=== PATIENT | male | born 1945 | race Caucasian/White ===

== ENCOUNTER → 2016-08-11 | Outpatient (CLI) | payer BC ==
[2016-08-11 11:48] LABS: ALBUMIN 3.9 GM/DL (3.2-5.2); ALBUMIN/GLOBULIN RATIO 1.44 (1.00-1.93); ALKALINE PHOSPHATASE 55 U/L (45-117); ALT/SGPT 21 U/L (12-78); ANION GAP 6 MEQ/L (8-16); AST/SGOT 12 U/L (15-37); BILIRUBIN,TOTAL 0.4 MG/DL (0.2-1.0); BLOOD UREA NITROGEN 18 MG/DL (7-18); CALCIUM LEVEL 8.7 MG/DL (8.8-10.2); CARBON DIOXIDE LEVEL 30 MEQ/L (21-32); CHLORIDE LEVEL 107 MEQ/L (98-107); CHOLESTEROL LEVEL 182 MG/DL (<200); CREATININE FOR GFR 0.89 MG/DL (0.70-1.30); GLOMERULAR FILTRATION RATE > 60.0 (>42); GLUCOSE, FASTING 93 MG/DL (83-110); POTASSIUM SERUM 4.6 MEQ/L (3.5-5.1); SODIUM LEVEL 143 MEQ/L (136-145); TOTAL PROTEIN 6.6 GM/DL (6.4-8.2); TRIGLYCERIDES LEVEL 87 MG/DL (<150)
== END ==
LOC: M LRY 08:14
PROVIDERS: ATTEND Emergency Medicine
DX: I10 Essential (primary) hypertension (principal); N40.0 Benign prostatic hyperplasia without lower urinary tract symptoms
CPT/HCPCS: 36415; 80053; 80061; G0103

== ENCOUNTER → 2017-03-06 | Outpatient (CLI) | payer BC ==
[2017-03-06 12:13] LABS: ALBUMIN 3.7 GM/DL (3.2-5.2); ALBUMIN/GLOBULIN RATIO 1.42 (1.00-1.93); ALKALINE PHOSPHATASE 46 U/L (45-117); ALT/SGPT 30 U/L (12-78); ANION GAP 6 MEQ/L (8-16); AST/SGOT 20 U/L (15-37); BILIRUBIN,TOTAL 0.5 MG/DL (0.2-1.0); BLOOD UREA NITROGEN 20 MG/DL (7-18); CALCIUM LEVEL 7.8 MG/DL (8.8-10.2); CARBON DIOXIDE LEVEL 30 MEQ/L (21-32); CHLORIDE LEVEL 105 MEQ/L (98-107); CHOLESTEROL LEVEL 166 MG/DL (<200); CREATININE FOR GFR 0.79 MG/DL (0.70-1.30); GLOMERULAR FILTRATION RATE > 60.0 (>42); GLUCOSE, FASTING 86 MG/DL (83-110); POTASSIUM SERUM 4.5 MEQ/L (3.5-5.1); SODIUM LEVEL 141 MEQ/L (136-145); TOTAL PROTEIN 6.3 GM/DL (6.4-8.2); TRIGLYCERIDES LEVEL 73 MG/DL (<150)
== END ==
LOC: M LRY 07:53
PROVIDERS: ATTEND Emergency Medicine
DX: N40.0 Benign prostatic hyperplasia without lower urinary tract symptoms (principal); I10 Essential (primary) hypertension
CPT/HCPCS: 36415; 80053; 80061; G0103

== ENCOUNTER → 2017-09-29 | Outpatient (CLI) | payer BC ==
[2017-09-29 12:05] LABS: ALBUMIN 3.6 GM/DL (3.2-5.2); ALBUMIN/GLOBULIN RATIO 1.24 (1.00-1.93); ALKALINE PHOSPHATASE 51 U/L (45-117); ALT/SGPT 28 U/L (12-78); ANION GAP 3 MEQ/L (8-16); AST/SGOT 17 U/L (7-37); BILIRUBIN,TOTAL 0.5 MG/DL (0.2-1.0); BLOOD UREA NITROGEN 22 MG/DL (7-18); CALCIUM LEVEL 8.5 MG/DL (8.8-10.2); CARBON DIOXIDE LEVEL 31 MEQ/L (21-32); CHLORIDE LEVEL 110 MEQ/L (98-107); CHOLESTEROL LEVEL 204 MG/DL (<200); CHOLESTEROL RISK RATIO 3.578 (<5); CREATININE FOR GFR 0.93 MG/DL (0.70-1.30); GLOMERULAR FILTRATION RATE > 60.0 (>42); GLUCOSE, FASTING 97 MG/DL (70-100); HDL CHOLESTEROL 57 MG/DL (>40); NON-HDL-C 147 MG/DL; POTASSIUM SERUM 4.9 MEQ/L (3.5-5.1); PSA SCREENING 0.87 NG/ML (< 4.0); SODIUM LEVEL 144 MEQ/L (136-145); TOTAL PROTEIN 6.5 GM/DL (6.4-8.2); TRIGLYCERIDES LEVEL 60 MG/DL (<150)
== END ==
LOC: M LRY 08:04
DX: I10 Essential (primary) hypertension (principal); N40.0 Benign prostatic hyperplasia without lower urinary tract symptoms

== ENCOUNTER → 2018-03-13 | Outpatient (CLI) | payer BC ==
[2018-03-13 12:04] LABS: BLOOD UREA NITROGEN 25 MG/DL (7-18)
[2018-03-13 12:04] LABS: CREATININE FOR GFR 0.87 MG/DL (0.70-1.30); GLOMERULAR FILTRATION RATE > 60.0 (>42)
== END ==
LOC: M LRY 09:12
DX: M51.17 Intervertebral disc disorders with radiculopathy, lumbosacral region (principal); M51.37 Other intervertebral disc degeneration, lumbosacral region; M96.1 Postlaminectomy syndrome, not elsewhere classified; M47.817 Spondylosis without myelopathy or radiculopathy, lumbosacral region
CPT/HCPCS: 82565

== ENCOUNTER → 2018-06-07 | Outpatient (CLI) | payer BC ==
--- NOTE | 2018-06-07 13:16 | REP ---
Left foot series: Four views: History: Left foot pain. Findings: Four views of the left foot demonstrate mild osteoarthritic spurring at the first and second MTP joints. There are Achilles and plantar calcaneal spurs as well. There is a small spur at the distal fibular tip also noted. No erosive changes seen. No fracture is noted. Impression: First and second MTP joint osteoarthritic spurring. Heel spurs. No acute bony abnormality. Electronically Signed by Jose Kiran MD 06/07/2018 01:22 P
== END ==
LOC: M LRY 11:56
PROVIDERS: ATTEND Nurse Practitioner Family
DX: M77.32 Calcaneal spur, left foot (principal); M19.072 Primary osteoarthritis, left ankle and foot

== ENCOUNTER → 2018-09-10 | Outpatient (CLI) | payer BC, MEDICARE ==
[2018-09-10 07:23] LABS: BASO # 0.1 10^3/uL (0.0-0.2); BASO % 0.9 % (0.0-1.0); EOS # 0.5 10^3/uL (0.0-0.50); EOS % 8.7 % (0.0-3.0); HEMATOCRIT 45.4 % (42.0-52.0); HEMOGLOBIN 15.2 g/dl (13.5-17.5); LYMPH % 16.6 % (24.0-44.0); MEAN CORPUSCULAR HEMOGLOBIN 29.7 pg (27.0-33.0); MEAN CORPUSCULAR HGB CONC 33.5 g/dl (32.0-36.5); MEAN CORPUSCULAR VOLUME 88.7 fl (80.0-96.0); MONO # 0.8 10^3/uL (0.0-0.8); MONO % 13.9 % (0.0-5.0); NEUTROPHILS # 3.4 10^3/uL (1.8-7.7); NEUTROPHILS % 59.4 % (36.0-66.0); PLATELET COUNT, AUTOMATED 237 10^3/uL (150-450); RED BLOOD COUNT 5.12 10^6/uL (4.30-6.10); WHITE BLOOD COUNT 5.8 10^3/uL (4.0-10.0)
[2018-09-10 07:33] LABS: INR 1.02; PROTHROMBIN TIME 13.5 SECONDS (12.1-14.4)
[2018-09-10 07:34] LABS: PARTIAL THROMBOPLASTIN TIME 31.1 SECONDS (25.4-37.6)
[2018-09-10 07:49] LABS: ALBUMIN 3.7 GM/DL (3.2-5.2); ALT/SGPT 38 U/L (12-78); BILIRUBIN,TOTAL 0.5 MG/DL (0.2-1.0); BLOOD UREA NITROGEN 25 MG/DL (7-18); CALCIUM LEVEL 8.6 MG/DL (8.8-10.2); CARBON DIOXIDE LEVEL 30 MEQ/L (21-32); CHLORIDE LEVEL 108 MEQ/L (98-107); CREATININE FOR GFR 1.11 MG/DL (0.70-1.30); GLOMERULAR FILTRATION RATE > 60.0 (>42); GLUCOSE, FASTING 86 MG/DL (70-100); POTASSIUM SERUM 4.3 MEQ/L (3.5-5.1); SODIUM LEVEL 142 MEQ/L (136-145); TOTAL PROTEIN 6.3 GM/DL (6.4-8.2)
== END ==
LOC: M LAB 06:56
DX: Z01.812 Encounter for preprocedural laboratory examination (principal)

== ENCOUNTER → 2018-09-10 | Outpatient (CLI) | payer BC, MEDICARE ==
--- NOTE | 2018-09-10 10:06 | ECGEPIP ---
Stationary ECG Study [facility] Test Date: 2018-09-10 Pat Name: CHARLEEN MEZA Department: Room: - Gender: M Head Of Mathematics: [facility] : 1945 Requested By: Other CDS - complete info on Order Number: [id number] Reading MD: Anum Saldaña Measurements Intervals [place] Rate: 60 P: 22 ME: 209 QRS: 9 QRSD: 91 T: 8 QT: 382 QTc: 382 Interpretive Statements SINUS RHYTHM POSSIBLE ANTERIOR MYOCARDIAL INFARCTION, OF INDETERMINATE AGE no prior Left atrial enlargement BORDERLINE 1ST DEGREE BLOCK Electronically Signed On 09-10-2018 10:06:06 EDT by Anum Saldaña
--- NOTE | 2018-09-10 10:57 | REP ---
Chest two views HISTORY: Preop Comparison: 08/10/2016 There is elevation of the right hemidiaphragm. A calcified granuloma is present in the right lower lobe. Linear density is present in the left lower lobe consistent with scar. The heart is normal in size. The pulmonary vasculature is normal in appearance. The bony structure is intact. IMPRESSION: No acute disease. Electronically Signed by New Hunter MD 09/10/2018 10:48 A
== END ==
LOC: M RAD 09:13
DX: Z01.811 Encounter for preprocedural respiratory examination (principal); M54.89 Other dorsalgia

== ENCOUNTER → 2018-09-11 | Outpatient (REF) | payer BC ==
[2018-09-11 18:51] LABS: CHOLESTEROL RISK RATIO 5.305 (<5)
== END ==
LOC: M LABDRAW1 17:14
PROVIDERS: ATTEND Physician Assistant
DX: I10 Essential (primary) hypertension (principal)

== ENCOUNTER → 2018-10-23 | Outpatient (CLI) | payer BC ==
[2018-10-23 17:53] LABS: CALCIUM LEVEL 9.3 MG/DL (8.8-10.2); CREATININE FOR GFR 1.47 MG/DL (0.70-1.30); GLOMERULAR FILTRATION RATE 50.1 (>42); POTASSIUM SERUM 4.5 MEQ/L (3.5-5.1)
== END ==
LOC: M LRY 10:56
PROVIDERS: ATTEND Physician Assistant
DX: I10 Essential (primary) hypertension (principal)

== ENCOUNTER 2019-02-19 21:20 | Inpatient (IN) | payer MEDICARE, BC ==
[~2019-02-19] VITALS: Ht 180.3 cm; Wt 88.1 kg
[2019-02-19] MEDS ORDERED: NOREPINEPHRINE BITARTRATE 8 MG in D5W 492 ML IV SCH (21:45)
[2019-02-19 22:40] LABS: HEMATOCRIT 31.9 % (42.0-52.0); HEMOGLOBIN 10.3 g/dl (13.5-17.5); MEAN CORPUSCULAR HEMOGLOBIN 28.6 pg (27.0-33.0); MEAN CORPUSCULAR HGB CONC 32.3 g/dl (32.0-36.5); MEAN CORPUSCULAR VOLUME 88.6 fl (80.0-96.0); PLATELET COUNT, AUTOMATED 190 10^3/uL (150-450)
[2019-02-19 22:51] LABS: WHITE BLOOD COUNT 31.9 10^3/uL (4.0-10.0)
[2019-02-19 23:04] LABS: ALBUMIN 2.3 GM/DL (3.2-5.2); BILIRUBIN,DIRECT 0.2 MG/DL (0.0-0.2); BILIRUBIN,TOTAL 0.3 MG/DL (0.2-1.0); CALCIUM LEVEL 7.7 MG/DL (8.8-10.2); CREATININE FOR GFR 2.53 MG/DL (0.70-1.30); GLOMERULAR FILTRATION RATE 26.8 (>42); POTASSIUM SERUM 4.2 MEQ/L (3.5-5.1); TOTAL PROTEIN 5.1 GM/DL (6.4-8.2)
[2019-02-19] MEDS ORDERED: FLON1SPR (23:06)
[2019-02-19] MEDS ORDERED: DICL1GEL3 TOP (23:06)
[2019-02-19] MEDS ORDERED: AMLO10TA5 PO (23:06)
[2019-02-19] MEDS ORDERED: OMEP1CAP73 PO (23:06)
[2019-02-19] MEDS ORDERED: TYLE650T38 PO (23:06)
[2019-02-20] VITALS (75 sets, daily range): BP systolic 83–123; BP diastolic 51–76
[2019-02-20] MEDS: EPINEPHrine HCL INJ 1 MG in D5W 240 ML IV SCH ×2 (00:43→02:45)
[2019-02-20] MEDS ORDERED: NOREPINEPHRINE BITARTRATE 8 MG in D5W 500 ML IV SCH (00:43)
[2019-02-20] MEDS: NOREPINEPHRINE BITARTRATE 8 MG in D5W 492 ML IV SCH ×2 (00:43→14:22)
--- NOTE | 2019-02-20 00:52 | HPEPDOC ---
[facility] Medical History & Physical Date of Admission Feb 20, 2019 Date of Service: Feb 20, 2019 Primary Care Physician: A Other Provider Hannah PRICE Attending Physician: MAE LEYVA MD History and Physical TIME OF SERVICE: 12:55 AM CC Time 60 min CHIEF COMPLAINT: n/v/d HISTORY OF PRESENT ILLNESS: This is a 79-year-old male that was transferred from [facility] for a higher level of care. He went to the hospital yesterday at about noon with complaints of intermittent rigors, weakness, nausea, 6 episodes of non-bloody vomiting and diarrhea for the past few days. Associated symptoms include change in the smell of the urine and urinary frequency. He denied having abdominal pain, black emesis or CVA tenderness. A month ago. He was diagnosed with a kidney stone and had a ureteral stent placed. At [facility] his WBC count was 18.1, hemoglobin is 11.2, platelets are 229. Sodium was 136, potassium was 4.0, chloride was 99, bicarbonate was 25, BUN is 29, creatinine was 2.5, glucose was 162, Lactic acid was 2.6, and Lipase was 25. The UA showed 5+ ketones, routine 100, leukocyte esterase 520, blood 500, WBCs too numerous to count, and 2+ bacteria. CT of the abdomen showed left hydronephrosis with left hydroureter down to the bladder and left lateral wall thickening. A gallstone was also noted. He received 5 L of normal saline, Rocephin, Zofran, ranitidine, and was started Levophed which is currently running at 20. Currently, the patient's only complaints are of a headache, feeling thirsty, and back pain which she attributes to the hospital bed. REVIEW OF SYSTEMS: 12 point review of systems negative except as listed in HPI PAST MEDICAL/ SURGICAL HISTORY: GERD/Louie's Diverticulosis Nephrolithiasis Status post ureteral stent placement. Osteoarthritis. Obstructive sleep apnea line. Status post tonsillectomy SOCIAL HISTORY: Nonsmoker Alcohol use recreationally FAMILY HISTORY: Colon cancer Hypertension ALLERGIES: Please see below. HOME MEDICATIONS: Please see below. PHYSICAL EXAMINATION: VITAL SIGNS: Please see below. GENERAL APPEARANCE: Well-nourished, well-developed, not in apparent distress HEENT: Normocephalic, atraumatic, mucous members moist and pink CARDIOVASCULAR: Rate and rhythm, no murmurs, rubs or gallops, no lower extremity edema, extreme is warm and well-perfused LUNGS: Clear to auscultation bilaterally on room air ABDOMEN: Bowel sounds are hypoactive. Abdomen is soft and nontender on palpation MUSCULOSKELETAL: Range of motion is intact in all 4 extremities INTEGUMENT: Skin is slightly flushed and diaphoretic NEUROLOGICAL: Cranial nerves II-12 are grossly intact. Speech is not dysarthric PSYCHIATRIC: Alert and oriented to person, place and time, able to understand and follow commands LABORATORY DATA: See HPI and below. IMAGING: See HPI MICROBIOLOGY: Please see below. ASSESSMENT: Mr. Farrell is 73-year-old male with a past medical history of JARRET, Louie's, GERD, hypertension, and recent ureteral stent placement who is admitted for management of sepsis secondary to UTI and CHRISTELLE. PLAN: 1. Septic Shock secondary to UTI SIRS criteria include WBC 31 / RR 23 His MAP has ranged from 56-74, his 0.5 L of IV fluids while on Levophed Initial lactic acid was 2.6 and has decreased down to 1.6 Signs of end organ damage include acute elevation in creatinine Patient's blood pressure remains low despite fluid resuscitation. He is currently on Levophed -Qsofa Score = 2 = high risk Plan: admit to ICU / telemetry / Sepsis protocol / c/w ceftriaxone for UTI / c/w IVF /f/u blood cx, UA w Cx /continue Levophed, consult elastic tape inserter for placement of central line/ epinephrine PRN if Levophed is maxed out (left instructions for the nursing staff to call the M.D. on-call for orders for albumin and steroids if this medication is necessary) 2. UTI Plan: c/w ceftriaxone / f/u Ucx, blood Cx and BMP 3.CHRISTELLE Likely 2/2 prerenal azotemia due to dehydration from the infection vs AIN bc of elevated Cr UA w leukocytes with an infection Baseline, BUN 25, today it is 32 Baseline GFR greater than 60 today it is 26.8 Baseline creatinine 1.1 today it is 2.53 Plan: Is/Os, daily weights / f/u ulytes for FENa or FEUrea, renal US, IVF 4. JARRET. Plan: Follow up with elastic tape inserter for CPAP. 5. GERD/Louie's Plan: IV PPI 6. Headache Plan: Ofrimev FASTHUGS -NPO, Ofrimev, no sedation, DVT px w heparin, head of bed elevated, PPI, glycemic goal 140-180 Disposition pending clinical course Vital Signs Vital Signs Date Time Temp Pulse Resp B/P (MAP) Pulse Ox O2 Delivery O2 Flow Rate FiO2 02/20/19 00:45 57 95/51 (66) 92 02/19/19 23:47 17 02/19/19 23:00 Room Air 02/19/19 21:33 98.2 Laboratory Data Labs 24H Laboratory Tests 2 02/19/19 22:28: Nucleated Red Blood Cells % (auto) 0.0, Anion Gap 7L, Glomerular Filtration Rate 26.8L, Calcium Level 7.7L, Aspartate Amino Transf (AST/SGOT) 17, Alanine Aminotransferase (ALT/SGPT) 14, Alkaline Phosphatase 59, Total Bilirubin 0.3, Direct Bilirubin 0.2, Total Protein 5.1L, Albumin 2.3L, Albumin/Globulin Ratio 0.82L 02/19/19 22:29: Lactic Acid Level 1.6 CBC/BMP Laboratory Tests 02/19/19 22:28 Red Blood Count 3.60 L, Mean Corpuscular Volume 88.6, Mean Corpuscular Hemoglobin 28.6, Mean Corpuscular Hemoglobin Concent 32.3, Red Cell Distribution Width 13.1 Home Medications Scheduled Amlodipine Besylate (Amlodipine Besylate) 10 Mg Tablet, 10 MG PO DAILY Omeprazole (Omeprazole) 20 Mg Capsule.dr, 20 MG PO DAILY Scheduled PRN Acetaminophen (Tylenol 8 Hour) 650 Mg Tablet.er, 650 MG PO Q8H PRN for PAIN Diclofenac Sodium (Diclofenac Sodium) 1% 100GM Gel..gram., 1 DOSE TOP QID PRN for PAIN APPLIES TO BACK NEEDED Fluticasone Propionate (Flonase Allergy Relief) 9.9 Ml [place].susp, 2 SPRAYS NA DAILY PRN for NASAL CONGESTION Allergies Coded Allergies: ciprofloxacin (Verified Allergy, Intermediate, hives, flushing, 02/19/19) Penicillins (Verified Allergy, Mild, PRURITIS, 02/19/19) A-FIB/CHADSVASC A-FIB History Current/History of A-Fib/PAF?: No Current PO Anticoag Therapy: No MAE LEYVA MD Feb 20, 2019 00:52
[2019-02-20] MEDS: NS 1,000 ML IV SCH ×3 (01:01→10:38)
[2019-02-20] MEDS ORDERED: ACETAMINOPHEN *IV* 1,000 MG in IV 1 EA IV ONE (01:30)
[2019-02-20] MEDS: PANTOPRAZOLE 40MG INJ (PROTONIX) (C9113) IV SCH (01:45)
[2019-02-20] MEDS ORDERED: cefTRIAXone SOD 1 GM in D5W MINI-BAG PLUS 50 ML IV SCH (04:00)
[2019-02-20 04:03] LABS: ABG BASE EXCESS -4.6 (-2.0-2.0); ABG O2 SATURATION 96.1 % (95.0-99.0); ABG PARTIAL PRESSURE CO2 30.4 mmHg (35.0-45.0); ABG PARTIAL PRESSURE O2 79.3 mmHg (75.0-100.0); ABG STANDARD HCO3 20.6 MEQ/L (22.0-26.0); ABG TOTAL CO2 19.9 MEQ/L (23.0-31.0); ABG pH (ARTERIAL) 7.414 UNITS (7.350-7.450)
[2019-02-20] MEDS ORDERED: VANCOMYCIN HCL 1,000 MG, VIAL MATE ADAPTER 1 EACH in D5W 250 ML IV ONE (04:15)
[2019-02-20] MEDS: ACETAMINOPHEN TAB 650MG DOSE (2X325MG) PO PRN ×2 (04:28→14:22)
[2019-02-20 04:35] LABS: SODIUM,RANDOM URINE 14 MEQ/L; UREA NITROGEN RANDOM URINE 554 MG/DL
[2019-02-20] MEDS: HEPARIN SOD (PORCINE) 5000 UNITS/ML VIAL SC SCH ×3 (05:47→22:03)
[2019-02-20] MEDS: MEROPENEM INJ 1 GM in IV 1 EA IV SCH ×2 (05:48→17:23)
[2019-02-20 06:25] LABS: HEMATOCRIT 28.7 % (42.0-52.0); HEMOGLOBIN 9.3 g/dl (13.5-17.5); MEAN CORPUSCULAR HEMOGLOBIN 28.3 pg (27.0-33.0); MEAN CORPUSCULAR HGB CONC 32.4 g/dl (32.0-36.5); MEAN CORPUSCULAR VOLUME 87.2 fl (80.0-96.0); PLATELET COUNT, AUTOMATED 183 10^3/uL (150-450); RED BLOOD COUNT 3.29 10^6/uL (4.30-6.10)
[2019-02-20 06:28] LABS: WHITE BLOOD COUNT 31.7 10^3/uL (4.0-10.0)
[2019-02-20 06:40] LABS: ALBUMIN 2.2 GM/DL (3.2-5.2); BILIRUBIN,TOTAL 0.3 MG/DL (0.2-1.0); CALCIUM LEVEL 7.7 MG/DL (8.8-10.2); CREATININE FOR GFR 2.37 MG/DL (0.70-1.30); GLOMERULAR FILTRATION RATE 28.9 (>42); PHOSPHORUS LEVEL 2.5 MG/DL (2.5-4.9); POTASSIUM SERUM 4.1 MEQ/L (3.5-5.1); TOTAL PROTEIN 5.3 GM/DL (6.4-8.2)
[2019-02-20 06:59] LABS: LYMPHOCYTES 3 % (16-44); MONOCYTES 1 % (0-5); NEUTROPHILS 91 % (28-66)
[2019-02-20 07:00] LABS: PLATELET ESTIMATE NORMAL (NORMAL)
--- NOTE | 2019-02-20 07:10 | CR ---
DATE OF CONSULTATION: 02/20/2019 I was asked by Dr. Arnold to evaluate Mr. Farrell for hypotensive recommendations. HISTORY OF PRESENT ILLNESS: Mr. Farrell is a 73-year-old white male who presented to [facility] with a several-day history of intermittent rigors, weakness, nausea, emesis and diarrhea. He also noted a change in the odor of his urine as well as urinary frequency. He proceeded to the emergency department there where he was diagnosed with a urinary tract infection and given ceftriaxone. He was also found to be hypotensive. He received fluid resuscitation eventually he received approximately 5 liters and was also on 20 mcg of Levophed when he was transferred to [facility] for further management. When he arrived here, his MAPs were in the 70s and he was relatively rapidly able to be weaned to Levophed level of 10 mcg. His lactic acid in [place] was mildly elevated at 2.6, but was normal upon arrival here. He denies any dyspnea on exertion, shortness of breath or cough. No abdominal pain. No lower extremity edema. He did have a small blister on his right heel that occurred after walking in crocs without socks. He denies any significant past medical history short of hypertension and recent urologic difficulties. In regards to his urologic difficulties, he notes that 6 months ago he had a stone. That apparently was complicated by hydronephrosis which required stent placement. He had a stent placed suprapubically by suprapubic access about a month ago. The wound has been healing appropriately with no drainage. He also has had a laminectomy done within the last few months. His urologist is out of [place] and his laminectomy was done in [place]. PAST MEDICAL HISTORY: 1. Gastroesophageal reflux disease (GERD)/Louie's esophagitis. 2. Diverticulosis. 3. Nephrolithiasis. 4. Status post ureteral stent placement approximately a month ago. 5. Status post laminectomy in the past few months. 6. Obstructive sleep apnea, not currently wearing C-PAP because of frequent nocturia. 7. Status post tonsillectomy. 8. Hypertension. SOCIAL HISTORY: He has a very remote tobacco history. Social alcohol usage. His previous work history included working at [employer]. FAMILY HISTORY: Notable for colon cancer and hypertension. ALLERGIES: - CIPROFLOXACIN - PENICILLIN MEDICATIONS ON ADMISSION: - amlodipine 10 mg by mouth daily - omeprazole 20 mg by mouth daily - acetaminophen 650 mg by mouth every 8 hours as needed - diclofenac gel to his back four times a day as needed - fluticasone nasal spray 2 sprays daily as needed REVIEW OF SYSTEMS: Per history of present illness (HPI). Remainder of pertinent review of systems are negative except that he had previously had a headache and he has chronic back pain. He admits to being thirsty. PHYSICAL EXAMINATION: General: Mr. Farrell is lying in bed in no acute distress. He can complete full sentences. No cough throughout the evaluation. Vital Signs: Temperature 98.2 with a T-max of 99.2, pulse 60, blood pressure 102/61, MAP 77, respiratory rate teens, and SPO2 94-97% on room air. HEENT: Anicteric. Nares patent bilaterally. Nares clear, dry mucosa. Neck: Supple, without jugular venous distention (JVD), thyromegaly, or masses. Trachea is midline. Lymph: Without cervical or supraclavicular lymphadenopathy. Chest: Perhaps slight increased AP diameter. Lungs: Symmetric excursion, good air entry with absent breath sounds at the right base. No wheeze, rhonchi or crackle on tidal excursion. Normal I:E. No accessory muscle usage or retractions. Cardiovascular: Regular rate and rhythm, normal S1 and S2. No murmur, rub or gallop appreciated. Abdomen: Positive bowel sounds. Soft, nondistended, nontender. Well-healing suprapubic scar with a small catheter extruding from it. No organomegaly. No masses. Extremities: Warm and well perfused. Normal capillary refill. Palpable pedal pulses bilaterally. No cyanosis or clubbing. Skin: Small lesion on the anterior right ankle from where he had the crocs. LABORATORY DATA: CBC showed a hemoglobin of 10.3, hematocrit 31.9, platelet count 190,000, white blood cell count 31,900. Chemistry showed a sodium of 141, potassium 4.2, chloride 109, bicarbonate 25, anion gap 7, BUN 32, creatinine 2.53, glucose 119, lactic acid 1.6, calcium 7.7, total bilirubin 0.3, AST 17, ALT 14, alkaline phosphatase 59, total protein 5.1, albumin 2.3. I reviewed his chest x-ray after right IJ placement which showed an elevated right hemidiaphragm. Normal-appearing cardiac silhouette and pulmonary vascular shadows. Normal appearing mediastinal and hilar regions. No consolidated areas. At [facility], his WBC count was 18,100, creatinine 2.59, BUN 29, and his lactic acid was 2.6. Urinalysis (UA) showed 5+ ketones, protein 100, leukocyte esterase 520, blood 500, WBCs too numerous to count, and 2+ bacteria. I am not certain how the urine was obtained. Per report, the CT of the abdomen showed left hydronephrosis with left hydroureter down to the bladder and left lateral wall thickening. Gallstone was also noted. IMPRESSION: 1. Sepsis secondary to urinary tract infection (UTI). 2. Hypotension. While he is septic, he does not meet the criteria for septic shock. I suspect a significant portion of this is secondary to dehydration related to his emesis and diarrhea preceding this admission. He also has ketones in his urine which would be consistent with this process. 3. Left hydronephrosis and left ureteral stent. 4. Deep vein thrombosis (DVT) prophylaxis with subcutaneous heparin. 5. Stress ulcer prophylaxis as well as for his Louie's esophagitis, on proton pump inhibitor. 6. Nutrition. Currently nothing by mouth (n.p.o.). RECOMMENDATIONS: 1. Will monitor CVP. He still appears clinically hypovolemic. 2. Replace urinary catheter for critical care monitoring. 3. Would change antibiotic to meropenem and a single dose of vancomycin given his complicated UTI with sepsis pending culture results. 4.. Agree with Levophed as the agent at the present time. Hopefully, that will be able to be weaned as he is effectively fluid resuscitated and sepsis clears. CRITICAL CARE TIME: 40 minutes, not including procedure time. MTDD
--- NOTE | 2019-02-20 09:16 | REP ---
PORTABLE CHEST: AP portable view of the chest is performed and compared to a prior study of 09/10/2018. There is poor ventilation. There is mild elevation of the right hemidiaphragm. Calcified granuloma is seen in the right lung base. There is mild bibasilar fibroatelectatic change. Cardiac silhouette is magnified. There is a right central venous catheter with the tip in the right atrium. There is no pneumothorax. Electronically Signed by Jimbo Dumas MD 02/21/2019 08:04 A
--- NOTE | 2019-02-20 09:26 | RO ---
DATE OF PROCEDURE: 02/20/2019 PREOPERATIVE DIAGNOSIS: Hypotension and need for vasopressors and CVP monitoring. POSTOPERATIVE DIAGNOSIS: Hypotension and need for vasopressors and CVP monitoring. SURGEON: Dr. Asia Pedro. MACHINE OPERATOR TRANSPLANTER: None. ANESTHESIA: Lidocaine. DESCRIPTION OF PROCEDURE: Procedure explained and consent obtained. [place] procedure was done. The right internal jugular (IJ) region was prepped and draped in sterile fashion. 1% lidocaine was used for local anesthetic. The right IJ was located by ultrasound. It was penetrated twice and on the third penetration, the wire was able to be fed without difficulty. There was some difficulty getting the dilator through his skin / tissue. Traction was applied to the region and then the dilator was able to be utilized. The catheter was then inserted. All three lines reji and flushed easily. It was sutured in position and position was confirmed by chest x-ray with no pneumothorax. He tolerated the procedure well. ALCIDES
--- NOTE | 2019-02-20 09:28 | REP ---
Urinary tract sonogram: History: Acute kidney insufficiency. Comparison: Comparison CT study February 19, 2019 Findings: Scanning at the level of the urinary bladder shows no abnormality. There is a bladder catheter. No fluid is visible within the bladder lumen. Renal cortical echogenicity pattern is normal bilaterally and contours are smooth. There is moderate hydronephrosis affecting the left kidney. There is a small parenchymal calcification in the left kidney 1.3 cm in diameter upper pole corresponding to the CT. There is a 0.7 cm cyst in the lower pole left kidney and a 2.1 cm cyst in the right kidney. There is no evidence of hydronephrosis on the right. The right kidney measures 12.4 x 6.9 x 6.8 cm. Left renal dimensions are 12.4 x 6.4 x 6.4 cm. Impression: Moderate hydronephrosis left kidney. Bilateral renal cysts. 1.3 cm calcified area in the left kidney parenchyma. Otherwise negative urinary tract sonography. Electronically Signed by Jose Kiran MD 02/20/2019 09:20 A
--- NOTE | 2019-02-20 09:54 | REP ---
KUB: Portable exam single view. HISTORY: Suprapubic catheter in place. Evaluate position. FINDINGS: A suprapubic catheter is seen looped within the pelvis and the super pubic soft tissues just to the right of midline. The patient is status post laminectomy at L5 and L4. Bowel gas pattern is unremarkable. IMPRESSION: Suprapubic catheter noted in the central pelvis just to the right of midline. Electronically Signed by Jose Kiran MD 02/20/2019 10:55 A
[2019-02-20] MEDS ORDERED: LR 1,000 ML IV ONE (11:00)
--- NOTE | 2019-02-20 11:27 | CCN ---
DATE: 02/20/2019 Mr. Farrell remains critically ill with hypotension thought in part secondary to both dehydration as well as sepsis. He does not meet the criteria for septic shock. He has done well since I last saw him around 4 o'clock this morning. He denies any nausea or emesis. He has had no further diarrhea. No chest pain or pressure. No cough. He tells me today that preceding his acute symptoms he started feeling a burning sensation with urination and also noted that his urine was "grainy" in appearance and not clear. He was starting to get concerned. Additionally, he tells me that the portion of the stent that is external would slide out some and he was actually pushing it back in to his abdomen. No other concerns expressed. Vital Signs: Temperature 98.1, pulse 72, blood pressure 88/51 with a MAP of 64 on 5 mcg of Levophed, SPO2 96% on room air. Laboratory Data: Ins and outs from yesterday were 1990.4 in and 900 out making him positive 1090. Weight 85.9. Urine output is now clear. CBC from this morning shows a hemoglobin 9.3, hematocrit 28.7, platelet count 183,000, white blood cell count 31,700 with a differential of 91% neutrophils, 5% bands and 3% lymphocytes. Chemistry shows sodium 139, potassium 4.1, chloride 108, bicarbonate 24, anion gap 7, BUN 34, creatinine 2.4, glucose 128, calcium 7.7, phosphorus 2.5, total bilirubin 0.3, AST 14, ALT 15, alkaline phosphatase 62, LDH 147, CK 218, total protein 5.3, albumin 2.2. His urinalysis from here showed a pH of 5.0, specific gravity 1.012, 2+ blood, 3+ leukocyte esterase, 67 WBCs, 11 RBCs and 1+ bacteria. Urine creatinine 192, urine sodium 14, urine urea nitrogen 554. Abdominal x-ray done earlier today was read as showing suprapubic catheter noted in the central pelvis just to the right of the midline. IMPRESSION: 1. Sepsis secondary to urinary tract infection (UTI). Based on his history as well as a markedly elevated WBC, I suspect that the stent will need to be removed and is the nidus for his infection. 2. Hypotension. [place] both from sepsis, but also hypovolemia related to diarrhea and emesis. He had a normal lactic acid. 3. Left hydronephrosis with left ureteral stent. 4. Deep vein thrombosis (DVT) prophylaxis and stress ulcer prophylaxis in place. 5. Nutrition. On renal diet. RECOMMENDATIONS: 1. We checked a CVP and it was 4, so he needs more IV fluids rather than just increasing the Levophed. 2. Given his elevated chloride, will change his bolus to lactated Ringer's. When his current IV bag of normal saline is completed, we will change his maintenance fluid to lactated Ringer's. 3. Mr. Farrell has been seen by Dr. Weinstein and appreciate his input. 4. At the present time, will continue meropenem. He received one dose of vancomycin, but given his creatinine level that likely is sufficient for at least 24 hours. 5. Will track down culture results, both urine and blood from [facility]. 6. Urology has also been consulted regarding possible removal of stent. Additional critical care time 10 minutes, not including procedures. ALCIDES
--- NOTE | 2019-02-20 11:36 | IPNPDOC ---
Text Note Date of Service The patient was seen on 02/20/19. NOTE SUBJECTIVE: Patient admitted overnight as transfer from [facility] for [facility] care. He had been having fevers, chills and just not feeling right beginning 2 weeks after a left ureteral stent was placed for kidney stones. Around this time he also had his indwelling kelly catheter removed and just felt like he continued to get worse from that point on. OBJECTIVE: PHYSICAL EXAM: Vitals: (see below) General: No acute distress, laying comfortably in bed. HEENT: Normocephalic, atraumatic. EOMI. No scleral icterus. dry mucous membranes. No pharyngeal erythema or uvular deviation. Neck: No JVD, lymphadenopathy, or thyromegaly. Central line in place on the right side of the neck. Cardiac: RRR, Normal S1 and S2, No murmurs, gallops, rubs. Pulm: Clear to auscultation b/l. Symmetric thorax. No wheezing, crackles, rhonchi Abd: Bowel Sounds present. Abdomen is soft, tender to palpation in bilateral lower quadrants with transverse scar in lower abdomen and suprapubic catheter in place in RLQ. Wound is C/D/I. No guarding, rebound tenderness, or rigidity. Ext: No edema or cyanosis Neuro: No focal neuro deficits LABORATORY DATA, MICROBIOLOGY: Please see below. IMAGING STUDIES: 02/20/19 CXR: There is poor ventilation. There is mild elevation of the right hemidiaphragm. Calcified granuloma is seen in the right lung base. There is mild bibasilar fibroatelectatic change. Cardiac silhouette is magnified. There is a right central venous catheter with the tip in the right atrium. There is no pneumothorax. 02/20/19 Renal U/S Moderate hydronephrosis left kidney. Bilateral renal cysts. 1.3 cm calcified area in the left kidney parenchyma. Otherwise negative urinary tract sonography. 02/20/19 Abdominal KUB Suprapubic catheter noted in the central pelvis just to the right of midline. ASSESSMENT AND PLAN: #.Sepsis - possibly 2/2 Complicated UTI, possibly 2/2 intra-abdominal infection, (positive UA with WBC count of 31). -Patient currently on Meropenem (broad sepctrum / anaerobic coverage), s/p 1 dose of Vancomycin - pending urine culture results from [facility]. He continues to receive IV fluids and is still on levophed for hypotension unresponsive to fluids. -Nephrology consulted for assessment of his CHRISTELLE with reduced GFR. Dr. Weinstein is on board, recommendations appreciated -Urology is also consulted for assessment of the patient's suprapubic catheter to see if it is a possible nidus for his infection or if his new L-ureteral stent is serving as a source. Dr. Olmos to see the patient. Renal US showing moderate hydronephrosis of the left kidney. Bilateral renal cysts. - Perl Software Engineer on consult; appreciate their input #. CHRISTELLE -Will continue with IV fluids and antibiotics, nephrology to see patient, recommendations appreciated #.Louie's Esophagitis -Continue IV PPI DVT prophylaxis:heparin SQ VS,Fishbone, I+O VS, Fishbone, I+O Laboratory Tests 02/19/19 22:28 Red Blood Count 3.60 L, Mean Corpuscular Volume 88.6, Mean Corpuscular Hemoglobin 28.6, Mean Corpuscular Hemoglobin Concent 32.3, Red Cell Distribution Width 13.1 02/20/19 05:57 Red Blood Count 3.29 L, Mean Corpuscular Volume 87.2, Mean Corpuscular Hemoglobin 28.3, Mean Corpuscular Hemoglobin Concent 32.4, Red Cell Distribution Width 13.2, Neutrophils # (Auto) , Monocytes # (Auto) , Calcium Level 7.7 L, Phosphorus Level 2.5, Aspartate Amino Transf (AST/SGOT) 14, Alanine Aminotransferase (ALT/SGPT) 15, Lactate Dehydrogenase 147, Total Creatine Kinase 218, Alkaline Phosphatase 62, Total Bilirubin 0.3, Triglycerides Level 57, Cholesterol Level 72, Total Protein 5.3 L, Albumin 2.2 L Vital Signs Date Time Temp Pulse Resp B/P (MAP) Pulse Ox O2 Delivery O2 Flow Rate FiO2 02/20/19 08:40 67 92/58 (69) 95 02/20/19 08:01 98.0 20 Room Air I&O- Last 24 Hours up to 6 AM 02/20/19 06:00 Intake Total 1011 ml Output Total 300 ml Balance 711 ml GME ATTESTATION GME ATTESTATION My faculty preceptor for this patient encounter was physically present during the encounter and was fully available. All aspects of the patient interview, examination, medical decision making process, and medical care plan development were reviewed and approved by the faculty preceptor. The faculty preceptor is aware and concurs with the plan as stated in the body of this note and will attest to such by his/her cosignature. ATTENDING NOTE I, Lizzie Boston, have independently examined this patient and performed my own physical exam, as well as reviewed the documentation and edited where necessary. I have discussed in detail with the resident / student the findings and plan of treatment as documented by the resident / student and edited their note. I agree with their findings and treatment plan and have edited their documentation. I will continue to follow the patient during this hospital stay. ROSA CARPENTER DO Feb 20, 2019 11:36 LIZZIE BOSTON MD Feb 20, 2019 14:24
--- NOTE | 2019-02-20 16:48 | CR.PDOC ---
General Date of Consultation: Feb 20, 2019 Consultation REASON FOR CONSULTATION/CHIEF COMPLAINT: Urosepsis HISTORY OF PRESENT ILLNESS: 73-year-old male who was transferred to [facility] for sepsis. Patient reports he has a history of a left ureteral stone in August which was impacted and could not be stented. He underwent a left neph rostomy tube placement and then underwent lithotripsy. It is unclear whether patient underwent ESWL versus antegrade ureteroscopy with laser lithotripsy. Patient had persistent obstruction of his left ureter. He underwent a left ureteral reimplantation one month ago. A drain is present in the right lower quadrant which is capped. A CT scan from an outside hospital was available for review. The drain is coiled inside the bladder. There are no tubes in the left ureter. A calcification was present in the parenchyma of the left kidney. No stones are seen. Left hydronephrosis is present and this is likely chronic and secondary to reflux from his ureteral reimplantation and chronic obstruction. David mix currently has a Gonzalez catheter in place. He is currently hemodynamically stable. Patient states he was voiding prior to admission to the hospital. He states his urine was cloudy and dark. He denies a history of urinary tract infections. ALLERGIES: Please see below. HOME MEDICATIONS: Please see below. PAST MEDICAL HISTORY: 1. GERD. 2. Diverticulosis. 3. Nephrolithiasis PAST SURGICAL HISTORY: 1. Left ureteral reimplantation 2. Tonsillectomy REVIEW OF SYSTEMS: 10 point review of systems was reviewed and are noncontributory. PHYSICAL EXAMINATION: VITAL SIGNS: Please see below. GENERAL APPEARANCE: Awake and alert lying comfortably in a hospital bed. HEENT: Unremarkable. RESPIRATORY: No respiratory distress. CARDIOVASCULAR: No peripheral edema. ABDOMEN: Soft nontender nondistended. Well-healed Pfannenstiel incision. A drain is present in the right lower quadrant which is capped. EXTREMITIES: Full range of motion. NEUROLOGICAL: No focal deficits. The drain in the right lower quadrant was not sutured to the skin. This was removed at bedside without difficulty. LABORATORY DATA: Please see below. Urine and blood cultures are pending WBC 30K, creatinine 2.3. Baseline creatinine is unknown. ASSESSMENT/PLAN: 1. Urosepsis. Patient is status post ureteral reimplantation one month ago. I suspect the drain was a ureteral stent which migrated into the bladder. Since the tube was capped patient had chronic bacteriuria in a closed system which made him at risk for a UTI and urosepsis. Recommend continuation of antibiotics for 10-14 days. Maintain a Gonzalez catheter for at least 48 hours so that the suprapubic drain tract will close. Patient will follow-up with his urologist following discharge from [facility]. Vital Signs/I&O Vital Signs Date Time Temp Pulse Resp B/P (MAP) Pulse Ox O2 Delivery O2 Flow Rate FiO2 02/20/19 15:15 71 103/61 (75) 96 02/20/19 12:00 97.4 18 Room Air I&O- Last 24 Hours up to 6 AM 02/20/19 06:00 Intake Total 1011 ml Output Total 300 ml Balance 711 ml Laboratory Data Labs 24H Laboratory Tests 2 02/19/19 22:28: Nucleated Red Blood Cells % (auto) 0.0, Anion Gap 7L, Glomerular Filtration Rate 26.8L, Calcium Level 7.7L, Aspartate Amino Transf (AST/SGOT) 17, Alanine Aminotransferase (ALT/SGPT) 14, Alkaline Phosphatase 59, Total Bilirubin 0.3, Direct Bilirubin 0.2, Total Protein 5.1L, Albumin 2.3L, Albumin/Globulin Ratio 0.82L 02/19/19 22:29: Lactic Acid Level 1.6 02/20/19 03:46: Blood Gas Bicarbonate Standard 20.6L, Arterial Blood pH 7.414, Arterial Blood Partial Pressure CO2 30.4L, Arterial Blood Partial Pressure O2 79.3, Arterial Blood Total CO2 19.9L, Arterial Blood HCO3 19.0L, Arterial Blood Base Excess - 4.6L, Arterial Blood Oxygen Saturation 96.1 02/20/19 04:01: Urine Color YELLOW, Urine Appearance CLEAR, Urine pH 5.0, Urine Specific Flushing 1.012, Urine Protein NEGATIVE, Urine Glucose (UA) NEGATIVE, Urine Ketones NEGATIVE, Urine Blood 2+H, Urine Nitrite NEGATIVE, Urine Bilirubin NEGATIVE, Urine Urobilinogen 0.2, Urine Leukocyte Esterase 3+H, Urine WBC (Auto) 67H, Urine RBC (Auto) 11H, Urine Hyaline Casts (Auto) 0, Urine Bacteria (Auto) 1+H, Urine Squamous Epithelial Cells 0, Urine Mucus (Auto) SMALL, Urine Sperm (Auto) , Urine Random Creatinine 192.0, Urine Random Sodium 14, Urine Random Urea Nitrogen 554 9/11/19 05:57: White Blood Count 31.7*H, Red Blood Count 3.29L, Hemoglobin 9.3L, Hematocrit 28.7L, Mean Corpuscular Volume 87.2, Mean Corpuscular Hemoglobin 28.3, Mean Corpuscular Hemoglobin Concent 32.4, Red Cell Distribution Width 13.2, Platelet Count 183, Neutrophils # (Auto) , Monocytes # (Auto) , Nucleated Red Blood Cells % (auto) 0.0, Neutrophils 91H, Band Neutrophils 5, Lymphocytes (Manual) 3L, Monocytes (Manual) 1, Platelet Estimate NORMAL, Red Blood Cell Morphology NORMAL, Anion Gap 7L, Glomerular Filtration Rate 28.9L, Blood Urea Nitrogen 34H, Creatinine 2.37H, Sodium Level 139, Potassium Level 4.1, Chloride Level 108H, Carbon Dioxide Level 24, Calcium Level 7.7L, Phosphorus Level 2.5, Aspartate Amino Transf (AST/SGOT) 14, Alanine Aminotransferase (ALT/SGPT) 15, Lactate Dehydrogenase 147, Total Creatine Kinase 218, Alkaline Phosphatase 62, Total Bilirubin 0.3, Triglycerides Level 57, Cholesterol Level 72, Total Protein 5.3L, Albumin 2.2L, Albumin/Globulin Ratio 0.71L CBC/BMP Laboratory Tests 02/19/19 22:28 Red Blood Count 3.60 L, Mean Corpuscular Volume 88.6, Mean Corpuscular Hemoglobin 28.6, Mean Corpuscular Hemoglobin Concent 32.3, Red Cell Distribution Width 13.1 02/20/19 05:57 Red Blood Count 3.29 L, Mean Corpuscular Volume 87.2, Mean Corpuscular Hemoglobin 28.3, Mean Corpuscular Hemoglobin Concent 32.4, Red Cell Distribution Width 13.2, Neutrophils # (Auto) , Monocytes # (Auto) , Calcium Level 7.7 L, Phosphorus Level 2.5, Aspartate Amino Transf (AST/SGOT) 14, Alanine Aminotransf erase (ALT/SGPT) 15, Lactate Dehydrogenase 147, Total Creatine Kinase 218, Alkaline Phosphatase 62, Total Bilirubin 0.3, Triglycerides Level 57, Cholesterol Level 72, Total Protein 5.3 L, Albumin 2.2 L Microbiology Microbiology 02/20/19 Blood Culture, Received Pending 02/20/19 Blood Culture, Received Pending 02/20/19 Urine Culture, Received Pending Allergies Coded Allergies: ciprofloxacin (Verified Allergy, Intermediate, hives, flushing, 02/19/19) Penicillins (Verified Allergy, Mild, PRURITIS, 02/19/19) Home Medications Scheduled Amlodipine Besylate (Amlodipine Besylate) 10 Mg Tablet, 10 MG PO DAILY, (Reported) Omeprazole (Omeprazole) 20 Mg Capsule.dr, 20 MG PO DAILY, (Reported) Scheduled PRN Acetaminophen (Tylenol 8 Hour) 650 Mg Tablet.er, 650 MG PO Q8H PRN for PAIN, (Reported) Diclofenac Sodium (Diclofenac Sodium) 1% 100GM Gel..gram., 1 DOSE TOP QID PRN for PAIN, (Reported) APPLIES TO BACK NEEDED Fluticasone Propionate (Flonase Allergy Relief) 9.9 Ml [place].susp, 2 SPRAYS NA DAILY PRN for NASAL CONGESTION, (Reported) Man Olmos MD Feb 20, 2019 16:48
[2019-02-20] MEDS ORDERED: LR 1,000 ML IV SCH (20:15)
[2019-02-20] MEDS ORDERED: PANTOPRAZOLE 40MG INJ (PROTONIX) (C9113) IV ONE (22:00)
[2019-02-21] VITALS (10 sets, daily range): BP systolic 90–140; BP diastolic 55–76
[2019-02-21] MEDS: ACETAMINOPHEN TAB 650MG DOSE (2X325MG) PO PRN ×2 (01:36→16:30)
[2019-02-21] MEDS ORDERED: LR 1,000 ML IV SCH (02:55)
--- NOTE | 2019-02-21 04:37 | REPVR ---
EXAM: XR Chest, 1 View EXAM DATE/TIME: 02/21/19 (1:58am) CLINICAL HISTORY: 73 year old male with chest tightness TECHNIQUE: Imaging protocol: Portable CXR Views: 1 view COMPARISON: Portable CXR of 02/20/19 (3:23am) FINDINGS: Comparison is made with a portable CXR done the previous morning. Streaky changes at the left lung base (probable atelectasis). Probable crowding of vessels at the right lung base. The mid and upper lung zones are clear. A right-sided regular venous catheter is again seen, with its tip in the mid right atrium. No pneumothorax. Stable heart size. Elevation of the right hemidiaphragm (unchanged). IMPRESSION: Streaky atelectatic changes at the left lung base --- probable atelectasis. Cannot exclude a streaky LLL pneumonia. Follow-up is suggested, as symptoms warrant. No significant pleural effusions. See additional comments above. Electronically signed by: Jessica Pritchett On 02/21/2019 04:36:59 AM
[2019-02-21] MEDS: MEROPENEM INJ 1 GM in IV 1 EA IV SCH (05:28)
[2019-02-21] MEDS: HEPARIN SOD (PORCINE) 5000 UNITS/ML VIAL SC SCH ×3 (05:28→21:26)
[2019-02-21 06:08] LABS: BASO % 0.2 % (0.0-1.0); EOS # 0.2 10^3/uL (0.0-0.5); EOS % 1.3 % (0.0-3.0); HEMATOCRIT 30.1 % (42.0-52.0); HEMOGLOBIN 9.6 g/dl (13.5-17.5); LYMPH # 0.8 10^3/uL (1.5-5.0); MEAN CORPUSCULAR HEMOGLOBIN 28.6 pg (27.0-33.0); MEAN CORPUSCULAR HGB CONC 31.9 g/dl (32.0-36.5); MEAN CORPUSCULAR VOLUME 89.6 fl (80.0-96.0); MONO % 5.4 % (0.0-5.0); NEUTROPHILS # 16.7 10^3/uL (1.5-8.5); NEUTROPHILS % 87.4 % (36.0-66.0); PLATELET COUNT, AUTOMATED 164 10^3/uL (150-450); RED BLOOD COUNT 3.36 10^6/uL (4.30-6.10); WHITE BLOOD COUNT 19.1 10^3/uL (4.0-10.0)
[2019-02-21 06:31] LABS: ALBUMIN 2.1 GM/DL (3.2-5.2); BILIRUBIN,TOTAL 0.4 MG/DL (0.2-1.0); CALCIUM LEVEL 7.7 MG/DL (8.8-10.2); CREATININE FOR GFR 1.79 MG/DL (0.70-1.30); GLOMERULAR FILTRATION RATE 39.9 (>42); PHOSPHORUS LEVEL 2.5 MG/DL (2.5-4.9); POTASSIUM SERUM 3.9 MEQ/L (3.5-5.1); TOTAL PROTEIN 4.7 GM/DL (6.4-8.2)
[2019-02-21] MEDS: PANTOPRAZOLE 40MG INJ (PROTONIX) (C9113) IV SCH (08:02)
[2019-02-21 08:31] LABS: CORTISOL AM 22.4 UG/DL (4.3-22.4)
--- NOTE | 2019-02-21 08:54 | ECGEPIP ---
[facility] Test Date: 2019-02-21 Pat Name: CHARLEEN MEZA Department: Room: [place] [address] Gender: Male Cardiologist: CHRISTA : 1945 Requested By: ROSA CARPENTER Order Number: [id number] Reading MD: Андрей Acuña Measurements Intervals Slaughters Rate: 67 P: 12 SC: 178 QRS: -10 QRSD: 103 T: 6 QT: 407 QTc: 432 Interpretive Statements Normal sinus rhythm LA conduction disturbance? Leftward axis with slow precordial R-wave progression Nonspecific T-wave abnormalities change from 09/10/18 Clinical correlation advised Electronically Signed on 02-21-2019 8:54:22 EDT by Андрей Acuañ
--- NOTE | 2019-02-21 11:17 | IPNPDOC ---
Text Note Date of Service The patient was seen on 02/21/19. NOTE SUBJECTIVE: Patient had episode of chest pressure and feelings of dyspnea overnight, serial troponins ordered that have thus far been negative. EKG similarly negative. He presently feels breathless because of how long he has been in bed. He is otherwise doing well and denies and additional symptoms. OBJECTIVE: PHYSICAL EXAM: Vitals: (see below) General: No acute distress, laying comfortably in bed. HEENT: Normocephalic, atraumatic. EOMI. No scleral icterus. dry mucous membranes. No pharyngeal erythema or uvular deviation. Neck: No JVD, lymphadenopathy, or thyromegaly. Central line in place on the right side of the neck. Cardiac: RRR, Normal S1 and S2, No murmurs, gallops, rubs. Pulm: Clear to auscultation b/l. Symmetric thorax. No wheezing, crackles, rhonchi Abd: Bowel Sounds present. Abdomen is soft, tender to palpation in bilateral lower quadrants with transverse scar in lower abdomen Wound is C/D/I. No guarding, rebound tenderness, or rigidity. Ext: No edema or cyanosis Neuro: No focal neuro deficits LABORATORY DATA, MICROBIOLOGY: Please see below. IMAGING STUDIES: 02/20/19 CXR: There is poor ventilation. There is mild elevation of the right hemidiaphragm. Calcified granuloma is seen in the right lung base. There is mild bibasilar fibroatelectatic change. Cardiac silhouette is magnified. There is a right central venous catheter with the tip in the right atrium. There is no pneumothorax. 02/20/19 Renal U/S Moderate hydronephrosis left kidney. Bilateral renal cysts. 1.3 cm calcified area in the left kidney parenchyma. Otherwise negative urinary tract sonography. 02/20/19 Abdominal KUB Suprapubic catheter noted in the central pelvis just to the right of midline. ASSESSMENT AND PLAN: #.Sepsis 2/2 UTI -Urine culture growing staph aureus >100k cfu. Blood single blood culture from [facility] showed Enterobacter, urine culture showed Citrobacter. Starting patient on oral Bactrim twice daily as his CrCl is>30 and his CHRISTELLE seems to be resolving. -Patient received 2 L of lactated Ringer's yesterday for help with his elevated chloride. Creatinine and GFR are slowly recovering. Nephrology on board, recommendations are very much appreciated -Dr. Olmos with urology pulled the drain from his ureteral stent and is recommending Gonzalez catheter placement for now 24 more hours to allow the suprapubic tract to close and to follow up with the urologist who did the procedure once he is discharged. -Dr. Pedro is consulted for intensive care, patient is now off Levophed. Any further recommendations appreciated. Will leave central line in place for an additional 24 hours. #. CHRISTELLE -Continues to improve, recommendations per nephrology. #.Louie's Esophagitis -Continue IV PPI DVT prophylaxis:heparin SQ VS,Fishbone, I+O VS, Fishbone, I+O Laboratory Tests 02/21/19 05:30 Red Blood Count 3.36 L, Mean Corpuscular Volume 89.6, Mean Corpuscular Hemoglobin 28.6, Mean Corpuscular Hemoglobin Concent 31.9 L, Red Cell Distribution Width 13.3, Neutrophils (%) (Auto) 87.4 H, Lymphocytes (%) (Auto) 4.0 L, Monocytes (%) (Auto) 5.4 H, Eosinophils (%) (Auto) 1.3, Basophils (%) (Auto) 0.2, Neutrophils # (Auto) 16.7 H, Lymphocytes # (Auto) 0.8 L, Monocytes # (Auto) 1.0 H, Eosinophils # (Auto) 0.2, Basophils # (Auto) 0.0, Calcium Level 7.7 L, Phosphorus Level 2.5, Aspartate Amino Transf (AST/SGOT) 19, Alanine Aminotransferase (ALT/SGPT) 16, Lactate Dehydrogenase 134, Total Creatine Kinase 147, Alkaline Phosphatase 70, Total Bilirubin 0.4, Triglycerides Level 114, Cholesterol Level 91, Total Protein 4.7 L, Albumin 2.1 L Vital Signs Date Time Temp Pulse Resp B/P (MAP) Pulse Ox O2 Delivery O2 Flow Rate FiO2 02/21/19 08:04 98.6 65 16 134/73 (93) 96 Room Air 02/21/19 02:00 1.0 I&O- Last 24 Hours up to 6 AM 02/21/19 06:00 Intake Total 5995.3 ml Output Total 3675 ml Balance 2320.3 ml GME ATTESTATION GME ATTESTATION My faculty preceptor for this patient encounter was physically present during the encounter and was fully available. All aspects of the patient interview, examination, medical decision making process, and medical care plan development were reviewed and approved by the faculty preceptor. The faculty preceptor is aware and concurs with the plan as stated in the body of this note and will attest to such by his/her cosignature. ATTENDING NOTE I, Lizzie Boston, have independently examined this patient and performed my own physical exam, as well as reviewed the documentation and edited where necessary. I have discussed in detail with the resident / student the findings and plan of treatment as documented by the resident / student and edited their note. I agree with their findings and treatment plan and have edited their documentation. I will continue to follow the patient during this hospital stay. ROSA CARPENTER DO Feb 21, 2019 11:17 LIZZIE BOSTON MD Feb 21, 2019 16:00
--- NOTE | 2019-02-21 11:47 | CR ---
DATE OF CONSULTATION: 02/20/2019 REASON FOR CONSULTATION: Acute renal failure and septic shock with urosepsis. HISTORY OF PRESENT ILLNESS Mr. Farrell is a 79-year-old very pleasant gentleman who is transferred to [facility] intensive care unit from [facility]. The patient has known history of kidney stones for which he underwent a complicated lithotripsy procedure back in August. He had persistent ureteral obstruction, which was felt to be due to scar tissue and underwent a ureteral reimplantation about a month ago. He has what felt like a ureteral stent; however, it is coming out in his right lower abdomen. The patient presented to the emergency room at [facility] with fever and hypotension. His urine was cloudy and he was felt to have urosepsis. He developed acute renal failure and has been on Levophed. He is transferred to [facility] intensive care unit this morning. The patient has acute renal failure due to which nephrology consultation was requested and the patient is seen this morning. His white cell count is 31,000 and creatinine is about 2.5 today. PAST MEDICAL AND SURGICAL HISTORY Significant for: 1. History of gastroesophageal reflux disease with Louie's esophagus. 2. History of diverticulosis. 3. Nephrolithiasis. 4. History of ureteral reimplantation following a ureteral stent placement. 5. History of osteoarthritis. 6. History of obstructive sleep apnea. 7. Prior history of tonsillectomy. PERSONAL AND SOCIAL HISTORY: The patient denies any smoking or drug use. He uses alcohol only occasionally. He is and lives with his . FAMILY HISTORY: Significant for colon cancer and hypertension. There is no family history for end-stage renal disease. MEDICATIONS: His home medications included only: - omeprazole - amlodipine 10 mg daily - Tylenol - diclofenac sodium ALLERGIES: The patient has allergy to PENICILLIN and CIPROFLOXACIN. REVIEW OF SYSTEMS: Ears, nose and throat are unremarkable. He denies any headache at present. He did have fever and hypotension prior to coming to the emergency room. Cardiovascular system: Negative for dyspnea or chest pain. Respiratory system: Negative for cough or hemoptysis. Gastrointestinal system: Negative for vomiting, diarrhea or rectal bleeding. Genitourinary system: As per history of present illness. He currently has a Gonzalez catheter and reports cloudy urine. Musculoskeletal system: Significant for chronic degenerative arthritis. Denies any leg edema. Endocrine system: Negative for diabetes or thyroid problems. Hematological system: Negative for easy bruising or excessive bleeding. Psychosocial system: Negative for depression or anxiety. Skin is negative for rash or ulcers. PHYSICAL EXAMINATION: Middle-aged gentleman who looks healthy by appearance. He is not in any acute distress. Temperature is 98 degrees Fahrenheit, heart rate 70 per minute and respiratory rate 16 per minute. Blood pressure is 99/55 mmHg and oxygen saturation 96%. The patient has a right internal jugular vein central line in place. His head is atraumatic. Neck is supple and without jugular venous distention (JVD) or thyroid enlargement. Pupils are equal and reactive to light and sclera is anicteric. Heart sounds are regular and lungs clear to auscultation bilaterally. Abdomen is soft and nontender. There is a drain at the right lower abdomen just above his pubic area. There is no drainage or bleeding. Extremities have no cyanosis or clubbing. Skin has no rash or ulcers. Neurologically, he is awake, alert and oriented times three. LABORATORIES: His labs show WBC count 31.9, hemoglobin 10.3 and hematocrit 31.9. Platelets 190. Sodium 141, potassium 4.2, CO2 25, BUN 32 and creatinine 2.53. Last night his lactic acid level was 1.6. This morning BUN is 34 and creatinine 2.37. Total protein 5.3 and albumin 2.2. Sodium 139, potassium 4.1 and CO2 of 24. Blood gas showed a pH of 7.41, pO2 is 79.3 and bicarbonate 20.6. Urinalysis showed 3+ leukocyte esterase, 67 WBCs and 11 RBCs. PROBLEMS: 1. Acute renal failure superimposed on chronic kidney disease. The patient does have moderate hydronephrosis on his renal ultrasound, which was done at [facility] A CT scan from [facility] has also been reviewed. He does have hydronephrosis without any ureteral stone. His left ureteral stent has coiled into the bladder. There are no stones noted in either kidney. His left hydronephrosis is most likely chronic and related to ureteral scarring and implantation. At this point, he is being hydrated with IV fluid and good urine output is noticed. Kidney function has already started to improve. 2. Urosepsis. Most likely related to hydronephrosis and coiled stent in his bladder and foreign material. The patient is being treated with appropriate antibiotics pending urine cultures. Aggressive IV fluid hydration is recommended. He is still on low dose of Levophed, which could be weaned off once his blood pressure improves. 3. Recurrent kidney stones. The patient does not have sounds at present. He has had lithotripsy in the past. At this point, no other intervention is indicated as his drain from the right lower quadrant has already been removed by urology. 4. Anemia. This is probably partly chronic and partly related to acute renal failure and sepsis. He is also receiving aggressive IV fluid hydration causing hemodilution. This will need to be monitored. Thank you for involving me in the care of Mr. Farrell. I will follow him along with you.
[2019-02-21] MEDS: BACTRIM 160MG/800MG DS TAB PO SCH ×2 (13:02→21:25)
[2019-02-21] MEDS ORDERED: SODIUM CHLORIDE 0.9% INJ 10 ML SYR IV PRN (17:30)
--- NOTE | 2019-02-21 17:50 | IPN ---
DATE: 02/21/2019 Mr. Farrell is seen this morning on his bedside in intensive care unit. He is feeling much better today and has been off intravenous fluid and norepinephrine drip. He is tolerating oral intake very well. He has no more fever or chills. Yesterday drain from his bladder was removed by urology. His urine culture has grown Staphylococcus (staph) aureus while blood cultures drawn in [facility] are also reported positive. PHYSICAL EXAMINATION: Temperature 98.6 degrees Fahrenheit, heart rate 65 per minute and respiratory rate 16 per minute. Blood pressure 134/73 mmHg and oxygen saturation 96% on room air. His head is atraumatic. He still has central line in right internal jugular vein. Heart sounds regular and lungs clear to auscultation. Abdomen: Soft and nontender. Bowel sounds present. Extremities: Without any cyanosis or clubbing. Neurologically he is awake, alert and oriented times three. Today's labs show WBC count down to 19.1, hemoglobin 9.6 and hematocrit 30. Sodium is 146, potassium 3.9, CO2 of 25, BUN 27 and creatinine 1.79. PROBLEMS: 1. Acute renal failure superimposed on chronic kidney disease. The patient had urosepsis and also has moderate left-sided hydronephrosis. His kidney function is gradually improving. Hydronephrosis is felt to be chronic related to ureteral reimplantation and reflux. Urology does not feel that any other intervention is needed. Left ureteral stent which had coiled in his bladder was removed yesterday. 2. Hypotension. Blood pressure has improved, and he is off pressors and IV fluids. 3. Recurrent kidney stones. I have discussed with the patient about need for followup as an outpatient for further workup of his kidney stones. He will be given a followup appointment for about 4 weeks.
--- NOTE | 2019-02-21 18:30 | IPN ---
DATE: 02/21/2019 Mr. Farrell did very well overnight. He did transiently complain of some shortness of breath, perhaps chest tightness, last evening that has resolved. No significant cough. No shortness of breath at rest or with ambulation. No further chest pressure or pain. No paroxysmal nocturnal dyspnea (PND) or orthopnea. He is overall feeling better since his stent was removed. He has had no further rigors or chills. No emesis or diarrhea. He has been off Levophed since shortly after of 6 p.m. last evening. OBJECTIVE: PHYSICAL EXAMINATION: GENERAL: Mr. Farrell is sitting in a chair and also walking around the room in no acute distress. No cough at the evaluation. VITAL SIGNS: Temperature 98.6, pulse 65, respiratory rate 16, blood pressure 134/73 with a mean arterial pressure (MAP) of 93. SpO2 of 96% on room air. HEENT: Anicteric. Nares patent bilaterally. Oropharynx clear. Moist mucosa. NECK: Supple without thyromegaly or masses. Trachea is midline. Right internal jugular (IJ) site is clean. CHEST: Normal size. LUNGS: Symmetric excursion. Good air entry. Diminished breath sounds at the right base (has an elevated hemidiaphragm). No wheeze, rhonchi, or crackle. Normal inspiratory to expiratory (I-to-E). No accessory muscle usage or retractions. CARDIOVASCULAR: Regular rate and rhythm with a normal S1, S2. No murmur, rub, or gallop appreciated. ABDOMEN: Positive bowel sounds, soft, nondistended, minimal tenderness. No rebound or guarding. EXTREMITIES: Warm and well perfused without clubbing, cyanosis, or edema. Palpable pedal pulses. LABORATORY DATA: CBC shows a hemoglobin of 9.6, hematocrit 30.1, platelet count 164,000, white blood cell count 19,100 with a differential of 87% neutrophils, 4% lymphocytes, 5% monocytes. Eosinophilic percentage is 1.3. Chemistries shows a sodium 146, potassium 3.9, chloride 114, bicarbonate 25, anion gap 7, BUN 27, creatinine 1.8, glucose 75, calcium 7.7, phosphorus 2.5. Total bilirubin 0.4, AST 19, ALT 16, alkaline phosphatase 70. LDH 134, CK 147, troponin I of 0.04. Total protein 4.7, albumin 2.1. Serum morning cortisol level 22.4. Intake and output for yesterday showed 6281 in and 3175 out, making him positive 316. Thus far today 1070 in and 1150 out, making him negative 80. Our urine preliminary showed greater than 100,000 Staphylococcus aureus with sensitivities pending. A urine culture from [facility] showed greater than 100,000 Citrobacter freundii that had sensitivities to multiple agents with some intermediate and resistant, but he is sensitive to imipenem but also levofloxacin. A blood culture result from [facility] showed Enterobacter species. Sensitivities are pending. IMPRESSION: 1. Sepsis secondary urinary tract infection, resolving. At the present time, there are three organisms that have been found, two in his urine and one in the blood. 2. Hypotension, felt secondary to sepsis but also hypovolemia related to diarrhea and emesis., resolved. He has been off vasopressors for 18 hours. 3. Left hydronephrosis. 4. Deep vein thrombosis (DVT) and stress ulcer prophylaxis in place. 5. Nutrition. On renal diet. 6. Infectious disease (ID). Positive blood culture for Enterobacter at [facility]. Positive urine culture for Citrobacter freundii at [facility]. Positive urine culture for Staphylococcus aureus at [facility]. RECOMMENDATIONS: 1. Intravenous fluids are discontinued. 2. Agree with urology recommendation for antibiotic coverage for a total of 10-14 days. All sensitivities are not back. He is on meropenem, but he only had one dose of vancomycin, which given his creatinine likely covered for an extended period of time, which would need to be re-dosed if felt necessary. More than likely, his antibiotic coverage can be de-escalated. Recommend doing so when the final sensitivities are present from the two organisms that we do not know at this time. 3. I agree with transfer out of the intensive care unit. Thank you for this consultation. At this time, the intensive care service will sign off. Please re-contact the service or pulmonary service if there are further problems or questions. ALCIDES
[2019-02-21] MEDS: SODIUM CHLORIDE 0.9% INJ 10 ML SYR IV SCH (21:26)
[2019-02-22 04:00] VITALS: BP 131/77
[2019-02-22] MEDS: HEPARIN SOD (PORCINE) 5000 UNITS/ML VIAL SC SCH (05:36)
[2019-02-22] MEDS: SODIUM CHLORIDE 0.9% INJ 10 ML SYR IV SCH (05:36)
[2019-02-22 06:18] LABS: ALBUMIN 2.3 GM/DL (3.2-5.2); BILIRUBIN,TOTAL 0.2 MG/DL (0.2-1.0); CALCIUM LEVEL 8.4 MG/DL (8.8-10.2); CREATININE FOR GFR 1.62 MG/DL (0.70-1.30); GLOMERULAR FILTRATION RATE 44.8 (>42); PHOSPHORUS LEVEL 1.8 MG/DL (2.5-4.9); POTASSIUM SERUM 3.8 MEQ/L (3.5-5.1); TOTAL PROTEIN 5.7 GM/DL (6.4-8.2)
[2019-02-22 06:35] LABS: BASO % 0.2 % (0.0-1.0); EOS # 0.3 10^3/uL (0.0-0.5); EOS % 2.6 % (0.0-3.0); HEMATOCRIT 31.7 % (42.0-52.0); HEMOGLOBIN 10.2 g/dl (13.5-17.5); LYMPH # 0.6 10^3/uL (1.5-5.0); LYMPH % 5.9 % (24.0-44.0); MEAN CORPUSCULAR HEMOGLOBIN 28.5 pg (27.0-33.0); MEAN CORPUSCULAR HGB CONC 32.2 g/dl (32.0-36.5); MEAN CORPUSCULAR VOLUME 88.5 fl (80.0-96.0); MONO # 0.6 10^3/uL (0.0-0.8); MONO % 5.2 % (0.0-5.0); NEUTROPHILS # 9.3 10^3/uL (1.5-8.5); NEUTROPHILS % 85.3 % (36.0-66.0); PLATELET COUNT, AUTOMATED 188 10^3/uL (150-450); RED BLOOD COUNT 3.58 10^6/uL (4.30-6.10); WHITE BLOOD COUNT 10.9 10^3/uL (4.0-10.0)
--- NOTE | 2019-02-22 07:26 | IPNPDOC ---
Date Seen The patient was seen on 02/22/19. Progress Note SUBJECTIVE: Patient is awake and alert with no complaints OBJECTIVE PHYSICAL EXAMINATION: VITAL SIGNS: Please see below. Abdomen benign, drain site closed without drainage LABORATORY DATA, IMAGING STUDIES, MICROBIOLOGY: Please see below. Urine culture positive for staph aureus ASSESSMENT AND PLAN: Patient is status post urosepsis. Patient is urologically stable. Patient can undergo a voiding trial. Patient should follow-up with his urologist following discharge from the hospital VS, I&O, 24H, [place] Vital Signs/I&O Vital Signs Date Time Temp Pulse Resp B/P (MAP) Pulse Ox O2 Delivery O2 Flow Rate FiO2 02/22/19 04:00 98.2 64 20 131/77 (95) 94 Room Air 02/21/19 02:00 1.0 I&O- Last 24 Hours up to 6 AM 02/22/19 06:00 Intake Total 2045 ml Output Total 3325 ml Balance -1280 ml Laboratory Data 24H LABS Laboratory Tests 2 02/21/19 07:59: Troponin I 0.04 02/22/19 05:30: Immature Granulocyte % (Auto) 0.8, White Blood Count 10.9H, Red Blood Count 3.58L, Hemoglobin 10.2L, Hematocrit 31.7L, Mean Corpuscular Volume 88.5, Mean Corpuscular Hemoglobin 28.5, Mean Corpuscular Hemoglobin Concent 32.2, Red Cell Distribution Width 13.1, Platelet Count 188, Neutrophils (%) (Auto) 85.3H, Lymphocytes (%) (Auto) 5.9L, Monocytes (%) (Auto) 5.2H, Eosinophils (%) (Auto) 2.6, Basophils (%) (Auto) 0.2, Neutrophils # (Auto) 9.3H, Lymphocytes # (Auto) 0.6L, Monocytes # (Auto) 0.6, Eosinophils # (Auto) 0.3, Basophils # (Auto) 0.0, Nucleated Red Blood Cells % (auto) 0.0, Anion Gap 7L, Glomerular Filtration Rate 44.8, Blood Urea Nitrogen 20H, Creatinine 1.62H, Sodium Level 143, Potassium Level 3.8, Chloride Level 111H, Carbon Dioxide Level 25, Calcium Level 8.4L, Phosphorus Level 1.8#L, Aspartate Amino Transf (AST/SGOT) 28, Alanine Aminotransferase (ALT/SGPT) 26, Lactate Dehydrogenase 142, Total Creatine Kinase 174, Alkaline Phosphatase 92, Total Bilirubin 0.2, Triglycerides Level 142, Cholesterol Level 107, Total Protein 5.7#L, Albumin 2.3L, Albumin/Globulin Ratio 0.68L CBC/BMP Laboratory Tests 02/22/19 05:30 Red Blood Count 3.58 L, Mean Corpuscular Volume 88.5, Mean Corpuscular Hemoglobin 28.5, Mean Corpuscular Hemoglobin Concent 32.2, Red Cell Distribution Width 13.1, Neutrophils (%) (Auto) 85.3 H, Lymphocytes (%) (Auto) 5.9 L, Monocytes (%) (Auto) 5.2 H, Eosinophils (%) (Auto) 2.6, Basophils (%) (Auto) 0.2, Neutrophils # (Auto) 9.3 H, Lymphocytes # (Auto) 0.6 L, Monocytes # (Auto) 0.6, Eosinophils # (Auto) 0.3, Basophils # (Auto) 0.0, Calcium Level 8.4 L, Phosphorus Level 1.8 #L, Aspartate Amino Transf (AST/SGOT) 28, Alanine Aminotransferase (ALT/SGPT) 26, Lactate Dehydrogenase 142, Total Creatine Kinase 174, Alkaline Phosphatase 92, Total Bilirubin 0.2, Triglycerides Level 142, Cholesterol Level 107, Total Protein 5.7 #L, Albumin 2.3 L Microbiology Microbiology 02/20/19 Blood Culture - Preliminary, Resulted No Growth after 48 hours. All Specime... 02/20/19 Blood Culture - Preliminary, Resulted No Growth after 48 hours. All Specime... 02/20/19 Urine Culture - Preliminary, Resulted Staphylococcus Aureus Man Olmos MD Feb 22, 2019 07:26
[2019-02-22 07:40] VITALS: BP 153/79
[2019-02-22] MEDS ORDERED: SODIUM PHOSPHATE INJ 20 MMOL in D5W 250 ML IV ONE (09:00)
[2019-02-22] MEDS: BACTRIM 160MG/800MG DS TAB PO SCH (09:30)
[2019-02-22] MEDS: PANTOPRAZOLE 40MG INJ (PROTONIX) (C9113) IV SCH (09:30)
[2019-02-22] MEDS ORDERED: SULF1TAB93 PO (11:32)
--- NOTE | 2019-02-22 18:38 | DS.PDOC ---
Discharge Summary General Date of Admission Feb 19, 2019 at 23:37 Date of Discharge 02/22/19 Attending Physician: LIZZIE BOSTON MD Specialist/Consultants Involve: Man Olmos MD Discharge Summary PROCEDURES PERFORMED DURING STAY: [None]. ADMITTING/DISCHARGE DIAGNOSES: UTI/Urosepsis GERD/Louie's esophagus Diverticulosis Nephrolithiasis S/p ureteral stent placement Osteoarthritis JARRET COMPLICATIONS/CHIEF COMPLAINT: Urosepsis HISTORY OF PRESENT ILLNESS/HOSPITAL COURSE: 79 year old male transferred from [facility] for heightened care for urosepsis. The hospitalist service consulted intensive care for central line placement as the patient was not ma intaining an adequate blood pressure. Levophed was started and the patient was begun on broad spectrum antibiotics. Nephrology and urology service was similarly consulted as the patient had recently undergone a urologic procedure for ureteral stent placement with a suprapubic drain connected from the RLQ to the bladder. Urology felt this was the likely nidus for his infection so this drain was pulled and a kelly was put in to allow the bladder wall to heal appropriately. Nephrology was consulted for the renal failure and felt it was likely secondary to the hydronephrosis and infection. The patient was slowly weaned off the levophed as his infection began to resolve and by day 2 of his hospital stay he was made med/surg status and began oral antibiotics as we awaited sensitivities. On day 3 sensitivities came back, he had been cleared by PT so his kelly and central line were removed and he was subsequently discharged. DISCHARGE MEDICATIONS: Please see below. ALLERGIES: Please see below. Vitals: (see below) General: No acute distress, laying comfortably in bed. HEENT: Normocephalic, atraumatic. EOMI. No scleral icterus. Moist mucous membranes. No pharyngeal erythema or uvular deviation. Neck: No JVD, lymphadenopathy, or thyromegaly. Cardiac: RRR, Normal S1 and S2, No murmurs, gallops, rubs. Pulm: Clear to auscultation b/l. Symmetric thorax. No wheezing, crackles, rhonchi Abd: Bowel Sounds present. Abdomen is soft, non-tender, non-distended. No guarding, rebound tenderness, or rigidity.Transverse scar over lower abdomen from urologic procedure, C/D/I Ext: No edema or cyanosis Skin: No skin changes Neuro: No focal neuro deficits Psych: Appropriate affect LABORATORY DATA: Please see below. IMAGIN02/20/19 chest x-ray: There is poor ventilation. There is mild elevation of the right hemidiaphragm. Calcified granuloma is seen in the right lung base. There is mild bibasilar fibro-atelectatic change. Cardiac silhouette is magnified. There is a right central venous catheter with the tip in the right atrium. There is no pneumothorax. 02/20/19 renal ultrasound: Moderate hydronephrosis left kidney. Bilateral renal cysts. 1.3 cm calcified area in the left kidney parenchyma. Otherwise negative urinary tract sonography. 02/20/19 abdominal x-ray: Suprapubic catheter noted in the central pelvis just to the right of midline. 02/21/19 chest x-ray: Streaky atelectatic changes at the left lung base---probable atelectasis. Cannot exclude a streaky LLL pneumonia. Follow-up is suggested, as symptoms warrant. No significant pleural effusions. PROGNOSIS: good ACTIVITY: [As tolerated]. DIET: Renal diet DISCHARGE PLAN: discharge home DISCHARGE INSTRUCTIONS: 1. Please follow-up with PCP in the next 7-10 days 2. Please follow up with your urologist in the next 7-10 days 3. Please follow up with Dr. Weinstein in the next 4 weeks. 4. Please complete your course of antibiotics as prescribed. 5. Return to the ER if you experience any problems DISCHARGE CONDITION: [Stable]. TIME SPENT ON DISCHARGE: 32 minutes. Vital Signs/I&Os Vital Signs Date Time Temp Pulse Resp B/P (MAP) Pulse Ox O2 Delivery O2 Flow Rate FiO2 02/22/19 07:40 97.1 66 18 153/79 (103) 94 Room Air 02/21/19 02:00 1.0 I&O- Last 24 Hours up to 6 AM 02/22/19 06:00 Intake Total 2045 ml Output Total 3325 ml Balance -1280 ml Laboratory Data Labs 24H Laboratory Tests 2 02/22/19 05:30: Immature Granulocyte % (Auto) 0.8, White Blood Count 10.9H, Red Blood Count 3.58L, Hemoglobin 10.2L, Hematocrit 31.7L, Mean Corpuscular Volume 88.5, Mean C orpuscular Hemoglobin 28.5, Mean Corpuscular Hemoglobin Concent 32.2, Red Cell Distribution Width 13.1, Platelet Count 188, Neutrophils (%) (Auto) 85.3H, Lymphocytes (%) (Auto) 5.9L, Monocytes (%) (Auto) 5.2H, Eosinophils (%) (Auto) 2.6, Basophils (%) (Auto) 0.2, Neutrophils # (Auto) 9.3H, Lymphocytes # (Auto) 0.6L, Monocytes # (Auto) 0.6, Eosinophils # (Auto) 0.3, Basophils # (Auto) 0.0, Nucleated Red Blood Cells % (auto) 0.0, Anion Gap 7L, Glomerular Filtration Rate 44.8, Blood Urea Nitrogen 20H, Creatinine 1.62H, Sodium Level 143, Potassium Level 3.8, Chloride Level 111H, Carbon Dioxide Level 25, Calcium Level 8.4L, Phosphorus Level 1.8#L, Aspartate Amino Transf (AST/SGOT) 28, Alanine Ami notransferase (ALT/SGPT) 26, Lactate Dehydrogenase 142, Total Creatine Kinase 174, Alkaline Phosphatase 92, Total Bilirubin 0.2, Triglycerides Level 142, Cholesterol Level 107, Total Protein 5.7#L, Albumin 2.3L, Albumin/Globulin Ratio 0.68L CBC/BMP Laboratory Tests 02/22/19 05:30 Red Blood Count 3.58 L, Mean Corpuscular Volume 88.5, Mean Corpuscular Hemoglobin 28.5, Mean Corpuscular Hemoglobin Concent 32.2, Red Cell Distribution Width 13.1, Neutrophils (%) (Auto) 85.3 H, Lymphocytes (%) (Auto) 5.9 L, Monocytes (%) (Auto) 5.2 H, Eosinophils (%) (Auto) 2.6, Basophils (%) (Auto) 0.2, Neutrophils # (Auto) 9.3 H, Lymphocytes # (Auto) 0.6 L, Monocytes # (Auto) 0.6, Eosinophils # (Auto) 0.3, Basophils # (Auto) 0.0, Calcium Level 8.4 L, Phosphorus Level 1.8 #L, Aspartate Amino Transf (AST/SGOT) 28, Alanine Aminotransferase (ALT/SGPT) 26, Lactate Dehydrogenase 142, Total Creatine Kinase 174, Alkaline Phosphatase 92, Total Bilirubin 0.2, Triglycerides Level 142, Cholesterol Level 107, Total Protein 5.7 #L, Albumin 2.3 L Microbiology Microbiology 02/20/19 Blood Culture - Preliminary, Resulted No Growth after 48 hours. All Specime... 02/20/19 Blood Culture - Preliminary, Resulted No Growth after 48 hours. All Specime... 02/20/19 Urine Culture - Preliminary, Resulted Staphylococcus Aureus Discharge Medications Scheduled Amlodipine Besylate (Amlodipine Besylate) 10 Mg Tablet, 10 MG PO DAILY, (Reported) Omeprazole (Omeprazole) 20 Mg Capsule.dr, 20 MG PO DAILY, (Reported) Sulfamethoxazole/Trimethoprim (Sulfamethoxazole-Tmp Ds Tablet) 1 Each Tablet, 1 TAB PO Q12H Please take 1 tablet by mouth in the morning and 1 in the evening for the next 7 days. Scheduled PRN Acetaminophen (Tylenol 8 Hour) 650 Mg Tablet.er, 650 MG PO Q8H PRN for PAIN, (Reported) Diclofenac Sodium (Diclofenac Sodium) 1% 100GM Gel..gram., 1 DOSE TOP QID PRN for PAIN, (Reported) APPLIES TO BACK NEEDED Fluticasone Propionate (Flonase Allergy Relief) 9.9 Ml [place].susp, 2 SPRAYS NA DAILY PRN for NASAL CONGESTION, (Reported) Allergies Coded Allergies: ciprofloxacin (Verified Allergy, Intermediate, hives, flushing, 02/19/19) Penicillins (Verified Allergy, Mild, PRURITIS, 02/19/19) GME ATTESTATION GME ATTESTATION My faculty preceptor for this patient encounter was physically present during the encounter and was fully available. All aspects of the patient interview, examination, medical decision making process, and medical care plan development were reviewed and approved by the faculty preceptor. The faculty preceptor is aware and concurs with the plan as stated in the body of this note and will att est to such by his/her cosignature. ATTENDING NOTE I, Lizzie Boston, have independently examined this patient and performed my own physical exam, as well as reviewed the documentation and edited where necessary. I have discussed in detail with the resident / student the findings and plan of treatment as documented by the resident / student and edited their note. I agree with their findings and treatment plan and have edited their documentation. I will continue to follow the patient during this hospital stay. Time spent on discharge 34 minutes ROSA CARPENTER DO Feb 22, 2019 18:37 LIZZIE BOSTON MD Feb 23, 2019 14:41
== END 2019-02-22 14:00 | disposition home or self-care (01) | DRG 698 ==
LOC: M ED 21:20 → M ED INP 23:37 → M ICU 02-20 01:17 → M MS4PR 02-22 07:39
PROVIDERS: ADMIT Internal Medicine; ATTEND Internal Medicine
PROC: 02HV33Z Insertion of Infusion Device into Superior Vena Cava, Percutaneous Approach (ICD-10-PCS; principal; 2019-02-20)
DX: T83.593A Infection and inflammatory reaction due to other urinary stents, initial encounter (principal); A41.9 Sepsis, unspecified organism; N39.0 Urinary tract infection, site not specified; N17.9 Acute kidney failure, unspecified; N13.2 Hydronephrosis with renal and ureteral calculous obstruction; I95.9 Hypotension, unspecified; K57.30 Diverticulosis of large intestine without perforation or abscess without bleeding; M19.90 Unspecified osteoarthritis, unspecified site; G47.33 Obstructive sleep apnea (adult) (pediatric); K22.70 Barrett's esophagus without dysplasia; Z88.0 Allergy status to penicillin; Z88.8 Allergy status to other drugs, medicaments and biological substances; I12.9 Hypertensive chronic kidney disease with stage 1 through stage 4 chronic kidney disease, or unspecified chronic kidney disease; Z79.899 Other long term (current) drug therapy; B95.61 Methicillin susceptible Staphylococcus aureus infection as the cause of diseases classified elsewhere; D64.9 Anemia, unspecified; N18.9 Chronic kidney disease, unspecified; Y84.6 Urinary catheterization as the cause of abnormal reaction of the patient, or of later complication, without mention of misadventure at the time of the procedure

== ENCOUNTER → 2019-04-03 | Outpatient (CLI) | payer BC ==
[~2019-04-03] MED LIST: AMLO10TA5 PO; DICL1GEL3 TOP; FLON1SPR; OMEP20CA4 PO; SULF1TAB93 PO; TYLE650T38 PO
--- NOTE | 2019-04-03 15:53 | REP ---
NUCLEAR RENAL SCAN WITH FLOW AND FUNCTION: Following the intravenous administration of 8.8 mCi of technetium 99m MAG3 immediate flow images are obtained in the posterior projection showing poor perfusion of the left kidney with adequate perfusion of the right kidney. Delayed renal function images performed every minute for a period of 30 minutes in the posterior projection. There is minimal left renal activity. No cortical defect is seen in the right kidney. There is no evidence of urinary tract obstruction. Estimated split function is 10% on the left and 90% on the right. T-1/2 on the right is 13.3 minutes, which is slightly elevated. There is a relatively normal renal function curve of the right kidney. Renal function curve for the left kidney has a plateau appearance. There is moderate postvoid residual in the urinary bladder after voiding. IMPRESSION: Extremely compromised function left kidney with only mild cortical uptake, 10% split function. Right kidney demonstrates relatively normal function. Electronically Signed by Jimbo Dumas MD 04/05/2019 01:00 A
== END ==
LOC: M RAD 13:33
PROVIDERS: ATTEND Internal Medicine Nephrology
DX: N18.3 Chronic kidney disease, stage 3 (moderate) (principal)
CPT/HCPCS: 78707; A9562

== ENCOUNTER → 2019-05-29 | Outpatient (CLI) | payer BC ==
[~2019-05-29] MED LIST changes: +OMEP-172 PO; -OMEP20CA4 PO
--- NOTE | 2019-05-29 14:27 | REP ---
NUCLEAR RENAL SCINTIGRAPHY WITH DIFFERENTIAL FLOW AND FUNCTION ANALYSIS: HISTORY: Acute kidney failure. Unilateral small kidney. Comparison nuclear scan April 03, 2019 showed extremely compromised left kidney function. Comparison CT study February 19, 2019. TECHNIQUE: 8.6 mCi technetium 99m Mag 3 is injected and sequential posterior flow and excretory phase images are acquired. Renal cortical regions of interest are drawn and time activity curves are plotted for renal function analysis. FINDINGS: The posterior flow study shows almost no discernible function kidney and normal perfusion of the right. Excretory phase images demonstrate labeling of the intrarenal collecting system of the right kidney on the 4-minute image. No right renal mass is seen. Left kidney is not subjectively visible on excretory phase images. There is no evidence of obstructive uropathy on the right. The flow and excretory phase images are unchanged. Renal cortical differential counts are asymmetric and unchanged with 9.4% counts from the percent of counts attributed to the right kidney cortex. Ykaj-lq-bpik activity is somewhat delayed at 5 minutes on the right. Elzy-xc-ztqw max activity is mildly delayed on the right as well and 14.4 minutes. IMPRESSION: Essentially nonfunctioning left kidney unchanged from the previous study. Electronically Signed by Jose Kiran MD 05/29/2019 05:51 P
== END ==
LOC: M RAD 12:27
PROVIDERS: ATTEND Internal Medicine Nephrology
DX: N17.9 Acute kidney failure, unspecified (principal); N27.0 Small kidney, unilateral; N28.9 Disorder of kidney and ureter, unspecified
CPT/HCPCS: 78707; A9562

== ENCOUNTER → 2019-06-28 | Outpatient (REF) | payer BC ==
[~2019-06-28] MED LIST changes: -OMEP-172 PO; +OMEP1CAP73 PO
[2019-06-28 13:16] LABS: APPEARANCE, URINE CLEAR (CLEAR); BACTERIA, URINE AUTO NEGATIVE (NEGATIVE); BILIRUBIN, URINE AUTO NEGATIVE (NEGATIVE); BLOOD, URINE BLOOD NEGATIVE (NEGATIVE); COLOR, URINE YELLOW (YELLOW); GLUCOSE, URINE (UA) AUTO NEGATIVE (NEGATIVE); KETONE, URINE AUTO NEGATIVE (NEGATIVE); LEUKOCYTE ESTERASE, URINE AUTO NEGATIVE (NEGATIVE); MUCUS, URINE SMALL (NEGATIVE); NITRITE, URINE AUTO NEGATIVE (NEGATIVE); PROTEIN, URINE AUTO NEGATIVE (NEGATIVE); RBC, URINE AUTO 2 /HPF (0-3); SQUAMOUS EPITHELIAL CELL UR AU 0 /HPF (0-6); UROBILINOGEN, URINE AUTO 0.2 mg/dL (0.0-2.0); WBC, URINE AUTO 0 /HPF (0-3)
== END ==
LOC: M SMT 12:11
PROVIDERS: ATTEND Nurse Practitioner Women's Health
DX: N39.0 Urinary tract infection, site not specified (principal)

== ENCOUNTER → 2019-07-22 | Outpatient (CLI) | payer BC ==
--- NOTE | 2019-07-22 08:56 | REPPI ---
Clinical: preoperative assessment. Comparison: 02/21/2019. Technique: PA and lateral. Findings: The mediastinum and cardiac silhouette are normal. Stable calcified granuloma in the right lower lung zone along with stable chronic interstitial changes. A relatively new linear opacities at the left base suggest elements of atelectasis. No definite effusion. No pneumothorax. Impression: 1. Relatively new linear opacities at the left base suggest atelectasis. Electronically Signed by Jenaro Hook MD 07/22/2019 08:47 A
[2019-07-22 11:50] LABS: HEMATOCRIT 37.6 % (42.0-52.0); HEMOGLOBIN 11.5 g/dl (13.5-17.5); MEAN CORPUSCULAR HEMOGLOBIN 25.2 pg (27.0-33.0); MEAN CORPUSCULAR HGB CONC 30.6 g/dl (32.0-36.5); MEAN CORPUSCULAR VOLUME 82.5 fl (80.0-96.0); PLATELET COUNT, AUTOMATED 388 10^3/uL (150-450); RED BLOOD COUNT 4.56 10^6/uL (4.30-6.10); WHITE BLOOD COUNT 9.1 10^3/uL (4.0-10.0)
[2019-07-22 11:57] LABS: CALCIUM LEVEL 9.1 MG/DL (8.8-10.2); CREATININE FOR GFR 1.61 MG/DL (0.70-1.30); POTASSIUM SERUM 5.4 MEQ/L (3.5-5.1)
== END ==
LOC: M PLAIMG 08:20 → M PLALAB 08:20
PROVIDERS: ATTEND Urology
DX: N32.89 Other specified disorders of bladder (principal)

== ENCOUNTER 2019-08-02 08:25 | Day surgery (SDC) | payer BC ==
[~2019-08-02] VITALS: Ht 180.3 cm; Wt 78.8 kg
[~2019-08-02 08:25] MED LIST changes: +LR 1,000 ML IV ONE; +ceFAZolin SOD 2 GM in IV 1 EA IV ONE
[2019-08-02] MEDS ORDERED: fentaNYL 100 MCG/2 ML INJECTION (J3010) As Ordered ONE (09:48)
[2019-08-02] MEDS ORDERED: MIDAZOLAM INJ 2 MG/2 ML VIAL (J2250) As Ordered ONE (09:48)
[2019-08-02] MEDS ORDERED: propofoL 200 MG/20 ML VIAL As Ordered ONE ×3 (09:48→10:59)
[2019-08-02] MEDS ORDERED: LIDOCAINE 2% INJ 100 MG/5 ML SDV (FOR ANES.) As Ordered ONE ×2 (09:48→10:36)
[2019-08-02] MEDS ORDERED: CONRAY-60 60% 50ML VIAL (Q9961) As Ordered ONE (10:05)
[2019-08-02] MEDS ORDERED: LIDOCAINE 2% 5ML JELLY UROJET As Ordered ONE (10:07)
[2019-08-02 12:45] VITALS: BP 128/76
--- NOTE | 2019-08-05 11:25 | RO ---
DATE OF PROCEDURE: 08/02/2019 PREPROCEDURE DIAGNOSIS: Left ureteral obstruction. POSTPROCEDURE DIAGNOSIS: Left ureteral obstruction. PROCEDURE: Cystoscopy. SURGEON: Dr. Wenceslao Dietrich KITCHEN SUPERVISOR: None. ANESTHESIA: MAC. OPERATIVE INDICATIONS: This is a 74-year-old male with a history of left ureteral stricture which was managed by a left ureteral implantation by another physician approximately one year ago. Subsequent imaging shows left hydronephrosis and also what appears to be poor function to the left kidney. Decision was made to bring him to the operating room with a plan to try to place a left ureteral stent and then repeat renal imaging to see if the function of the kidney improves. He was brought to the operating room today for this procedure. DESCRIPTION OF PROCEDURE: The patient was brought to the operating room and MAC anesthesia was administered. Prophylactic antibiotics were infused. He was placed in dorsal lithotomy position and prepped and draped in the usual sterile fashion. A rigid cystoscope was inserted into the urethral meatus and advanced into the bladder. The bladder was then thoroughly examined for at least 30 minutes with the attempt to find the ureteral orifice for the reimplanted left ureter. It could not be idenified. No urine appeared to be effluxing from any part of the left side of the bladder. The right ureteral orifice was easily identified and effluxed clear urine. Given the left ureteral orifice could not be identified, we could not place a stent. The bladder was then emptied of all fluids. This marked the conclusion of the procedure. The patient was taken out of the dorsal lithotomy position, awakened from anesthesia and transported to the recovery room in stable condition. Estimated blood loss: 5 mL. Complications: None. Specimen: None. Plan: Will arrange to have this patient set up for a left percutaneous nephrostomy tube placement. Once we have that in and have the kidney drained, we will repeat a renal scan to see if there is any improved function of that kidney. If there is, then we will try to salvage the kidney. If there is no improved function, then we will take the nephrostomy tube out.
== END 2019-08-02 12:50 | disposition home or self-care (01) ==
LOC: M SDC 08:25
PROVIDERS: ATTEND Urology
DX: N13.5 Crossing vessel and stricture of ureter without hydronephrosis (principal); N17.9 Acute kidney failure, unspecified; K22.70 Barrett's esophagus without dysplasia; F41.9 Anxiety disorder, unspecified; F32.9 Major depressive disorder, single episode, unspecified; M54.30 Sciatica, unspecified side; G47.30 Sleep apnea, unspecified; Z87.440 Personal history of urinary (tract) infections; Z87.891 Personal history of nicotine dependence; Z88.1 Allergy status to other antibiotic agents; Z80.0 Family history of malignant neoplasm of digestive organs; Z88.8 Allergy status to other drugs, medicaments and biological substances; Z91.048 Other nonmedicinal substance allergy status; Z79.899 Other long term (current) drug therapy
CPT/HCPCS: 52000; 74420; C1769; J0690; J2250; J3010; Q9961

== ENCOUNTER → 2019-08-08 | Outpatient (CLI) | payer BC ==
[~2019-08-08] VITALS: Ht 177.8 cm; Wt 75.0 kg
[~2019-08-08] MED LIST changes: +ACETAMINOPHEN 500 MG TAB PO PRN; +GENTAMICIN 100 MG in IV 1 EA IV ONE; +ISOVUE-300 61% 50ML VIAL (Q9967) As Ordered ONE; +LIDOCAINE 1% MDV 20ML VIAL As Ordered ONE; -LR 1,000 ML IV ONE; +MIDAZOLAM INJ 2 MG/2 ML VIAL (J2250) As Ordered ONE; +NS 1,000 ML IV SCH; +PERCOCET 5MG/325MG TAB As Ordered ONE; +PERCOCET 5MG/325MG TAB PO PRN; -ceFAZolin SOD 2 GM in IV 1 EA IV ONE; +diphenhydrAMINE INJ 50MG/ML VIAL (J1200) As Ordered ONE; +fentaNYL 100 MCG/2 ML INJECTION (J3010) As Ordered ONE
--- NOTE | 2019-08-08 07:54 | IRHP ---
[facility] IR Pre-Procedure H & P General Date of Service: Aug 08, 2019 Procedure: Same Day Surgery Interval History and Physical I have seen the patient and reviewed last H & P performed within 30 days. There is no significant interval change. History of Present Illness Chief Complaint The patient is a 74-year-old male admitted with a reason for visit of Left Ureteral Obstruction. PRE-PROCEDURE DIAGNOSIS: left ureteral obstruction HEART: normal rate LUNGS: normal breathing at rest. ASA Classification ASA Classification: II-Mild systemic disease Mallampati Score: II NPO: Yes Problems with prior sedation: No Obstructive Sleep Apnea: Yes Plan moderate sedation Allergies Coded Allergies: TAPE (Verified Allergy, Intermediate, blisters, 07/29/19) ciprofloxacin (Verified Allergy, Intermediate, hives, flushing, 02/19/19) Penicillins (Verified Allergy, Mild, PRURITIS, 02/19/19) Home Medications Scheduled Omeprazole (Omeprazole), 40 MG PO DAILY, (Reported) Scheduled PRN Acetaminophen (Tylenol 8 Hour), 650 MG PO Q8H PRN for PAIN, (Reported) Diclofenac Sodium (Diclofenac Sodium), 1 DOSE TOP QID PRN for PAIN, (Reported) Fluticasone Propionate (Flonase Allergy Relief), 2 SPRAYS NA DAILY PRN for NASAL CONGESTION, (Reported) VS, I&O, 24H, Fishbone Vital Signs/I&O Vital Signs Date Time Temp Pulse Resp B/P (MAP) Pulse Ox O2 Delivery O2 Flow Rate FiO2 08/08/19 06:49 98.6 79 18 94 Room Air STEFAN SURESH MD Aug 08, 2019 07:54
[2019-08-08 10:50] VITALS: BP 141/86
--- NOTE | 2019-08-08 15:46 | REP ---
IR Percutaneous nephrostomy catheter placement using fluoroscopy and ultrasound guidance. IR nephrostogram and ureterogram. IR moderate sedation. Ultrasound of the left kidney. Clinical information: Prior history of renal stones and stone treatment. Chronic stricture with intermittent hydronephrosis. Physician: Dr Cullen. Procedure: The patient was advised of the benefits, risks and alternatives of the procedure and informed consent was obtained. The time-out was performed with verification of the patient's name, MRN, site of procedure and type of procedure to be performed. The patient was positioned in the prone position on the angiographic table. The site was prepped and draped in the usual sterile fashion. Moderate sedation was performed by the physician including the presence of an independent trained observer who assisted in monitoring the patient's level of consciousness and physiologic status. Following the administration of fentanyl and Versed , the physician spent 60 minutes of face to face time with the patient. A copper plate lithographer radiograph reveals no gross abnormality. The anticipated puncture site on the flank was anesthetized with lidocaine. Using ultrasound guidance, the renal pelvis was accessed with a 21 gauge Chiba needle. A nephrostogram and ureterogram was performed demonstrating hydronephrosis and hydroureter in the proximal to thirds of the ureter. A large filling defect or extrinsic compression on the mid ureter. Complete ureteral occlusion distally. A second 21 gauge Chiba was used under fluoroscopy guidance to access the lower pole [place]. An 018 wire was then advanced into the collecting system. The needle was then exchanged for a non vascular introducer set. A Glidewire and glide catheter then advanced into the ureter. The catheter in conjunction with a Glidewire was used to try to recanalized the distal ureteral occlusion. The wire was removed and a micro wire and micro catheter were inserted through the diagnostic catheter and used under fluoroscopy guidance to try to recanalize the distal ureteral occlusion. This was unsuccessful. Needle, Micro catheter, diagnostic catheter, wire and sheath were removed. A 10-[place] nephrostomy catheter was then advanced over the wire under fluoroscopy guidance, into the renal collecting system. The pigtail was formed and locked in position. A final nephrostogram ureterogram was performed confirming position of the pigtail in the renal pelvis and moderate hydronephrosis. The ureter is not patent to the bladder . The catheter was sutured in position with 2-0 Prolene and a sterile dressing was applied. The catheter was placed gravity drainage. The patient tolerated the procedure well and was returned to the PRU in stable condition. EBL: < 5 ml. Complications: None. Conclusion: 1. Nephrostogram and ureterogram demonstrate hydronephrosis and hydroureter in the proximal two thirds of the ureter. A large filling defect or extrinsic compression on the mid ureter. Complete distal ureteral occlusion. I reviewed the CT abdomen pelvis from May 2019. There is a ureterocele or mass adjacent to the ureter vesicular junction. There is also adenopathy or mass resulting in extrinsic compression on the mid ureter. 2. Successful left-sided nephrostomy catheter placement. Patient to follow up in IR in 4 weeks for attempt at internalization. Continue follow up with urology. Thank you for this referral. Cc Dr. Wenceslao Dietrich Electronically Signed by Dunia Cullen MD 08/08/2019 03:44 P
== END ==
LOC: M IRPRO 06:33
PROVIDERS: ATTEND Urology
DX: N13.0 Hydronephrosis with ureteropelvic junction obstruction (principal); N13.4 Hydroureter; N28.89 Other specified disorders of kidney and ureter; Z79.899 Other long term (current) drug therapy; Z87.442 Personal history of urinary calculi; Z88.0 Allergy status to penicillin; Z88.1 Allergy status to other antibiotic agents; Z91.048 Other nonmedicinal substance allergy status
CPT/HCPCS: 50432; 99152; 99153; C1729; C1769; C1887; C1894; J1200; J3010; Q9967

== ENCOUNTER → 2019-08-21 | Outpatient (REF) | payer BC ==
[~2019-08-21] MED LIST changes: -ACETAMINOPHEN 500 MG TAB PO PRN; -GENTAMICIN 100 MG in IV 1 EA IV ONE; -ISOVUE-300 61% 50ML VIAL (Q9967) As Ordered ONE; -LIDOCAINE 1% MDV 20ML VIAL As Ordered ONE; -MIDAZOLAM INJ 2 MG/2 ML VIAL (J2250) As Ordered ONE; -NS 1,000 ML IV SCH; -PERCOCET 5MG/325MG TAB As Ordered ONE; -PERCOCET 5MG/325MG TAB PO PRN; -diphenhydrAMINE INJ 50MG/ML VIAL (J1200) As Ordered ONE; -fentaNYL 100 MCG/2 ML INJECTION (J3010) As Ordered ONE
[2019-08-21 11:57] LABS: CREATININE FOR GFR 1.28 MG/DL (0.70-1.30); GLOMERULAR FILTRATION RATE 58.6 (>42); INR 1.17; POTASSIUM SERUM 4.7 MEQ/L (3.5-5.1); PROTHROMBIN TIME 14.6 SECONDS (11.8-14.0)
[2019-08-21 11:58] LABS: PARTIAL THROMBOPLASTIN TIME 36.8 SECONDS (25.0-38.4)
[2019-08-21 12:06] LABS: HEMATOCRIT 35.2 % (42.0-52.0); HEMOGLOBIN 10.7 g/dl (13.5-17.5); MEAN CORPUSCULAR HEMOGLOBIN 25.5 pg (27.0-33.0); MEAN CORPUSCULAR HGB CONC 30.4 g/dl (32.0-36.5); MEAN CORPUSCULAR VOLUME 83.8 fl (80.0-96.0); PLATELET COUNT, AUTOMATED 393 10^3/uL (150-450)
== END ==
LOC: M LABSMT 08:09
PROVIDERS: ATTEND Urology
DX: R59.0 Localized enlarged lymph nodes (principal)

== ENCOUNTER → 2019-08-22 | Outpatient (CLI) | payer BC ==
[~2019-08-22] MED LIST changes: +ISOVUE-370 76% 100ML VIAL (Q9967) As Ordered ONE; +LIDOCAINE 1% MDV 20ML VIAL As Ordered ONE; +SODIUM BICARBONATE 8.4% INJ 50MEQ 50 ML VIAL As Ordered ONE; +ZOLO25TA PO
--- NOTE | 2019-08-22 11:01 | REP ---
CT abdomen and pelvis with IV and without oral contrast: History: Retroperitoneal lymphadenopathy and obstructive uropathy on the left. Followup CT study prior to anticipated retroperitoneal lymph node biopsy. Comparison study June 07, 2019. CT contrast dose: 100 mL of intravenous Isovue [address] findings: Digital preliminary experience specialist radiograph demonstrates laterally dislodged percutaneous nephrostomy catheter on the left. Bowel gas pattern is normal. Lung base images demonstrate a granulomatous calcification in the right lower lobe and discoid atelectasis in the left lower lobe along the left hemidiaphragm. No pleural effusion or noncalcified lung nodule. There is a 2.4 cm cyst in the right lobe of the liver which is unchanged. There are two calcified gallstones in the dependent portion of the gallbladder near its neck. There is a tiny 6 mm cyst in the left lobe of the liver. No focal liver mass lesion is appreciated. The spleen is unremarkable. No adrenal lesion is seen. No abnormality is noted in the pancreas. There is moderate hydronephrosis of the left kidney. The left kidney shows minimal atrophy. The pigtail loop of the nephrostomy catheter is seen in the subcutaneous fat of the posterolateral flank. It has withdrawn from the kidney parenchyma completely. There is hydroureter on the left. There appears to be some hyperdense material in the distal ureter which could be an enhancing mass or thrombus. No hydronephrosis on the right. There is bulky retroperitoneal lymphadenopathy in the periaortic region. There is adenopathy along the external and internal iliac arteries on the left. The adenopathy appears slightly more prominent than on the June 07, 2019 study. No extra pelvic adenopathy is appreciated. There is asymmetric thickening of the urinary bladder wall along its left lateral margin similar to the prior study. No abdominal wall defect is seen. No bony destructive lesion is seen. Impression: 1. Fairly bulky and slightly progressive periaortic lymphadenopathy in the retroperitoneum. Anticipated CT-guided needle biopsy will proceed. 2. Previously placed left percutaneous nephrostomy catheter has spontaneously withdrawn to the subcutaneous space and is dislodged. This will be removed. Dr. Cullen is aware and is making arrangements to replace it. 3. Eccentric thickening of the urinary bladder wall. Iliac lymphadenopathy and possible intraluminal enhancing material in the dilated distal ureter on the left. Question urothelial malignancy with metastatic adenopathy. 4. Cholelithiasis. Electronically Signed by Jose Kiran MD 08/22/2019 12:39 P
[2019-08-22 13:15] VITALS: BP 156/82
--- NOTE | 2019-08-22 13:43 | REP ---
CT-guided periaortic lymph node biopsy The procedure is performed by MATHEW Stevens, under the direct supervision of Dr. Kiran. The risks and benefits of the procedure were explained to the patient and informed consent was obtained both orally and written. Directly prior to the start of the procedure, a formal timeout was done in the exam room. The periaortic lymph node was localized using CT guidance. Skin was prepped and draped in the usual sterile fashion. 4 ml of buffered lidocaine was used as a local anesthetic. Using CT guidance a 19/20 gauge coaxial needle biopsy system was inserted and advanced to that enlarged lymph node . 8 core biopsy samples were obtained and sent to the lab. CT images obtained directly after the biopsy show no evidence of an active bleed or hematoma. After the appropriate amount of monitored convalescence the patient was discharged from the department. Reviewed by MATHEW Mendoza 08/22/2019 12:52 P Electronically Signed by Jose Kiran MD 08/22/2019 01:34 P
== END ==
LOC: M RAD 09:19 → M IRPRO 09:19
PROVIDERS: ATTEND Urology
DX: R59.0 Localized enlarged lymph nodes (principal)
CPT/HCPCS: 38505; 74177; 77012; 88305; Q9967

== ENCOUNTER → 2019-08-28 | Outpatient (CLI) | payer BC ==
[~2019-08-28] MED LIST changes: +ISOVUE-300 61% 50ML VIAL (Q9967) As Ordered ONE; -ISOVUE-370 76% 100ML VIAL (Q9967) As Ordered ONE; +MIDAZOLAM INJ 2 MG/2 ML VIAL (J2250) As Ordered ONE; -SODIUM BICARBONATE 8.4% INJ 50MEQ 50 ML VIAL As Ordered ONE; +cefTRIAXone SOD 1 GM VIAL (J0696) As Ordered ONE; +diphenhydrAMINE INJ 50MG/ML VIAL (J1200) As Ordered ONE; +fentaNYL 100 MCG/2 ML INJECTION (J3010) As Ordered ONE
[2019-08-28 14:00] VITALS: BP 146/82
--- NOTE | 2019-08-28 18:11 | IRHP ---
[facility] IR Pre-Procedure H & P General Date of Service: Aug 28, 2019 Procedure: Same Day Surgery Interval History and Physical I have seen the patient and reviewed last H & P performed within 30 days. There is no significant interval change. History of Present Illness Chief Complaint The patient is a 74-year-old male admitted with a reason for visit of Hydronephrosis, Catheter Came Out. PRE-PROCEDURE DIAGNOSIS: ureteral obstruction. hydronephrosis HEART: normal rate. LUNGS: normal breathing at rest. ASA Classification ASA Classification: II-Mild systemic disease Mallampati Score: II NPO: Yes Problems with prior sedation: No Obstructive Sleep Apnea: No Plan moderate sedation Allergies Coded Allergies: TAPE (Verified Allergy, Intermediate, blisters, 07/29/19) ciprofloxacin (Verified Allergy, Intermediate, hives, flushing, 02/19/19) Penicillins (Verified Allergy, Mild, PRURITIS, 02/19/19) Home Medications Scheduled Omeprazole (Omeprazole), 40 MG PO DAILY, (Reported) Scheduled PRN Acetaminophen (Tylenol 8 Hour), 650 MG PO Q8H PRN for PAIN, (Reported) Diclofenac Sodium (Diclofenac Sodium), 1 DOSE TOP QID PRN for PAIN, (Reported) Fluticasone Propionate (Flonase Allergy Relief), 2 SPRAYS NA DAILY PRN for NASAL CONGESTION, (Reported) VS, I&O, 24H, Fishbone Vital Signs/I&O Vital Signs Date Time Temp Pulse Resp B/P (MAP) Pulse Ox O2 Delivery O2 Flow Rate FiO2 08/28/19 14:00 74 16 97 Room Air 08/28/19 11:55 2 08/28/19 08:48 97.1 STEFAN SURESH MD Aug 28, 2019 18:11
--- NOTE | 2019-08-28 18:12 | POST-OPPD ---
Postoperative Procedure Note Date Of Procedure: Aug 28, 2019 Time Of Procedure: 18:11 PREOPERATIVE DIAGNOSIS: left hydronephrosis POSTOPERATIVE DIAGNOSIS: same FINDINGS: same PROCEDURE: left nephrostomy SURGEON: danyell ANESTHESIA: mod sed ESTIMATED BLOOD LOSS: < 5 ml COMPLICATIONS: none POSTOPERATIVE CONDITION: stable STEFAN SURESH MD Aug 28, 2019 18:12
--- NOTE | 2019-08-29 10:48 | REP ---
IR Percutaneous nephrostomy catheter placement using fluoroscopy and ultrasound guidance. IR nephrostogram and ureterogram. IR moderate sedation. Ultrasound of the left kidney. Clinical information: Left-sided hydronephrosis. Ureteral obstruction. Physician: Dr Cullen. Procedure: The patient was advised of the benefits, risks and alternatives of the procedure and informed consent was obtained. The time-out was performed with verification of the patient's name, MRN, site of procedure and type of procedure to be performed. The patient was positioned in the prone position on the angiographic table. The site was prepped and draped in the usual sterile fashion. Moderate sedation was performed by the physician including the presence of an independent trained observer who assisted in monitoring the patient's level of consciousness and physiologic status. Following the administration of fentanyl and Versed, the physician spent 45 minutes of face to face time with the patient. The anticipated puncture site on the flank was anesthetized with lidocaine. Using ultrasound guidance, the renal collecting system was accessed with a 21 gauge Chiba needle. A nephrostogram and ureterogram was performed demonstrating hydronephrosis, hydroureter and distal ureteral obstruction. The 21 gauge Chiba needle was retracted under fluoroscopy guidance and used to access the lower pole [place]yx. An 018 wire was then advanced into the collecting system. The needle was then exchanged for a non vascular introducer set. An Amplatz wire was then advanced into the ureter. A 10-[place] nephrostomy catheter was then advanced into the renal collecting system. The pigtail was formed and locked in position. A final nephrostogram ureterogram was performed confirming position of the pigtail in the renal pelvis and hydronephrosis. The ureter is obstructed mid ureter with proximal hydroureter and distal ureteral obstruction. The catheter was sutured in position with 2-0 Prolene and a sterile dressing was applied. The catheter was placed gravity drainage. The patient tolerated the procedure well and was returned to the PRU in stable condition. EBL: < 5 ml. Complications: None. Conclusion: 1. Nephrostogram and ureterogram demonstrate hydronephrosis and hydroureter with mid ureteral obstruction. 2. Successful left-sided nephrostomy catheter placement. Patient to follow up in IR in 8 to 12 weeks for routine catheter exchange. Thank you for this referral. Electronically Signed by Dunia Cullen MD 08/29/2019 10:46 A
== END ==
LOC: M IRPRO 08:19
PROVIDERS: ATTEND Radiology Diagnostic Radiology
DX: N13.0 Hydronephrosis with ureteropelvic junction obstruction (principal)

== ENCOUNTER → 2019-09-02 | Outpatient (CLI) | payer BC ==
[~2019-09-02] MED LIST changes: -ISOVUE-300 61% 50ML VIAL (Q9967) As Ordered ONE; -MIDAZOLAM INJ 2 MG/2 ML VIAL (J2250) As Ordered ONE; -cefTRIAXone SOD 1 GM VIAL (J0696) As Ordered ONE; -diphenhydrAMINE INJ 50MG/ML VIAL (J1200) As Ordered ONE; -fentaNYL 100 MCG/2 ML INJECTION (J3010) As Ordered ONE
[2019-09-02 10:14] VITALS: BP 151/84
--- NOTE | 2019-09-02 16:50 | REP ---
CT-GUIDED LEFT PERIAORTIC LYMPH NODE BIOPSY The procedure was performed under the direct supervision of Dr. Dumas. The patient has a history of bulky retroperitoneal lymphadenopathy in the periaortic region seen on a previous CT scan dated 08/22/2019. This was biopsied on 08/22/2019. The patient is referred for rebiopsy. The risks and benefits of the procedure were explained to the patient and informed consent was obtained. The left periaortic lymph node was localized using CT guidance. The skin was prepped and draped in a sterile fashion. 1% lidocaine was used as a local anesthetic. Using CT guidance a 19/20 gauge coaxial needle biopsy system was inserted and advanced into the lymph node. Nine core biopsy samples were obtained and sent to lab. The patient tolerated the procedure well and there were no immediate complications. After the appropriate amount of monitored convalescence the patient was discharged from the department. Electronically Signed by MATHEW Mckeon 09/02/2019 04:30 P Electronically Signed by Jimbo Dumas MD 09/02/2019 04:42 P
== END ==
LOC: M IRPRO 08:01
PROVIDERS: ATTEND Urology
DX: C77.2 Secondary and unspecified malignant neoplasm of intra-abdominal lymph nodes (principal)

== ENCOUNTER → 2019-09-05 | Outpatient (CLI) | payer BC ==
[~2019-09-05] MED LIST changes: -LIDOCAINE 1% MDV 20ML VIAL As Ordered ONE
--- NOTE | 2019-09-05 11:23 | REP ---
REASON FOR EXAM: History of renal failure. Latest prior for comparison is 05/29/2019, which showed a nonfunctioning left kidney felt to be unchanged from older exams. After the intravenous administration of 8.8 millicuries of technetium 99m MAG3, a renal flow and scan study was obtained. The flow portion of the examination shows prompt visualization of the right kidney. The left kidney is not visualized. Dynamic renal scan shows good washout characteristics of the right kidney but with some delayed excretion of the radiotracer. The postvoid scintiscan shows improved excretion of the radiotracer from the collecting system compared to the pre-void scintiscan. Analysis of the functional curve shows the gtdd-bp-gtcx activity right kidney 2 minutes with the t-1/2 valve being just under 13 minutes. This is within the normal range. Left kidney ejfb-og-ulcv activity and t-1/2 valve are essentially background activity. The splint function and differential shows nearly all counts coming from the right kidney with only slightly higher than background counts coming from the left kidney. The count density data reflects the same abnormality. IMPRESSION: Nonfunctioning left kidney as described above, essentially unchanged. Electronically Signed by Daryl Alberts DO 09/05/2019 02:41 P
== END ==
LOC: M RAD 09:07
PROVIDERS: ATTEND Urology
DX: N19 Unspecified kidney failure (principal)
CPT/HCPCS: 78707; A9562

== ENCOUNTER → 2019-09-20 | Outpatient (CLI) | payer BC ==
[~2019-09-20] MED LIST changes: +MAGN100T PO; +TAMS1CAP17 PO
[2019-09-20 17:44] LABS: BASO % 0.5 % (0.0-1.0); EOS # 0.3 10^3/uL (0.0-0.5); EOS % 3.5 % (0.0-3.0); HEMATOCRIT 36.4 % (42.0-52.0); HEMOGLOBIN 10.7 g/dl (13.5-17.5); LYMPH # 0.6 10^3/uL (1.5-5.0); LYMPH % 7.7 % (24.0-44.0); MEAN CORPUSCULAR HEMOGLOBIN 24.6 pg (27.0-33.0); MEAN CORPUSCULAR HGB CONC 29.4 g/dl (32.0-36.5); MEAN CORPUSCULAR VOLUME 83.7 fl (80.0-96.0); MONO # 0.9 10^3/uL (0.0-0.8); MONO % 11.3 % (0.0-5.0); NEUTROPHILS # 6.1 10^3/uL (1.5-8.5); NEUTROPHILS % 76.6 % (36.0-66.0); PLATELET COUNT, AUTOMATED 388 10^3/uL (150-450); RED BLOOD COUNT 4.35 10^6/uL (4.30-6.10)
[2019-09-20 18:03] LABS: ALBUMIN 3.2 GM/DL (3.2-5.2); ALT/SGPT 22 U/L (12-78); BILIRUBIN,TOTAL 0.2 MG/DL (0.2-1.0); BLOOD UREA NITROGEN 28 MG/DL (7-18); CALCIUM LEVEL 8.8 MG/DL (8.8-10.2); CARBON DIOXIDE LEVEL 32 MEQ/L (21-32); CHLORIDE LEVEL 107 MEQ/L (98-107); CREATININE FOR GFR 1.24 MG/DL (0.70-1.30); FREE T4 1.17 NG/DL (0.76-1.46); GLOMERULAR FILTRATION RATE > 60.0 (>42); GLUCOSE, FASTING 91 MG/DL (70-100); POTASSIUM SERUM 4.8 MEQ/L (3.5-5.1); SODIUM LEVEL 142 MEQ/L (136-145); TOTAL PROTEIN 6.8 GM/DL (6.4-8.2)
== END ==
LOC: M PLALAB 14:57
PROVIDERS: ATTEND Family Medicine
DX: C68.0 Malignant neoplasm of urethra (principal); C77.8 Secondary and unspecified malignant neoplasm of lymph nodes of multiple regions

== ENCOUNTER → 2019-09-20 | Outpatient (CLI) | payer BC ==
[2019-09-20 17:58] LABS: ALBUMIN 3.3 GM/DL (3.2-5.2); BILIRUBIN,TOTAL 0.3 MG/DL (0.2-1.0); CALCIUM LEVEL 8.9 MG/DL (8.8-10.2); CREATININE FOR GFR 1.27 MG/DL (0.70-1.30); GLOMERULAR FILTRATION RATE 59.2 (>42); POTASSIUM SERUM 4.9 MEQ/L (3.5-5.1); TOTAL PROTEIN 6.8 GM/DL (6.4-8.2)
[2019-09-20 18:07] LABS: INR 1.12; PROTHROMBIN TIME 14.1 SECONDS (11.8-14.0)
[2019-09-20 18:08] LABS: PARTIAL THROMBOPLASTIN TIME 37.7 SECONDS (25.0-38.4)
== END ==
LOC: M PLALAB 15:00
PROVIDERS: ATTEND Internal Medicine Hematology & Oncology
DX: C68.0 Malignant neoplasm of urethra (principal)

== ENCOUNTER → 2019-09-24 | Outpatient (CLI) | payer BC ==
[~2019-09-24] MED LIST changes: +PROHANCE 279.3MG/ML 15ML VIAL (A9576) As Ordered ONE
--- NOTE | 2019-09-25 09:46 | REP ---
MRI PELVIS WITH AND WITHOUT CONTRAST: TECHNIQUE: Multiple sequences in the axial, coronal and sagittal planes prior to and following the intravenous administration of 14 mL ProHance. Correlation made with prior CT 08/22/2019. There is a large irregular enhancing mass involving the left bladder wall and distal left ureter. There is extension to the left pelvic sidewall musculature. There appears to be invasion of the lateral aspect of the left seminal vesicle. There is extension anteriorly up to the posterior margin of the pubic symphysis. There is an ill-defined tumor infiltration and confluent adenopathy extending contiguously superiorly in the region of the proximal left internal and external iliac vessels and left common iliac vessels. There is invasion of the anterior medial left psoas muscle. There is a small amount of free fluid noted in the inferior pelvis. No bone lesion is seen. Prostate is mildly enlarged and heterogeneous. IMPRESSION: Large irregular enhancing mass with ill-defined margins involving the left bladder wall and distal left ureter. There is invasion of the adjacent left pelvic soft tissues and extension to the left pelvic sidewall. There is mild invasion of the lateral left seminal vesicle. There is contiguous extension and tumor infiltration with confluent adenopathy extending along the proximal left external and internal iliac vessels and left common iliac vessels, superiorly to the distal abdominal aorta. There is also invasion of the anteromedial left psoas muscle. Electronically Signed by Jimbo Dumas MD 09/25/2019 12:03 P
--- NOTE | 2019-09-25 17:22 | REP ---
Clinical: History of uroepithelial cancer. Technique: Axial noncontrast images from the thoracic inlet to the upper abdomen with coronal and sagittal re-formations. Comparison: 01/27/2003. Findings: Lung adhikari demonstrate chronic scarring in the right middle lobe along with chronic calcified granuloma in the right lower lobe and multiple calcified lymph nodes. Minimal linear atelectasis at the lingula along with mild left basilar atelectasis is appreciated. No significant nodule or mass lesion identified. No effusion. No pneumothorax. Mediastinum demonstrates atherosclerotic changes to the thoracic aorta and coronary arteries without aortic aneurysm or cardiomegaly. No pericardial effusion. Limited upper abdomen demonstrates significant primarily left para-aortic retroperitoneal adenopathy. Impression: 1. Lung adhikari demonstrate lingular and left lower lobe atelectasis. 2. No effusion, significant nodule or mass lesion. No mediastinal/hilar adenopathy. 3. Limited upper abdomen demonstrates marked left para-aortic retroperitoneal adenopathy. Electronically Signed by Jenaro Hook MD 09/25/2019 05:14 P
== END ==
LOC: M RAD 15:19
PROVIDERS: ATTEND Internal Medicine Hematology & Oncology
DX: C68.0 Malignant neoplasm of urethra (principal)
CPT/HCPCS: 71250; 72197; A9576

== ENCOUNTER → 2019-09-26 | Outpatient (CLI) | payer BC ==
[~2019-09-26] MED LIST changes: +LIDOCAINE 1% MDV 20ML VIAL As Ordered ONE; +MIDAZOLAM INJ 2 MG/2 ML VIAL (J2250) As Ordered ONE; -PROHANCE 279.3MG/ML 15ML VIAL (A9576) As Ordered ONE; +VANCOMYCIN HCL 500 MG/10 ML VIAL (J3370) As Ordered ONE; +[UNRECOGNIZED DRUG - OTHER]; +diphenhydrAMINE 50MG/ML VIAL (J1200) As Ordered ONE; +fentaNYL 100 MCG/2 ML INJECTION (J3010) As Ordered ONE
--- NOTE | 2019-09-26 08:54 | IRHP ---
[facility] IR Pre-Procedure H & P General Date of Service: Sep 26, 2019 Procedure: Same Day Surgery Interval History and Physical I have seen the patient and reviewed last H & P performed within 30 days. There is no significant interval change. History of Present Illness Chief Complaint The patient is a 74-year-old male admitted with a reason for visit of Urothelial Ca. PRE-PROCEDURE DIAGNOSIS: urothelial cancer HEART: normal rate. LUNGS: normal breathing at rest. ASA Classification ASA Classification: III-Severe systemic dis. Mallampati Score: II NPO: Yes Problems with prior sedation: No Obstructive Sleep Apnea: No Plan moderate sedation Allergies Coded Allergies: TAPE (Verified Allergy, Intermediate, blisters, 07/29/19) ciprofloxacin (Verified Allergy, Intermediate, hives, flushing, 02/19/19) Penicillins (Verified Allergy, Mild, PRURITIS, 02/19/19) Home Medications Scheduled Omeprazole (Omeprazole), 40 MG PO DAILY, (Reported) Sertraline Hcl (Zoloft), 25 MG PO QPM, (Reported) Tamsulosin Hcl (Tamsulosin HCl), 0.4 MG PO QPM, (Reported) [[place] Citrite], 1,620 MG ONCE A DAY, (Reported) Scheduled PRN Acetaminophen (Tylenol 8 Hour), 650 MG PO Q8H PRN for PAIN, (Reported) Fluticasone Propionate (Flonase Allergy Relief), 2 SPRAYS NA DAILY PRN for NASAL CONGESTION, (Reported) Discontinued Medications Diclofenac Sodium (Diclofenac Sodium), 1 DOSE TOP QID PRN for PAIN, (Reported) Discontinued Reason: Pt states not taking Magnesium Citrate (Magnesium Citrate), 600 MG PO DAILY, (Reported) Discontinued Reason: Pt states not taking VS, I&O, 24H, Fishbone Vital Signs/I&O Vital Signs Date Time Temp Pulse Resp B/P (MAP) Pulse Ox O2 Delivery O2 Flow Rate FiO2 09/26/19 08:07 97.6 62 16 98 Room Air STEFAN SURESH MD Sep 26, 2019 08:54
--- NOTE | 2019-09-26 09:40 | REP ---
IR Ultrasound and fluoroscopy-guided port placement. IR Ultrasound of the neck. IR Moderate sedation. Clinical information: Urothelial cancer. Physician: Dr. Cullen. Procedure: The patient was advised of the benefits, risks, and alternatives of the procedure and informed consent was obtained. A time-out was performed with verification of the patient's name, MRN, site of procedure and type of procedure to be performed. The patient was positioned in the supine position on the angiographic table. The site was prepped and draped in the usual sterile fashion. Moderate sedation was performed by the physician including the presence of an independent trained observer who assisted and monitored the patient's level of consciousness and physiologic status. Following the administration of Fentanyl and versed, the physician spent 45 minutes of continuous face to face time with the patient. Ultrasound of the neck reveals a patent and compressible right internal jugular vein. A tool trouble shooter radiograph reveals no gross abnormality. The neck and anterior chest wall were anesthetized with lidocaine. The right internal jugular vein was accessed using a microintroducer needle under ultrasound guidance, via a lateral approach. An 018 wire was advanced into the superior vena cava, the needle was removed and a microsheath was placed. An Amplatz wire was then passed into the inferior vena cava. An incision at the internal jugular vein access site and anterior chest wall were made using a scalpel. An incision was made at the anterior chest wall. A small pocket was created using a combination of blunt and sharp dissection. A tunneling device was then used to pass the catheter from the pocket to the neck puncture site. An 8-[place] smart power port was then positioned in the pocket. The catheter was then measured and cut. The introducer sheath was exchanged for a peel-away sheath. The catheter was passed through the peel-away sheath into the internal jugular vein and the peel-away sheath was removed. The port tip was positioned at the cavoatrial junction. The port was then accessed with a Jacome needle. The port flushes and aspirates well. The puncture site in the neck was closed. The chest wall incision was then closed with 2-0 Vicryl and 4-0 Monocryl. Glue and Steri-Strips were applied. A sterile dressing was then applied. The patient tolerated the procedure well and was returned to the PRU in stable condition. Estimated blood loss: <5 ml. Complications: None. Conclusion: 1. Successful placement of an 8-[place] [employer] smart power port via the right internal jugular vein. The port is ready for immediate use. 2. Patient to follow up in IR clinic in 2 weeks. Thank you for this referral. Electronically Signed by Dunia Cullen MD 09/26/2019 09:39 A
--- NOTE | 2019-09-26 10:22 | MEDONCTEEN ---
Date/Time of Encounter Date of Encounter: Sep 26, 2019 Time of Encounter: 10:20 Telephone Encounter Case discussed with Dr. Dietrich, Urology He reviewed recent CT and MRI results Given rapid progression of disease which was more than expected, and tumor encasement of renal artery and vein, it is not safe to proceed with nephrectomy at this time Proceed with port placement and initiation of systemic treatment Nephrectomy upon improvement in disease burden Restaging scans as standard practice SANDI TIJERINA MD Sep 26, 2019 10:22
[2019-09-26 11:15] VITALS: BP 144/80
== END ==
LOC: M IRPRO 07:55
PROVIDERS: ATTEND Radiology Diagnostic Radiology
DX: C68.0 Malignant neoplasm of urethra (principal)

== ENCOUNTER → 2019-10-01 | Outpatient (CLI) | payer BC ==
[~2019-10-01] MED LIST changes: -LIDOCAINE 1% MDV 20ML VIAL As Ordered ONE; -MIDAZOLAM INJ 2 MG/2 ML VIAL (J2250) As Ordered ONE; -VANCOMYCIN HCL 500 MG/10 ML VIAL (J3370) As Ordered ONE; -diphenhydrAMINE 50MG/ML VIAL (J1200) As Ordered ONE; -fentaNYL 100 MCG/2 ML INJECTION (J3010) As Ordered ONE
--- NOTE | 2019-10-02 15:51 | REP ---
REASON FOR EXAM: Bladder carcinoma. There are no prior PET/CT's for comparison. Previous CT examination of the chest 09/24/2019 reviewed. Previous pelvic MRI of 09/24/2019 also reviewed. After the intravenous administration of 8.10 millicuries of FDG18, triplane whole body PET/CT was performed from the skull base to the mid thigh. There is extensive left para-aortic adenopathy which is hypermetabolic having maximal SUV values of 5.75. This measures approximately 8 x 6 x 15 cm. There is rather extensive left hemipelvic sidewall hypermetabolic activity consistent with adenopathy. The maximal SUV values are 5.1. No other areas of abnormal hypermetabolic activity are seen in the neck, chest, abdomen, or pelvis. Standard CT imaging shows bilateral maxillary sinus disease and possibly with air fluid levels. This needs to be correlated clinically. Maxillary sinusitis/mucosal thickening. There is cholelithiasis. There is left renal stent. There are some lung changes better imaged by the previous chest CT 09/24/2019. IMPRESSION: 1. There is hypermetabolic activity seen in the retroperitoneum and in the left hemipelvis consistent with adenopathy. 2. Standard CT imaging shows cholelithiasis and a left renal stent. 3. There are chronic changes seen in the lung adhikari better imaged by prior standard CT of the chest which was performed 09/24/2019. Today's standard CT imaging shows no significant change from that exam. Electronically Signed by Daryl Alberts DO 10/02/2019 03:54 P
== END ==
LOC: M PLARAD 14:19
PROVIDERS: ATTEND Internal Medicine Hematology & Oncology
DX: C67.8 Malignant neoplasm of overlapping sites of bladder (principal); K80.20 Calculus of gallbladder without cholecystitis without obstruction; Z96.0 Presence of urogenital implants
CPT/HCPCS: 78815; A9552

== ENCOUNTER → 2019-10-08 | Outpatient (POV) | payer BC ==
[~2019-10-08] MED LIST changes: +PROC10TA4 PO
--- NOTE | 2019-10-09 15:01 | IRPN ---
[facility] IR Progress Note IR Progress Note DATE: Oct 08, 2019 Teleconsult FOLLOW-UP: status post port placement. Patient states port is doing well. Not used yet. No pain, fevers, chills or discharge at site. ON EXAMINATION: Video conference not available in patient side. IMPRESSION: Doing well status post port placement. Patient has appointment with oncology this Monday. No further follow up scheduled unless initiated by patient and/or referring provider. Thank you for this referral Allergies Coded Allergies: TAPE (Verified Allergy, Intermediate, blisters, 07/29/19) ciprofloxacin (Verified Allergy, Intermediate, hives, flushing, 02/19/19) Penicillins (Verified Allergy, Mild, PRURITIS, 02/19/19) STEFAN SURESH MD Oct 09, 2019 15:01
== END ==
LOC: M TMIRPOV 14:32
PROVIDERS: ATTEND Radiology Diagnostic Radiology
DX: Z45.2 Encounter for adjustment and management of vascular access device (principal)

== ENCOUNTER → 2019-11-20 | Outpatient (CLI) | payer BC ==
[~2019-11-20] MED LIST changes: +GENTAMICIN 80 MG in IV 1 EA IV ONE; +HYDR-3713 PO; +ISOVUE-300 61% 50ML VIAL As Ordered ONE; +LIDOCAINE 1% MDV 20ML VIAL As Ordered ONE; +LORA1TAB4 PO; +MIDAZOLAM INJ 2MG/2ML VIAL (J2250 PER 1MG) As Ordered ONE; +diphenhydrAMINE 50MG/ML VIAL (J1200) As Ordered ONE; +fentaNYL 100 MCG/2 ML INJECTION (J3010) As Ordered ONE
[2019-11-20 13:21] VITALS: BP 178/100
--- NOTE | 2019-11-27 12:48 | REP ---
IR Nephrostomy catheter exchange. IR Nephrostogram and ureterogram. Clinical information: Ureteral obstruction. Physician: Dr. Cullen. Procedure: The patient was advised of the benefits, risks and alternatives of the procedure and informed consent was obtained. The time-out was performed with verification of the patient's name, MRN, site of procedure and type of procedure to be performed. The patient was positioned in the prone position on the angiographic table. The site was prepped and draped in the usual sterile fashion. Moderate sedation was not performed. The physician spent 30 minutes of continuous face to face time with the patient. A supervisor print line radiograph reveals a left-sided nephrostomy catheter in expected location. An initial nephrostogram and ureterogram was performed through the preexisting catheter confirming pigtail positioned in the renal collecting system. Lidocaine was injected around the catheter exit site. The catheter and sutures were cut, an Amplatz wire was passed into the renal collecting system. The preexisting nephrostomy catheter was removed over the wire. A new 10 -Upper Sorbian nephrostomy catheter was advanced in the renal collecting system. A final nephrostogram and ureterogram was performed confirming position of the pigtail in the renal pelvis with moderate hydronephrosis. Ureterogram demonstrates proximal two third hydroureter with obstruction and a filling defect in the mid ureter . The ureter is not patent to the bladder. The catheter was secured in position with 2-0 Prolene and a sterile dressing was applied. The catheter was placed gravity drainage. The patient tolerated the procedure well and was returned to the [facility] in stable condition. EBL: Less than 5 ml. Complications: None. Conclusion: 1. Nephrostogram and ureterogram demonstrate mid ureteral obstruction with filling defect. 2. Successful left nephrostomy catheter exchange. Patient to return in 12 weeks for routine catheter exchange. Thank you this referral. Electronically Signed by Dunia Cullen MD 11/27/2019 12:47 P
== END ==
LOC: M IRPRO 11:29
PROVIDERS: ATTEND Radiology Diagnostic Radiology
DX: N13.2 Hydronephrosis with renal and ureteral calculous obstruction (principal)
CPT/HCPCS: 50435; C1729; C1769; J1642; Q9967

== ENCOUNTER → 2020-02-12 | Outpatient (CLI) | payer BC ==
[~2020-02-12] MED LIST changes: -AMLO10TA5 PO; +AMLO1TAB25 PO; +AMLO25TA PO; +CEPHALEXIN 500 MG CAP PO ONE; +CIPROFLOXACIN/D5W 400 MG/200 ML BAG (J0744) As Ordered ONE; -GENTAMICIN 80 MG in IV 1 EA IV ONE; -MIDAZOLAM INJ 2MG/2ML VIAL (J2250 PER 1MG) As Ordered ONE; +SERT50TA29 PO; -diphenhydrAMINE 50MG/ML VIAL (J1200) As Ordered ONE; -fentaNYL 100 MCG/2 ML INJECTION (J3010) As Ordered ONE
[2020-02-12 12:45] VITALS: BP 170/93
--- NOTE | 2020-03-05 11:14 | POST-OPPD ---
Postoperative Procedure Note Date Of Procedure: Feb 12, 2020 Time Of Procedure: 13:47 IR Nephrostomy catheter replacement. IR Nephrostogram and ureterogram. Clinical information: Hydronephrosis. Physician: Dr. Cullen. Procedure: The patient was advised of the benefits, risks and alternatives of the procedure and informed consent was obtained. The time-out was performed with verification of the patient's name, MRN, site of procedure and type of procedure to be performed. The patient was positioned in the prone position on the angiographic table. The site was prepped and draped in the usual sterile fashion. Moderate sedation was not required. The physician spent 30 minutes of continuous face to face time with the patient. A spine specialist radiograph reveals the left nephrostomy catheter is no longer in location. The Glidewire was used to probe the left nephrostomy track under fluoroscopy guidance. A 5 [place]alian glidecath was advanced over the wire. The wire was removed. Injection of contrast confirms catheterization of the left renal collecting system with hydronephrosis and proximal hydroureter. An amplatz wire was advanced through the catheter into the left renal collecting system under fluoroscopy guidance. The catheter was removed over the wire. A new 10 [place] nephrostomy catheter was advanced over the wire under fluoroscopy guidance and positioned in the renal pelvis. The wire was removed. The pigtail was formed. Final nephrostogram and ureterogram demonstrates moderate to severe hydronephrosis and hydroureter. The ureter is not patent to the bladder. The catheter was secured in position with 2-0 Prolene and a sterile dressing was applied to the site. The catheter was placed gravity drainage. The patient tolerated the procedure well and was returned to the [facility] in stable condition. EBL: Less than 5 ml. Complications: None. Conclusion: 1. Nephrostogram and ureterogram demonstrate hydronephrosis and proximal two thirds hydroureter. The ureter is not patent to the bladder. 2. Successful left nephrostomy catheter exchange. Patient to return in 12 weeks for routine catheter exchange. Patient to flush catheter daily with 10 mL sterile saline. Thank you this referral. STEFAN CULLEN MD Mar 05, 2020 11:13
== END ==
LOC: M IRPRO 11:27
PROVIDERS: ATTEND Radiology Diagnostic Radiology
DX: N13.30 Unspecified hydronephrosis (principal); C17.9 Malignant neoplasm of small intestine, unspecified; C77.5 Secondary and unspecified malignant neoplasm of intrapelvic lymph nodes; D70.9 Neutropenia, unspecified; Z88.0 Allergy status to penicillin; Z79.899 Other long term (current) drug therapy; Z91.048 Other nonmedicinal substance allergy status; Z92.21 Personal history of antineoplastic chemotherapy
CPT/HCPCS: 50435; C1729; C1769; C1887; Q9967

== ENCOUNTER → 2020-03-12 | Outpatient (CLI) | payer BC ==
[~2020-03-12] MED LIST changes: -CEPHALEXIN 500 MG CAP PO ONE; -CIPROFLOXACIN/D5W 400 MG/200 ML BAG (J0744) As Ordered ONE; -ISOVUE-300 61% 50ML VIAL As Ordered ONE; -LIDOCAINE 1% MDV 20ML VIAL As Ordered ONE; +PROHANCE 279.3MG/ML 15ML VIAL As Ordered ONE
--- NOTE | 2020-03-12 22:16 | REPVR ---
PROCEDURE INFORMATION: Exam: MR Head Without and With Contrast Exam date and time: 03/12/2020 5:40 PM Age: 74 years old Clinical indication: Dizziness TECHNIQUE: Imaging protocol: MR of the head without and with intravenous contrast. Contrast material: PROHANCE; Contrast volume: 8 ml; Contrast route: INTRAVENOUS (IV); COMPARISON: No relevant prior studies available. FINDINGS: Brain: Multiple foci of T2 lengthening are demonstrated in the subcortical, periventricular and centrum semiovale white matter consistent with age-related small vessel gliosis. Mild parenchymal volume loss. Cerebral ventricles: Normal. No ventriculomegaly. Bones/joints: Unremarkable. Paranasal sinuses: Inflammatory changes in the ethmoid sinuses. Mastoid air cells: Normal as visualized. No mastoid effusion. Orbits: Unremarkable. Soft tissues: Unremarkable. Other findings: Visualized 7th and 8th nerves appear unremarkable. IMPRESSION: 1. Multiple foci of T2 lengthening are demonstrated in the subcortical, periventricular and centrum semiovale white matter consistent with age-related small vessel gliosis. 2. Mild parenchymal volume loss. 3. No acute findings. Electronically signed by: Shawn Patel On 03/12/2020 22:15:56 PM
== END ==
LOC: M RAD 16:06
PROVIDERS: ATTEND Internal Medicine Medical Oncology
DX: R42 Dizziness and giddiness (principal)

== ENCOUNTER → 2020-03-23 | Outpatient (CLI) | payer BC ==
[~2020-03-23] MED LIST changes: +GASTROGRAFIN SOLUTION 30ML (Q9963) As Ordered ONE; -PROHANCE 279.3MG/ML 15ML VIAL As Ordered ONE
--- NOTE | 2020-03-26 13:32 | REP ---
NONCONTRAST CT OF THE CHEST CLINICAL: History of bladder/urethral cancer for followup. COMPARISON: 09/24/2019. FINDINGS: A stable calcified granuloma at the right lung base along with bibasilar fibroatelectatic changes (left greater than right) are noted. Previously identified left lower lobe and lingular atelectasis has essentially resolved. No acute consolidation, significant nodule, or mass lesion is appreciated. The tracheobronchial tree is patent. No obvious axillary, hilar, or mediastinal adenopathy noted. Atherosclerotic changes to the thoracic aorta and coronary arteries are identified without aortic aneurysm or pericardial effusion. Infusaport noted with tip in the superior vena cava (SVC). Partially calcified right hilar lymph nodes are again noted. Surrounding musculoskeletal structures demonstrate degenerative changes without acute process. IMPRESSION: * Previously noted left basilar atelectasis resolved and mild chronic fibroatelectatic changes are now identified primarily involving the left base and to a lesser extent the lingula and right base. * Evidence for prior granulomatous disease. * No acute mediastinal or pleural parenchymal process appreciated. No evidence for metastatic disease. MTDD
--- NOTE | 2020-03-26 13:33 | REP ---
NONCONTRAST CT OF THE ABDOMEN AND PELVIS CLINICAL: History of bladder/urethral cancer for follow up. TECHNIQUE: Axial noncontrast images from the lung bases to the pubic symphysis with coronal and sagittal reformations. COMPARISON: 08/22/2019. FINDINGS: The previously noted bulky retroperitoneal adenopathy extending from the level of the left kidney along the paraaortic retroperitoneum and the left hemipelvis is evident, but significantly improved from prior examination. The left kidney appears atrophic, and a percutaneous urostomy via the left flank is identified with the pigtail ending in the left renal pelvis. The previously noted hydroureteronephrosis has resolved. Irregular wall thickening along the left side of the bladder to the bladder base and inseparable from the prostate gland is again noted and essentially unchanged. There is no ascites or obvious new mass lesion. The right kidney/ureter appear relatively normal/stable. Liver demonstrates stable 2.3 cm cyst in the right lobe. Splenic calcifications consistent with prior granulomatous disease again noted. The pancreas and bilateral adrenal glands appear normal. Cholelithiasis again noted without evidence for acute cholecystitis. The enteric system is without obstruction or acute inflammatory process. Scattered colonic and sigmoid diverticula noted without acute diverticulitis. Normal terminal ileum and appendix identified in the right lower quadrant. Pelvis demonstrates bladder and prostate changes as described above. No pelvic fluid. Skeletal structures demonstrate degenerative changes without obvious acute osseous metastatic lesion. IMPRESSION: * Previously noted bulky retroperitoneal adenopathy extending from the level of the left kidney into the left hemipelvis has considerably improved from prior examination. * Percutaneous nephrostomy noted in the left kidney and previously noted left- sided hydroureteronephrosis has resolved. * No obvious new malignant mass lesion or new adenopathy appreciated. No ascites. * Chronic stable changes including cholelithiasis, hepatic cyst, and colonic diverticulosis. MTDD
== END ==
LOC: M RAD 12:03
PROVIDERS: ATTEND Internal Medicine Medical Oncology
DX: K80.20 Calculus of gallbladder without cholecystitis without obstruction (principal); K76.89 Other specified diseases of liver; Z93.6 Other artificial openings of urinary tract status; Z85.51 Personal history of malignant neoplasm of bladder
CPT/HCPCS: 71250; 74176; Q9963

== ENCOUNTER → 2020-04-13 | Outpatient (CLI) | payer BC ==
[~2020-04-13] MED LIST changes: -GASTROGRAFIN SOLUTION 30ML (Q9963) As Ordered ONE; +ISOVUE-370 76% 100ML VIAL As Ordered ONE
--- NOTE | 2020-04-13 15:06 | REP ---
INDICATION: LYPHO ADRENALPATHY ADENO PYLNEPHRITISIS STONE URET FILE ROOM. COMPARISON: CT abdomen pelvis 03/23/2020, 08/22/2019 TECHNIQUE: Bolus of 100 mL Isovue 370 scanning through the abdomen that he "liver inphase and with delayed imaging through the abdomen as well coronal and sagittal reconstructions performed. Only abdominal imaging requested. FINDINGS: CT abdomen: Slate Splitting Supervisor image shows a left nephrostomy tube. Axial images show minor dependent atelectatic and fibrotic changes in the lower lung zones which are without acute finding infiltrate or effusion. Heart size unchanged. No pericardial thickening or effusion and no hiatal hernia there is no hepatosplenomegaly evident. A lobulated/multiloculated cyst in the right hepatic lobe is unchanged measuring 2.3 x 2.1 cm. No biliary dilatation or solid hepatic mass nor adjacent ascites the gallbladder shows some calcified dependent stones but no intrahepatic biliary dilatation common duct dilatation or stone. Pancreas is without mass, stone or ductal dilatation no adjacent inflammatory change. In the left periaortic region appearance is similar to 03/23/2020 and much improved compared to 08/22/2019 were bulky periaortic retroperitoneal adenopathy was noted. Still some nodes and inflammatory changes in the adjacent fat. Six stands from the level of the left adrenal gland inferiorly to the level of the lower pole left kidney and has patchy ill-defined inflammatory appearance in some areas and small nodules compared to the large bulky nodes in August no real change the last 3 weeks. Of the right kidney shows no hydronephrosis or mass. Left kidney shows a nephrostomy tube 0 without hydronephrosis evident. Tube is coiled in the renal pelvis and extends into the lower pole of the kidney inferiorly toward the left flank. Some minor perinephric infiltration of fat is noted, similar to last month the aorta has atherosclerotic calcification without aneurysm. Small bowel loops are fluid filled but not abnormally dilated visualized colon shows stool and gas and a few scattered diverticula but appears unchanged. Bone windows demonstrate marginal osteophytes throughout the lower thoracic and mid to upper lumbar region few Schmorl's node and no acute compression deformities are seen facet arthropathy evident. Lower ribs visualized were unremarkable a calcified granuloma in the right lower lobe is unchanged. There calcifications in the spleen consistent with old granulomatous disease as before the spleen is not enlarged, IMPRESSION: 1. Stable appearance of the left retroperitoneal adenopathy extending from the level of the left adrenal gland to lower pole of the kidney similar to the study last month with slight improvement in infiltration of fat in this region but markedly improved from that large bulky adenopathy seen in this region in the August study 2. Left nephrostomy tube present with the resolution of hydronephrosis some atrophy of the left kidney cortex noted. 3. Cholelithiasis without biliary dilatation. 4. 2.3 cm lobulated right hepatic cyst unchanged. No other significant or acute finding. <Electronically signed by Andrzej Cantu > 04/13/20 [id number]
== END ==
LOC: M RAD 13:33
PROVIDERS: ATTEND Urology
DX: N13.6 Pyonephrosis (principal); N13.5 Crossing vessel and stricture of ureter without hydronephrosis

== ENCOUNTER → 2020-05-04 | Outpatient (CLI) | payer BC ==
[~2020-05-04] MED LIST changes: -ISOVUE-370 76% 100ML VIAL As Ordered ONE
[2020-05-04 10:00] LABS: INR 1.02; PARTIAL THROMBOPLASTIN TIME 29.2 SECONDS (24.2-38.5); PROTHROMBIN TIME 13.6 SECONDS (12.5-14.3)
--- NOTE | 2020-05-04 19:39 | ECGEPIP ---
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
== END ==
LOC: M LAB 09:12
PROVIDERS: ATTEND Urology
DX: Z01.818 Encounter for other preprocedural examination (principal); N26.1 Atrophy of kidney (terminal); N13.5 Crossing vessel and stricture of ureter without hydronephrosis; R94.31 Abnormal electrocardiogram [ECG] [EKG]

== ENCOUNTER → 2020-05-21 | Outpatient (CLI) | payer BC ==
[~2020-05-21] MED LIST changes: +AMLO1TAB24 PO
== END ==
LOC: M LABSMTC 11:17
PROVIDERS: ATTEND Anesthesiology
DX: Z01.812 Encounter for preprocedural laboratory examination (principal); Z20.828 Contact with and (suspected) exposure to other viral communicable diseases

== ENCOUNTER 2020-05-26 06:09 | Inpatient (IN) | payer MEDICARE, BC ==
[~2020-05-26] VITALS: Ht 180.3 cm; Wt 81.6 kg
[2020-05-26] MEDS: HEPARIN SOD (PORCINE) 5000UNITS/ML 1ML VIAL/SYRINGE SC SCH ×2 (06:00→13:41)
[~2020-05-26 06:09] MED LIST changes: +LIDOCAINE 1% MDV 20ML VIAL SQ PRN
[2020-05-26] MEDS ORDERED: ceFAZolin SOD 2 GM in IV 1 EA IV ONE (06:45)
[2020-05-26] MEDS ORDERED: BUPIVACAINE HCL 0.25% 30ML VIAL As Ordered ONE (06:58)
[2020-05-26] MEDS ORDERED: LIDOCAINE 1% SDV 30ML VIAL As Ordered ONE (06:58)
[2020-05-26] MEDS ORDERED: LR 1,000 ML IV ONE (07:00)
[2020-05-26] MEDS ORDERED: propofoL 200 MG/20 ML VIAL As Ordered ONE (07:17)
[2020-05-26] MEDS ORDERED: LIDOCAINE 2% 100MG/5ML SDV (FOR ANES.) As Ordered ONE ×2 (07:17→07:18)
[2020-05-26] MEDS ORDERED: dexameTHASONE 4 MG/ML 1ML VIAL (J1100 PER 1MG) As Ordered ONE (07:17)
[2020-05-26] MEDS ORDERED: MIDAZOLAM INJ 2MG/2ML VIAL (J2250 PER 1MG) As Ordered ONE ×2 (07:17→12:32)
[2020-05-26] MEDS ORDERED: ROCURONIUM BROMIDE 50 MG/5 ML VIAL As Ordered ONE ×4 (07:17→13:03)
[2020-05-26] MEDS ORDERED: ONDANSETRON 4MG/2ML VIAL As Ordered ONE (07:17)
[2020-05-26] MEDS ORDERED: fentaNYL 100 MCG/2 ML INJECTION (J3010) As Ordered ONE ×2 (07:17→12:11)
[2020-05-26] MEDS ORDERED: ONDANSETRON 4MG/2ML VIAL IV PRN ×2 (07:45→11:45)
[2020-05-26] MEDS ORDERED: ACETAMINOPHEN TAB 650MG DOSE (2X325MG) PO PRN (07:45)
[2020-05-26] MEDS ORDERED: PERCOCET 5MG/325MG TAB PO PRN (07:45)
[2020-05-26] MEDS ORDERED: HYDROmorphone HCL 2 MG/ML 1ML VIAL (J1170) As Ordered ONE (08:18)
[2020-05-26] MEDS ORDERED: ePHEDrine SULFATE 25 MG/5 ML(5MG/ML) SYRINGE As Ordered ONE ×3 (08:47→10:35)
[2020-05-26] MEDS ORDERED: SUGAMMADEX SODIUM 500 MG/5 ML VIAL (BRIDION) As Ordered ONE (10:33)
[2020-05-26] MEDS ORDERED: ACETAMINOPHEN 1000MG 100ML IV BTL (OFIRMEV) (J0131 PER 10MG) As Ordered ONE (10:53)
[2020-05-26] MEDS ORDERED: HYDROMORPHONE HCL 0.5 MG/ 0.5 ML SYRINGE (J1170 PER 1) IV PRN (11:45)
[2020-05-26] MEDS ORDERED: LR 1,000 ML IV SCH (11:45)
[2020-05-26] MEDS ORDERED: oxyCODONE 5MG TAB PO PRN (11:45)
[2020-05-26] MEDS: fentaNYL 100 MCG/2 ML INJECTION (J3010) IV PRN ×2 (12:13→12:23)
--- NOTE | 2020-05-26 12:42 | ROOPDOC ---
[facility] Report Of Operation Report of Operation DATE OF PROCEDURE: 05/26/20 PREPROCEDURE DIAGNOSES: Atrophic Left Kidney, Left Ureteral Stricture. POSTPROCEDURE DIAGNOSES: Atrophic Left Kidney, Left Ureteral Stricture. PROCEDURE: Left robotic-assisted laparoscopic renal exploration. SURGEON: Chance Calvo MD MICROBIOLOGY ANALYST: Jennifer Calderon ANESTHESIA: General OPERATIVE INDICATIONS: This is a 75 year old male metastatic urothelial carcinoma (to retroperitoneal lymph nodes) and an atrophic left kidney secondary to a ureteral stricture, brought to the operating room today for a simple left nephrectomy. DESCRIPTION OF PROCEDURE: The patient was brought to the operating room where general anesthesia was induced. Prophylactic antibiotics were infused. A Gonzalez catheter was inserted into the bladder under sterile conditions and the balloon was filled with sterile water. He was then placed in the right lateral decubitus position. All pressure points were appropriately padded and an axillary roll was placed. We then secured the patient to the table with tape. His abdomen was then prepped and draped in the usual sterile fashion. Next, an 8mm incision was made in line with the 11th rib along the lateral border of the rectus. Pneumoperitoneum was achieved with a Veress needle. Next, an 8mm port was placed for the camera. At this point, the left robotic port was placed off the costal margin. Two right hand robotic ports were then placed with one between the anterior superior iliac spine and the hip and the other one just caudal to the camera port. Last the 15 mm residential living assistant port was placed inferior and medial to the camera port. The robot was then docked. The spleen was then dissected off of Gerota's fascia. Next the left colon was dissected off of Gerota's fascia. At this point the left gonadal vein was identified. Of note, there was significant tissue edema around the gonadal vein. It was traced cephalad to its insertion into the left renal vein. There was also significant tissue edema around the left renal vein. This made dissection of tissue planes very difficult. I spent at least an hour trying to safely dissect the left renal vein, but could not find a safe plane on the sides, or behind it. Given concern that continued dissection around the left renal hilum with poor tissue planes would likely lead to a significant amount of bleeding without control of the renal artery, I ultimately decided it was safest to abort the procedure. At this point I checked for hemostasis and it appeared good throughout the operative field. The robot was undocked. A Juan Pablo-Agnes fascial closure device was then used to place #0-vicryl free ties through the fascia of the 12mm and 15mm port sites. These ties were then tied down. The abdomen was observed again and there was no bleeding. We then removed all the ports under direct vision and there was no bleeding from any of the port sites. At this point, all the incisions were thoroughly irrigated. We then closed the skin of each site using a running #4-0 subcuticular Monocryl stitch. Local anesthetic was then applied to each incision and Dermabond was then applied and this marked the conclusion of the procedure. The patient was then taken out of the left lateral decubitus position, awakened from anesthesia and transported to the recovery room in stable condition. ESTIMATED BLOOD LOSS: 25 mL INTRAOPERATIVE COMPLICATIONS: None SPECIMENS: None PLAN: The patient will be admitted to the hospital postoperatively. Since the patient accidentally dislodged his nephrostomy tube 2 days ago, it will need to be replaced in interventional radiology. I will try to arrange to have this done on this hospitalization and he will then continue with chronic nephrostomy tube drainage of his left kidney as performing a simple nephrectomy on him can not be safely done. CHANCE CALVO MD May 26, 2020 12:42
[2020-05-26 12:55] VITALS: BP 131/77
[2020-05-26 13:08] LABS: HEMATOCRIT 37.5 % (42.0-52.0); HEMOGLOBIN 11.7 g/dl (13.5-17.5); MEAN CORPUSCULAR HEMOGLOBIN 28.7 pg (27.0-33.0); MEAN CORPUSCULAR HGB CONC 31.2 g/dl (32.0-36.5); MEAN CORPUSCULAR VOLUME 92.1 fl (80.0-96.0); PLATELET COUNT, AUTOMATED 140 10^3/uL (150-450); RED BLOOD COUNT 4.07 10^6/uL (4.30-6.10)
[2020-05-26 13:25] VITALS: BP 129/76
[2020-05-26 13:26] LABS: CALCIUM LEVEL 8.5 MG/DL (8.8-10.2); CREATININE FOR GFR 1.54 MG/DL (0.70-1.30); GLOMERULAR FILTRATION RATE 47.2 (>42); POTASSIUM SERUM 4.4 MEQ/L (3.5-5.1)
[2020-05-26] MEDS: NS 1,000 ML IV SCH (13:40)
[2020-05-26] MEDS: DOCUSATE SODIUM 100MG CAPSULE PO SCH ×2 (13:40→20:13)
[2020-05-26] MEDS: PERCOCET 5MG/325MG TAB PO PRN ×2 (13:58→18:25)
[2020-05-26 14:25] VITALS: BP 128/77
[2020-05-26] MEDS: ceFAZolin SOD 1 GM in D5W MINI-BAG PLUS 50 ML IV SCH (16:11)
[2020-05-26 16:25] VITALS: BP 152/86
[2020-05-26] MEDS ORDERED: MORPHINE 2 MG/ML 1ML VIAL (J2270) IV PRN (18:15)
[2020-05-26] MEDS ORDERED: SERTRALINE HCL 50 MG TAB PO SCH (21:00)
[2020-05-26] MEDS ORDERED: TAMSULOSIN 0.4 MG CAP PO SCH (21:00)
[2020-05-26 22:00] VITALS: BP 130/78
[2020-05-27] MEDS: ceFAZolin SOD 1 GM in D5W MINI-BAG PLUS 50 ML IV SCH (00:09)
[2020-05-27 02:00] VITALS: BP 150/86
[2020-05-27] MEDS: NS 1,000 ML IV SCH (03:39)
[2020-05-27 06:00] VITALS: BP 114/61
[2020-05-27 06:20] LABS: HEMATOCRIT 37.4 % (42.0-52.0); MEAN CORPUSCULAR HEMOGLOBIN 29.9 pg (27.0-33.0); MEAN CORPUSCULAR HGB CONC 32.1 g/dl (32.0-36.5); MEAN CORPUSCULAR VOLUME 93.3 fl (80.0-96.0); PLATELET COUNT, AUTOMATED 144 10^3/uL (150-450); RED BLOOD COUNT 4.01 10^6/uL (4.30-6.10)
[2020-05-27] MEDS: PERCOCET 5MG/325MG TAB PO PRN ×2 (06:42→15:38)
[2020-05-27 06:47] LABS: CALCIUM LEVEL 8.5 MG/DL (8.8-10.2); CREATININE FOR GFR 1.51 MG/DL (0.70-1.30); GLOMERULAR FILTRATION RATE 48.3 (>42); POTASSIUM SERUM 4.1 MEQ/L (3.5-5.1)
[2020-05-27 08:20] VITALS: BP 124/62
[2020-05-27] MEDS: DOCUSATE SODIUM 100MG CAPSULE PO SCH (08:20)
[2020-05-27] MEDS ORDERED: amLODIPine 5 MG TAB PO SCH (09:00)
[2020-05-27] MEDS ORDERED: OMEPRAZOLE 20 MG CAP PO SCH (09:00)
[2020-05-27] MEDS ORDERED: FLUBLOK(EGG FREE)(QUAD)INFLUENZA VACC 0.5ML SYRINGE 18YRS & OLDER IM ONE (09:00)
[2020-05-27 10:00] VITALS: BP 130/71
--- NOTE | 2020-05-27 11:00 | IPNPDOC ---
Subjective Review oF Systems Chief Complaint The patient is a 75-year-old male admitted with a reason for visit of Atrophic Kidney. Events since Last Encounter No acute events o/n. Good pain control. Ambulated a little yesterday. No n/v. No f/c/ns. Objective Physical Examination General Exam: Alert, Cooperative, No Acute Distress ABDOMEN EXAM: Soft, Tenderness (minimal), Other (incisions clean/dry/intact) Skin Exam: Nl turgor and temperature Neuro Exam: Normal Speech Psych Exam: Mental status NL, Mood NL Other physical findings catheter in place draining clear yellow urine Vital Signs/I&O Vital Signs Date Time Temp Pulse Resp B/P (MAP) Pulse Ox O2 Delivery O2 Flow Rate FiO2 05/27/20 06:42 78 18 98 Room Air 05/27/20 06:00 97.8 114/61 (78) 05/26/20 14:25 2.0 I&O- Last 24 Hours up to 6 AM 05/27/20 06:00 Intake Total 4785 ml Output Total 1525 ml Balance 3260 ml Laboratory Data Labs 24H Laboratory Tests 2 05/26/20 12:20: Nucleated Red Blood Cells % (auto) 0.0, Anion Gap 4L, Glomerular Filtration Rate 47.2, Calcium Level 8.5L 05/27/20 05:22: Nucleated Red Blood Cells % (auto) 0.0, Anion Gap 3L, Glomerular Filtration Rate 48.3, Calcium Level 8.5L CBC/BMP Laboratory Tests 05/26/20 12:20 05/27/20 05:22 Assessment/Plan Date Seen The patient was seen on 05/27/20. Patient Summary This is a 75 y/o M POD1 s/p L robotic renal exploration and attempted simple nephrectomy. Nephrectomy could not be performed due to significant tissue edema and postchemo reaction making dissection of the renal hilum very difficult. Patient will therefore need replacement of his L pec neph tube. He is scheduled for this today. Plan/VTE VTE Prophylaxis Ordered?: Yes VTE Exclusion Mechanical Proph: N/A:VTE Prophy Ordered Plan - d/c Gonzalez - percocet prn pain - to IR for L perc neph placement today - ambulate - SCDs when in bed - NPO until IR - may resume regular diet after neph tube placement - likely discharge home later today CHANCE CALVO MD May 27, 2020 07:52
[2020-05-27 12:00] VITALS: BP 188/98
[2020-05-27] MEDS ORDERED: VANCOMYCIN 500MG/10ML VIAL As Ordered ONE (13:28)
[2020-05-27] MEDS ORDERED: LIDOCAINE 1% MDV 20ML VIAL As Ordered ONE (13:28)
[2020-05-27] MEDS: HEPARIN SOD (PORCINE) 5000UNITS/ML 1ML VIAL/SYRINGE SC SCH (14:00)
[2020-05-27] MEDS ORDERED: GENTAMICIN 400 MG in D5W 100 ML IV ONE (14:00)
--- NOTE | 2020-05-27 14:28 | IRMSE ---
[facility] IR Moderate Sedation Eval. Date and Time Date: May 27, 2020 Time: 14:28 ASA Classification ASA Classification: III-Severe systemic dis. Mallampati Score: II NPO: Yes Obstructive Sleep Apnea: No Interval Plan: moderate sedation STEFAN SURESH MD May 27, 2020 14:28
[2020-05-27] MEDS ORDERED: ISOVUE-300 61% 50ML VIAL As Ordered ONE (14:38)
[2020-05-27] MEDS ORDERED: fentaNYL 100 MCG/2 ML INJECTION (J3010) As Ordered ONE (14:48)
[2020-05-27] MEDS ORDERED: diphenhydrAMINE 50MG/ML VIAL (J1200) As Ordered ONE (14:48)
[2020-05-27] MEDS ORDERED: MIDAZOLAM INJ 2MG/2ML VIAL (J2250 PER 1MG) As Ordered ONE (14:49)
[2020-05-27 15:00] VITALS: BP 160/87
[2020-05-27] MEDS ORDERED: PERCOCET PO (17:00)
--- NOTE | 2020-05-28 12:54 | DSES ---
DISCHARGE SUMMARY DATE OF ADMISSION: 05/26/2020 DATE OF DISCHARGE: 05/27/2020 ADMISSION DIAGNOSES: Atrophic left kidney, left ureteral stricture, metastatic urothelial carcinoma. DISCHARGE DIAGNOSES: Atrophic left kidney, left ureteral stricture, metastatic urothelial carcinoma. ADMITTING PHYSICIAN: Wenceslao Dietrich M.D. DISCHARGING PHYSICIAN: Wenceslao Dietrich M.D. PROCEDURES PERFORMED: Left robotic-assisted laparoscopic renal exploration on May 26, 2020, left percutaneous nephrostomy tube placement on May 27, 2020. HISTORY OF PRESENT ILLNESS: This is a 75-year-old male with metastatic urothelial carcinoma as well as a left ureteral stricture and an atrophic left kidney. His left ureteral stricture has been managed with chronic left percutaneous nephrostomy tube drainage as his kidney still produces moderate amounts of urine. As his kidney does not function well, the patient desired to have the left kidney removed so that he does not have to have a chronic nephrostomy on that side. Due to recent reduction in the amount of left perihilar lymphadenopathy from chemotherapy, the decision was made to give it a shot to try to remove the patient's kidney. Unfortunately, at the time of surgery due to significant tissue edema as well as reaction to the chemotherapy, it was not possible to safely remove his left kidney. He was admitted postoperatively after the robotic surgery. HOSPITALIZATION COURSE: The patient was admitted to the hospital after undergoing the left robotic renal exploration. Since we were unable to safely remove his left kidney, he was arranged to go back to interventional radiology to have his left percutaneous nephrostomy tube replaced. That nephrostomy tube had inadvertently been pulled out by the patient approximately two days prior. After his nephrostomy tube was placed on the afternoon of postoperative day one, he noted very good pain control. The patient was ambulating well. All of his lab work was within normal limits. Specifically, his hemoglobin level was stable at 12 and his serum creatinine was 1.5. Once the nephrostomy tube was placed, he had good urine output from the nephrostomy tube. His diet was advanced and he was tolerated a regular diet. His catheter was removed and he voided without difficulty. He was deemed ready for discharge home on postoperative day one. He will follow up in urology clinic in a few weeks for a postoperative visit. At that time, we will discuss future management of his atrophic left kidney. ALCIDES
--- NOTE | 2020-05-29 09:16 | POST-OPPD ---
Postoperative Procedure Note Date Of Procedure: May 27, 2020 Time Of Procedure: 16:00 IR Nephrostomy catheter replacement. IR Nephrostogram and ureterogram. Clinical information: Bladder cancer. Ureteral obstruction. Left nephrostomy was removed for planned left nephrectomy. Left nephrectomy could not be performed. Physician: Dr. Cullen. Procedure: The patient was advised of the benefits, risks and alternatives of the procedure and informed consent was obtained. The time-out was performed with verification of the patient's name, MRN, site of procedure and type of procedure to be performed. The patient was positioned in the prone position on the angiographic table. The site was prepped and draped in the usual sterile fashion. Moderate sedation was not required. The physician spent 30 minutes of continuous face to face time with the patient. A Glidewire was advanced through the existing nephrostomy tract under fluoroscopic guidance, into the left ureter. A new 10-Austrian nephrostomy catheter was advanced into the renal collecting system. A nephrostogram and ureterogram was performed confirming position of the pigtail in the renal pelvis with moderate hydronephrosis and hydroureter. Ureterogram demonstrate distal ureteral obstruction, the ureter is not patent to the bladder. The catheter was secured in position with 2-0 Prolene and a sterile dressing was applied to the site. The catheter was placed gravity drainage. The patient tolerated the procedure well and was returned to the PRU in stable condition. EBL: Less than 5 ml. Complications: None. Conclusion: 1. Nephrostogram and ureterogram demonstrate distal ureteral obstruction. 2. Successful left nephrostomy replacement for drainage to a bag. Patient to return in 12 weeks for routine catheter exchange. Thank you this referral. STEFAN CULLEN MD May 29, 2020 09:16
== END 2020-05-27 17:41 | disposition home or self-care (01) | DRG 690 ==
LOC: M OR 06:09 → M MS5PR 12:53
PROVIDERS: ADMIT Urology; ATTEND Urology
PROC: 0TJ94ZZ Inspection of Ureter, Percutaneous Endoscopic Approach (ICD-10-PCS; 2020-05-26)
PROC: 8E0W4CZ Robotic Assisted Procedure of Trunk Region, Percutaneous Endoscopic Approach (ICD-10-PCS; 2020-05-26)
PROC: 0TJ54ZZ Inspection of Kidney, Percutaneous Endoscopic Approach (ICD-10-PCS; principal; 2020-05-26 07:30)
DX: N13.5 Crossing vessel and stricture of ureter without hydronephrosis (principal); C68.0 Malignant neoplasm of urethra; C78.6 Secondary malignant neoplasm of retroperitoneum and peritoneum

== ENCOUNTER 2020-06-06 08:06 | Emergency (ER) | payer MEDICARE, BC ==
[~2020-06-06] VITALS: Ht 180.3 cm; Wt 86.7 kg
[~2020-06-06 08:06] MED LIST changes: -LIDOCAINE 1% MDV 20ML VIAL SQ PRN; +PERCOCET PO
[2020-06-06 09:26] LABS: BASO % 0.7 % (0.0-1.0); EOS # 0.2 10^3/uL (0.0-0.5); EOS % 4.1 % (0.0-3.0); HEMATOCRIT 39.1 % (42.0-52.0); HEMOGLOBIN 12.2 g/dl (13.5-17.5); LYMPH # 0.7 10^3/uL (1.5-5.0); LYMPH % 15.9 % (24.0-44.0); MEAN CORPUSCULAR HEMOGLOBIN 28.5 pg (27.0-33.0); MEAN CORPUSCULAR HGB CONC 31.2 g/dl (32.0-36.5); MEAN CORPUSCULAR VOLUME 91.4 fl (80.0-96.0); MONO # 0.5 10^3/uL (0.0-0.8); MONO % 10.7 % (0.0-5.0); NEUTROPHILS % 68.1 % (36.0-66.0); PLATELET COUNT, AUTOMATED 201 10^3/uL (150-450); RED BLOOD COUNT 4.28 10^6/uL (4.30-6.10); WHITE BLOOD COUNT 4.4 10^3/uL (4.0-10.0)
--- NOTE | 2020-06-06 09:35 | REP ---
INDICATION: abd pain COMPARISON: None. TECHNIQUE: Supine view of the abdomen and pelvis. FINDINGS: Bowel gas pattern is nonspecific and without obstruction or perforation although mild fecal stasis cannot be excluded. Calcifications in the right upper quadrant suggest cholelithiasis. Left nephrostomy tube identified. Skeletal structures demonstrate age-related degenerative changes. IMPRESSION: Nonspecific bowel gas pattern with findings to suggest mild fecal stasis. Cholelithiasis. <Electronically signed by Jenaro Hook > 06/06/20 0925
[2020-06-06 09:36] LABS: PARTIAL THROMBOPLASTIN TIME 30.2 SECONDS (24.2-38.5)
[2020-06-06 09:40] LABS: INR 1.04; PROTHROMBIN TIME 13.8 SECONDS (12.5-14.3)
--- NOTE | 2020-06-06 09:55 | REP ---
INDICATION: L sided abd surrounding lap inscision sites from 05/26 COMPARISON: None. TECHNIQUE: Real time simon scale ultrasound examination using linear high-frequency transducer FINDINGS: Directed ultrasound examination at the surgical site demonstrates 1.9 x 2.6 x 1.3 cm subcutaneous fluid collection which may reflect small seroma versus abscess.. IMPRESSION: Small fluid collection at the surgical site suggests seroma and less likely abscess. <Electronically signed by Jenaro Hook > 06/06/20 0923
[2020-06-06 09:57] LABS: ALBUMIN 3.6 GM/DL (3.2-5.2); ALT/SGPT 32 U/L (12-78); BILIRUBIN,DIRECT < 0.1 MG/DL (0.0-0.2); BILIRUBIN,TOTAL 0.2 MG/DL (0.2-1.0); BLOOD UREA NITROGEN 36 MG/DL (7-18); CALCIUM LEVEL 8.6 MG/DL (8.8-10.2); CARBON DIOXIDE LEVEL 30 MEQ/L (21-32); CHLORIDE LEVEL 108 MEQ/L (98-107); CREATININE FOR GFR 1.55 MG/DL (0.70-1.30); GLOMERULAR FILTRATION RATE 46.9 (>42); GLUCOSE, FASTING 90 MG/DL (70-100); LIPASE 170 U/L (73-393); POTASSIUM SERUM 4.8 MEQ/L (3.5-5.1); SODIUM LEVEL 142 MEQ/L (136-145); TOTAL PROTEIN 6.7 GM/DL (6.4-8.2)
[2020-06-06] MEDS ORDERED: LIDOCAINE 2% MDV 20ML VIAL INFIL ONE (11:30)
[2020-06-06] MEDS ORDERED: KEFL500C17 PO (11:44)
--- NOTE | 2020-06-06 12:01 | SMCUROLCON ---
Urology Consultation General Date of Consultation 06/06/20 Reason For Consultation This patient is seen for Surgery Site Issue. History of Present Illness The patient is a 75-year-old male with a past medical history for atrophic left kidney with recent surgery for attempted nephrectomy. The patient had laparoscopic nephrectomy which was unsuccessful because of edema and difficulty identifying tissue planes. He had a nephrostomy tube reinserted and sent home. He presented to the emergency room today for complaint of left lower quadrant discomfort and feeling of a mass. A ultrasound of the left lower quadrant showed a fluid collection probably seroma but could not rule out abscess. Urology consult was therefore called for evaluation. 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 Metastatic urothelial carcinoma Surgical Hstory Tonsillectomy Plastic repair of palate Plastic surgery of pharynx Robotic-assisted attempted nephrectomy Allergies Allergies: Coded Allergies: TAPE (Verified Allergy, Intermediate, blisters, 07/29/19) ciprofloxacin (Verified Allergy, Intermediate, hives, flushing, 02/19/19) Penicillins (Verified Allergy, Mild, PRURITIS, 02/19/19) Review of Systems General: Reports: Normal Appetite; Denies: Fatigue, Malaise Constitutional: Denies: Fever, Chills, Sweats, Weakness, Malaise Eyes: Denies: Pain, Vision change ENT: Denies: Head Aches, Sore Throat, Epistaxis Skin: Denies: Rash, Lesions, Breakdown, Nail Changes Pulmonary: Denies: Dyspnea, Cough Cardiovascular: Denies Chest Pain, Denies Palpitations Gastrointestinal: Denies: Nausea, Vomiting, Abdominal Pain Genitourinary: Denies: Dysuria, Frequency, Incontinence, Hematuria Hematologic: Denies: Bruising, Bleeding Excessively Endocrine: Denies: Polydipsia, Polyphagia, Polyuria Musculoskeletal: Denies: Neck Pain, Back Pain Neurological: Denies: Weakness, Numbness, Incoordination, Change in Speech Psych: Reports: Mood Normal; Denies: Anxiety, Depression Physical Examination General Exam: Alert, No Acute Distress EYE EXAM: PERRLA, Conjunctiva & lids normal, EOMI; No: Sclera icteric ENT EXAM: Atraumatic, Mucous membr. moist/pink, Pharynx Normal Neck Exam: Supple; No: JVD, thyromegaly Chest Exam: Clear to auscultation, Normal air movement Heart Exam: Rate Normal, Regular Rhythm, Normal S1, Normal S2; No: Murmurs, Rubs Abdomen Exam: Other (the abdomen was flat and soft with 4 incisions from robotic assisted surgery. The left lower incision is erythematous consistent with hematoma. A mass could be felt below the incision which corresponds to the finding on ultrasound.The area was cleansed, anesthetized with percent lidocaine without epinephrine and a 22-gauge needle was inserted into the mass. Aspiration showed bloody fluid with no evidence of abscess. Sample was sent for aerobic and anaerobic cultures as well as Gram stain.) Vital Signs/I&O Vital Signs Date Time Temp Pulse Resp B/P (MAP) Pulse Ox O2 Delivery O2 Flow Rate FiO2 06/06/20 11:12 170/86 (114) 06/06/20 10:47 68 18 100 Room Air 06/06/20 08:07 97.9 Laboratory Data 24H Labs Laboratory Tests 2 06/06/20 09:00: Immature Granulocyte % (Auto) 0.5, Neutrophils (%) (Auto) 68.1H, Lymphocytes (%) (Auto) 15.9L, Monocytes (%) (Auto) 10.7H, Eosinophils (%) (Auto) 4.1H, Basophils (%) (Auto) 0.7, Neutrophils # (Auto) 3.0, Lymphocytes # (Auto) 0.7L, Monocytes # (Auto) 0.5, Eosinophils # (Auto) 0.2, Basophils # (Auto) 0.0, Nucleated Red Blood Cells % (auto) 0.0, Prothrombin Time 13.8, Prothromb Time International Ratio 1.04, Activated Partial Thromboplast Time 30.2, Anion Gap 4L, Glomerular Filtration Rate 46.9, Lactic Acid Level 0.5, Calcium Level 8.6L, Total Bilirubin 0.2, Direct Bilirubin < 0.1, Aspartate Amino Transf (AST/SGOT) 21, Alanine Aminotransferase (ALT/SGPT) 32, Alkaline Phosphatase 76, Total Protein 6.7, Albumin 3.6, Albumin/Globulin Ratio 1.2, Lipase 170 CBC/BMP Laboratory Tests 06/06/20 09:00 Microbiology Microbiology 06/06/20 Anaerobic Culture, Received Pending 06/06/20 Gram Stain, Received Pending 06/06/20 Wound Culture, Received Pending Assessment Seroma of left lower quadrant incision Plan Patient will be placed on antibiotics and wait for the hematoma to resolve. He is to follow-up in the clinic next week as per his already scheduled appointment. Time Spent on Consult: Time Spent / Consult (Minutes): 75 JUAN MIGUEL NOVAK MD Jun 06, 2020 11:54
[2020-06-06 12:42] VITALS: BP 170/96
== END 2020-06-06 13:22 | disposition home or self-care (01) ==
LOC: M ED 08:06
DX: L76.34 Postprocedural seroma of skin and subcutaneous tissue following other procedure (principal); K80.20 Calculus of gallbladder without cholecystitis without obstruction; N18.9 Chronic kidney disease, unspecified; I10 Essential (primary) hypertension; K21.9 Gastro-esophageal reflux disease without esophagitis; F41.9 Anxiety disorder, unspecified; F32.9 Major depressive disorder, single episode, unspecified; G47.33 Obstructive sleep apnea (adult) (pediatric); Z87.448 Personal history of other diseases of urinary system; Z85.51 Personal history of malignant neoplasm of bladder; Z85.528 Personal history of other malignant neoplasm of kidney; Z85.59 Personal history of malignant neoplasm of other urinary tract organ; Z79.899 Other long term (current) drug therapy; Z88.0 Allergy status to penicillin; Z88.1 Allergy status to other antibiotic agents; Z91.89 Other specified personal risk factors, not elsewhere classified

== ENCOUNTER → 2020-07-30 | Outpatient (CLI) | payer BC ==
[~2020-07-30] MED LIST changes: +GASTROGRAFIN SOLUTION 30ML (Q9963) As Ordered ONE; +KEFL500C17 PO; +LEVO500T3 PO; +ORAL0.1P MT; +VALA1TAB5 PO
--- NOTE | 2020-07-30 10:31 | REP ---
INDICATION: FAMILY H/O BREAST CA HIGH RISK SCREENING COMPARISON: 03/23/2020 TECHNIQUE: Axial noncontrast images from the thoracic inlet to the upper abdomen with coronal and sagittal reformations. This CT examination was performed using the following dose reduction techniques: Automated exposure control, adjustment of mA and/or kv according to the patient's size, and use of iterative reconstruction technique. FINDINGS: Chronic age-related changes and calcified granulomata are appreciated with mild/moderate superimposed basilar atelectasis (left greater than right). No effusion. No pneumothorax. Tracheobronchial tree is patent. No obvious suspicious nodule or mass lesion. Mediastinal lymph nodes are relatively normal. Stable atherosclerotic changes to the thoracic aorta and coronary arteries noted without aortic aneurysm. Mild stable cardiomegaly. No pericardial effusion. Skeletal structures demonstrate degenerative changes without focal osseous abnormality. [id number] identified with tip in the SVC. Limited upper abdomen demonstrates cholelithiasis. IMPRESSION: 1. [id number] basilar atelectasis (left greater than right). Correlation with physical examination and follow-up to resolution may be warranted. 2. Stable chronic changes. <Electronically signed by Jenaro Hook > 07/30/20 1023
--- NOTE | 2020-07-30 10:52 | REP ---
INDICATION: FAMILY H/O BREAST CA HIGH RISK SCREENING (Previous examination stated urethral carcinoma.) COMPARISON: 03/23/2020 TECHNIQUE: Axial noncontrast images from the lung bases to the pubic symphysis with coronal and sagittal reformations. This CT examination was performed using the following dose reduction techniques: Automated exposure control, adjustment of mA and/or kv according to the patient's size, and use of iterative reconstruction technique. FINDINGS: The left kidney again appears atrophic with mild hydroureter, mild to moderate diffuse perinephric and periureteral stranding along with retroperitoneal/para-aortic adenopathy similar to prior examination. There is suspicious increased soft tissue along the left lateral aspect of the bladder wall centered at the ureterovesical junction which appears more prominent than prior examination and concerning for active neoplastic growth. A percutaneous left nephrostomy tube again noted. Lymph nodes in the left inguinal canal/groin are identified and appears slightly more prominent than prior examination. Liver including hypodensity in the right lobe remains essentially unchanged. Spleen, pancreas, bilateral adrenal glands and right kidney are relatively normal/stable. Cholelithiasis noted without acute cholecystitis. The enteric system is without obstruction or acute inflammatory process. Few scattered sigmoid diverticula noted without acute diverticulitis. Pelvis demonstrates irregular left bladder wall thickening as described above along with mildly prominent prostate gland and small fat containing inguinal hernia. No ascites. No free air. Abdominal aorta without aneurysm. Musculoskeletal structures demonstrate degenerative changes without focal osseous abnormality. IMPRESSION: 1. Left renal/ureteral and bladder findings as described above including mildly increased soft tissue at the left side of the bladder/UVJ concerning for active neoplasm as well as left groin nodes which appear slightly more prominent than prior examination. Appearance of the left kidney and retroperitoneal adenopathy again noted and essentially unchanged. 2. Further nonacute findings as described above including hepatic hypodensity, cholelithiasis, and scattered sigmoid diverticula. <Electronically signed by Jenaro Hook > 07/30/20 [id number]
== END ==
LOC: M RAD 08:33
PROVIDERS: ATTEND Internal Medicine Medical Oncology
DX: J98.11 Atelectasis (principal); K80.20 Calculus of gallbladder without cholecystitis without obstruction; C68.0 Malignant neoplasm of urethra; N26.1 Atrophy of kidney (terminal)
CPT/HCPCS: 71250; 74176; Q9963

== ENCOUNTER → 2020-08-27 | Outpatient (CLI) | payer BC ==
[~2020-08-27] MED LIST changes: -GASTROGRAFIN SOLUTION 30ML (Q9963) As Ordered ONE; +GENTAMICIN 400 MG in D5W 100 ML IV ONE; +GENTAMICIN IV STA; +ISOVUE-300 61% 50ML VIAL As Ordered ONE; +LIDOCAINE 1% MDV 20ML VIAL As Ordered ONE
[2020-08-27 13:00] VITALS: BP 156/88
--- NOTE | 2020-08-27 17:06 | IRPON ---
IR Postoperative Note Date Of Procedure: Aug 27, 2020 Time Of Procedure: 17:04 IR Postoperative Note IR Left Nephrostomy catheter exchange. IR Left Nephrostogram and ureterogram. Clinical information: Bladder cancer. Left ureteral obstruction. Physician: Dr. Cullen. Procedure: The patient was advised of the benefits, risks and alternatives of the procedure and informed consent was obtained. The time-out was performed with verification of the patient's name, MRN, site of procedure and type of procedure to be performed. The patient was positioned in the prone position on the angiographic table. The site was prepped and draped in the usual sterile fashion. Moderate sedation was not required. The physician spent 30 minutes of continuous face to face time with the patient. A Glidewire was advanced through the existing nephrostomy catheter under fluoroscopic guidance, into the left ureter. Old catheter was removed over the wire. A new 10-Hungarian nephrostomy catheter was advanced into the renal collecting system. A nephrostogram and ureterogram was performed confirming position of the pigtail in the renal pelvis with moderate hydronephrosis and hydroureter. Ureterogram demonstrate distal ureteral obstruction, the ureter is not patent to the bladder. The catheter was secured in position with 2-0 Prolene and a sterile dressing was applied to the site. The catheter was placed gravity drainage. The patient tolerated the procedure well and was returned to the PRU in stable condition. EBL: Less than 5 ml. Complications: None. Conclusion: 1. Nephrostogram and ureterogram demonstrate distal ureteral obstruction. 2. Successful left nephrostomy catheter exchange for drainage to a bag. Patient to return in 12 weeks for routine catheter exchange. Thank you this referral. STEFAN CULLEN MD Aug 27, 2020 17:06
--- NOTE | 2020-08-27 17:08 | IRPON ---
IR Postoperative Note Date Of Procedure: Aug 27, 2020 Time Of Procedure: 17:07 IR Postoperative Note IR Ultrasound and fluoroscopy guided port placement. IR Ultrasound of the neck. IR Moderate sedation. Clinical indication: Head and neck cancer. Physician: Dr. Cullen. Procedure: The patient was advised of the benefits, risks, and alternatives of the procedure and informed consent was obtained. A time-out was performed with verification of the patient's name, MRN, site of procedure and type of procedure to be performed. The patient was positioned in the supine position on the angiographic table. The site was prepped and draped in the usual sterile fashion. Moderate sedation was performed by the physician including the presence of an independent trained RN who assisted and monitored the patient's level of consciousness and physiologic status. Following the administration of fentanyl and Versed , the physician spent 45 minutes of continuous face to face time with the patient. Ultrasound of the neck reveals a patent and compressible right internal jugular vein. A machine woodworking sander radiograph reveals tracheostomy. The neck and anterior chest wall were anesthetized with lidocaine. The right internal jugular vein was accessed using a microintroducer needle under ultrasound guidance, via a lateral approach. An 018 wire was advanced into the superior vena cava, the needle was removed and a microsheath was placed. An Amplatz wire was then passed into the inferior vena cava. An incision at the internal jugular vein access site and anterior chest wall were made using a scalpel. An incision was made at the anterior chest wall. A small pocket was created using a combination of blunt and sharp dissection. A tunneling device was then used to pass the catheter from the pocket to the neck puncture site. An 8- Yoruba Angio BoxFox Smart power port was then positioned in the pocket. The catheter was then measured and cut. The introducer sheath was exchanged for a peel-away sheath. The catheter was passed through the peel-away sheath into the internal jugular vein and the peel-away sheath was removed. The port tip was positioned at the cavoatrial junction. The port was then accessed with a Jacome needle. The port flushes and aspirates well. The puncture site in the neck was closed. The chest wall incision was then closed with 2-0 Vicryl and 4-0 Monocryl. Glue and Steri- Strips were applied. A sterile dressing was then applied. The patient tolerated the procedure well and was returned to the PRU in stable condition. Estimated blood loss: <5 ml. Complications: None. Conclusion: 1. Successful placement of an 8-Yoruba Angio dynamics Smart power port via the right internal jugular vein. The port is ready for immediate use. 2. Patient to follow up in IR clinic in 2 weeks. Thank you for this referral. STEFAN CULLEN MD Aug 27, 2020 17:08
== END ==
LOC: M IRPRO 09:32
PROVIDERS: ATTEND Radiology Diagnostic Radiology
DX: C67.9 Malignant neoplasm of bladder, unspecified (principal); C65.2 Malignant neoplasm of left renal pelvis; D63.1 Anemia in chronic kidney disease; I15.0 Renovascular hypertension; N13.0 Hydronephrosis with ureteropelvic junction obstruction; N18.32 Chronic kidney disease, stage 3b; N25.81 Secondary hyperparathyroidism of renal origin
CPT/HCPCS: 50435; C1729; C1769; J1580; J1642; Q9967

== ENCOUNTER → 2020-08-31 08:00 | Outpatient (RCR) | payer BC, MEDICARE ==
[2019-09-20 13:13] VITALS: BP 172/98
--- NOTE | 2019-09-20 13:22 | MEDONCPDOC ---
Medical Oncology Office Note Date of Service: Sep 20, 2019 Diagnosis/Treatment History Oncology problem list 1. Metastatic, (suspected high-grade) urothelial carcinoma with lymph node metastasis biopsy-proven periaortic area 2. Nonfunctioning left kidney with referred pain HISTORY OF PRESENT ILLNESS Is my pleasure to meet Mr. Sanchez, he knew the purpose of today's visit. This 74-year-old was found to have primary metastatic urothelial cancer with biopsy- proven metastasis to the left periaortic lymph node with significant lymph node disease noted on CT scan. There is a consideration for removing his left nonfunctioning kidney symptoms with pain. Patient's previous smoker heavy smoker quit 10 years Biopsy of left. Periaortic lymph node reveals GATA3 Positive Cells Consistent with Metastatic Urothelial Carcinoma. PDL 1 immunostain shows 0% staining. Origin suspected to be left distal ureter/left kidney Imaging Chest x-ray 07/22/2019 showed new linear opacities in the left base consistent with atelectasis CT abdomen and pelvis performed 08/22/2019 Large dislodged percutaneous nephrostomy catheter on left side noted 2.4 cm cyst in the right lower liver unchanged No focal liver mass seen Moderate hydronephrosis of left kidney noted with pigtail nephrostomy catheter seen in the subcutaneous fat Bulky retroperitoneal lymphadenopathy in the periaortic region noted is adenopathy along the external and internal iliac arteries as well. The abdomen is adenopathy appears slightly more prominent than on May 2019 study There was asymmetric thickening of the urinary bladder wall the left lateral margin similar to prior study Cholelithiasis noted Nuclear medicine kidney scan 09/05/2019 Prompt visualization of the right kidney noted left kidney was not visualized with normal function seen on the right kidney Essentially left kidney nonfunctional MEDICATIONS Reviewed and reconciled in the EMR Omeprazole Zoloft Flomax Magnesium citrate Flonase ALLERGIES Penicillin Cipro Adhesive tape Interval History Prolonged discussion with the patient today Patient understands he has stage IV cancer He understands his condition is noncurable but it is controllable Patient understands we have incomplete staging at this time There is no current evidence of vital organ involvement which will help with prognosis Patient has significant pain left flank area due to the nonfunctional left kidney Patient agreeable to have nephrectomy prior to initiation on palliative systemic chemotherapy NCCN guidelines reviewed with patient in detail Appropriate pages printed and given to patient Patient is cisplatin eligible The plan will be for cisplatin and gemcitabine pending completion of staging Allergies Coded Allergies: TAPE (Verified Allergy, Intermediate, blisters, 07/29/19) ciprofloxacin (Verified Allergy, Intermediate, hives, flushing, 02/19/19) Penicillins (Verified Allergy, Mild, PRURITIS, 02/19/19) Home Medications Reported Medications Magnesium Citrate (Magnesium Citrate) 100 Mg Tablet, 600 MG PO DAILY, TAB 09/20/19 Tamsulosin Hcl (Tamsulosin HCl) 0.4 Mg Capsule, 0.4 MG PO QPM 09/20/19 Sertraline Hcl (Zoloft) 25 Mg Tablet, 25 MG PO QPM for 30 Days, #30 TAB 08/30/19 Acetaminophen (Tylenol 8 Hour) 650 Mg Tablet.er, 650 MG PO Q8H PRN for PAIN 02/19/19 Fluticasone Propionate (Flonase Allergy Relief) 9.9 Ml [place].susp, 2 SPRAYS NA DAILY PRN for NASAL CONGESTION 02/19/19 Omeprazole (Omeprazole) 20 Mg Capsule.dr, 40 MG PO DAILY, CAP 02/19/19 Discontinued Reported Medications Diclofenac Sodium (Diclofenac Sodium) 1% 100GM Gel..gram., 1 DOSE TOP QID PRN for PAIN APPLIES TO BACK NEEDED 02/19/19 Past Medical History Past Medical History: THORACIC AND LUMBOSACRAL NEURITIS GERD OBSTRUCTIVE SLEEP APNEAmoderate Not using CPAP ALLERGIC RHINITIS HTN HX KIDNEY STONES NON-FUNCTIONAL LEFT KIDNEY Nocturia Q1 hour Past Surgical History: COLONOSCOPY 06/28/2018 ENDOSCOPY 07/04/2018 NEPHROSTOMY TUBE PLACEMENT 2019 URETER REPAIR 2018 BACK SURGERY 08/2018 TONSILS REMOVED VASECTOMY Lacrimal gland non-malignant left side Family History: Mother of heart failure age 91 Father of heart failure at age 26 Brother age 70 and good health Sister age 74 in good health Social History: Nonsmoker-previous smoker, quit 1979 nondrinker-previousy moderate to heavy drinker Has 2 son and 2 daughters [employer], 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\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 Review of Systems General: Reports: Normal Appetite; Denies: Chills, Fatigue, Malaise Constitutional: Reports: Fatigue Eyes: Denies: Vision change HEENT: Denies: Head Aches, Dysphagia, Sore Throat, Epistaxis Skin: Denies: Rash, Lesions, Jaundice, Bruising Pulmonary: Denies: Dyspnea, Cough Cardiovascular: Denies: Chest Pain, Palpitations, Orthopnea, Edema Gastrointestinal: Reports: Other Symptoms (significant left flank and at times left groin/scrotal pain) Genitourinary: Denies: Dysuria, Frequency, Incontinence Hematologic: Denies: Bruising, Petecchia Musculoskeletal: Reports: Muscle pain Neurological: Reports: Weakness, Numbness; Denies: Change in Speech Psych: Reports: Anxiety, Depression Physical Examination General Exam: Positive: Cooperative, Mild Distress Eye Exam: Positive: PERRLA, Conjunctiva & lids normal; Negative: Sclera icteric ENT EXAM: Positive: Atraumatic, Mucous membr. moist/pink Neck Exam: Reports: Supple; Denies: JVD, Thyromegaly, Lymphadenopathy Chest Exam: Positive: Clear to auscultation, Normal air movement Heart Exam: Positive: Rate Normal Abdomen Exam: Positive: Other (left nephrostomy tube noted) Extremity Exam: Positive: Other (pain on palpation left suprapubic area some nondescript swelling noted left groin area) Skin Exam: Positive: Nl turgor and temperature; Negative: Rash, Breakdown, Lesion Neuro Exam: Positive: Normal Speech, Normal Tone Psych Exam: Positive: Mental status NL Ht / Wt Ht / Wt Height: Feet Inches Weight: Kg Assessment/Plan ASSESSMENT Metastatic, biopsy-proven urothelial cancer with significant para-aortic, inguinal adenopathy. Exact origin of malignancy has not been determined. Nonfunctional left kidney with significant pain Presence of left nephrostomy tube PLAN Recommend simple left nephrectomy with any additional surgery as per Dr. Dietrich to help with significant pain PET/CT scan MRI of pelvis CT chest Port placement Pathology to comment on grade of urothelial cancer and add Ki-67 percent if needed Plan systemic treatment up front pending completion staging with palliative cisplatin and gemcitabine once healed from surgery and port in place Chemotherapy teaching Patient was given consent to proceed with above plan FOLLOWUP: All of the above was relayed to the patient who was given an opportunity to ask questions that were answered to satisfaction. The patient voiced an understanding and agreed to proceed. I spent 75 minutes during this visit seeing the patient [id number] and reviewing records. More than 50 % of the time was spent in direct [id number] discussion and counseling of the patient. CC TO: Primary Care Provider: Hui Scruggs DO Referring Provider: Wenceslao Dietrich M.D and Danielito Portillo MD. Problems: (1) Metastatic urothelial carcinoma (2) Urothelial carcinoma of left distal ureter (3) Nonfunctioning kidney (4) Referred pain SANDI TIJERINA MD Sep 20, 2019 13:09
--- NOTE | 2019-09-20 16:50 | MEDONCTEEN ---
Date/Time of Encounter Date of Encounter: Sep 20, 2019 Time of Encounter: 16:00 Telephone Encounter Oncology Brief telephone conversation with Dr. Dietrich today Case reviewed in detail and given significant pain due to his chronic left kidney issues, the benefit of upfront simple nephrectomy outweighs the risk. This also help moving forward and helped event significant infection as we can have the nephrostomy tube removed as that is a nidus of infection especially once chemotherapy begins SANDI TIJERINA MD Sep 20, 2019 16:50
--- NOTE | 2019-09-25 13:05 | MEDONCTEEN ---
Date/Time of Encounter Date of Encounter: Sep 25, 2019 Time of Encounter: 13:00 Telephone Encounter This is a telephonic visit which was performed without the use of video techn ology. The patient was informed of the risks including security breach, technological failure, inability to perform a physical exam which could delay or prevent an accurate diagnosis, and potential complications from treatment decisions rendered over a telephonic platform. The patient understands and consented to the use of a telephonic visit/telephone call. Report on MRI of the pelvis discussed with patient today Patient is having some cancer related pain ICD10 G89.3 Simple nephrectomy help limit the chance of infection from nephrostomy tube Chemotherapy orders placed today for insurance approval Chemotherapy teaching within be scheduled Port placement scheduled for tomorrow NAME: CHARLEEN MEZA DATE OF : 1945 AGE: 74 SEX: M REPORT #: [id number] [facility] DOCTOR: SANDI TIJERINA MD Ordered for Date&Time: 09/24/19 1523 cc: Service Date&Time: 09/24/19 1720 EXAMINATION REQUESTED: MRI PELVIS W/O FOLL WITH CON REASON FOR PATIENT VISIT: UROTHELIAL CA REASON FOR EXAM/COMMENT: UROTHELIAL CA MRI PELVIS WITH AND WITHOUT CONTRAST: TECHNIQUE: Multiple sequences in the axial, coronal and sagittal planes prior to and following the intravenous administration of 14 mL ProHance. Correlation made with prior CT 08/22/2019. There is a large irregular enhancing mass involving the left bladder wall and distal left ureter. There is extension to the left pelvic sidewall musculature. There appears to be invasion of the lateral aspect of the left seminal vesicle. There is extension anteriorly up to the posterior margin of the pubic symphysis. There is an ill-defined tumor infiltration and confluent adenopathy extending contiguously superiorly in the region of the proximal left internal and external iliac vessels and left common iliac vessels. There is invasion of the anterior medial left psoas muscle. There is a small amount of free fluid noted in the inferior pelvis. No bone lesion is seen. Prostate is mildly enlarged and heterogeneous. IMPRESSION: Large irregular enhancing mass with ill-defined margins involving the left bladder wall and distal left ureter. There is invasion of the adjacent left pelvic soft tissues and extension to the left pelvic sidewall. There is mild invasion of the lateral left seminal vesicle. There is contiguous extension and tumor infiltration with confluent adenopathy extending along the proximal left external and internal iliac vessels and left common iliac vessels, superiorly to the distal abdominal aorta. There is also invasion of the anteromedial left psoas muscle. Electronically Signed by Jimbo Dumas MD 09/25/2019 12:03 P DD: Jimbo Dumas MD, MD 09/25/19 0906 DT: CALEB 09/25/19 0946 DS: EDWIN 09/25/19 1203 09/25/19 1203 SANDI TIJERINA MD Sep 25, 2019 13:05
--- NOTE | 2019-10-10 09:25 | MEDONCPDOC ---
Medical Oncology Office Note Date of Service: Oct 10, 2019 Diagnosis/Treatment History Oncology problem list 1. Metastatic, clinical high-grade urothelial carcinoma with lymph node metastasis retroperitoneum and left pelvic sidewall N2 disease, biopsy-proven periaortic area. Pathologist unable to give grade 2. Nonfunctioning left kidney HISTORY OF PRESENT ILLNESS Is my pleasure to see Mr. Sanchez, he knew the purpose of today's visit. This 74-year-old was found to have primary metastatic urothelial cancer with biopsy- proven metastasis to the left periaortic lymph node with significant lymph node disease noted on CT scan. Reviewed PET/CT scan and MRI of the pelvis with patient today. Patient is having rapid progression of disease and tumor burden. Patient had a second opinion at [facility] via telemedicine yesterday. I do not have the report yet, patient and tell me that he concur with diagnosis and stage and initiation of palliative chemotherapy with cisplatin and gemcitabine. Reviewed chemotherapy choices Reviewed NCCN guidelines Patient is eligible for cis-quinault Plan on split cisplatin dose to start with a 35 minutes meter squared day 1 and day 8 Gemcitabine 1000 mg/m day 1 and 8 and 15 Following published regime Natalya Sousa, et. al In vivo 33: 167-172 (2019) 28 day cycle Pending kinetics of blood counts may switch to 21 day cycle with gemcitabine on day 1 and day 8 as reported by Jay Dacosta et. al 2017. BIOPSY OF LEFT. PERIAORTIC LYMPH NODE GATA3 Positive Cells Consistent with Metastatic Urothelial Carcinoma. PDL 1 immunostain shows 0% staining. Origin suspected to be left ureter proximal with extension to left side of bladder IMAGING CHEST X-RAY 07/22/2019 showed new linear opacities in the left base consistent with atelectasis CT ABDOMEN AND PELVIS PERFORMED 08/22/2019 Large dislodged percutaneous nephrostomy catheter on left side noted 2.4 cm cyst in the right lower liver unchanged No focal liver mass seen Moderate hydronephrosis of left kidney noted with pigtail nephrostomy catheter seen in the subcutaneous fat Bulky retroperitoneal lymphadenopathy in the periaortic region noted is adenopathy along the external and internal iliac arteries as well. The abdomen is adenopathy appears slightly more prominent than on May 2019 study There was asymmetric thickening of the urinary bladder wall the left lateral margin similar to prior study Cholelithiasis noted NUCLEAR MEDICINE KIDNEY SCAN 09/05/2019 Prompt visualization of the right kidney noted left kidney was not visualized with normal function seen on the right kidney Essentially left kidney nonfunctional MRI PELVIS WITH AND WITHOUT CONTRAST 09/24/19: There is a large irregular enhancing mass involving the left bladder wall and distal left ureter. There is extension to the left pelvic sidewall musculature. There appears to be invasion of the lateral aspect of the left seminal vesicle. There is extension anteriorly up to the posterior margin of the pubic symphysis. There is an ill-defined tumor infiltration and confluent adenopathy extending contiguously superiorly in the region of the proximal left internal and external iliac vessels and left common iliac vessels. There is invasion of the anterior medial left psoas muscle. There is a small amount of free fluid noted in the inferior pelvis. No bone lesion is seen. Prostate is mildly enlarged and heterogeneous. IMPRESSION: Large irregular enhancing mass with ill-defined margins involving the left bladder wall and distal left ureter. There is invasion of the adjacent left pelvic soft tissues and extension to the left pelvic sidewall. There is mild invasion of the lateral left seminal vesicle. There is contiguous extension and tumor infiltration with confluent adenopathy extending along the proximal left external and internal iliac vessels and left common iliac vessels, superiorly to the distal abdominal aorta. There is also invasion of the anteromedial left psoas muscle. PET/CT 10/01/2019 There is extensive left para-aortic adenopathy which is hypermetabolic having maximal SUV values of 5.75. This measures approximately 8 x 6 x 15 cm. There is rather extensive left hemipelvic sidewall hypermetabolic activity consistent with adenopathy. The maximal SUV values are 5.1. No other areas of abnormal hypermetabolic activity are seen in the neck, chest, abdomen, or pelvis. Standard CT imaging shows bilateral maxillary sinus disease and possibly with air fluid levels. This needs to be correlated clinically. Maxillary si nusitis/mucosal thickening. There is cholelithiasis. There is left renal stent. There are some lung changes better imaged by the previous chest CT 09/24/2019. IMPRESSION: 1. There is hypermetabolic activity seen in the retroperitoneum and in the left hemipelvis consistent with adenopathy. 2. Standard CT imaging shows cholelithiasis and a left renal stent. 3. There are chronic changes seen in the lung adhikari better imaged by prior standard CT of the chest which was performed 09/24/2019. Today's standard CT imaging shows no significant change from that exam. Interval History Prolonged discussion with the patient today I reviewed PET/CT scan and MRI of the pelvis with patient today. Showed images of tests with patient and Patient understands he has stage IV cancer. He understands his condition is noncurable but it is potentially controllable There is no current evidence of vital organ involvement which will help with prognosis Patient has significant pain left flank area due to cancer pain Due to tumor burden we are unable to perform nephrectomy prior to initiation on palliative systemic chemotherapy Nephrostomy tube remains in place NCCN guidelines reviewed with patient in detail. Appropriate pages printed and given to patient again today Patient is cisplatin eligible. Because a nonfunctioning kidney in baseline creatinine 1.24, and nephrostomy tube in place we've elected to proceed with split dosing cisplatin 35 mg meter squared day 1 and day 8 With weekly gemcitabine 1000 mg/m day 1,8 and 15 with changes pending kinetics of blood counts. Patient will get weekly hydration as well with each treatment normal saline 1 L with 2 g magnesium Chemotherapy teaching performed today Prescription for Compazine 10 mg 3 times a day as needed for breakthrough nausea given Patient has given full informed consent to proceed with therapy Potential expected side effects reviewed in detail by me and nurse was present for the visit. Allergies Coded Allergies: TAPE (Verified Allergy, Intermediate, blisters, 07/29/19) ciprofloxacin (Verified Allergy, Intermediate, hives, flushing, 02/19/19) Penicillins (Verified Allergy, Mild, PRURITIS, 02/19/19) Home Medications Active Scripts Prochlorperazine Maleate (Prochlorperazine Maleate) 10 Mg Tablet, 10 MG PO Q6H PRN for NAUSEA OR VOMITING, #30 TAB 3 Refills Prov:SANDI TIJERINA MD 10/10/19 Reported Medications [Potasisum Citrite] No Conflict Check, 1620 MG ONCE A DAY for LOW POTASSIUM for 30 Days, #1 % 09/26/19 Tamsulosin Hcl (Tamsulosin HCl) 0.4 Mg Capsule, 0.4 MG PO QPM 09/20/19 Sertraline Hcl (Zoloft) 25 Mg Tablet, 25 MG PO QPM for 30 Days, #30 TAB 08/30/19 Acetaminophen (Tylenol 8 Hour) 650 Mg Tablet.er, 650 MG PO Q8H PRN for PAIN 02/19/19 Fluticasone Propionate (Flonase Allergy Relief) 9.9 Ml [place].susp, 2 SPRAYS NA DAILY PRN for NASAL CONGESTION 02/19/19 Omeprazole (Omeprazole) 20 Mg Capsule.dr, 40 MG PO DAILY, CAP 02/19/19 Past Medical History Past Medical History: THORACIC AND LUMBOSACRAL NEURITIS GERD OBSTRUCTIVE SLEEP APNEAmoderate Not using CPAP ALLERGIC RHINITIS HTN HX KIDNEY STONES NON-FUNCTIONAL LEFT KIDNEY Nocturia Q1 hour Past Surgical History: COLONOSCOPY 06/28/2018 ENDOSCOPY 07/04/2018 NEPHROSTOMY TUBE PLACEMENT 2018 URETER REPAIR 2018 BACK SURGERY 08/2018 TONSILS REMOVED VASECTOMY Lacrimal gland non-malignant left side Family History: Mother of heart failure age 91 Father of heart failure at age 26 Brother age 70 and good health Sister age 74 in good health Social History: Nonsmoker-previous smoker, quit 1979 nondrinker-previousy moderate to heavy drinker Has 2 son and 2 daughters 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, 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 Review of Systems General: Reports: Normal Appetite; Denies: Chills, Fatigue, Malaise Constitutional: Reports: Fatigue Eyes: Denies: Vision change HEENT: Denies: Head Aches, Dysphagia, Sore Throat, Epistaxis Skin: Denies: Rash, Lesions, Jaundice, Bruising Pulmonary: Denies: Dyspnea, Cough Cardiovascular: Denies: Chest Pain, Palpitations, Orthopnea, Edema Gastrointestinal: Denies: Nausea, Vomiting, Diarrhea Genitourinary: Denies: Dysuria, Frequency, Incontinence Hematologic: Denies: Bruising, Petecchia Musculoskeletal: Reports: Leg pain, Muscle pain (left groin), Spasms (left lower quadrant and groin) Neurological: Reports: Weakness, Numbness; Denies: Change in Speech Psych: Reports: Mood Normal Physical Examination General Exam: Positive: Alert, No Acute Distress Eye Exam: Positive: PERRLA, Conjunctiva & lids normal; Negative: Sclera icteric ENT EXAM: Positive: Atraumatic, Mucous membr. moist/pink Neck Exam: Reports: Supple; Denies: JVD, Thyromegaly, Lymphadenopathy Chest Exam: Positive: Other (left nephrostomy tube in place without overlying cellulitis) Heart Exam: Positive: Rate Normal Abdomen Exam: Positive: Normal bowel sounds; Negative: Tenderness, Hepatospenomegaly, Mass Extremity Exam: Positive: Other (fullness left inguinal area noted without firm lymphadenopathy) Skin Exam: Positive: Nl turgor and temperature; Negative: Rash, Breakdown, Lesion Neuro Exam: Positive: Normal Speech, Normal Tone Psych Exam: Positive: Anxiety Ht / Wt Ht / Wt Height:5 Feet 11 Inches Weight: 80.300 Kg Laboratory Data Laboratory Tests 10/10/19 09:51 Vital Signs Date Time Temp Pulse Resp B/P (MAP) Pulse Ox O2 Delivery O2 Flow Rate FiO2 10/10/19 11:00 Room Air 10/10/19 10:08 97.6 67 18 143/91 (108) 97 Room Air Laboratory Tests 10/10/19 09:51: White Blood Count 7.7, Red Blood Count 4.51, Hemoglobin 11.4L, Hematocrit 37.0L, Mean Corpuscular Volume 82.0, Mean Corpuscular Hemoglobin 25.3L, Mean Corpuscular Hemoglobin Concent 30.8L, Red Cell Distribution Width 16.0H, Platelet Count 358, Immature Granulocyte % (Auto) 0.4, Neutrophils (%) (Auto) 74.1H, Lymphocytes (%) (Auto) 9.6L, Monocytes (%) (Auto) 12.1H, Eosinophils (%) (Auto) 3.4H, Basophils (%) (Auto) 0.4, Neutrophils # (Auto) 5.7, Lymphocytes # (Auto) 0.7L, Monocytes # (Auto) 0.9H, Eosinophils # (Auto) 0.3, Basophils # (Auto) 0.0, Nucleated Red Blood Cells % (auto) 0.0, Sodium Level 138, Potassium Level 4.4, Chloride Level 105, Carbon Dioxide Level 30, Anion Gap 3L, Blood Urea Nitrogen 27H, Creatinine 1.26, Glomerular Filtration Rate 59.7, Fasting Glucose 72, Calcium Level 9.1, Total Bilirubin 0.2, Aspartate Amino Transf (AST/SGOT) 11, Alanine Aminotransferase (ALT/SGPT) 21, Alkaline Phosphatase 79, Total Protein 7.1, Albumin 3.0L, Albumin/Globulin Ratio 0.73L Assessment/Plan ASSESSMENT Metastatic, biopsy-proven urothelial cancer with significant para-aortic, inguinal adenopathy as well as left pelvic wall involvement. Exact origin of malignancy has not been determined suspect near bladder. Nonfunctional left kidney Presence of left nephrostomy tube Port is been successfully placed Patient has ready initiation of palliative chemotherapy with cis-quinault and g emcitabine and has given full informed consent to proceed PLAN Proceed with cycle 1, day 1 with palliative split dose cisplatin and gemcitabine All of the above was relayed to the patient who was given an opportunity to ask questions that were answered to satisfaction. The patient voiced an unde rstanding and agreed to proceed. I spent 35 minutes during this visit seeing the patient [id number] and reviewing records. More than 50 % of the time was spent in direct [id number] discussion and counseling of the patient. Patient instructed on bowel regime Patient should call us if he has any additional problems or questions Patient understands we have 24-hour day, 7-days per week coverage CC TO: Primary Care Provider: Hiu Scruggs DO Referring Provider: Wenceslao Dietrich M.D and Danielito Portillo MD. Problems: (1) Metastatic urothelial carcinoma (2) Urothelial carcinoma of left distal ureter SANDI TIJERINA MD Oct 10, 2019 09:25
[2019-10-10 10:08] VITALS: BP 143/91
[2019-10-10 10:18] LABS: BASO % 0.4 % (0.0-1.0); EOS # 0.3 10^3/uL (0.0-0.5); EOS % 3.4 % (0.0-3.0); HEMOGLOBIN 11.4 g/dl (13.5-17.5); LYMPH # 0.7 10^3/uL (1.5-5.0); LYMPH % 9.6 % (24.0-44.0); MEAN CORPUSCULAR HEMOGLOBIN 25.3 pg (27.0-33.0); MEAN CORPUSCULAR HGB CONC 30.8 g/dl (32.0-36.5); MONO # 0.9 10^3/uL (0.0-0.8); MONO % 12.1 % (0.0-5.0); NEUTROPHILS # 5.7 10^3/uL (1.5-8.5); NEUTROPHILS % 74.1 % (36.0-66.0); PLATELET COUNT, AUTOMATED 358 10^3/uL (150-450); RED BLOOD COUNT 4.51 10^6/uL (4.30-6.10); WHITE BLOOD COUNT 7.7 10^3/uL (4.0-10.0)
[2019-10-10 10:47] LABS: BILIRUBIN,TOTAL 0.2 MG/DL (0.2-1.0); CALCIUM LEVEL 9.1 MG/DL (8.8-10.2); CREATININE FOR GFR 1.26 MG/DL (0.70-1.30); GLOMERULAR FILTRATION RATE 59.7 (>42); POTASSIUM SERUM 4.4 MEQ/L (3.5-5.1); TOTAL PROTEIN 7.1 GM/DL (6.4-8.2)
--- NOTE | 2019-10-10 11:12 | ONC.PHACK ---
CHEMO ADMIN CHECKLIST Order Contains Pt ID: Name, Order on Chemo Order Form?: Yes Order Form Includes ALL: Correct Tx Day, Correct Date, Correct Cycle Number Pt ID on Order form Matches: Pt ID on PHA Label Med on Chemo OrderForm Matches: PHA Label, Med Used for Preparation [facility] Oct 10, 2019 11:12
--- NOTE | 2019-10-17 09:38 | MEDONCPDOC ---
Medical Oncology Office Note Date of Service: October 17, 2019 Diagnosis/Treatment History Oncology problem list 1. Metastatic, clinical high-grade urothelial carcinoma with lymph node metastasis retroperitoneum and left pelvic sidewall N2 disease, biopsy-proven periaortic area. Pathologist unable to give grade 2. Nonfunctioning left kidney HISTORY OF PRESENT ILLNESS Is my pleasure to see Mr. Sanchez, he knew the purpose of today's visit. This 74-year-old was found to have primary metastatic urothelial cancer with biopsy- proven metastasis to the left periaortic lymph node with significant lymph node disease noted on CT scan. Patient is having rapid progression of disease and tumor burden. Patient had a second opinion at [facility] via telemedicine They concur with diagnosis and stage and initiation of palliative chemotherapy with cisplatin and gemcitabine. Reviewed chemotherapy choices Reviewed NCCN guidelines. Patient cisplatin eligible Initiated split cisplatin dose to start with a 35 minutes meter squared day 1 and day 8 Gemcitabine 1000 mg/m day 1 and 8 and potentially today 15 Following published regime Natalya Sousa, et. al In vivo 33: 167-172 (2019) 28 day cycle. Rationale for this is to give patient additional time for symptom resolution from cisplatin. Other protocols use gemcitabine day 1 and day 8 which we may end up doing Pending kinetics of blood counts may switch to 21 day cycle with gemcitabine on day 1 and day 8 as reported by Jay Dacosta, et. al 2017. BIOPSY OF LEFT. PERIAORTIC LYMPH NODE GATA3 Positive Cells Consistent with Metastatic Urothelial Carcinoma. PDL 1 immunostain shows 0% staining. Origin suspected to be left ureter proximal with extension to left side of bladder IMAGING CHEST X-RAY 07/22/2019 showed new linear opacities in the left base consistent with atelectasis CT ABDOMEN AND PELVIS PERFORMED 08/22/2019 Large dislodged percutaneous nephrostomy catheter on left side noted 2.4 cm cyst in the right lower liver unchanged No focal liver mass seen Moderate hydronephrosis of left kidney noted with pigtail nephrostomy catheter seen in the subcutaneous fat Bulky retroperitoneal lymphadenopathy in the periaortic region noted is adenopathy along the external and internal iliac arteries as well. The abdomen is adenopathy appears slightly more prominent than on May 2019 study There was asymmetric thickening of the urinary bladder wall the left lateral margin similar to prior study Cholelithiasis noted NUCLEAR MEDICINE KIDNEY SCAN 09/05/2019 Prompt visualization of the right kidney noted left kidney was not visualized with normal function seen on the right kidney Essentially left kidney nonfunctional MRI PELVIS WITH AND WITHOUT CONTRAST 09/24/19: There is a large irregular enhancing mass involving the left bladder wall and distal left ureter. There is extension to the left pelvic sidewall musculature. There appears to be invasion of the lateral aspect of the left seminal vesicle. There is extension anteriorly up to the posterior margin of the pubic symphysis. There is an ill-defined tumor infiltration and confluent adenopathy extending contiguously superiorly in the region of the proximal left internal and external iliac vessels and left common iliac vessels. There is invasion of the anterior medial left psoas muscle. There is a small amount of free fluid noted in the inferior pelvis. No bone lesion is seen. Prostate is mildly enlarged and heterogeneous. IMPRESSION: Large irregular enhancing mass with ill-defined margins involving the left bladder wall and distal left ureter. There is invasion of the adjacent left pelvic soft tissues and extension to the left pelvic sidewall. There is mild invasion of the lateral left seminal vesicle. There is contiguous extension and tumor infiltration with confluent adenopathy extending along the proximal left external and internal iliac vessels and left common iliac vessels, superiorly to the distal abdominal aorta. There is also invasion of the anteromedial left psoas muscle. PET/CT 10/01/2019 There is extensive left para-aortic adenopathy which is hypermetabolic having maximal SUV values of 5.75. This measures approximately 8 x 6 x 15 cm. There is rather extensive left hemipelvic sidewall hypermetabolic activity consistent with adenopathy. The maximal SUV values are 5.1. No other areas of abnormal hypermetabolic activity are seen in the neck, chest, abdomen, or pelvis. Sta ndard CT imaging shows bilateral maxillary sinus disease and possibly with air fluid levels. This needs to be correlated clinically. Maxillary sinusitis/mucosal thickening. There is cholelithiasis. There is left renal stent. There are some lung changes better imaged by the previous chest CT . IMPRESSION: 1. There is hypermetabolic activity seen in the retroperitoneum and in the left hemipelvis consistent with adenopathy. 2. Standard CT imaging shows cholelithiasis and a left renal stent. 3. There are chronic changes seen in the lung adhikari better imaged by prior standard CT of the chest which was performed 09/24/2019. Today's standard CT imaging shows no significant change from that exam. Interval History Patient tolerated chemotherapy well without nausea. Patient has increased fatigue as his main side effect Denies any nausea or emesis Some headaches noted Patient reported rare orthostatic hypotension from sitting to standing 2 episodes since last week Patient told to increase his oral hydration Allergies Coded Allergies: TAPE (Verified Allergy, Intermediate, blisters, 07/29/19) ciprofloxacin (Verified Allergy, Intermediate, hives, flushing, 02/19/19) Penicillins (Verified Allergy, Mild, PRURITIS, 02/19/19) Home Medications Active Scripts Lorazepam (Lorazepam) 1 Mg Tablet, 1 TAB PO TID for nausea, anxiety or insomnia MDD 3 Tablet(s) for 30 Days, #90 TAB 0 Refills Prov:SANDI TIJERINA MD 10/17/19 Prochlorperazine Maleate (Prochlorperazine Maleate) 10 Mg Tablet, 10 MG PO Q6H PRN for NAUSEA OR VOMITING, #30 TAB 3 Refills Prov:SANDI TIJERINA MD 10/10/19 Reported Medications [Potasisum Citrite] No Conflict Check, 1620 MG ONCE A DAY for LOW POTASSIUM for 30 Days, #1 % 09/26/19 Tamsulosin Hcl (Tamsulosin HCl) 0.4 Mg Capsule, 0.4 MG PO QPM 09/20/19 Sertraline Hcl (Zoloft) 25 Mg Tablet, 12.5 MG PO QPM for 30 Days, #30 TAB 08/30/19 Acetaminophen (Tylenol 8 Hour) 650 Mg Tablet.er, 650 MG PO Q8H PRN for PAIN 02/19/19 Fluticasone Propionate (Flonase Allergy Relief) 9.9 Ml [place].susp, 2 SPRAYS NA DAILY PRN for NASAL CONGESTION 02/19/19 Omeprazole (Omeprazole) 20 Mg Capsule.dr, 40 MG PO DAILY, CAP 02/19/19 Past Medical History Past Medical History: THORACIC AND LUMBOSACRAL NEURITIS GERD OBSTRUCTIVE SLEEP APNEAmoderate Not using CPAP ALLERGIC RHINITIS HTN HX KIDNEY STONES NON-FUNCTIONAL LEFT KIDNEY Nocturia Q1 hour Past Surgical History: COLONOSCOPY 06/28/2018 ENDOSCOPY 07/04/2018 NEPHROSTOMY TUBE PLACEMENT 2018 URETER REPAIR 2018 BACK SURGERY 08/2018 TONSILS REMOVED VASECTOMY Lacrimal gland non-malignant left side Family History: Mother of heart failure age 91 Father of heart failure at age 26 Brother age 70 and good health Sister age 74 in good health Social History: Nonsmoker-previous smoker, quit 1979 nondrinker-previousy moderate to heavy drinker Has 2 son and 2 daughters 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, 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 General: Reports: Normal Appetite; Denies: Chills, Fatigue, Malaise Constitutional: Reports: Fatigue Eyes: Denies: Vision change HEENT: Denies: Head Aches, Dysphagia, Sore Throat, Epistaxis Skin: Denies: Rash, Lesions, Jaundice, Bruising Pulmonary: Denies: Dyspnea, Cough Cardiovascular: Denies: Chest Pain, Palpitations, Orthopnea, Edema Gastrointestinal: Denies: Nausea, Vomiting, Diarrhea Genitourinary: Denies: Dysuria, Frequency, Incontinence Hematologic: Denies: Bruising, Petecchia Neurological: Reports: Weakness, Numbness; Denies: Change in Speech Psych: Reports: Mood Normal Physical Examination General Exam: Positive: Alert, No Acute Distress Eye Exam: Positive: PERRLA, Conjunctiva & lids normal; Negative: Sclera icteric ENT EXAM: Positive: Atraumatic, Mucous membr. moist/pink Neck Exam: Reports: Supple; Denies: JVD, Thyromegaly, Lymphadenopathy Chest Exam: Positive: Other (nephrostomy tube in place left flank) Heart Exam: Positive: Rate Normal Abdomen Exam: Positive: Normal bowel sounds; Negative: Tenderness, Hepatospenomegaly, Mass Extremity Exam: Negative: Clubbing, Cyanosis, Edema Skin Exam: Positive: Nl turgor and temperature; Negative: Rash, Breakdown, Lesion Neuro Exam: Positive: Normal Speech, Normal Tone Psych Exam: Positive: Mental status NL Ht / Wt Ht / Wt Height:5 Feet 11 Inches Weight: 80.300 Kg Laboratory Data Laboratory Tests 10/17/19 09:35 Vital Signs Date Time Temp Pulse Resp B/P (MAP) Pulse Ox O2 Delivery O2 Flow Rate FiO2 10/17/19 10:15 Room Air 10/17/19 09:45 97.7 55 18 166/88 (114) 97 Room Air Laboratory Tests 10/17/19 09:35: White Blood Count 5.8, Red Blood Count 3.97L, Hemoglobin 10.2L, Hematocrit 32.1L, Mean Corpuscular Volume 80.9, Mean Corpuscular Hemoglobin 25.7L, Mean Co rpuscular Hemoglobin Concent 31.8L, Red Cell Distribution Width 15.7H, Platelet Count 200, Immature Granulocyte % (Auto) 0.3, Neutrophils (%) (Auto) 73.8H, Lymphocytes (%) (Auto) 11.1L, Monocytes (%) (Auto) 13.6H, Eosinophils (%) (Auto) 1.0, Basophils (%) (Auto) 0.2, Neutrophils # (Auto) 4.2, Lymphocytes # (Auto) 0.6L, Monocytes # (Auto) 0.8, Eosinophils # (Auto) 0.1, Basophils # (Auto) 0.0, Nucleated Red Blood Cells % (auto) 0.0, Sodium Level 138, Potassium Level 4.5, Chloride Level 104, Carbon Dioxide Level 32, Anion Gap 2L, Blood Urea Nitrogen 28H, Creatinine 1.29, Glomerular Filtration Rate 58.1, Fasting Glucose 93, Calcium Level 8.7L, Magnesium Level 2.1, Total Bilirubin 0.3, Aspartate Amino Transf (AST/SGOT) 17, Alanine Aminotransferase (ALT/SGPT) 45, Alkaline Phosphatase 152H, Total Protein 6.7, Albumin 2.5L, Albumin/Globulin Ratio 0.60L Assessment/Plan ASSESSMENT Metastatic, biopsy-proven urothelial cancer with significant para-aortic, inguinal adenopathy as well as left pelvic wall involvement. Exact origin of malignancy has not been determined suspect near bladder. Nonfunctional left kidney Presence of left nephrostomy tube Port is been successfully placed Patient has ready initiation of palliative chemotherapy with cis-diomede and gemcitabine and has given full informed consent to proceed PLAN Proceed with cycle 1, day 8 with palliative split dose cisplatin and gemcitabine As the patient back in 1 week's time All of the above was relayed to the patient who was given an opportunity to ask questions that were answered to satisfaction. The patient voiced an understanding and agreed to proceed. I spent 25 minutes during this visit seeing the patient [id number] and reviewing records. More than 50 % of the time was spent in direct [id number] discussion and counseling of the patient. CC TO: Primary Care Provider: Hui Scruggs DO Referring Provider: Wenceslao Dietrich M.D and Danielito Portillo MD. Problems: (1) Urothelial carcinoma of left distal ureter (2) Metastatic urothelial carcinoma (3) Referred pain (4) Nonfunctioning kidney SANDI TIJERINA MD October 17, 2019 09:38
[2019-10-17 09:45] VITALS: BP 166/88
[2019-10-17 09:46] LABS: BASO % 0.2 % (0.0-1.0); EOS # 0.1 10^3/uL (0.0-0.5); HEMATOCRIT 32.1 % (42.0-52.0); HEMOGLOBIN 10.2 g/dl (13.5-17.5); LYMPH # 0.6 10^3/uL (1.5-5.0); LYMPH % 11.1 % (24.0-44.0); MEAN CORPUSCULAR HEMOGLOBIN 25.7 pg (27.0-33.0); MEAN CORPUSCULAR HGB CONC 31.8 g/dl (32.0-36.5); MEAN CORPUSCULAR VOLUME 80.9 fl (80.0-96.0); MONO # 0.8 10^3/uL (0.0-0.8); MONO % 13.6 % (0.0-5.0); NEUTROPHILS # 4.2 10^3/uL (1.5-8.5); NEUTROPHILS % 73.8 % (36.0-66.0); PLATELET COUNT, AUTOMATED 200 10^3/uL (150-450); RED BLOOD COUNT 3.97 10^6/uL (4.30-6.10); WHITE BLOOD COUNT 5.8 10^3/uL (4.0-10.0)
[2019-10-17 10:09] LABS: ALBUMIN 2.5 GM/DL (3.2-5.2); BILIRUBIN,TOTAL 0.3 MG/DL (0.2-1.0); CALCIUM LEVEL 8.7 MG/DL (8.8-10.2); CREATININE FOR GFR 1.29 MG/DL (0.70-1.30); GLOMERULAR FILTRATION RATE 58.1 (>42); POTASSIUM SERUM 4.5 MEQ/L (3.5-5.1); TOTAL PROTEIN 6.7 GM/DL (6.4-8.2)
--- NOTE | 2019-10-17 10:48 | ONC.PHACK ---
CHEMO ADMIN CHECKLIST Order Contains Pt ID: Name, Order on Chemo Order Form?: Yes Order Form Includes ALL: Correct Tx Day, Correct Date, Correct Cycle Number Pt ID on Order form Matches: Pt ID on PHA Label Med on Chemo OrderForm Matches: PHA Label, Med Used for Preparation [facility] October 17, 2019 10:48
--- NOTE | 2019-10-24 08:41 | MEDONCPDOC ---
Medical Oncology Office Note Date of Service: October 24, 2019 Diagnosis/Treatment History Oncology problem list 1. Metastatic, clinical high-grade urothelial carcinoma with lymph node metastasis retroperitoneum and left pelvic sidewall N2 disease, biopsy-proven periaortic area. Pathologist unable to give grade 2. Nonfunctioning left kidney 3. Significant Cancer related pain and low back and nephrostomy tube area HISTORY OF PRESENT ILLNESS Is my pleasure to see Mr. Sanchez, he knew the purpose of today's visit. This 74-year-old was found to have primary metastatic urothelial cancer with biopsy- proven metastasis to the left periaortic lymph node with significant lymph node disease noted on CT scan. Patient had rapid progression of disease and tumor burden. Is presently on systemic treatment Patient had a second opinion at [facility] via telemedicine They concur with diagnosis and stage and initiation of palliative chemotherapy with cisplatin and gemcitabine. Reviewed chemotherapy choices Reviewed NCCN guidelines. Patient cisplatin eligible Initiated split cisplatin dose to start with a 35 minutes meter squared day 1 and day 8 Gemcitabine 1000 mg/m day 1 and 8 and potentially today 15 Following published regime Natalya Sousa, et. al In vivo 33: 167-172 (2019) 28 day cycle. Rationale for this is to give patient additional time for symptom resolution from cisplatin. Other protocols use gemcitabine day 1 and day 8 which we may end up doing Pending kinetics of blood counts may switch to 21 day cycle with gemcitabine on day 1 and day 8 as reported by Jay Dacosta et. al 2017. BIOPSY OF LEFT. PERIAORTIC LYMPH NODE GATA3 Positive Cells Consistent with Metastatic Urothelial Carcinoma. PDL 1 immunostain shows 0% staining. Origin suspected to be left ureter proximal with extension to left side of bladder IMAGING CHEST X-RAY 07/22/2019 showed new linear opacities in the left base consistent with atelectasis CT ABDOMEN AND PELVIS PERFORMED 08/22/2019 Large dislodged percutaneous nephrostomy catheter on left side noted 2.4 cm cyst in the right lower liver unchanged No focal liver mass seen Moderate hydronephrosis of left kidney noted with pigtail nephrostomy catheter seen in the subcutaneous fat Bulky retroperitoneal lymphadenopathy in the periaortic region noted is adenopathy along the external and internal iliac arteries as well. The abdomen is adenopathy appears slightly more prominent than on May 2019 study There was asymmetric thickening of the urinary bladder wall the left lateral margin similar to prior study Cholelithiasis noted NUCLEAR MEDICINE KIDNEY SCAN 09/05/2019 Prompt visualization of the right kidney noted left kidney was not visualized with normal function seen on the right kidney Essentially left kidney nonfunctional MRI PELVIS WITH AND WITHOUT CONTRAST 09/24/19: There is a large irregular enhancing mass involving the left bladder wall and distal left ureter. There is extension to the left pelvic sidewall musculature. There appears to be invasion of the lateral aspect of the left seminal vesicle. There is extension anteriorly up to the posterior margin of the pubic symphysis. There is an ill-defined tumor infiltration and confluent adenopathy extending contiguously superiorly in the region of the proximal left internal and external iliac vessels and left common iliac vessels. There is invasion of the anterior medial left psoas muscle. There is a small amount of free fluid noted in the inferior pelvis. No bone lesion is seen. Prostate is mildly enlarged and heterogeneous. IMPRESSION: Large irregular enhancing mass with ill-defined margins involving the left bladd er wall and distal left ureter. There is invasion of the adjacent left pelvic soft tissues and extension to the left pelvic sidewall. There is mild invasion of the lateral left seminal vesicle. There is contiguous extension and tumor infiltration with confluent adenopathy extending along the proximal left external and internal iliac vessels and left common iliac vessels, superiorly to the distal abdominal aorta. There is also invasion of the anteromedial left psoas muscle. PET/CT 10/01/2019 There is extensive left para-aortic adenopathy which is hypermetabolic having maximal SUV values of 5.75. This measures approximately 8 x 6 x 15 cm. There is rather extensive left hemipelvic sidewall hypermetabolic activity consistent with adenopathy. The maximal SUV values are 5.1. No other areas of abnormal hypermetabolic activity are seen in the neck, chest, abdomen, or pelvis. Standa rd CT imaging shows bilateral maxillary sinus disease and possibly with air fluid levels. This needs to be correlated clinically. Maxillary sinusitis/mucosal thickening. There is cholelithiasis. There is left renal stent. There are some lung changes better imaged by the previous chest CT 09/24/2019. IMPRESSION: 1. There is hypermetabolic activity seen in the retroperitoneum and in the left hemipelvis consistent with adenopathy. 2. Standard CT imaging shows cholelithiasis and a left renal stent. 3. There are chronic changes seen in the lung adhikari better imaged by prior standard CT of the chest which was performed 09/24/2019. Today's standard CT imaging shows no significant change from that exam. Interval History Reports that he is doing poorly Trouble sleeping due to ongoing pain by nephrostomy tube and lower back Pain constant, worse when lays down Pain not relieved with Tylenol Pain 6/10 currently, goes to 8/10 at night Patient tolerating chemotherapy reasonably well without nausea. Patient has increased fatigue as his main side effect Patient suffering with significant cancer related pain Risk and benefits of additional pain medication discussed with patient Use of narcotic medication indicated given severe cancer pain refractory to acetaminophen Risk of medication discussed Patient aware this medication can cause addiction Patient will take steps to prevent narcotic-induced constipation The purpose of the treatment is to improve the patient's ability to function. Patient has been told: Not to use lorazepam anymore in conjunction with this medication Patient has been told not to use medication with alcohol Patient knows to keep medication safe and locked away from other family members Patient stops medications suddenly there could be withdrawal symptoms Patient aware cancer centers has a physician fat purification worker 24 hours a 7 days a week and to call the Center if his any problems or issues I-stop accessed Prescription for hydrocodone/acetaminophen 5/325 given one by mouth every 6 hours as needed #100 no refills Allergies Coded Allergies: TAPE (Verified Allergy, Intermediate, blisters, 07/29/19) ciprofloxacin (Verified Allergy, Intermediate, hives, flushing, 02/19/19) Penicillins (Verified Allergy, Mild, PRURITIS, 02/19/19) Home Medications Active Scripts Hydrocodone/Acetaminophen (Hydrocodone-Acetamin 5-325 mg) 1 Each Tablet, 1 TAB PO Q6H PRN for PAIN MDD 4 for 30 Days, #100 TAB 0 Refills MDD 4 Prov:SANDI TIJERINA MD 10/24/19 Lorazepam (Lorazepam) 1 Mg Tablet, 1 TAB PO TID for nausea, anxiety or insomnia MDD 3 Tablet(s) for 30 Days, #90 TAB 0 Refills Prov:SANDI TIJERINA MD 10/17/19 Prochlorperazine Maleate (Prochlorperazine Maleate) 10 Mg Tablet, 10 MG PO Q6H PRN for NAUSEA OR VOMITING, #30 TAB 3 Refills Prov:SANDI TIJERINA MD 10/10/19 Reported Medications [Potasisum Citrite] No Conflict Check, 1620 MG ONCE A DAY for LOW POTASSIUM for 30 Days, #1 % 09/26/19 Tamsulosin Hcl (Tamsulosin HCl) 0.4 Mg Capsule, 0.4 MG PO QPM 09/20/19 Sertraline Hcl (Zoloft) 25 Mg Tablet, 12.5 MG PO QPM for 30 Days, #30 TAB 08/30/19 Acetaminophen (Tylenol 8 Hour) 650 Mg Tablet.er, 650 MG PO Q8H PRN for PAIN 02/19/19 Fluticasone Propionate (Flonase Allergy Relief) 9.9 Ml Serena.susp, 2 SPRAYS NA DAILY PRN for NASAL CONGESTION 02/19/19 Omeprazole (Omeprazole) 20 Mg Capsule.dr, 40 MG PO DAILY, CAP 02/19/19 Past Medical History Past Medical History: THORACIC AND LUMBOSACRAL NEURITIS GERD OBSTRUCTIVE SLEEP APNEAmoderate Not using CPAP ALLERGIC RHINITIS HTN HX KIDNEY STONES NON-FUNCTIONAL LEFT KIDNEY Nocturia Q1 hour Past Surgical History: COLONOSCOPY 06/28/2018 ENDOSCOPY 07/04/2018 NEPHROSTOMY TUBE PLACEMENT 2018 URETER REPAIR 2018 BACK SURGERY 08/2018 TONSILS REMOVED VASECTOMY Lacrimal gland non-malignant left side Family History: Mother of heart failure age 91 Father of heart failure at age 26 Brother age 70 and good health Sister age 74 in good health Social History: Nonsmoker-previous smoker, quit 1979 nondrinker-previousy moderate to heavy drinker Has 2 son and 2 daughters 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, 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\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 Review of Systems General: Reports: Normal Appetite; Denies: Chills, Fatigue, Malaise Constitutional: Reports: Fatigue Eyes: Denies: Vision change HEENT: Denies: Head Aches, Dysphagia, Sore Throat, Epistaxis Skin: Denies: Rash, Lesions, Jaundice, Bruising Pulmonary: Denies: Dyspnea, Cough Cardiovascular: Denies: Chest Pain, Palpitations, Orthopnea, Edema Gastrointestinal: Denies: Nausea, Vomiting, Diarrhea Genitourinary: Denies: Dysuria, Frequency, Incontinence Hematologic: Denies: Bruising, Petecchia Musculoskeletal: Reports: Back pain (and left nephostomy tube area), Muscle stiffness Neurological: Reports: Weakness, Numbness; Denies: Change in Speech Psych: Reports: Anxiety Physical Examination General Exam: Positive: Mild Distress Eye Exam: Positive: PERRLA, Conjunctiva & lids normal; Negative: Sclera icteric ENT EXAM: Positive: Atraumatic, Mucous membr. moist/pink Neck Exam: Reports: Supple; Denies: JVD, Thyromegaly, Lymphadenopathy Chest Exam: Positive: Clear to auscultation, Normal air movement Heart Exam: Positive: Rate Normal Abdomen Exam: Positive: Other (left nephostomy tube present without overlying cellulitis) Extremity Exam: Negative: Clubbing, Cyanosis, Edema Skin Exam: Positive: Nl turgor and temperature; Negative: Rash, Breakdown, Lesion Neuro Exam: Positive: Normal Speech, Normal Tone Psych Exam: Positive: Mental status NL Ht / Wt Ht / Wt Height:5 Feet 11 Inches Weight: 80.000 Kg Laboratory Data Laboratory Tests Test 10/17/19 09:35 Blood Urea Nitrogen 28 MG/DL (7-18) H Creatinine 1.29 MG/DL (0.70-1.30) Glomerular Filtration Rate 58.1 (>42) Fasting Glucose 93 MG/DL (70-100) Calcium Level 8.7 MG/DL (8.8-10.2) L Total Bilirubin 0.3 MG/DL (0.2-1.0) Aspartate Amino Transf (AST/SGOT) 17 U/L (7-37) Alanine Aminotransferase (ALT/SGPT) 45 U/L (12-78) Total Protein 6.7 GM/DL (6.4-8.2) Sodium Level 138 MEQ/L (136-145) Albumin 2.5 GM/DL (3.2-5.2) L Alkaline Phosphatase 152 U/L (45-117) H Potassium Level 4.5 MEQ/L (3.5-5.1) Chloride Level 104 MEQ/L (98-107) Carbon Dioxide Level 32 MEQ/L (21-32) Anion Gap 2 MEQ/L (8-16) L Magnesium Level 2.1 MG/DL (1.8-2.4) Assessment/Plan ASSESSMENT Metastatic, biopsy-proven urothelial cancer with significant para-aortic, inguinal adenopathy as well as left pelvic wall involvement. Exact origin of malignancy has not been determined suspect near bladder. Nonfunctional left kidney Presence of left nephrostomy tube.Has ongoing cancer related pain nonresponsive to analgesic therapy ICD 10 G89.3 PLAN Proceed with cycle 1, day 15 with palliative split dose cisplatin and gemcitabine Hydrocodone/acetaminophen 5/325 given today in the cancer center due to pain then increased to 8 out of 10 Prescription for hydrocodone/acetaminophen 5/325 given one by mouth every 6 hours as needed #100 no refills. I-stop accessed and verified. Patient contract and consent to begin this palliative pain therapy given. Hopefully, once we improve large tumor burden, pain will improve and we can eliminate medication We will see the patient back in 2 week's time All of the above was relayed to the patient who was given an opportunity to ask questions that were answered to satisfaction. The patient voiced an understanding and agreed to proceed. I spent 30 minutes during this visit seeing the patient [id number] and reviewing records. More than 50 % of the time was spent in direct [id number] discussion and counseling of the patient. CC TO: Primary Care Provider: Hui Scruggs DO Referring Provider: Wenceslao Dietrich M.D and Danielito Portillo MD. Problems: (1) Metastatic urothelial carcinoma (2) Urothelial carcinoma of left distal ureter (3) Nonfunctioning kidney (4) Referred pain (5) Cancer-related pain SANDI TIJERINA MD October 24, 2019 08:41
--- NOTE | 2019-10-24 08:48 | ONC.PHACK ---
CHEMO ADMIN CHECKLIST Order Contains Pt ID: Name, Order on Chemo Order Form?: Yes Order Form Includes ALL: Correct Tx Day, Correct Date, Correct Cycle Number Pt ID on Order form Matches: Pt ID on PHA Label Med on Chemo OrderForm Matches: PHA Label, Med Used for Preparation [facility] October 24, 2019 08:48
[2019-10-24 08:59] LABS: BASO % 0.3 % (0.0-1.0); EOS % 0.8 % (0.0-3.0); HEMATOCRIT 33.4 % (42.0-52.0); HEMOGLOBIN 10.2 g/dl (13.5-17.5); LYMPH # 0.5 10^3/uL (1.5-5.0); LYMPH % 13.6 % (24.0-44.0); MEAN CORPUSCULAR HEMOGLOBIN 25.1 pg (27.0-33.0); MEAN CORPUSCULAR HGB CONC 30.5 g/dl (32.0-36.5); MEAN CORPUSCULAR VOLUME 82.3 fl (80.0-96.0); MONO # 0.5 10^3/uL (0.0-0.8); MONO % 12.6 % (0.0-5.0); NEUTROPHILS # 2.9 10^3/uL (1.5-8.5); NEUTROPHILS % 72.2 % (36.0-66.0); PLATELET COUNT, AUTOMATED 146 10^3/uL (150-450); RED BLOOD COUNT 4.06 10^6/uL (4.30-6.10)
[2019-10-24 09:02] VITALS: BP 164/97
[2019-10-24 09:21] LABS: CALCIUM LEVEL 8.5 MG/DL (8.8-10.2); CREATININE FOR GFR 1.29 MG/DL (0.70-1.30); GLOMERULAR FILTRATION RATE 58.1 (>42); POTASSIUM SERUM 4.4 MEQ/L (3.5-5.1)
[2019-11-07 08:01] VITALS: BP 162/89
[2019-11-07 08:11] LABS: BASO % 0.6 % (0.0-1.0); EOS # 0.1 10^3/uL (0.0-0.5); EOS % 3.5 % (0.0-3.0); HEMATOCRIT 32.6 % (42.0-52.0); HEMOGLOBIN 10.2 g/dl (13.5-17.5); LYMPH # 0.6 10^3/uL (1.5-5.0); LYMPH % 16.2 % (24.0-44.0); MEAN CORPUSCULAR HEMOGLOBIN 26.1 pg (27.0-33.0); MEAN CORPUSCULAR HGB CONC 31.3 g/dl (32.0-36.5); MEAN CORPUSCULAR VOLUME 83.4 fl (80.0-96.0); MONO # 0.6 10^3/uL (0.0-0.8); MONO % 16.2 % (0.0-5.0); NEUTROPHILS # 2.1 10^3/uL (1.5-8.5); NEUTROPHILS % 62.6 % (36.0-66.0); PLATELET COUNT, AUTOMATED 463 10^3/uL (150-450); RED BLOOD COUNT 3.91 10^6/uL (4.30-6.10); WHITE BLOOD COUNT 3.4 10^3/uL (4.0-10.0)
--- NOTE | 2019-11-07 08:11 | MEDONCPDOC ---
Medical Oncology Office Note Date of Service: November 07, 2019 Diagnosis/Treatment History Oncology problem list 1. Metastatic, clinical high-grade urothelial carcinoma with lymph node metastasis retroperitoneum and left pelvic sidewall N2 disease, biopsy-proven periaortic area. Pathologist unable to give grade 2. Nonfunctioning left kidney 3. Significant Cancer related pain and low back and nephrostomy tube area HISTORY OF PRESENT ILLNESS Is my pleasure to see Mr. Sanchez. This 74-year-old was found to have primary metastatic urothelial cancer with biopsy-proven metastasis to the left periaortic lymph node with significant lymph node disease noted on CT scan. Patient had rapid progression of disease and tumor burden. Is presently on systemic treatment Patient had a second opinion at [facility] via telemedicine They concur with diagnosis and stage and initiation of palliative chemotherapy with cisplatin and gemcitabine. Reviewed chemotherapy choices Reviewed NCCN guidelines. Patient cisplatin eligible Initiated split cisplatin dose to start with a 35 minutes meter squared day 1 and day 8 Gemcitabine 1000 mg/m day 1 and 8 and potentially today 15 Following published regime Natalya K, et. al In vivo 33: 167-172 (2019) 28 day cycle. Rationale for this is to give patient additional time for symptom resolution from cisplatin. Other protocols use gemcitabine day 1 and day 8 which we may end up doing Pending kinetics of blood counts may switch to 21 day cycle with gemcitabine on day 1 and day 8 as reported by Jay Dacosta et. al 2017. BIOPSY OF LEFT. PERIAORTIC LYMPH NODE GATA3 Positive Cells Consistent with Metastatic Urothelial Carcinoma. PDL 1 immunostain shows 0% staining. Origin suspected to be left ureter proximal with extension to left side of bladder IMAGING CHEST X-RAY 07/22/2019 showed new linear opacities in the left base consistent with atelectasis CT ABDOMEN AND PELVIS PERFORMED 08/22/2019 Large dislodged percutaneous nephrostomy catheter on left side noted 2.4 cm cyst in the right lower liver unchanged No focal liver mass seen Moderate hydronephrosis of left kidney noted with pigtail nephrostomy catheter seen in the subcutaneous fat Bulky retroperitoneal lymphadenopathy in the periaortic region noted is adenopathy along the external and internal iliac arteries as well. The abdomen is adenopathy appears slightly more prominent than on May 2019 study There was asymmetric thickening of the urinary bladder wall the left lateral margin similar to prior study Cholelithiasis noted NUCLEAR MEDICINE KIDNEY SCAN 09/05/2019 Prompt visualization of the right kidney noted left kidney was not visualized with normal function seen on the right kidney Essentially left kidney nonfunctional MRI PELVIS WITH AND WITHOUT CONTRAST 09/24/19: There is a large irregular enhancing mass involving the left bladder wall and distal left ureter. There is extension to the left pelvic sidewall musculature. There appears to be invasion of the lateral aspect of the left seminal vesicle. There is extension anteriorly up to the posterior margin of the pubic symphysis. There is an ill-defined tumor infiltration and confluent adenopathy extending contiguously superiorly in the region of the proximal left internal and external iliac vessels and left common iliac vessels. There is invasion of the anterior medial left psoas muscle. There is a small amount of free fluid noted in the inferior pelvis. No bone lesion is seen. Prostate is mildly enlarged and heterogeneous. IMPRESSION: Large irregular enhancing mass with ill-defined margins involving the left bladder wall and distal left ureter. There is invasion of the adjacent left pelvic soft tissues and extension to the left pelvic sidewall. There is mild invasion of the lateral left seminal vesicle. There is contiguous extension and tumor infiltration with confluent adenopathy extending along the proximal left external and internal iliac vessels and left common iliac vessels, superiorly to the distal abdominal aorta. There is also invasion of the anteromedial left psoas muscle. PET/CT 10/01/2019 There is extensive left para-aortic adenopathy which is hypermetabolic having maximal SUV values of 5.75. This measures approximately 8 x 6 x 15 cm. There is rather extensive left hemipelvic sidewall hypermetabolic activity consistent with adenopathy. The maximal SUV values are 5.1. No other areas of abnormal hypermetabolic activity are seen in the neck, chest, abdomen, or pelvis. Standard CT imaging shows bilateral maxillary sinus disease and possibly with air fluid levels. This needs to be correlated clinically. Maxillary sinusitis/mucosal thickening. There is cholelithiasis. There is left renal stent. There are some lung changes better imaged by the previous chest CT 09/24/2019. IMPRESSION: 1. There is hypermetabolic activity seen in the retroperitoneum and in the left hemipelvis consistent with adenopathy. 2. Standard CT imaging shows cholelithiasis and a left renal stent. 3. There are chronic changes seen in the lung adhikari better imaged by prior standard CT of the chest which was performed 09/24/2019. Today's standard CT imaging shows no significant change from that exam. Interval History Patient markedly improved. Had a good week Pain markedly improved Only using hydrocodone/acetaminophen as needed Having increased anxiety May be because he's watching the news Still having insomnia Patient reports anxiety begins about 4:00 Patient here to initiate cycle #2 of palliative chemotherapy Patient tolerating chemotherapy reasonably well without nausea. Patient has increased fatigue as his main side effect Physical exam shows nice response with markedly decreased left palpable inguinal adenopathy Allergies Coded Allergies: TAPE (Verified Allergy, Intermediate, blisters, 07/29/19) ciprofloxacin (Verified Allergy, Intermediate, hives, flushing, 02/19/19) Penicillins (Verified Allergy, Mild, PRURITIS, 02/19/19) Home Medications Active Scripts Hydrocodone/Acetaminophen (Hydrocodone-Acetamin 5-325 mg) 1 Each Tablet, 1 TAB PO Q6H PRN for PAIN MDD 4 for 30 Days, #100 TAB 0 Refills MDD 4 Prov:SANDI TIJERINA MD 10/24/19 Lorazepam (Lorazepam) 1 Mg Tablet, 1 TAB PO TID for nausea, anxiety or insomnia MDD 3 Tablet(s) for 30 Days, #90 TAB 0 Refills Prov:SANDI TIJERINA MD 10/17/19 Prochlorperazine Maleate (Prochlorperazine Maleate) 10 Mg Tablet, 10 MG PO Q6H PRN for NAUSEA OR VOMITING, #30 TAB 3 Refills Prov:SANDI TIJERINA MD 10/10/19 Reported Medications [Potasisum Citrite] No Conflict Check, 1620 MG ONCE A DAY for LOW POTASSIUM for 30 Days, #1 % 09/26/19 Tamsulosin Hcl (Tamsulosin HCl) 0.4 Mg Capsule, 0.4 MG PO QPM 09/20/19 Sertraline Hcl (Zoloft) 25 Mg Tablet, 12.5 MG PO QPM for 30 Days, #30 TAB 08/30/19 Acetaminophen (Tylenol 8 Hour) 650 Mg Tablet.er, 650 MG PO Q8H PRN for PAIN 02/19/19 Fluticasone Propionate (Flonase Allergy Relief) 9.9 Ml [place].susp, 2 SPRAYS NA DAILY PRN for NASAL CONGESTION 02/19/19 Omeprazole (Omeprazole) 20 Mg Capsule.dr, 40 MG PO DAILY, CAP 02/19/19 Past Medical History Past Medical History: THORACIC AND LUMBOSACRAL NEURITIS GERD OBSTRUCTIVE SLEEP APNEAmoderate Not using CPAP ALLERGIC RHINITIS HTN HX KIDNEY STONES NON-FUNCTIONAL LEFT KIDNEY Nocturia Q1 hour Past Surgical History: COLONOSCOPY 06/28/2018 ENDOSCOPY 07/04/2018 NEPHROSTOMY TUBE PLACEMENT 2018 URETER REPAIR 2018 BACK SURGERY 08/2018 TONSILS REMOVED VASECTOMY Lacrimal gland non-malignant left side Family History: Mother of heart failure age 91 Father of heart failure at age 26 Brother age 70 and good health Sister age 74 in good health Social History: Nonsmoker-previous smoker, quit 1979 nondrinker-previousy moderate to heavy drinker Has 2 son and 2 daughters 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[employer], 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 Review of Systems General: Reports: Normal Appetite; Denies: Chills, Fatigue, Malaise Constitutional: Reports: Fatigue Eyes: Denies: Vision change HEENT: Denies: Head Aches, Dysphagia, Sore Throat, Epistaxis Skin: Denies: Rash, Lesions, Jaundice, Bruising Pulmonary: Denies: Dyspnea, Cough Cardiovascular: Denies: Chest Pain, Palpitations, Orthopnea, Edema Gastrointestinal: Denies: Nausea, Vomiting, Diarrhea Genitourinary: Denies: Dysuria, Frequency, Incontinence Hematologic: Denies: Bruising, Petecchia Musculoskeletal: Reports: Back pain, Leg pain Neurological: Reports: Weakness, Numbness; Denies: Change in Speech Psych: Reports: Mood Normal Physical Examination General Exam: Positive: Alert, No Acute Distress Eye Exam: Positive: PERRLA, Conjunctiva & lids normal; Negative: Sclera icteric ENT EXAM: Positive: Atraumatic, Mucous membr. moist/pink Neck Exam: Reports: Supple; Denies: JVD, Thyromegaly, Lymphadenopathy Chest Exam: Positive: Other (left nephrostomy tube in place without overlying cellulitis) Heart Exam: Positive: Rate Normal Abdomen Exam: Positive: Normal bowel sounds; Negative: Tenderness, Hepatospenomegaly, Mass Extremity Exam: Positive: Other (markedly decreased palpable lymphadenopathy in the left groin. Still some firmness noted in the left lower quadrant but improved) Skin Exam: Positive: Nl turgor and temperature; Negative: Rash, Breakdown, Lesion Neuro Exam: Positive: Normal Speech, Normal Tone Psych Exam: Positive: Mental status NL Ht / Wt Ht / Wt Height:5 Feet 11 Inches Weight: 79.000 Kg Vital Signs Vital Signs Date Time Temp Pulse Resp B/P (MAP) Pulse Ox O2 Delivery O2 Flow Rate FiO2 11/07/19 08:01 97.5 67 16 162/89 (113) 97 Room Air Laboratory Data Laboratory Tests Test 11/07/19 07:45 Blood Urea Nitrogen 28 MG/DL (7-18) H Creatinine 1.45 MG/DL (0.70-1.30) H Glomerular Filtration Rate 50.8 (>42) Fasting Glucose 111 MG/DL (70-100) H Calcium Level 8.7 MG/DL (8.8-10.2) L Total Bilirubin 0.1 MG/DL (0.2-1.0) L Aspartate Amino Transf (AST/SGOT) 16 U/L (7-37) Alanine Aminotransferase (ALT/SGPT) 27 U/L (12-78) Total Protein 6.4 GM/DL (6.4-8.2) Sodium Level 144 MEQ/L (136-145) Albumin 2.9 GM/DL (3.2-5.2) L Alkaline Phosphatase 99 U/L (45-117) Potassium Level 4.4 MEQ/L (3.5-5.1) Chloride Level 108 MEQ/L (98-107) H Carbon Dioxide Level 30 MEQ/L (21-32) Anion Gap 6 MEQ/L (8-16) L Laboratory Tests 11/07/19 07:45 Laboratory Tests Test 11/07/19 07:45 Assessment/Plan ASSESSMENT Metastatic, biopsy-proven urothelial cancer with significant para-aortic, inguinal adenopathy as well as left pelvic wall involvement. Exact origin of malignancy has not been determined suspect near bladder. Nonfunctional left kidney Presence of left nephrostomy tube. Improved but ongoing cancer related pain nonresponsive to analgesic therapy ICD 10 G89.3 Intermittent dizziness consistent with inner ear issue PLAN Proceed with cycle 2, day 1 with palliative split dose cisplatin and gemcitabine Hydrocodone/acetaminophen 5/325 when necessary cancer pain. Pain is remarkably improved and does not need medicine consistently Fluid intake encouraged. Mild dehydration of this morning We will see the patient back in 1 week's time All of the above was relayed to the patient who was given an opportunity to ask questions that were answered to satisfaction. The patient voiced an understanding and agreed to proceed. I spent 28 minutes during this visit seeing the patient [id number] and reviewing records. More than 50 % of the time was spent in direct [id number] discussion and counseling of the patient. CC TO: Primary Care Provider: Hui Scruggs DO Referring Provider: Wenceslao Dietrich M.D and Danielito Portillo MD. Problems: (1) Metastatic urothelial carcinoma (2) Referred pain (3) Urothelial carcinoma of left distal ureter (4) Nonfunctioning kidney (5) Cancer-related pain SANDI TIJERINA MD November 07, 2019 08:10
[2019-11-07 08:42] LABS: ALBUMIN 2.9 GM/DL (3.2-5.2); BILIRUBIN,TOTAL 0.1 MG/DL (0.2-1.0); CALCIUM LEVEL 8.7 MG/DL (8.8-10.2); CREATININE FOR GFR 1.45 MG/DL (0.70-1.30); GLOMERULAR FILTRATION RATE 50.8 (>42); POTASSIUM SERUM 4.4 MEQ/L (3.5-5.1); TOTAL PROTEIN 6.4 GM/DL (6.4-8.2)
--- NOTE | 2019-11-07 09:02 | ONC.PHACK ---
CHEMO ADMIN CHECKLIST Order Contains Pt ID: Name, Order on Chemo Order Form?: Yes Order Form Includes ALL: Correct Tx Day, Correct Date, Correct Cycle Number Pt ID on Order form Matches: Pt ID on PHA Label Med on Chemo OrderForm Matches: PHA Label, Med Used for Preparation [facility] November 07, 2019 09:02
[2019-11-14 09:27] VITALS: BP 180/90
[2019-11-14 09:35] LABS: BASO # 0.1 10^3/uL (0.0-0.2); BASO % 1.7 % (0.0-1.0); EOS # 0.1 10^3/uL (0.0-0.5); EOS % 1.7 % (0.0-3.0); HEMOGLOBIN 10.3 g/dl (13.5-17.5); LYMPH # 0.8 10^3/uL (1.5-5.0); LYMPH % 26.3 % (24.0-44.0); MEAN CORPUSCULAR HGB CONC 31.2 g/dl (32.0-36.5); MEAN CORPUSCULAR VOLUME 83.3 fl (80.0-96.0); MONO # 0.5 10^3/uL (0.0-0.8); MONO % 16.2 % (0.0-5.0); NEUTROPHILS # 1.5 10^3/uL (1.5-8.5); NEUTROPHILS % 50.7 % (36.0-66.0); PLATELET COUNT, AUTOMATED 333 10^3/uL (150-450); RED BLOOD COUNT 3.96 10^6/uL (4.30-6.10)
--- NOTE | 2019-11-14 09:41 | MEDONCPDOC ---
Medical Oncology Office Note Date of Service: Nov 14, 2019 Diagnosis/Treatment History Oncology problem list 1. Metastatic, clinical high-grade urothelial carcinoma with lymph node metastasis retroperitoneum and left pelvic sidewall N2 disease, biopsy-proven periaortic area. Pathologist unable to give grade 2. Nonfunctioning left kidney 3. Significant Cancer related pain and low back and nephrostomy tube area HISTORY OF PRESENT ILLNESS Is my pleasure to see Mr. Sanchez. This 74-year-old was found to have primary metastatic urothelial cancer with biopsy-proven metastasis to the left periaortic lymph node with significant lymph node disease noted on CT scan. Patient had rapid progression of disease and tumor burden. Is presently on systemic treatment Patient had a second opinion at [facility] via telemedicine They concur with diagnosis and stage and initiation of palliative chemotherapy with cisplatin and gemcitabine. Reviewed chemotherapy choices Reviewed NCCN guidelines. Patient cisplatin eligible Initiated split cisplatin dose to start with a 35 minutes meter squared day 1 and day 8 Gemcitabine 1000 mg/m day 1 and 8 and potentially today 15 Following published regime Natalya K, et. al In vivo 33: 167-172 (2019) 28 day cycle. Rationale for this is to give patient additional time for symptom resolution from cisplatin. Other protocols use gemcitabine day 1 and day 8 which we may end up doing Pending kinetics of blood counts may switch to 21 day cycle with gemcitabine on day 1 and day 8 as reported by Jay Dacosta et. al 2017. BIOPSY OF LEFT. PERIAORTIC LYMPH NODE GATA3 Positive Cells Consistent with Metastatic Urothelial Carcinoma. PDL 1 immunostain shows 0% staining. Origin suspected to be left ureter proximal with extension to left side of bladder IMAGING CHEST X-RAY 07/22/2019 showed new linear opacities in the left base consistent with atelectasis CT ABDOMEN AND PELVIS PERFORMED 08/22/2019 Large dislodged percutaneous nephrostomy catheter on left side noted 2.4 cm cyst in the right lower liver unchanged No focal liver mass seen Moderate hydronephrosis of left kidney noted with pigtail nephrostomy catheter seen in the subcutaneous fat Bulky retroperitoneal lymphadenopathy in the periaortic region noted is adenopathy along the external and internal iliac arteries as well. The abdomen is adenopathy appears slightly more prominent than on May 2019 study There was asymmetric thickening of the urinary bladder wall the left lateral margin similar to prior study Cholelithiasis noted NUCLEAR MEDICINE KIDNEY SCAN 09/05/2019 Prompt visualization of the right kidney noted left kidney was not visualized with normal function seen on the right kidney Essentially left kidney nonfunctional MRI PELVIS WITH AND WITHOUT CONTRAST 09/24/19: There is a large irregular enhancing mass involving the left bladder wall and distal left ureter. There is extension to the left pelvic sidewall musculature. There appears to be invasion of the lateral aspect of the left seminal vesicle. There is extension anteriorly up to the posterior margin of the pubic symphysis. There is an ill-defined tumor infiltration and confluent adenopathy extending contiguously superiorly in the region of the proximal left internal and external iliac vessels and left common iliac vessels. There is invasion of the anterior medial left psoas muscle. There is a small amount of free fluid noted in the inferior pelvis. No bone lesion is seen. Prostate is mildly enlarged and heterogeneous. IMPRESSION: Large irregular enhancing mass with ill-defined margins involving the left bladder wall and distal left ureter. There is invasion of the adjacent left pelvic soft tissues and extension to the left pelvic sidewall. There is mild invasion of the lateral left seminal vesicle. There is contiguous extension and tumor infiltration with confluent adenopathy extending along the proximal left external and internal iliac vessels and left common iliac vessels, superiorly to the distal abdominal aorta. There is also invasion of the anteromedial left psoas muscle. PET/CT 10/01/2019 There is extensive left para-aortic adenopathy which is hypermetabolic having maximal SUV values of 5.75. This measures approximately 8 x 6 x 15 cm. There is rather extensive left hemipelvic sidewall hypermetabolic activity consistent with adenopathy. The maximal SUV values are 5.1. No other areas of abnormal hypermetabolic activity are seen in the neck, chest, abdomen, or pelvis. Standard CT imaging shows bilateral maxillary sinus disease and possibly with air fluid levels. This needs to be correlated clinically. Maxillary sinusitis/mucosal thickening. There is cholelithiasis. There is left renal stent. There are some lung changes better imaged by the previous chest CT 09/24/2019. IMPRESSION: 1. There is hypermetabolic activity seen in the retroperitoneum and in the left hemipelvis consistent with adenopathy. 2. Standard CT imaging shows cholelithiasis and a left renal stent. 3. There are chronic changes seen in the lung adhikari better imaged by prior standard CT of the chest which was performed 09/24/2019. Today's standard CT imaging shows no significant change from that exam. Interval History Patient continues with his clinical improvement Pain also improving Anxiety remains an issue Insomnia remains in remission Patient here day 8 cycle #2 of palliative chemotherapy Patient tolerating chemotherapy reasonably well without nausea. Patient has increased fatigue as his main side effect Physical exam shows nice response with markedly decreased left palpable i nguinal adenopathy Allergies Coded Allergies: TAPE (Verified Allergy, Intermediate, blisters, 07/29/19) ciprofloxacin (Verified Allergy, Intermediate, hives, flushing, 02/19/19) Penicillins (Verified Allergy, Mild, PRURITIS, 02/19/19) Home Medications Active Scripts Hydrocodone/Acetaminophen (Hydrocodone-Acetamin 5-325 mg) 1 Each Tablet, 1 TAB PO Q6H PRN for PAIN MDD 4 for 30 Days, #100 TAB 0 Refills MDD 4 Prov:SANDI TIJERINA MD 10/24/19 Lorazepam (Lorazepam) 1 Mg Tablet, 1 TAB PO TID for nausea, anxiety or insomnia MDD 3 Tablet(s) for 30 Days, #90 TAB 0 Refills Prov:SANDI TIJERINA MD 10/17/19 Prochlorperazine Maleate (Prochlorperazine Maleate) 10 Mg Tablet, 10 MG PO Q6H PRN for NAUSEA OR VOMITING, #30 TAB 3 Refills Prov:SANDI TIJERINA MD 10/10/19 Reported Medications [Potasisum Citrite] No Conflict Check, 1620 MG ONCE A DAY for LOW POTASSIUM for 30 Days, #1 % 09/26/19 Tamsulosin Hcl (Tamsulosin HCl) 0.4 Mg Capsule, 0.4 MG PO QPM 09/20/19 Sertraline Hcl (Zoloft) 25 Mg Tablet, 12.5 MG PO QPM for 30 Days, #30 TAB 08/30/19 Acetaminophen (Tylenol 8 Hour) 650 Mg Tablet.er, 650 MG PO Q8H PRN for PAIN 02/19/19 Fluticasone Propionate (Flonase Allergy Relief) 9.9 Ml [place].susp, 2 SPRAYS NA DAILY PRN for NASAL CONGESTION 02/19/19 Omeprazole (Omeprazole) 20 Mg Capsule.dr, 40 MG PO DAILY, CAP 02/19/19 Past Medical History Past Medical History: THORACIC AND LUMBOSACRAL NEURITIS GERD OBSTRUCTIVE SLEEP APNEAmoderate Not using CPAP ALLERGIC RHINITIS HTN HX KIDNEY STONES NON-FUNCTIONAL LEFT KIDNEY Nocturia Q1 hour Past Surgical History: COLONOSCOPY 06/28/2018 ENDOSCOPY 07/04/2018 NEPHROSTOMY TUBE PLACEMENT 2018 URETER REPAIR 2018 BACK SURGERY 08/2018 TONSILS REMOVED VASECTOMY Lacrimal gland non-malignant left side Family History: Mother of heart failure age 91 Father of heart failure at age 26 Brother age 70 and good health Sister age 74 in good health Social History: Nonsmoker-previous smoker, quit 1979 nondrinker-previousy moderate to heavy drinker Has 2 son and 2 daughters [employer] 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[employer], 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 Systems General: Reports: Normal Appetite; Denies: Chills, Fatigue, Malaise Constitutional: Reports: Fatigue Eyes: Denies: Vision change HEENT: Denies: Head Aches, Dysphagia, Sore Throat, Epistaxis Skin: Denies: Rash, Lesions, Jaundice, Bruising Pulmonary: Denies: Dyspnea, Cough Cardiovascular: Denies: Chest Pain, Palpitations, Orthopnea, Edema Gastrointestinal: Denies: Nausea, Vomiting, Diarrhea Genitourinary: Denies: Dysuria, Frequency, Incontinence Hematologic: Denies: Bruising, Petecchia Neurological: Reports: Weakness, Numbness; Denies: Change in Speech Psych: Reports: Anxiety, Depression, Other Psych (insomnia) Physical Examination General Exam: Positive: Alert, No Acute Distress Eye Exam: Positive: PERRLA, Conjunctiva & lids normal; Negative: Sclera icteric ENT EXAM: Positive: Atraumatic, Mucous membr. moist/pink Neck Exam: Reports: Supple; Denies: JVD, Thyromegaly, Lymphadenopathy Chest Exam: Positive: Other (left nephrostomy tube intact without overlying cellulitis or issues) Heart Exam: Positive: Rate Normal Abdomen Exam: Positive: Normal bowel sounds; Negative: Tenderness, Hepatospenomegaly, Mass Extremity Exam: Positive: Other (marked decreased groin adenopathy) Skin Exam: Positive: Nl turgor and temperature; Negative: Rash, Breakdown, Lesion Neuro Exam: Positive: Normal Speech, Normal Tone Psych Exam: Positive: Mental status NL Ht / Wt Ht / Wt Height:5 Feet 11 Inches Weight: 80.000 Kg Vital Signs Vital Signs Date Time Temp Pulse Resp B/P (MAP) Pulse Ox O2 Delivery O2 Flow Rate FiO2 6/4/20 09:27 96.7 72 16 180/90 (120) 96 Room Air Laboratory Data Laboratory Tests Test 11/07/19 07:45 11/14/19 09:16 Blood Urea Nitrogen 28 MG/DL (7-18) H Creatinine 1.45 MG/DL (0.70-1.30) H Glomerular Filtration Rate 50.8 (>42) Fasting Glucose 111 MG/DL (70-100) H Calcium Level 8.7 MG/DL (8.8-10.2) L Total Bilirubin 0.1 MG/DL (0.2-1.0) L Aspartate Amino Transf (AST/SGOT) 16 U/L (7-37) Alanine Aminotransferase (ALT/SGPT) 27 U/L (12-78) Total Protein 6.4 GM/DL (6.4-8.2) Sodium Level 144 MEQ/L (136-145) Albumin 2.9 GM/DL (3.2-5.2) L Alkaline Phosphatase 99 U/L (45-117) Potassium Level 4.4 MEQ/L (3.5-5.1) Chloride Level 108 MEQ/L (98-107) H Carbon Dioxide Level 30 MEQ/L (21-32) Anion Gap 6 MEQ/L (8-16) L Laboratory Tests 11/14/19 09:16 Assessment/Plan ASSESSMENT Metastatic, biopsy-proven urothelial cancer with significant para-aortic, inguinal adenopathy as well as left pelvic wall involvement. Exact origin of malignancy has not been determined suspect near bladder. Nonfunctional left kidney Presence of left nephrostomy tube. Improved but ongoing cancer related pain nonresponsive to analgesic therapy ICD 10 G89.3 Intermittent dizziness consistent with inner ear issue PLAN Proceed with cycle 2, day 8 with palliative split dose cisplatin and gemcitabine Hydrocodone/acetaminophen 5/325 when necessary cancer pain. Pain is remarkably improved and does not need medicine consistently We will see the patient back in 1 week's time All of the above was relayed to the patient who was given an opportunity to ask questions that were answered to satisfaction. The patient voiced an understanding and agreed to proceed. I spent 18 minutes during this visit seeing the patient [id number] and reviewing records. More than 50 % of the time was spent in direct [id number] discussion and counseling of the patient. CC TO: Primary Care Provider: Hui Scruggs DO Referring Provider: Wenceslao Dietrich M.D and Danielito Portillo MD. Problems: (1) Cancer-related pain (2) Metastatic urothelial carcinoma (3) Referred pain (4) Urothelial carcinoma of left distal ureter (5) Nonfunctioning kidney SANDI TIJERINA MD Nov 14, 2019 09:41
[2019-11-14 10:05] LABS: BLOOD UREA NITROGEN 25 MG/DL (7-18); CALCIUM LEVEL 8.4 MG/DL (8.8-10.2); CARBON DIOXIDE LEVEL 30 MEQ/L (21-32); CHLORIDE LEVEL 107 MEQ/L (98-107); GLOMERULAR FILTRATION RATE > 60.0 (>42); GLUCOSE, FASTING 90 MG/DL (70-100); MAGNESIUM LEVEL 1.9 MG/DL (1.8-2.4); POTASSIUM SERUM 4.3 MEQ/L (3.5-5.1); SODIUM LEVEL 143 MEQ/L (136-145)
--- NOTE | 2019-11-14 10:38 | ONC.PHACK ---
CHEMO ADMIN CHECKLIST Order Contains Pt ID: Name, Order on Chemo Order Form?: Yes Order Form Includes ALL: Correct Tx Day, Correct Date, Correct Cycle Number Pt ID on Order form Matches: Pt ID on PHA Label Med on Chemo OrderForm Matches: PHA Label, Med Used for Preparation [facility] Nov 14, 2019 10:38
[2019-11-21 09:15] VITALS: BP 141/73
[2019-11-21 09:30] LABS: BASO % 1.1 % (0.0-1.0); EOS % 0.7 % (0.0-3.0); HEMATOCRIT 31.7 % (42.0-52.0); HEMOGLOBIN 9.8 g/dl (13.5-17.5); LYMPH # 0.6 10^3/uL (1.5-5.0); MEAN CORPUSCULAR HEMOGLOBIN 25.6 pg (27.0-33.0); MEAN CORPUSCULAR HGB CONC 30.9 g/dl (32.0-36.5); MEAN CORPUSCULAR VOLUME 82.8 fl (80.0-96.0); MONO # 0.3 10^3/uL (0.0-0.8); MONO % 12.1 % (0.0-5.0); NEUTROPHILS # 1.8 10^3/uL (1.5-8.5); NEUTROPHILS % 64.4 % (36.0-66.0); PLATELET COUNT, AUTOMATED 120 10^3/uL (150-450); RED BLOOD COUNT 3.83 10^6/uL (4.30-6.10); WHITE BLOOD COUNT 2.8 10^3/uL (4.0-10.0)
[2019-11-21 09:53] LABS: ALBUMIN 3.1 GM/DL (3.2-5.2); BILIRUBIN,TOTAL 0.2 MG/DL (0.2-1.0); CALCIUM LEVEL 8.8 MG/DL (8.8-10.2); CREATININE FOR GFR 1.32 MG/DL (0.70-1.30); GLOMERULAR FILTRATION RATE 56.6 (>42); POTASSIUM SERUM 4.2 MEQ/L (3.5-5.1); TOTAL PROTEIN 6.7 GM/DL (6.4-8.2)
--- NOTE | 2019-11-21 10:20 | ONC.PHACK ---
CHEMO ADMIN CHECKLIST Order Contains Pt ID: Name, Order on Chemo Order Form?: Yes Order Form Includes ALL: Correct Tx Day, Correct Date, Correct Cycle Number Pt ID on Order form Matches: Pt ID on PHA Label Med on Chemo OrderForm Matches: PHA Label, Med Used for Preparation [facility] Nov 21, 2019 10:20
--- NOTE | 2019-12-05 08:09 | MEDONCPDOC ---
Medical Oncology Office Note Date of Service: Dec 05, 2019 Diagnosis/Treatment History Oncology problem list 1. Metastatic, clinical high-grade urothelial carcinoma with lymph node metastasis retroperitoneum and left pelvic sidewall N2 disease, biopsy-proven periaortic area. Pathologist unable to give grade 2. Nonfunctioning left kidney 3. Markedly improved cancer related pain and low back and nephrostomy tube area 4. Intermittent Nighttime and morning lightheadedness/dizziness, suspect induced by tamsulosin TREATMENT HISTORY 1. Palliative cisplatin and gemcitabine cycle 1 day 1 10/10/2019 HISTORY OF PRESENT ILLNESS Is my pleasure to see Mr. Sanchez. This 74-year-old was found to have primary metastatic urothelial cancer with biopsy-proven metastasis to the left periaortic lymph node with significant lymph node disease noted on CT scan. Patient had rapid progression of disease and tumor burden. Is presently on systemic treatment Patient had a second opinion at [facility] via telemedicine They concur with diagnosis and stage and initiation of palliative chemotherapy with cisplatin and gemcitabine. Reviewed chemotherapy choices Reviewed NCCN guidelines. Patient cisplatin eligible Initiated split cisplatin dose to start with a 35 minutes meter squared day 1 and day 8 Gemcitabine 1000 mg/m day 1 and 8 and potentially today 15 Following published regime Natalya Sousa, et. al In vivo 33: 167-172 (2019) 28 day cycle. Rationale for this is to give patient additional time for symptom resolution from cisplatin. Other protocols use gemcitabine day 1 and day 8 which we may end up doing Pending kinetics of blood counts may switch to 21 day cycle with gemcitabine on day 1 and day 8 as reported by Jya Dacosta et. al 2017. BIOPSY OF LEFT. PERIAORTIC LYMPH NODE GATA3 Positive Cells Consistent with Metastatic Urothelial Carcinoma. PDL 1 immunostain shows 0% staining. Origin suspected to be left ureter proximal with extension to left side of bladder IMAGING CHEST X-RAY 07/22/2019 showed new linear opacities in the left base consistent with atelectasis CT ABDOMEN AND PELVIS PERFORMED 08/22/2019 Large dislodged percutaneous nephrostomy catheter on left side noted 2.4 cm cyst in the right lower liver unchanged No focal liver mass seen Moderate hydronephrosis of left kidney noted with pigtail nephrostomy catheter seen in the subcutaneous fat Bulky retroperitoneal lymphadenopathy in the periaortic region noted is adenopathy along the external and internal iliac arteries as well. The abdomen is adenopathy appears slightly more prominent than on May 2019 study There was asymmetric thickening of the urinary bladder wall the left lateral margin similar to prior study Cholelithiasis noted NUCLEAR MEDICINE KIDNEY SCAN 09/05/2019 Prompt visualization of the right kidney noted left kidney was not visualized with normal function seen on the right kidney Essentially left kidney nonfunctional MRI PELVIS WITH AND WITHOUT CONTRAST 09/24/19: There is a large irregular enhancing mass involving the left bladder wall and distal left ureter. There is extension to the left pelvic sidewall musculature. There appears to be invasion of the lateral aspect of the left seminal vesicle. There is extension anteriorly up to the posterior margin of the pubic symphysis. There is an ill-defined tumor infiltration and confluent adenopathy extending contiguously superiorly in the region of the proximal left internal and external iliac vessels and left common iliac vessels. There is invasion of the anterior medial left psoas muscle. There is a small amount of free fluid noted in the inferior pelvis. No bone lesion is seen. Prostate is mildly enlarged and heterogeneous. IMPRESSION: Large irregular enhancing mass with ill-defined margins involving the left bladder wall and distal left ureter. There is invasion of the adjacent left pelvic soft tissues and extension to the left pelvic sidewall. There is mild invasion of the lateral left seminal vesicle. There is contiguous extension and tumor infiltration with confluent adenopathy extending along the proximal left external and internal iliac vessels and left common iliac vessels, superiorly to the distal abdominal aorta. There is also invasion of the anteromedial left psoas muscle. PET/CT 10/01/2019 There is extensive left para-aortic adenopathy which is hypermetabolic having maximal SUV values of 5.75. This measures approximately 8 x 6 x 15 cm. There is rather extensive left hemipelvic sidewall hypermetabolic activity consistent with adenopathy. The maximal SUV values are 5.1. No other areas of abnormal hypermetabolic activity are seen in the neck, chest, abdomen, or pelvis. Standard CT imaging shows bilateral maxillary sinus disease and possibly with air fluid levels. This needs to be correlated clinically. Maxillary si nusitis/mucosal thickening. There is cholelithiasis. There is left renal stent. There are some lung changes better imaged by the previous chest CT 09/24/2019. IMPRESSION: 1. There is hypermetabolic activity seen in the retroperitoneum and in the left hemipelvis consistent with adenopathy. 2. Standard CT imaging shows cholelithiasis and a left renal stent. 3. There are chronic changes seen in the lung adhikari better imaged by prior standard CT of the chest which was performed 09/24/2019. Today's standard CT imaging shows no significant change from that exam. Interval History There is marked clinical improvement noted Pain is much improved Patient bailed hay yesterday Able to operate machinery Rare use of narcotics Patient here day 1 cycle #3 of palliative chemotherapy Patient tolerating chemotherapy reasonably well without nausea. Patient has increased fatigue as his main side effect Physical exam shows nice response with markedly decreased left palpable inguinal adenopathy which now is no longer palpable Restaging MRI of the abdomen and pelvis ordered for December 10 Allergies Coded Allergies: TAPE (Verified Allergy, Intermediate, blisters, 07/29/19) ciprofloxacin (Verified Allergy, Intermediate, hives, flushing, 02/19/19) Penicillins (Verified Allergy, Mild, PRURITIS, 02/19/19) Home Medications Active Scripts Hydrocodone/Acetaminophen (Hydrocodone-Acetamin 5-325 mg) 1 Each Tablet, 1 TAB PO Q6H PRN for PAIN MDD 4 for 30 Days, #100 TAB 0 Refills MDD 4 Prov:SANDI TIJERINA MD 10/24/19 Lorazepam (Lorazepam) 1 Mg Tablet, 1 TAB PO TID for nausea, anxiety or insomnia MDD 3 Tablet(s) for 30 Days, #90 TAB 0 Refills Prov:SANDI TIJERINA MD 10/17/19 Prochlorperazine Maleate (Prochlorperazine Maleate) 10 Mg Tablet, 10 MG PO Q6H PRN for NAUSEA OR VOMITING, #30 TAB 3 Refills Prov:SANDI TIJERINA MD 10/10/19 Reported Medications Sertraline HCl (Sertraline HCl) 50 Mg Tablet, 50 MG PO DAILY 12/05/19 [Potasisum Citrite] No Conflict Check, 1620 MG ONCE A DAY for LOW POTASSIUM for 30 Days, #1 % 09/26/19 Tamsulosin Hcl (Tamsulosin HCl) 0.4 Mg Capsule, 0.4 MG PO QPM 09/20/19 Acetaminophen (Tylenol 8 Hour) 650 Mg Tablet.er, 650 MG PO Q8H PRN for PAIN 02/19/19 Fluticasone Propionate (Flonase Allergy Relief) 9.9 Ml [place].susp, 2 SPRAYS NA DAILY PRN for NASAL CONGESTION 02/19/19 Omeprazole (Omeprazole) 20 Mg Capsule.dr, 40 MG PO DAILY, CAP 02/19/19 Discontinued Reported Medications Sertraline Hcl (Zoloft) 25 Mg Tablet, 12.5 MG PO QPM for 30 Days, #30 TAB 08/30/19 Past Medical History Past Medical History: THORACIC AND LUMBOSACRAL NEURITIS GERD OBSTRUCTIVE SLEEP APNEAmoderate Not using CPAP ALLERGIC RHINITIS HTN HX KIDNEY STONES NON-FUNCTIONAL LEFT KIDNEY Nocturia Q1 hour Past Surgical History: COLONOSCOPY 06/28/2018 ENDOSCOPY 07/04/2018 NEPHROSTOMY TUBE PLACEMENT 2018 URETER REPAIR 2018 BACK SURGERY 08/2018 TONSILS REMOVED VASECTOMY Lacrimal gland non-malignant left side Family History: Mother of heart failure age 91 Father of heart failure at age 26 Brother age 70 and good health Sister age 74 in good health Social History: Nonsmoker-previous smoker, quit 1979 nondrinker-previousy moderate to heavy drinker Has 2 son and 2 daughters 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, 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 Review of Systems General: Reports: Fatigue Constitutional: Denies: Chills, Fatigue, Weight Loss Eyes: Denies: Vision change HEENT: Denies: Head Aches, Dysphagia, Sore Throat, Epistaxis Skin: Denies: Rash, Lesions, Jaundice, Bruising Pulmonary: Denies: Dyspnea, Cough Cardiovascular: Denies: Chest Pain, Palpitations, Orthopnea, Edema Breast: Denies: New Breast Lumps / Masses, Breast Skin Changes, Breast Pain or Tenderness Gastrointestinal: Denies: Nausea, Vomiting, Diarrhea Genitourinary: Denies: Dysuria, Frequency, Incontinence Hematologic: Denies: Bruising, Petecchia Neurological: Reports: Weakness, Numbness; Denies: Change in Speech Psych: Reports: Mood Normal Physical Examination General Exam: Positive: Alert, No Acute Distress Eye Exam: Positive: PERRLA, Conjunctiva & lids normal; Negative: Sclera icteric ENT EXAM: Positive: Atraumatic, Mucous membr. moist/pink Neck Exam: Reports: Supple; Denies: JVD, Thyromegaly, Lymphadenopathy Chest Exam: Positive: Other (left nephrostomy tube present) Heart Exam: Positive: Rate Normal Breast Exam: Positive: Symmetric Bilaterally; Negative: Lumps or Masses, Skin Changes Abdomen Exam: Positive: Normal bowel sounds; Negative: Tenderness, Hepatospenomegaly, Mass Extremity Exam: Positive: Other (resolution left groin palpable adenopathy) Skin Exam: Positive: Nl turgor and temperature; Negative: Rash, Breakdown, Lesion Neuro Exam: Positive: Normal Speech, Normal Tone Psych Exam: Positive: Mental status NL Ht / Wt Ht / Wt Height:5 Feet 11 Inches Weight: 80.600 Kg Vital Signs Vital Sign - Last 24 Hours 12/05/19 12/05/19 08:17 09:00 Temp 97.6 Pulse 57 Resp 16 B/P (MAP) 186/86 (119) Pulse Ox 98 O2 Delivery Room Air Room Air Laboratory Data Laboratory Tests Test 12/05/19 08:09 Blood Urea Nitrogen 24 MG/DL (7-18) H Creatinine 1.40 MG/DL (0.70-1.30) H Glomerular Filtration Rate 52.9 (>42) Fasting Glucose 82 MG/DL (70-100) Calcium Level 8.8 MG/DL (8.8-10.2) Total Bilirubin 0.3 MG/DL (0.2-1.0) Aspartate Amino Transf (AST/SGOT) 20 U/L (7-37) Alanine Aminotransferase (ALT/SGPT) 20 U/L (12-78) Total Protein 6.1 GM/DL (6.4-8.2) L Sodium Level 144 MEQ/L (136-145) Albumin 3.2 GM/DL (3.2-5.2) Alkaline Phosphatase 75 U/L (45-117) Potassium Level 4.2 MEQ/L (3.5-5.1) Chloride Level 109 MEQ/L (98-107) H Carbon Dioxide Level 30 MEQ/L (21-32) Anion Gap 5 MEQ/L (8-16) L Laboratory Tests 12/05/19 08:09 Assessment/Plan ASSESSMENT Metastatic, biopsy-proven urothelial cancer with significant para-aortic, inguinal adenopathy as well as left pelvic wall involvement. Exact origin of malignancy has not been determined suspect near bladder. Nonfunctional left kidney Presence of left nephrostomy tube. Wendie improved cancer related pain nonresponsive to analgesic therapy ICD 10 G89.3 Intermittent dizziness at night and morning consistent with tamsulosin effect PLAN Proceed with cycle 3, day 1 with palliative split dose cisplatin and gemcitabine Hydrocodone/acetaminophen 5/325 when necessary cancer pain. Pain is remarkably improved and does not need medicine consistently. No refill needed today MRI of the abdomen and pelvis restaging December 10. We will see the patient back in 1 week's time Planned for completion of cycle 3. If we see marked improvement which I think we will, we consider nephrectomy of the nonfunctioning kidney at that time. Debulking surgery will not help the patient. I spent 20 minutes during this visit seeing the patient [id number] and [facility] records. More than 50 % of the time was spent in direct [id number] discussion and counseling of the patient. CC TO: Primary Care Provider: Hui Scruggs DO Referring Provider: Wenceslao Dietrich M.D and Danielito Portillo MD. Medical Oncologist Dr. Akash Holguin [facility] [phone] Problems: (1) Metastatic urothelial carcinoma (2) Referred pain (3) Urothelial carcinoma of left distal ureter (4) Nonfunctioning kidney SANDI TIJERINA MD Dec 05, 2019 08:09
[2019-12-05 08:17] VITALS: BP 186/86
[2019-12-05 08:24] LABS: BASO % 0.9 % (0.0-1.0); EOS # 0.2 10^3/uL (0.0-0.5); EOS % 6.6 % (0.0-3.0); HEMATOCRIT 32.8 % (42.0-52.0); HEMOGLOBIN 10.4 g/dl (13.5-17.5); LYMPH # 0.6 10^3/uL (1.5-5.0); LYMPH % 16.7 % (24.0-44.0); MEAN CORPUSCULAR HEMOGLOBIN 26.9 pg (27.0-33.0); MEAN CORPUSCULAR HGB CONC 31.7 g/dl (32.0-36.5); MEAN CORPUSCULAR VOLUME 84.8 fl (80.0-96.0); MONO # 0.6 10^3/uL (0.0-0.8); MONO % 17.3 % (0.0-5.0); NEUTROPHILS # 1.9 10^3/uL (1.5-8.5); NEUTROPHILS % 57.9 % (36.0-66.0); PLATELET COUNT, AUTOMATED 239 10^3/uL (150-450); RED BLOOD COUNT 3.87 10^6/uL (4.30-6.10); WHITE BLOOD COUNT 3.4 10^3/uL (4.0-10.0)
[2019-12-05 08:56] LABS: ALBUMIN 3.2 GM/DL (3.2-5.2); BILIRUBIN,TOTAL 0.3 MG/DL (0.2-1.0); CALCIUM LEVEL 8.8 MG/DL (8.8-10.2); CREATININE FOR GFR 1.4 MG/DL (0.70-1.30); GLOMERULAR FILTRATION RATE 52.9 (>42); POTASSIUM SERUM 4.2 MEQ/L (3.5-5.1); TOTAL PROTEIN 6.1 GM/DL (6.4-8.2)
--- NOTE | 2019-12-05 09:21 | ONC.PHACK ---
CHEMO ADMIN CHECKLIST Order Contains Pt ID: Name, Order on Chemo Order Form?: Yes Order Form Includes ALL: Correct Tx Day, Correct Date, Correct Cycle Number Pt ID on Order form Matches: Pt ID on PHA Label Med on Chemo OrderForm Matches: PHA Label, Med Used for Preparation [facility] Dec 05, 2019 09:21
--- NOTE | 2019-12-12 08:09 | MEDONCPDOC ---
Medical Oncology Office Note Date of Service: Dec 12, 2019 Diagnosis/Treatment History Oncology problem list 1. Metastatic, clinical high-grade urothelial carcinoma with lymph node metastasis retroperitoneum and left pelvic sidewall N2 disease, biopsy-proven periaortic area. Pathologist unable to give grade 2. Nonfunctioning left kidney 3. Markedly improved cancer related pain and low back and nephrostomy tube area 4. Intermittent Nighttime and morning lightheadedness/dizziness, suspect induced by tamsulosin TREATMENT HISTORY 1. Palliative cisplatin and gemcitabine cycle 1 day 1 10/10/2019 HISTORY OF PRESENT ILLNESS Is my pleasure to see Mr. Sanchez. This 74-year-old was found to have primary metastatic urothelial cancer with biopsy-proven metastasis to the left periaortic lymph node with significant lymph node disease noted on CT scan. Patient had rapid progression of disease and tumor burden. Is presently on systemic treatment Patient had a second opinion at [facility] via telemedicine They concur with diagnosis and stage and initiation of palliative chemotherapy with cisplatin and gemcitabine. Reviewed chemotherapy choices Reviewed NCCN guidelines. Patient cisplatin eligible Initiated split cisplatin dose to start with a 35 minutes meter squared day 1 and day 8 Gemcitabine 1000 mg/m day 1 and 8 and potentially today 15 Following published regime Natalya Sousa, et. al In vivo 33: 167-172 (2019) 28 day cycle. Rationale for this is to give patient additional time for symptom resolution from cisplatin. Other protocols use gemcitabine day 1 and day 8 which we may end up doing Pending kinetics of blood counts may switch to 21 day cycle with gemcitabine on day 1 and day 8 as reported by Jay Dacosta et. al 2017. BIOPSY OF LEFT. PERIAORTIC LYMPH NODE GATA3 Positive Cells Consistent with Metastatic Urothelial Carcinoma. PDL 1 immunostain shows 0% staining. Origin suspected to be left ureter proximal with extension to left side of bladder IMAGING CHEST X-RAY 07/22/2019 showed new linear opacities in the left base consistent with atelectasis CT ABDOMEN AND PELVIS PERFORMED 08/22/2019 Large dislodged percutaneous nephrostomy catheter on left side noted 2.4 cm cyst in the right lower liver unchanged No focal liver mass seen Moderate hydronephrosis of left kidney noted with pigtail nephrostomy catheter seen in the subcutaneous fat Bulky retroperitoneal lymphadenopathy in the periaortic region noted is adenopathy along the external and internal iliac arteries as well. The abdomen is adenopathy appears slightly more prominent than on May 2019 study There was asymmetric thickening of the urinary bladder wall the left lateral margin similar to prior study Cholelithiasis noted NUCLEAR MEDICINE KIDNEY SCAN 09/05/2019 Prompt visualization of the right kidney noted left kidney was not visualized with normal function seen on the right kidney Essentially left kidney nonfunctional MRI PELVIS WITH AND WITHOUT CONTRAST 09/24/19: There is a large irregular enhancing mass involving the left bladder wall and distal left ureter. There is extension to the left pelvic sidewall musculature. There appears to be invasion of the lateral aspect of the left seminal vesicle. There is extension anteriorly up to the posterior margin of the pubic symphysis. There is an ill-defined tumor infiltration and confluent adenopathy extending contiguously superiorly in the region of the proximal left internal and external iliac vessels and left common iliac vessels. There is invasion of the anterior medial left psoas muscle. There is a small amount of free fluid noted in the inferior pelvis. No bone lesion is seen. Prostate is mildly enlarged and heterogeneous. IMPRESSION: Large irregular enhancing mass with ill-defined margins involving the left bladder wall and distal left ureter. There is invasion of the adjacent left pelvic soft tissues and extension to the left pelvic sidewall. There is mild invasion of the lateral left seminal vesicle. There is contiguous extension and tumor infiltration with confluent adenopathy extending along the proximal left external and internal iliac vessels and left common iliac vessels, superiorly to the distal abdominal aorta. There is also invasion of the anteromedial left psoas muscle. PET/CT 10/01/2019 There is extensive left para-aortic adenopathy which is hypermetabolic having maximal SUV values of 5.75. This measures approximately 8 x 6 x 15 cm. There is rather extensive left hemipelvic sidewall hypermetabolic activity consistent with adenopathy. The maximal SUV values are 5.1. No other areas of abnormal hypermetabolic activity are seen in the neck, chest, abdomen, or pelvis. Standard CT imaging shows bilateral maxillary sinus disease and possibly with air fluid levels. This needs to be correlated clinically. Maxillary sin usitis/mucosal thickening. There is cholelithiasis. There is left renal stent. There are some lung changes better imaged by the previous chest CT 09/24/2019. IMPRESSION: 1. There is hypermetabolic activity seen in the retroperitoneum and in the left hemipelvis consistent with adenopathy. 2. Standard CT imaging shows cholelithiasis and a left renal stent. 3. There are chronic changes seen in the lung adhikari better imaged by prior standard CT of the chest which was performed 09/24/2019. Today's standard CT imaging shows no significant change from that exam. Interval History MRI of the abdomen and pelvis was performed I looked at the films but we don't have the official report Marked improvement noted Patient's pain specifically cancer pain is resolved We discussed at this juncture to proceed with consideration for simple nephrectomy. Would recommend we continue cisplatin and gemcitabine pending official MRI results and evaluation by Dr. Dietrich. Within proceed with simple nephrectomy and follow this by single agent gemcitabine assuming ongoing control. Immunotherapy upon progression Patient in agreement with plan Refill on lorazepam today to help with anxiety and insomnia as well as intermittent nausea Allergies Coded Allergies: TAPE (Verified Allergy, Intermediate, blisters, 07/29/19) ciprofloxacin (Verified Allergy, Intermediate, hives, flushing, 02/19/19) Penicillins (Verified Allergy, Mild, PRURITIS, 02/19/19) Home Medications Active Scripts Lorazepam (Lorazepam) 1 Mg Tablet, 1 TAB PO TID for nausea, anxiety or insomnia MDD 3 Tablet(s) for 30 Days, #90 TAB 0 Refills Prov:SANDI TIJERINA MD 12/12/19 Hydrocodone/Acetaminophen (Hydrocodone-Acetamin 5-325 mg) 1 Each Tablet, 1 TAB PO Q6H PRN for PAIN MDD 4 for 30 Days, #100 TAB 0 Refills MDD 4 Prov:SANID TIJERINA MD 10/24/19 Prochlorperazine Maleate (Prochlorperazine Maleate) 10 Mg Tablet, 10 MG PO Q6H PRN for NAUSEA OR VOMITING, #30 TAB 3 Refills Prov:SANDI TIJERINA MD 10/10/19 Reported Medications Sertraline HCl (Sertraline HCl) 50 Mg Tablet, 50 MG PO DAILY 12/05/19 [Potasisum Citrite] No Conflict Check, 1620 MG ONCE A DAY for LOW POTASSIUM for 30 Days, #1 % 09/26/19 Tamsulosin Hcl (Tamsulosin HCl) 0.4 Mg Capsule, 0.4 MG PO QPM 09/20/19 Acetaminophen (Tylenol 8 Hour) 650 Mg Tablet.er, 650 MG PO Q8H PRN for PAIN 02/19/19 Fluticasone Propionate (Flonase Allergy Relief) 9.9 Ml [place].susp, 2 SPRAYS NA DAILY PRN for NASAL CONGESTION 02/19/19 Omeprazole (Omeprazole) 20 Mg Capsule.dr, 40 MG PO DAILY, CAP 02/19/19 Discontinued Reported Medications Sertraline Hcl (Zoloft) 25 Mg Tablet, 12.5 MG PO QPM for 30 Days, #30 TAB 08/30/19 Past Medical History Past Medical History: THORACIC AND LUMBOSACRAL NEURITIS GERD OBSTRUCTIVE SLEEP APNEAmoderate Not using CPAP ALLERGIC RHINITIS HTN HX KIDNEY STONES NON-FUNCTIONAL LEFT KIDNEY Nocturia Q1 hour Past Surgical History: COLONOSCOPY 06/28/2018 ENDOSCOPY 07/04/2018 NEPHROSTOMY TUBE PLACEMENT 2018 URETER REPAIR 2018 BACK SURGERY 08/2018 TONSILS REMOVED VASECTOMY Lacrimal gland non-malignant left side Family History: Mother of heart failure age 91 Father of heart failure at age 26 Brother age 70 and good health Sister age 74 in good health Social History: Nonsmoker-previous smoker, quit 1979 nondrinker-previousy moderate to heavy drinker Has 2 son and 2 daughters 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, 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 of Systems General: Reports: Fatigue Constitutional: Denies: Chills, Fatigue, Weight Loss Eyes: Denies: Vision change HEENT: Denies: Head Aches, Dysphagia, Sore Throat, Epistaxis Skin: Denies: Rash, Lesions, Jaundice, Bruising Pulmonary: Denies: Dyspnea, Cough Cardiovascular: Denies: Chest Pain, Palpitations, Orthopnea, Edema Breast: Denies: New Breast Lumps / Masses, Breast Skin Changes, Breast Pain or Tenderness Gastrointestinal: Denies: Nausea, Vomiting, Diarrhea Genitourinary: Denies: Dysuria, Frequency, Incontinence Hematologic: Denies: Bruising, Petecchia Neurological: Reports: Weakness, Numbness; Denies: Change in Speech Psych: Reports: Mood Normal Physical Examination General Exam: Positive: Alert, No Acute Distress Eye Exam: Positive: PERRLA, Conjunctiva & lids normal; Negative: Sclera icteric ENT EXAM: Positive: Atraumatic, Mucous membr. moist/pink Neck Exam: Positive: Supple; Negative: JVD, Thyromegaly, Lymphadenopathy Chest Exam: Positive: Other (left nephrostomy tube intact without overlying cellulitis) Heart Exam: Positive: Rate Normal Breast Exam: Positive: Symmetric Bilaterally; Negative: Lumps or Masses, Skin Changes Abdomen Exam: Positive: Normal bowel sounds; Negative: Tenderness, Hepatospenomegaly, Mass Extremity Exam: Positive: Other (resolution of palpable left inguinal adenopathy) Skin Exam: Positive: Nl turgor and temperature; Negative: Rash, Breakdown, Lesion Neuro Exam: Positive: Normal Speech, Normal Tone Psych Exam: Positive: Mental status NL Ht / Wt Ht / Wt Height:5 Feet 11 Inches Weight: 81.500 Kg Vital Signs Vital Sign - Last 24 Hours 12/12/19 08:21 Temp 97.7 Pulse 56 Resp 16 B/P (MAP) 177/97 (123) Pulse Ox 97 O2 Delivery Room Air Laboratory Data Laboratory Tests Test 12/05/19 08:09 12/12/19 08:08 Blood Urea Nitrogen 24 MG/DL (7-18) H 27 MG/DL (7-18) H Creatinine 1.40 MG/DL (0.70-1.30) H 1.18 MG/DL (0.70-1.30) Glomerular Filtration Rate 52.9 (>42) > 60.0 (>42) Fasting Glucose 82 MG/DL (70-100) 90 MG/DL (70-100) Calcium Level 8.8 MG/DL (8.8-10.2) 8.9 MG/DL (8.8-10.2) Total Bilirubin 0.3 MG/DL (0.2-1.0) 0.3 MG/DL (0.2-1.0) Aspartate Amino Transf (AST/SGOT) 20 U/L (7-37) 16 U/L (7-37) Alanine Aminotransferase (ALT/SGPT) 20 U/L (12-78) 24 U/L (12-78) Total Protein 6.1 GM/DL (6.4-8.2) L 6.7 GM/DL (6.4-8.2) Sodium Level 144 MEQ/L (136-145) 142 MEQ/L (136-145) Albumin 3.2 GM/DL (3.2-5.2) 3.4 GM/DL (3.2-5.2) Alkaline Phosphatase 75 U/L (45-117) 77 U/L (45-117) Potassium Level 4.2 MEQ/L (3.5-5.1) 4.4 MEQ/L (3.5-5.1) Chloride Level 109 MEQ/L (98-107) H 108 MEQ/L (98-107) H Carbon Dioxide Level 30 MEQ/L (21-32) 29 MEQ/L (21-32) Anion Gap 5 MEQ/L (8-16) L 5 MEQ/L (8-16) L Magnesium Level 1.8 MG/DL (1.8-2.4) Laboratory Tests 12/12/19 08:08 Laboratory Assessment/Plan ASSESSMENT Metastatic, biopsy-proven urothelial cancer with significant para-aortic, inguinal adenopathy as well as left pelvic wall involvement. Exact origin of malignancy has not been determined suspect near bladder. Nonfunctional left kidney Presence of left nephrostomy tube. Wendie improved cancer related pain nonresponsive to analgesic therapy ICD 10 G89.3 Intermittent dizziness at night and morning consistent with tamsulosin effect PLAN Given borderline cytopenias. Hold cycle 3 day 8 palliative split dose cisp latin and gemcitabine 1 week Hydrocodone/acetaminophen 5/325 when necessary cancer pain. Pain is remarkably improved and does not need medicine consistently. No refill needed today MRI of the abdomen and pelvis restaging December 10 pulmonary results reviewed. Prescription for lorazepam refill Refer back to Dr. Dietrich for simple nephrectomy of nonfunctioning left kidney to improve quality life We will see the patient back in 1 week's time Patient will be transitioned to Dr. Kirby who will take excellent care of this patient I spent 20 minutes during this visit seeing the patient [id number] and reviewing records. More than 50 % of the time was spent in direct [id number] discussion and counseling of the patient. CC TO: CC TO: Primary Care Provider: Hui Scruggs DO Referring Provider: Wenceslao Dietrich M.D and Danielito Portillo MD. Medical Oncologist Dr. Akash Holguin [facility] [phone] Problems: (1) Metastatic urothelial carcinoma (2) Cancer-related pain (3) Referred pain (4) Urothelial carcinoma of left distal ureter SANDI TIJERINA MD Dec 12, 2019 08:09
[2019-12-12 08:21] VITALS: BP 177/97
[2019-12-12 08:27] LABS: BASO # 0.1 10^3/uL (0.0-0.2); BASO % 2.6 % (0.0-1.0); EOS # 0.1 10^3/uL (0.0-0.5); EOS % 3.3 % (0.0-3.0); HEMATOCRIT 33.9 % (42.0-52.0); HEMOGLOBIN 10.5 g/dl (13.5-17.5); LYMPH # 0.7 10^3/uL (1.5-5.0); LYMPH % 24.5 % (24.0-44.0); MEAN CORPUSCULAR HEMOGLOBIN 26.6 pg (27.0-33.0); MONO # 0.4 10^3/uL (0.0-0.8); MONO % 14.7 % (0.0-5.0); NEUTROPHILS # 1.5 10^3/uL (1.5-8.5); NEUTROPHILS % 54.2 % (36.0-66.0); PLATELET COUNT, AUTOMATED 231 10^3/uL (150-450); RED BLOOD COUNT 3.94 10^6/uL (4.30-6.10); WHITE BLOOD COUNT 2.7 10^3/uL (4.0-10.0)
[2019-12-12 08:49] LABS: ALBUMIN 3.4 GM/DL (3.2-5.2); ALT/SGPT 24 U/L (12-78); BILIRUBIN,TOTAL 0.3 MG/DL (0.2-1.0); BLOOD UREA NITROGEN 27 MG/DL (7-18); CALCIUM LEVEL 8.9 MG/DL (8.8-10.2); CARBON DIOXIDE LEVEL 29 MEQ/L (21-32); CHLORIDE LEVEL 108 MEQ/L (98-107); CREATININE FOR GFR 1.18 MG/DL (0.70-1.30); GLOMERULAR FILTRATION RATE > 60.0 (>42); GLUCOSE, FASTING 90 MG/DL (70-100); MAGNESIUM LEVEL 1.8 MG/DL (1.8-2.4); POTASSIUM SERUM 4.4 MEQ/L (3.5-5.1); SODIUM LEVEL 142 MEQ/L (136-145); TOTAL PROTEIN 6.7 GM/DL (6.4-8.2)
--- NOTE | 2019-12-12 10:10 | MEDONCENPD ---
Date/Time of Encounter Date of Encounter: Dec 12, 2019 Time of Encounter: 09:[address] Dietrich, Kindly refer Mr. Farrell back for consideration for simple left nephrectomy Patient has had a wonderful response to palliative chemotherapy clinically MRI of the abdomen and pelvis has been performed I have looked at the films but we do not have the official report. It looks as if we had a remarkable response pending official review. Patient will receive 2 more weekly doses of chemotherapy and then palliative nephrectomy can be performed approximately [address] Devorah Kirby will take over care of this patient affected next week Thank you kindly for allowing me to take care of your patient SANDI TIJERINA MD Dec 12, 2019 10:10
[2019-12-19 08:30] VITALS: BP 182/102
[2019-12-19 08:45] LABS: BASO % 0.7 % (0.0-1.0); EOS # 0.2 10^3/uL (0.0-0.5); EOS % 4.2 % (0.0-3.0); HEMATOCRIT 35.2 % (42.0-52.0); LYMPH # 0.6 10^3/uL (1.5-5.0); LYMPH % 14.4 % (24.0-44.0); MEAN CORPUSCULAR HEMOGLOBIN 26.9 pg (27.0-33.0); MEAN CORPUSCULAR HGB CONC 31.3 g/dl (32.0-36.5); MEAN CORPUSCULAR VOLUME 86.1 fl (80.0-96.0); MONO # 0.6 10^3/uL (0.0-0.8); MONO % 13.7 % (0.0-5.0); NEUTROPHILS # 2.7 10^3/uL (1.5-8.5); NEUTROPHILS % 66.3 % (36.0-66.0); PLATELET COUNT, AUTOMATED 154 10^3/uL (150-450); RED BLOOD COUNT 4.09 10^6/uL (4.30-6.10)
[2019-12-19 09:17] LABS: ALBUMIN 3.4 GM/DL (3.2-5.2); BILIRUBIN,TOTAL 0.3 MG/DL (0.2-1.0); CALCIUM LEVEL 8.9 MG/DL (8.8-10.2); CREATININE FOR GFR 1.3 MG/DL (0.70-1.30); GLOMERULAR FILTRATION RATE 57.6 (>42); POTASSIUM SERUM 4.1 MEQ/L (3.5-5.1); TOTAL PROTEIN 6.5 GM/DL (6.4-8.2)
--- NOTE | 2019-12-19 09:51 | ONC.PHACK ---
CHEMO ADMIN CHECKLIST Order Contains Pt ID: Name, Order on Chemo Order Form?: Yes Order Form Includes ALL: Correct Tx Day, Correct Date, Correct Cycle Number Pt ID on Order form Matches: Pt ID on PHA Label Med on Chemo OrderForm Matches: PHA Label, Med Used for Preparation [facility] Dec 19, 2019 09:51
--- NOTE | 2019-12-19 09:53 | MEDONCPDOC ---
Medical Oncology Office Note Date of Service: Dec 19, 2019 Diagnosis/Treatment History Oncology problem list 1. Metastatic, clinical high-grade urothelial carcinoma with lymph node metastasis retroperitoneum and left pelvic sidewall N2 disease, biopsy-proven periaortic area. Pathologist unable to give grade 2. Nonfunctioning left kidney 3. Markedly improved cancer related pain and low back and nephrostomy tube area 4. Intermittent Nighttime and morning lightheadedness/dizziness, suspect induced by tamsulosin TREATMENT HISTORY 1. Palliative cisplatin and gemcitabine started 10/10/2019 Interval History Mr. Farrell is here for cycle 3, day [address] Patel had held his treatment last week for cytopenias. He reports feeling reasonably well in general. He has had a slight head ache. This week past week and has been taking Tylenol once a day for this. He also has a dizziness when turning abruptly but otherwise no balance issues. No changes in eyesight. No peripheral neuropathy symptoms. No bowel problems. He reports urinary frequency at night, but this is normal for him. No back pains or bone pains. No fever. No chills. Has been quite active biking long distances. Allergies Coded Allergies: TAPE (Verified Allergy, Intermediate, blisters, 07/29/19) ciprofloxacin (Verified Allergy, Intermediate, hives, flushing, 02/19/19) Penicillins (Verified Allergy, Mild, PRURITIS, 02/19/19) Home Medications Active Scripts Lorazepam (Lorazepam) 1 Mg Tablet, 1 TAB PO TID for nausea, anxiety or insomnia MDD 3 Tablet(s) for 30 Days, #90 TAB 0 Refills Prov:SANDI PATEL MD 12/12/19 Hydrocodone/Acetaminophen (Hydrocodone-Acetamin 5-325 mg) 1 Each Tablet, 1 TAB PO Q6H PRN for PAIN MDD 4 for 30 Days, #100 TAB 0 Refills MDD 4 Prov:SANDI PATEL MD 10/24/19 Prochlorperazine Maleate (Prochlorperazine Maleate) 10 Mg Tablet, 10 MG PO Q6H PRN for NAUSEA OR VOMITING, #30 TAB 3 Refills Prov:SANDI PATEL MD 10/10/19 Reported Medications Sertraline HCl (Sertraline HCl) 50 Mg Tablet, 50 MG PO DAILY 12/05/19 [Potasisum Citrite] No Conflict Check, 1620 MG ONCE A DAY for LOW POTASSIUM for 30 Days, #1 % 09/26/19 Tamsulosin Hcl (Tamsulosin HCl) 0.4 Mg Capsule, 0.4 MG PO QPM 09/20/19 Acetaminophen (Tylenol 8 Hour) 650 Mg Tablet.er, 650 MG PO Q8H PRN for PAIN 02/19/19 Fluticasone Propionate (Flonase Allergy Relief) 9.9 Ml [place].susp, 2 SPRAYS NA DAILY PRN for NASAL CONGESTION 02/19/19 Omeprazole (Omeprazole) 20 Mg Capsule.dr, 40 MG PO DAILY, CAP 02/19/19 Past Medical History Past Medical History: THORACIC AND LUMBOSACRAL NEURITIS GERD OBSTRUCTIVE SLEEP APNEAmoderate Not using CPAP ALLERGIC RHINITIS HTN HX KIDNEY STONES NON-FUNCTIONAL LEFT KIDNEY Nocturia Q1 hour Past Surgical History: COLONOSCOPY 06/28/2018 ENDOSCOPY 07/04/2018 NEPHROSTOMY TUBE PLACEMENT 2018 URETER REPAIR 2018 BACK SURGERY 08/2018 TONSILS REMOVED VASECTOMY Lacrimal gland non-malignant left side Family History: Mother of heart failure age 91 Father of heart failure at age 26 Brother age 70 and good health Sister age 74 in good health Social History: Nonsmoker-previous smoker, quit 1979 nondrinker-previousy moderate to heavy drinker Has 2 son and 2 daughters 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, 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 Systems General: Reports: Normal Appetite; Denies: Chills, Night Sweats, Fatigue, Malaise Constitutional: Reports: Normal appetite; Denies: ROS Unabtainable, Chills, Fever, Malaise, Night Sweats, Weakness, Fatigue, Weight Loss, Lethargy, Other symptoms Eyes: Denies: Pain, Vision change, Conjunctivae inflammation, Eyelid inflammation, Redness, Other HEENT: Reports: Head Aches (as noted in interval history); Denies: Ear Pain, Dysphagia, Sinus Congestion, Post Nasal Drip, Sore Throat, Epistaxis, Other Symptoms Skin: Denies: Rash, Lesions, Jaundice, Bruising Pulmonary: Denies: Dyspnea, Cough, Pleuritic Chest Pain, Other Symptoms Cardiovascular: Denies: Chest Pain, Palpitations, Orthopnea, Edema Gastrointestinal: Denies: Nausea, Vomiting, Abdominal Pain, Diarrhea, Constipation, Melena, Hematochezia, Other Symptoms Genitourinary: Reports: Frequency (at night, which has had for a while now.); Denies: Dysuria, Incontinence, Hematuria, Retention, Other Symptoms Hematologic: Denies: Bruising, Bleeding Excessively, Petecchia, Purpura, Enlarged Lymph Nodes, Other Hematologic Endocrine: Denies: Polydipsia, Polyphagia, Polyuria, Heat Intolerance, Cold Intolerance, Other Endocrine Sx Musculoskeletal: Denies: Neck pain, Shoulder pain, Arm pain, Back pain, Hand pain, Leg pain, Foot pain, Joint pain, Muscle pain, Spasms, Gout, Joint sweling, Muscle stiffness, Midthoracic pain, Other Neurological: Denies: Weakness, Numbness, Incoordination, Change in Speech, Confusion, Seizures, Other Symptoms Psych: Reports: Mood Normal; Denies: Anxiety, Depression Physical Examination General Exam: Positive: Alert, Cooperative, No Acute Distress, Oriented Times Three; Negative: Mild Distress, Moderate Distress, Severe Distress, Other Eye Exam: Positive: PERRLA, Conjunctiva & lids normal, EOMI; Negative: Sclera icteric, Ptosis ENT EXAM: Positive: Atraumatic, Mucous membr. moist/pink, Pharynx Normal, Tongue Midline, Nares Patent; Negative: Pharyngeal Edema Neck Exam: Positive: Supple; Negative: JVD, Thyromegaly, Lymphadenopathy Chest Exam: Positive: Clear to auscultation, Normal air movement; Negative: Rales, Rhonchi, Wheezing, Diminished, Other Heart Exam: Positive: Rate Normal, Regular Rhythm, Normal S1, Normal S2; Negative: Tachycardic, Bradycardic, Irregular Rhythm, Gallops, Murmurs, Rubs, Other Abdomen Exam: Positive: Normal bowel sounds, Soft; Negative: BS Hyperactive, BS Hypoactive, Tenderness, Hepatospenomegaly, Mass, Hernia, Other Extremity Exam: Positive: Normal pulses; Negative: Clubbing, Cyanosis, Edema, Tenderness, Swelling, Other Skin Exam: Positive: Nl turgor and temperature; Negative: Rash, Breakdown, Lesion, Pruritus Neuro Exam: Positive: Normal Gait, Normal Speech, Normal Tone Psych Exam: Positive: Mental status NL, Mood NL, Oriented x 3; Negative: Anxiety Ht / Wt Ht / Wt Height:5 Feet 11 Inches Weight: 81.600 Kg Vital Signs Vital Signs Date Time Temp Pulse Resp B/P (MAP) Pulse Ox O2 Delivery O2 Flow Rate FiO2 12/19/19 08:30 97.5 64 16 182/102 (128) 97 Room Air Laboratory Data Laboratory Tests Test 12/12/19 08:08 12/19/19 08:13 Blood Urea Nitrogen 27 MG/DL (7-18) H 29 MG/DL (7-18) H Creatinine 1.18 MG/DL (0.70-1.30) 1.30 MG/DL (0.70-1.30) Glomerular Filtration Rate > 60.0 (>42) 57.6 (>42) Fasting Glucose 90 MG/DL (70-100) 88 MG/DL (70-100) Calcium Level 8.9 MG/DL (8.8-10.2) 8.9 MG/DL (8.8-10.2) Total Bilirubin 0.3 MG/DL (0.2-1.0) 0.3 MG/DL (0.2-1.0) Aspartate Amino Transf (AST/SGOT) 16 U/L (7-37) 16 U/L (7-37) Alanine Aminotransferase (ALT/SGPT) 24 U/L (12-78) 21 U/L (12-78) Total Protein 6.7 GM/DL (6.4-8.2) 6.5 GM/DL (6.4-8.2) Sodium Level 142 MEQ/L (136-145) 143 MEQ/L (136-145) Albumin 3.4 GM/DL (3.2-5.2) 3.4 GM/DL (3.2-5.2) Alkaline Phosphatase 77 U/L (45-117) 73 U/L (45-117) Potassium Level 4.4 MEQ/L (3.5-5.1) 4.1 MEQ/L (3.5-5.1) Chloride Level 108 MEQ/L (98-107) H 109 MEQ/L (98-107) H Carbon Dioxide Level 29 MEQ/L (21-32) 30 MEQ/L (21-32) Anion Gap 5 MEQ/L (8-16) L 4 MEQ/L (8-16) L Magnesium Level 1.8 MG/DL (1.8-2.4) 2.1 MG/DL (1.8-2.4) Laboratory Tests 7/9/20 08:13 Assessment/Plan ASSESSMENT Metastatic, biopsy-proven urothelial cancer with significant para-aortic, inguinal adenopathy as well as left pelvic wall involvement. Exact origin of malignancy has not been determined suspect near bladder. Nonfunctional left kidney Presence of left nephrostomy tube. Wendie improved cancer related pain nonresponsive to analgesic therapy ICD 10 G89.3 Intermittent dizziness at night and morning consistent with tamsulosin effect PLAN Blood counts adequate. Creatinine stable. For cycle 3, day 8 cisplatin/gemcitabine chemotherapy today. Mr. Farrell is scheduled to see Dr. Dietrich on January 01 for a discussion on surgery. Await Dr. Dietrich's opinion. We will schedule next cycle of chemotherapy after that visit, but schedule may change depending on decision on surgery. CC TO: CC TO: Primary Care Provider: Hui Scruggs DO Referring Provider: Wenceslao Dietrich M.D and Danielito Portillo MD. Medical Oncologist Dr. Akash Holguin [facility] [phone] NANABEL BAXTER MD Dec 19, 2019 09:53
--- NOTE | 2019-12-19 10:07 | ONC.PHACK ---
CHEMO ADMIN CHECKLIST Order Contains Pt ID: Name, Order on Chemo Order Form?: Yes Order Form Includes ALL: Correct Tx Day, Correct Date, Correct Cycle Number Pt ID on Order form Matches: Pt ID on PHA Label Med on Chemo OrderForm Matches: PHA Label, Med Used for Preparation [facility] Dec 19, 2019 10:06
[2020-02-03 09:00] VITALS: BP 194/99
[2020-02-03 09:17] LABS: BASO % 0.8 % (0.0-1.0); EOS # 0.1 10^3/uL (0.0-0.5); EOS % 2.9 % (0.0-3.0); HEMOGLOBIN 10.7 g/dl (13.5-17.5); LYMPH # 0.6 10^3/uL (1.5-5.0); LYMPH % 23.8 % (24.0-44.0); MEAN CORPUSCULAR HGB CONC 32.4 g/dl (32.0-36.5); MEAN CORPUSCULAR VOLUME 92.4 fl (80.0-96.0); MONO # 0.6 10^3/uL (0.0-0.8); MONO % 25.8 % (0.0-5.0); NEUTROPHILS # 1.1 10^3/uL (1.5-8.5); NEUTROPHILS % 45.9 % (36.0-66.0); PLATELET COUNT, AUTOMATED 416 10^3/uL (150-450); RED BLOOD COUNT 3.57 10^6/uL (4.30-6.10); WHITE BLOOD COUNT 2.4 10^3/uL (4.0-10.0)
--- NOTE | 2020-02-03 09:27 | MEDONCPDOC ---
Medical Oncology Office Note Date of Service: Feb 03, 2020 Diagnosis/Treatment History DIAGNOSIS AND TREATMENTS SUMMARY 1. Metastatic, clinical high-grade urothelial carcinoma with lymph node metastasis retroperitoneum and left pelvic sidewall disease. -Left periaortic lymph node biopsy 09/02/2019 showing metastatic urothelial carcinoma. PDL-1 0%. -MRI pelvis 09/30/2019 showing large irregular enhancing mass involving left bladder wall and distal left ureter with invasion of adjacent left pelvic soft tissues and extension to left pelvic sidewall. -PET CT scan showing hypermetabolic activity in the retroperitoneum and left hemipelvis consistent with adenopathy 2. Palliative cisplatin and gemcitabine started 10/10/2019 with follow-up imaging MRI pelvis 12/2019 showing a positive response. Interval History Mr. Farrell is a 74-year-old man with metastatic urothelial carcinoma on cisplatin/gemcitabine chemotherapy. He reports no hearing loss. He has had tinnitus even prior to starting chemotherapy, not worse with chemotherapy. He reports no peripheral neuropathy symptoms at present. Currently has left neph rostomy bag with clear urine according to him. No hematuria, either in nephrostomy bag or through regular urine. He reports that he developed right shoulder and right anterior chest wall area pain a couple of days ago and left shoulder and left arm pain this morning. These resolve spontaneously with no treatment. He also reports left groin/left lower quadrant abdominal discomfort for which he occasionally takes Tylenol. Allergies Coded Allergies: TAPE (Verified Allergy, Intermediate, blisters, 07/29/19) ciprofloxacin (Verified Allergy, Intermediate, hives, flushing, 02/19/19) Penicillins (Verified Allergy, Mild, PRURITIS, 02/19/19) Home Medications Active Scripts Lorazepam (Lorazepam) 1 Mg Tablet, 1 TAB PO TID for nausea, anxiety or insomnia MDD 3 Tablet(s) for 30 Days, #90 TAB 0 Refills Prov:SANDI TIJERINA MD 12/12/19 Hydrocodone/Acetaminophen (Hydrocodone-Acetamin 5-325 mg) 1 Each Tablet, 1 TAB PO Q6H PRN for PAIN MDD 4 for 30 Days, #100 TAB 0 Refills MDD 4 Prov:SANDI TIJERINA MD 10/24/19 Prochlorperazine Maleate (Prochlorperazine Maleate) 10 Mg Tablet, 10 MG PO Q6H PRN for NAUSEA OR VOMITING, #30 TAB 3 Refills Prov:SANDI TIJERINA MD 10/10/19 Reported Medications Sertraline HCl (Sertraline HCl) 50 Mg Tablet, 50 MG PO DAILY 12/05/19 [Potasisum Citrite] No Conflict Check, 1620 MG ONCE A DAY for LOW POTASSIUM for 30 Days, #1 % 09/26/19 Tamsulosin Hcl (Tamsulosin HCl) 0.4 Mg Capsule, 0.4 MG PO QPM 09/20/19 Acetaminophen (Tylenol 8 Hour) 650 Mg Tablet.er, 650 MG PO Q8H PRN for PAIN 02/19/19 Fluticasone Propionate (Flonase Allergy Relief) 9.9 Ml [place].susp, 2 SPRAYS NA DAILY PRN for NASAL CONGESTION 02/19/19 Omeprazole (Omeprazole) 20 Mg Capsule.dr, 40 MG PO DAILY, CAP 02/19/19 Past Medical History Past Medical History: THORACIC AND LUMBOSACRAL NEURITIS GERD OBSTRUCTIVE SLEEP APNEAmoderate Not using CPAP ALLERGIC RHINITIS HTN HX KIDNEY STONES NON-FUNCTIONAL LEFT KIDNEY Nocturia Q1 hour Past Surgical History: COLONOSCOPY 06/28/2018 ENDOSCOPY 07/04/2018 NEPHROSTOMY TUBE PLACEMENT 2018 URETER REPAIR 2018 BACK SURGERY 08/2018 TONSILS REMOVED VASECTOMY Lacrimal gland non-malignant left side Family History: Mother of heart failure age 91 Father of heart failure at age 26 Brother age 70 and good health Sister age 74 in good health Social History: Nonsmoker-previous smoker, quit 1979 nondrinker-previousy moderate to heavy drinker Has 2 son and 2 daughters 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, 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\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 Review of Systems General: Reports: Normal Appetite; Denies: Chills, Night Sweats, Fatigue, Malaise Constitutional: Reports: Normal appetite; Denies: ROS Unabtainable, Chills, Fever, Malaise, Night Sweats, Weakness, Fatigue, Weight Loss, Lethargy, Other symptoms Eyes: Denies: Pain, Vision change, Conjunctivae inflammation, Eyelid inflammation, Redness, Other HEENT: Reports: Other Symptoms (tinnitus, stable from previous.); Denies: Head Aches (as noted in interval history), Ear Pain, Dysphagia, Sinus Congestion, Post Nasal Drip, Sore Throat, Epistaxis Skin: Denies: Rash, Lesions, Jaundice, Bruising Pulmonary: Denies: Dyspnea, Cough, Pleuritic Chest Pain, Other Symptoms Cardiovascular: Denies: Chest Pain, Palpitations, Orthopnea, Edema Breast: Denies: New Breast Lumps / Masses, Breast Skin Changes, Breast Pain or Tenderness Gastrointestinal: Reports: Abdominal Pain (. Left lower quadrant discomfort at times for which he occasionally takes Tylenol); Denies: Nausea, Vomiting, Diarrhea, Constipation, Melena, Hematochezia, Other Symptoms Genitourinary: Reports: Frequency (at night, which has had for a while now.); Denies: Dysuria, Incontinence, Hematuria, Retention, Other Symptoms Hematologic: Denies: Bruising, Bleeding Excessively, Petecchia, Purpura, Enlarged Lymph Nodes, Other Hematologic Endocrine: Denies: Polydipsia, Polyphagia, Polyuria, Heat Intolerance, Cold Intolerance, Other Endocrine Sx Musculoskeletal: Reports: Shoulder pain (on right and on left, occasionally); Denies: Neck pain, Arm pain, Back pain, Hand pain, Leg pain, Foot pain, Joint pain, Muscle pain, Spasms, Gout, Joint sweling, Muscle stiffness, Midthoracic pain, Other Neurological: Denies: Weakness, Numbness, Incoordination, Change in Speech, Confusion, Seizures, Other Symptoms Psych: Reports: Mood Normal; Denies: Anxiety, Depression Physical Examination General Exam: Positive: Alert, Cooperative, No Acute Distress, Oriented Times Three; Negative: Other Eye Exam: Positive: PERRLA, Conjunctiva & lids normal, EOMI; Negative: Sclera icteric, Ptosis ENT EXAM: Positive: Atraumatic, Mucous membr. moist/pink, Pharynx Normal, Tongue Midline, Nares Patent; Negative: Pharyngeal Edema Neck Exam: Positive: Supple; Negative: JVD, Thyromegaly, Lymphadenopathy Chest Exam: Positive: Clear to auscultation, Normal air movement; Negative: Rales, Rhonchi, Wheezing, Diminished, Other Heart Exam: Positive: Rate Normal, Regular Rhythm, Normal S1, Normal S2; Negative: Irregular Rhythm, Gallops, Murmurs, Rubs, Other Abdomen Exam: Positive: Normal bowel sounds, Soft; Negative: BS Hyperactive, BS Hypoactive, Tenderness, Hepatospenomegaly, Mass, Hernia, Other Extremity Exam: Positive: Normal pulses; Negative: Clubbing, Cyanosis, Edema, Tenderness, Swelling, Other Skin Exam: Positive: Nl turgor and temperature; Negative: Rash, Breakdown, Lesion, Pruritus Neuro Exam: Positive: Normal Gait, Normal Speech, Normal Tone Psych Exam: Positive: Mental status NL, Mood NL, Oriented x 3; Negative: Anxiety Ht / Wt Ht / Wt Height:5 Feet 11 Inches Weight: 81.100 Kg Vital Signs Vital Signs Date Time Temp Pulse Resp B/P (MAP) Pulse Ox O2 Delivery O2 Flow Rate FiO2 02/03/20 09:00 97.5 55 16 194/99 (130) 97 Room Air Laboratory Data Laboratory Tests Test 02/03/20 08:45 Laboratory Tests 02/03/20 08:45 Assessment/Plan ASSESSMENT Metastatic, biopsy-proven urothelial cancer with significant para-aortic, inguinal adenopathy as well as left pelvic wall involvement. Exact origin of malignancy has not been determined suspect near bladder. Nonfunctional left kidney Presence of left nephrostomy tube. Wendie improved cancer related pain nonresponsive to analgesic therapy Follow-up imaging study MRI pelvis 12/30/2019 showed a positive response. PLAN Mr. Farrell has had delays in chemotherapy secondary to cytopenia, specifically neutropenia. We'll start him on filgrastim and pegfilgrastim injections. ANC today 1.1. We'll defer cycle 5, day 1 chemotherapy for next week. To start filgrastim injections this week if approved by insurance. Also discussed that we would aim to obtain another imaging study after 6 cycles of chemotherapy. CC TO: CC TO: Primary Care Provider: Hui Scruggs DO Referring Provider: Wenceslao Dietrich M.D and Danielito Portillo MD. Medical Oncologist Dr. Akash Holguin [facility] [phone] ANNABEL BAXTER MD Feb 03, 2020 09:27
[2020-02-03 09:42] LABS: ALBUMIN 3.6 GM/DL (3.2-5.2); BILIRUBIN,TOTAL 0.2 MG/DL (0.2-1.0); CALCIUM LEVEL 9.1 MG/DL (8.8-10.2); CREATININE FOR GFR 1.4 MG/DL (0.70-1.30); GLOMERULAR FILTRATION RATE 52.9 (>42); POTASSIUM SERUM 4.2 MEQ/L (3.5-5.1); TOTAL PROTEIN 6.7 GM/DL (6.4-8.2)
[2020-02-03 09:45] VITALS: BP 193/93
[2020-02-05] MEDS: FILGRASTIM 480 MCG/0.8 ML SYRINGE (J1442) SC SCH (15:23)
[2020-02-06] MEDS: FILGRASTIM 480 MCG/0.8 ML SYRINGE (J1442) SC SCH (15:30)
[2020-02-10 08:10] VITALS: BP 191/94
[2020-02-10 08:11] LABS: BASO # 0.1 10^3/uL (0.0-0.2); BASO % 1.2 % (0.0-1.0); EOS # 0.1 10^3/uL (0.0-0.5); EOS % 1.4 % (0.0-3.0); HEMATOCRIT 36.7 % (42.0-52.0); HEMOGLOBIN 11.5 g/dl (13.5-17.5); LYMPH # 0.8 10^3/uL (1.5-5.0); LYMPH % 14.8 % (24.0-44.0); MEAN CORPUSCULAR HEMOGLOBIN 29.1 pg (27.0-33.0); MEAN CORPUSCULAR HGB CONC 31.3 g/dl (32.0-36.5); MEAN CORPUSCULAR VOLUME 92.9 fl (80.0-96.0); MONO % 18.3 % (0.0-5.0); NEUTROPHILS # 2.8 10^3/uL (1.5-8.5); NEUTROPHILS % 49.4 % (36.0-66.0); PLATELET COUNT, AUTOMATED 183 10^3/uL (150-450); RED BLOOD COUNT 3.95 10^6/uL (4.30-6.10); WHITE BLOOD COUNT 5.7 10^3/uL (4.0-10.0)
[2020-02-10 08:32] LABS: ALBUMIN 3.4 GM/DL (3.2-5.2); BILIRUBIN,TOTAL 0.3 MG/DL (0.2-1.0); CALCIUM LEVEL 8.9 MG/DL (8.8-10.2); CREATININE FOR GFR 1.47 MG/DL (0.70-1.30); POTASSIUM SERUM 4.1 MEQ/L (3.5-5.1); TOTAL PROTEIN 6.7 GM/DL (6.4-8.2)
--- NOTE | 2020-02-10 09:56 | ONC.PHACK ---
CHEMO ADMIN CHECKLIST Order Contains Pt ID: Name, Order on Chemo Order Form?: Yes Order Form Includes ALL: Correct Tx Day, Correct Date, Correct Cycle Number Pt ID on Order form Matches: Pt ID on PHA Label Med on Chemo OrderForm Matches: PHA Label, Med Used for Preparation [facility] Feb 10, 2020 09:56
[2020-02-18 07:53] VITALS: BP 162/94
[2020-02-18 08:05] LABS: BASO % 1.3 % (0.0-1.0); EOS # 0.1 10^3/uL (0.0-0.5); EOS % 2.7 % (0.0-3.0); HEMATOCRIT 33.5 % (42.0-52.0); HEMOGLOBIN 10.8 g/dl (13.5-17.5); LYMPH # 0.6 10^3/uL (1.5-5.0); LYMPH % 19.2 % (24.0-44.0); MEAN CORPUSCULAR HEMOGLOBIN 30.2 pg (27.0-33.0); MEAN CORPUSCULAR HGB CONC 32.2 g/dl (32.0-36.5); MEAN CORPUSCULAR VOLUME 93.6 fl (80.0-96.0); MONO # 0.4 10^3/uL (0.0-0.8); MONO % 13.1 % (0.0-5.0); NEUTROPHILS # 1.9 10^3/uL (1.5-8.5); NEUTROPHILS % 63.4 % (36.0-66.0); RED BLOOD COUNT 3.58 10^6/uL (4.30-6.10)
[2020-02-18 08:27] LABS: ALBUMIN 3.3 GM/DL (3.2-5.2); BILIRUBIN,TOTAL 0.2 MG/DL (0.2-1.0); CALCIUM LEVEL 8.7 MG/DL (8.8-10.2); CREATININE FOR GFR 1.43 MG/DL (0.70-1.30); GLOMERULAR FILTRATION RATE 51.6 (>42); POTASSIUM SERUM 4.6 MEQ/L (3.5-5.1); TOTAL PROTEIN 6.5 GM/DL (6.4-8.2)
[2020-02-18 08:40] LABS: PLATELET COUNT, AUTOMATED 89 10^3/uL (150-450)
--- NOTE | 2020-02-18 11:10 | ONC.PHACK ---
CHEMO ADMIN CHECKLIST Order Contains Pt ID: Name, Order on Chemo Order Form?: Yes Order Form Includes ALL: Correct Tx Day, Correct Date, Correct Cycle Number Pt ID on Order form Matches: Pt ID on PHA Label Med on Chemo OrderForm Matches: PHA Label, Med Used for Preparation [facility] Feb 18, 2020 11:10
[2020-02-18 11:56] LABS: BASO % 0.4 % (0.0-1.0); EOS # 0.1 10^3/uL (0.0-0.5); HEMATOCRIT 43.3 % (42.0-52.0); HEMOGLOBIN 13.6 g/dl (13.5-17.5); LYMPH # 0.4 10^3/uL (1.5-5.0); LYMPH % 15.5 % (24.0-44.0); MEAN CORPUSCULAR HEMOGLOBIN 27.8 pg (27.0-33.0); MEAN CORPUSCULAR HGB CONC 31.4 g/dl (32.0-36.5); MEAN CORPUSCULAR VOLUME 88.4 fl (80.0-96.0); MONO # 0.3 10^3/uL (0.0-0.8); MONO % 10.8 % (0.0-5.0); NEUTROPHILS # 1.7 10^3/uL (1.5-8.5); NEUTROPHILS % 69.3 % (36.0-66.0); PLATELET COUNT, AUTOMATED 190 10^3/uL (150-450); WHITE BLOOD COUNT 2.5 10^3/uL (4.0-10.0)
[2020-02-21 15:07] LABS: BASO % 0.6 % (0.0-1.0); EOS % 1.3 % (0.0-3.0); HEMATOCRIT 29.8 % (42.0-52.0); HEMOGLOBIN 9.6 g/dl (13.5-17.5); LYMPH # 0.6 10^3/uL (1.5-5.0); LYMPH % 35.6 % (24.0-44.0); MEAN CORPUSCULAR HEMOGLOBIN 28.7 pg (27.0-33.0); MEAN CORPUSCULAR HGB CONC 32.2 g/dl (32.0-36.5); MONO # 0.1 10^3/uL (0.0-0.8); MONO % 8.1 % (0.0-5.0); NEUTROPHILS % 54.4 % (36.0-66.0); RED BLOOD COUNT 3.35 10^6/uL (4.30-6.10); WHITE BLOOD COUNT 1.6 10^3/uL (4.0-10.0)
[2020-02-21 15:09] LABS: NEUTROPHILS # 0.9 10^3/uL (1.5-8.5); PLATELET COUNT, AUTOMATED 43 10^3/uL (150-450)
[2020-03-05 13:15] LABS: ALBUMIN 3.3 GM/DL (3.2-5.2); BILIRUBIN,TOTAL 0.2 MG/DL (0.2-1.0); CALCIUM LEVEL 8.5 MG/DL (8.8-10.2); CREATININE FOR GFR 1.46 MG/DL (0.70-1.30); GLOMERULAR FILTRATION RATE 50.4 (>42); POTASSIUM SERUM 4.2 MEQ/L (3.5-5.1); TOTAL PROTEIN 6.5 GM/DL (6.4-8.2)
[2020-03-09 08:18] VITALS: BP 165/88
[2020-03-09 08:24] LABS: BASO % 1.2 % (0.0-1.0); EOS # 0.1 10^3/uL (0.0-0.5); EOS % 4.7 % (0.0-3.0); HEMATOCRIT 34.5 % (42.0-52.0); LYMPH # 0.5 10^3/uL (1.5-5.0); LYMPH % 19.5 % (24.0-44.0); MEAN CORPUSCULAR HEMOGLOBIN 29.8 pg (27.0-33.0); MEAN CORPUSCULAR HGB CONC 31.9 g/dl (32.0-36.5); MEAN CORPUSCULAR VOLUME 93.5 fl (80.0-96.0); MONO # 0.4 10^3/uL (0.0-0.8); MONO % 16.7 % (0.0-5.0); NEUTROPHILS # 1.5 10^3/uL (1.5-8.5); NEUTROPHILS % 57.5 % (36.0-66.0); PLATELET COUNT, AUTOMATED 315 10^3/uL (150-450); RED BLOOD COUNT 3.69 10^6/uL (4.30-6.10); WHITE BLOOD COUNT 2.6 10^3/uL (4.0-10.0)
[2020-03-09 08:55] LABS: ALBUMIN 3.4 GM/DL (3.2-5.2); BILIRUBIN,TOTAL 0.3 MG/DL (0.2-1.0); CALCIUM LEVEL 8.9 MG/DL (8.8-10.2); CREATININE FOR GFR 1.57 MG/DL (0.70-1.30); GLOMERULAR FILTRATION RATE 46.3 (>42); POTASSIUM SERUM 4.1 MEQ/L (3.5-5.1); TOTAL PROTEIN 6.3 GM/DL (6.4-8.2)
--- NOTE | 2020-03-09 09:21 | MEDONCPDOC ---
Medical Oncology Office Note Date of Service: Mar 09, 2020 Diagnosis/Treatment History DIAGNOSIS AND TREATMENTS SUMMARY 1. Metastatic, clinical high-grade urothelial carcinoma with lymph node metastasis retroperitoneum and left pelvic sidewall disease. -Left periaortic lymph node biopsy 09/02/2019 showing metastatic urothelial carcinoma. PDL-1 0%. -MRI pelvis 09/30/2019 showing large irregular enhancing mass involving left bladder wall and distal left ureter with invasion of adjacent left pelvic soft tissues and extension to left pelvic sidewall. -PET CT scan showing hypermetabolic activity in the retroperitoneum and left hemipelvis consistent with adenopathy 2. Palliative cisplatin and gemcitabine started 10/10/2019 with follow-up imaging MRI pelvis 12/2019 showing a positive response. Interval History Mr. Farrell is a 74-year-old man with metastatic urothelial carcinoma on cisplatin/gemcitabine chemotherapy and has completed 5 cycles of chemotherapy so far. Interval imaging study has shown a positive response. Here today for cycle 6 chemotherapy. Reports no increased hearing loss. Still has tinnitus not worse since starting chemotherapy. He reports dizziness a few episodes a week, even when he is stationary. Also reports being cross cross eyed when dizzy. Also reports right flank pain for which he takes Tylenol once a day. Allergies Coded Allergies: TAPE (Verified Allergy, Intermediate, blisters, 07/29/19) ciprofloxacin (Verified Allergy, Intermediate, hives, flushing, 02/19/19) Penicillins (Verified Allergy, Mild, PRURITIS, 02/19/19) Home Medications Active Scripts Hydrocodone/Acetaminophen (Hydrocodone-Acetamin 5-325 mg) 1 Each Tablet, 1 TAB PO Q6H PRN for PAIN MDD 4 for 30 Days, #100 TAB 0 Refills MDD 4 Prov:SANDI TIJERINA MD 10/24/19 Reported Medications Amlodipine Besylate (Amlodipine Besylate) 2.5 Mg Tablet, 5 MG PO DAILY, TAB 02/18/20 Sertraline HCl (Sertraline HCl) 50 Mg Tablet, 50 MG PO DAILY 12/05/19 [Potasisum Citrite] No Conflict Check, 1620 MG ONCE A DAY for LOW POTASSIUM for 30 Days, #1 % 09/26/19 Tamsulosin Hcl (Tamsulosin HCl) 0.4 Mg Capsule, 0.4 MG PO QPM 09/20/19 Acetaminophen (Tylenol 8 Hour) 650 Mg Tablet.er, 650 MG PO Q8H PRN for PAIN 02/19/19 Fluticasone Propionate (Flonase Allergy Relief) 9.9 Ml [place].susp, 2 SPRAYS NA DAILY PRN for NASAL CONGESTION 02/19/19 Omeprazole (Omeprazole) 20 Mg Capsule.dr, 40 MG PO DAILY, CAP 02/19/19 Past Medical History Past Medical History: THORACIC AND LUMBOSACRAL NEURITIS GERD OBSTRUCTIVE SLEEP APNEAmoderate Not using CPAP ALLERGIC RHINITIS HTN HX KIDNEY STONES NON-FUNCTIONAL LEFT KIDNEY Nocturia Q1 hour Past Surgical History: COLONOSCOPY 06/28/2018 ENDOSCOPY 07/04/2018 NEPHROSTOMY TUBE PLACEMENT 2018 URETER REPAIR 2018 BACK SURGERY 08/2018 TONSILS REMOVED VASECTOMY Lacrimal gland non-malignant left side Family History: Mother of heart failure age 91 Father of heart failure at age 26 Brother age 70 and good health Sister age 74 in good health Social History: Nonsmoker-previous smoker, quit 1979 nondrinker-previousy moderate to heavy drinker Has 2 son and 2 daughters 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, 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 General: Reports: Normal Appetite; Denies: Chills, Night Sweats, Fatigue, Malaise Constitutional: Reports: Normal appetite; Denies: Chills, Fever, Malaise, Night Sweats, Weakness, Fatigue, Weight Loss, Lethargy, Other symptoms Eyes: Denies: Pain, Vision change, Conjunctivae inflammation, Eyelid inflammation, Redness, Other HEENT: Reports: Other Symptoms (tinnitus, stable from previous.); Denies: Head Aches (as noted in interval history), Ear Pain, Dysphagia, Sinus Congestion, Post Nasal Drip, Sore Throat, Epistaxis Skin: Denies: Rash, Lesions, Jaundice, Bruising Pulmonary: Denies: Dyspnea, Cough, Pleuritic Chest Pain, Other Symptoms Cardiovascular: Reports: Lt Headedness; Denies: Chest Pain, Palpitations, Orthopnea, Edema Breast: Denies: New Breast Lumps / Masses, Breast Skin Changes, Breast Pain or Tenderness Gastrointestinal: Reports: Abdominal Pain (. Left lower quadrant discomfort at times for which he occasionally takes Tylenol); Denies: Nausea, Vomiting, Diarrhea, Constipation, Melena, Hematochezia, Other Symptoms Genitourinary: Reports: Frequency (at night, which has had for a while now.); Denies: Dysuria, Incontinence, Hematuria, Retention, Other Symptoms Hematologic: Denies: Bruising, Bleeding Excessively, Petecchia, Purpura, Enla rged Lymph Nodes, Other Hematologic Endocrine: Denies: Polydipsia, Polyphagia, Polyuria, Heat Intolerance, Cold Intolerance, Other Endocrine Sx Musculoskeletal: Reports: Shoulder pain (on right and on left, occasionally); Denies: Neck pain, Arm pain, Back pain, Hand pain, Leg pain, Foot pain, Joint pain, Muscle pain, Spasms, Gout, Joint sweling, Muscle stiffness, Midthoracic pain, Other Neurological: Denies: Weakness, Numbness, Incoordination, Change in Speech, Confusion, Seizures, Other Symptoms Psych: Reports: Mood Normal; Denies: Anxiety, Depression Physical Examination General Exam: Positive: Alert, Cooperative, No Acute Distress, Oriented Times Three; Negative: Mild Distress, Moderate Distress, Severe Distress, Other Eye Exam: Positive: PERRLA, Conjunctiva & lids normal, EOMI; Negative: Sclera icteric, Ptosis ENT EXAM: Positive: Atraumatic, Nares Patent Neck Exam: Positive: Supple; Negative: JVD, Thyromegaly, Lymphadenopathy Chest Exam: Positive: Clear to auscultation, Normal air movement; Negative: Rales, Rhonchi, Wheezing, Diminished, Other Heart Exam: Positive: Rate Normal, Regular Rhythm, Normal S1, Normal S2; Negative: Irregular Rhythm, Gallops, Murmurs, Rubs, Other Abdomen Exam: Positive: Normal bowel sounds, Soft; Negative: BS Hyperactive, BS Hypoactive, Tenderness, Hepatospenomegaly, Mass, Hernia, Other Extremity Exam: Positive: Normal pulses; Negative: Clubbing, Cyanosis, Edema, Tenderness, Swelling, Other Skin Exam: Positive: Nl turgor and temperature; Negative: Rash, Breakdown, Lesion, Pruritus Neuro Exam: Positive: Normal Gait, Normal Speech Psych Exam: Positive: Mental status NL, Mood NL, Oriented x 3; Negative: Anxiety Ht / Wt Ht / Wt Height:5 Feet 11 Inches Weight: 82.700 Kg Vital Signs Vital Signs Date Time Temp Pulse Resp B/P (MAP) Pulse Ox O2 Delivery O2 Flow Rate FiO2 03/09/20 08:18 97.6 80 16 165/88 (113) 98 Room Air Laboratory Data Laboratory Tests Test 03/09/20 08:13 Laboratory Tests 9/28/20 08:13 Assessment/Plan ASSESSMENT Metastatic, biopsy-proven urothelial cancer with significant para-aortic, inguinal adenopathy as well as left pelvic wall involvement. Exact origin of malignancy has not been determined suspect near bladder. Nonfunctional left kidney Presence of left nephrostomy tube. Wendie improved cancer related pain nonresponsive to analgesic therapy Follow-up imaging study MRI pelvis 12/30/2019 showed a positive response. PLAN Mr. Farrell is for cycle 6 chemotherapy today. Kidney function is slightly lower than previous. We'll decrease cisplatin dose accordingly. For lightheadedness, we'll send for MRI brain. The patient is also due for other set of imaging studies to reassess disease extent. Discussed the role of immunotherapy as maintenance treatment or as second line treatment for metastatic bladder cancer. Will discuss this further after CT scans. CC TO: CC TO: Primary Care Provider: Hui Scruggs DO Referring Provider: Wenceslao Dietrich M.D and Danielito Portillo MD. Medical Oncologist Dr. Akash Holguin [facility] [phone] ANNABEL BAXTER MD Mar 09, 2020 08:49
--- NOTE | 2020-03-09 09:47 | ONC.PHACK ---
CHEMO ADMIN CHECKLIST Order Contains Pt ID: Name, Order on Chemo Order Form?: Yes Order Form Includes ALL: Correct Tx Day, Correct Date, Correct Cycle Number Pt ID on Order form Matches: Pt ID on PHA Label Med on Chemo OrderForm Matches: PHA Label, Med Used for Preparation [facility] Mar 09, 2020 09:47
[2020-03-16 08:00] VITALS: BP 167/93
[2020-03-16 08:20] LABS: EOS # 0.1 10^3/uL (0.0-0.5); EOS % 2.4 % (0.0-3.0); HEMATOCRIT 33.3 % (42.0-52.0); HEMOGLOBIN 10.4 g/dl (13.5-17.5); LYMPH # 0.6 10^3/uL (1.5-5.0); LYMPH % 26.8 % (24.0-44.0); MEAN CORPUSCULAR HEMOGLOBIN 29.3 pg (27.0-33.0); MEAN CORPUSCULAR HGB CONC 31.2 g/dl (32.0-36.5); MEAN CORPUSCULAR VOLUME 93.8 fl (80.0-96.0); MONO # 0.2 10^3/uL (0.0-0.8); NEUTROPHILS # 1.2 10^3/uL (1.5-8.5); NEUTROPHILS % 59.3 % (36.0-66.0); PLATELET COUNT, AUTOMATED 144 10^3/uL (150-450); RED BLOOD COUNT 3.55 10^6/uL (4.30-6.10); WHITE BLOOD COUNT 2.1 10^3/uL (4.0-10.0)
[2020-03-16 08:47] LABS: ALBUMIN 3.4 GM/DL (3.2-5.2); BILIRUBIN,TOTAL 0.3 MG/DL (0.2-1.0); CALCIUM LEVEL 8.6 MG/DL (8.8-10.2); CREATININE FOR GFR 1.59 MG/DL (0.70-1.30); GLOMERULAR FILTRATION RATE 45.7 (>42); POTASSIUM SERUM 4.6 MEQ/L (3.5-5.1); TOTAL PROTEIN 6.3 GM/DL (6.4-8.2)
[2020-03-19 11:17] LABS: BASO % 0.7 % (0.0-1.0); EOS # 0.1 10^3/uL (0.0-0.5); EOS % 2.5 % (0.0-3.0); HEMATOCRIT 33.2 % (42.0-52.0); HEMOGLOBIN 10.6 g/dl (13.5-17.5); LYMPH # 0.5 10^3/uL (1.5-5.0); LYMPH % 16.5 % (24.0-44.0); MEAN CORPUSCULAR HEMOGLOBIN 28.6 pg (27.0-33.0); MEAN CORPUSCULAR HGB CONC 31.9 g/dl (32.0-36.5); MEAN CORPUSCULAR VOLUME 89.7 fl (80.0-96.0); MONO # 0.1 10^3/uL (0.0-0.8); MONO % 4.9 % (0.0-5.0); NEUTROPHILS # 2.2 10^3/uL (1.5-8.5); NEUTROPHILS % 75.4 % (36.0-66.0); PLATELET COUNT, AUTOMATED 143 10^3/uL (150-450); WHITE BLOOD COUNT 2.9 10^3/uL (4.0-10.0)
--- NOTE | 2020-03-20 10:07 | MEDONC ---
DATE: 01/20/2020 DIAGNOSIS: Metastatic urothelial carcinoma currently on cisplatin/gemcitabine chemotherapy. HISTORY OF PRESENT ILLNESS: Mr. Farrell is currently on cisplatin / gemcitabine chemotherapy and is here today for day 15 chemotherapy. He reports a good appetite. Patients weight has been stable. No fevers. No night sweats. He has had fair energy levels. He develops headaches on the third day post-chemotherapy for which he takes Tylenol, but in general he just deals with it and eventually, this does resolve spontaneous. No dizziness. No vision changes. No chest pain. No shortness of breath. No cough. He has mild nausea first thing in the morning, which resolves on its own. No vomiting. No abdominal pains. No bone pains. No diarrhea. No constipation. He reports urinary frequency at night for which he is on Flomax and otherwise, no urinary issues. No rectal bleeding. No urinary bleeding. No epistaxis. No mucositis. No pedal edema. He used to have left lateral abdominal area pain, but he no longer has pain. He used to take hydrocodone, but no longer needs hydrocodone analgesics. Occasionally he has had dizziness with double vision of short duration resolving spontaneously. He also reports ringing in his ears, but not worse since chemotherapy. MEDICATIONS: 1. Potassium 2. omeprazole 3. Flomax 4. Meclizine 5. sertraline 6. hydrocodone 7. acetaminophen as needed; although not taking this at present PHYSICAL EXAMINATION: VITAL SIGNS: He weighed 81.8 kg. Heart rate 64 per minute. Temperature 97.3 degrees Fahrenheit. O2 saturation 97% on room air. Blood pressure 176/97. HEENT: He had pinkish conjunctivae. Anicteric sclerae. No oral mucosal lesions. No palpable cervical lymph nodes. LUNGS: Clear. No rales, no rhonchi, no wheeze. HEART: S1, S2 regular. No murmur. No gallop. ABDOMEN: Soft, nontender, no guarding. No palpable masses. No hepatosplenomegaly. He had a nephrostomy tube coming out of his left flank area. Clear urine through the bag. EXTREMITIES: No calf swelling, no calf tenderness, and no pedal edema. No clubbing. No cyanosis. IMPRESSION AND PLAN: Mr. Farrell was schedule for cycle 4 day 15 of chemotherapy today, but CBC showed moderate thrombocytopenia and moderate neutropenia. We will skip this day 15 and reschedule him for next cycle of chemotherapy in two weeks. We would also aim to obtain another imaging study, most likely a CT scan, after the next cycle of chemotherapy. MTDD
--- NOTE | 2020-03-20 10:08 | MEDONC ---
DATE: 01/06/2020 DIAGNOSIS AND TREATMENT HISTORY: * Metastatic clinical high-grade urothelial carcinoma with lymph node metastases retroperitoneum and left pelvic side wall anterior disease, biopsy-proven periaortic area. * Started palliative cisplatin/gemcitabine chemotherapy 10/10/2019. HISTORY OF PRESENT ILLNESS: Mr. Farrell has so far completed three cycles of cisplatin/gemcitabine chemotherapy. He reports no worsening of hearing loss since starting chemotherapy. He reports slight tinnitus ringing in his ears, which has not been bothering him unduly. He reports sciatic nerve issues, which may be slightly worse since chemotherapy, but has not impacted significantly on his functional status. He has had a good appetite. Slight fatigue lately, but he was able to go canoeing this past weekend. However, his back did bother him after the canoe paddling event. He also reports that a tooth is bothering him slightly, but he has had this attended to by his dentist. PHYSICAL EXAMINATION: GENERAL: He was ambulatory, not in distress. HEENT: Pinkish conjunctivae, anicteric sclerae. No palpable cervical nodes. LUNGS: Fair air entry. No rales, no rhonchi, and no wheeze. CARDIOVASCULAR: S1, S2 regular. No murmurs, rub, or gallop. ABDOMEN: Soft, nontender, no guarding. No palpable masses. Nephrostomy bag tube on the left side. EXTREMITIES: No calf swelling, no calf tenderness, and no pedal edema. IMPRESSION AND PLAN: Mr. Farrell is on cisplatin/gemcitabine for a metastatic urothelial carcinoma. He was seen by Dr. Dietrich last week and was deemed not a candidate for a simple nephrectomy because of extent of disease. We had reviewed his scans and concluded that there was a positive effect from chemotherapy; so he will continue this regimen for now and consider him for immunotherapy possibly after the 4th or 6th cycle of chemotherapy. MTDD
[2020-03-30 08:09] VITALS: BP 166/90
--- NOTE | 2020-03-30 09:20 | MEDONCPDOC ---
Medical Oncology Office Note Date of Service: Mar 30, 2020 Diagnosis/Treatment History DIAGNOSIS AND TREATMENTS SUMMARY 1. Metastatic, clinical high-grade urothelial carcinoma with lymph node metast asis retroperitoneum and left pelvic sidewall disease. -Left periaortic lymph node biopsy 09/02/2019 showing metastatic urothelial carcinoma. PDL-1 0%. -MRI pelvis 09/30/2019 showing large irregular enhancing mass involving left bladder wall and distal left ureter with invasion of adjacent left pelvic soft tissues and extension to left pelvic sidewall. -PET CT scan showing hypermetabolic activity in the retroperitoneum and left hemipelvis consistent with adenopathy 2. Palliative cisplatin and gemcitabine started 10/10/2019 with follow-up imaging MRI pelvis 12/2019 showing a positive response. Completed 6 cycles 03/16/2020. Interval History 74-year-old with metastatic urothelial carcinoma. Completed 6 cycles of cisplatin/gemcitabine chemotherapy 03/16/2020. Reports that he has been experiencing dizzy spells lately. However, since coming off chemotherapy, these have been improving. He had an MRI of the brain 03/12/2020, which came back unremarkable. Also asking for a refill on lorazepam today as he has been having anxiety attacks and difficulty sleeping. I discussed that lorazepam has an addictive potential. Allergies Coded Allergies: TAPE (Verified Allergy, Intermediate, blisters, 07/29/19) ciprofloxacin (Verified Allergy, Intermediate, hives, flushing, 02/19/19) Penicillins (Verified Allergy, Mild, PRURITIS, 02/19/19) Home Medications Active Scripts Hydrocodone/Acetaminophen (Hydrocodone-Acetamin 5-325 mg) 1 Each Tablet, 1 TAB PO Q6H PRN for PAIN MDD 4 for 30 Days, #100 TAB 0 Refills MDD 4 Prov:SANDI TIJERINA MD 10/24/19 Reported Medications Amlodipine Besylate (Amlodipine Besylate) 2.5 Mg Tablet, 5 MG PO DAILY, TAB 02/18/20 Sertraline HCl (Sertraline HCl) 50 Mg Tablet, 50 MG PO DAILY 12/05/19 [Potasisum Citrite] No Conflict Check, 1620 MG ONCE A DAY for LOW POTASSIUM for 30 Days, #1 % 09/26/19 Tamsulosin Hcl (Tamsulosin HCl) 0.4 Mg Capsule, 0.4 MG PO QPM 4/10/20 Acetaminophen (Tylenol 8 Hour) 650 Mg Tablet.er, 650 MG PO Q8H PRN for PAIN 02/19/19 Fluticasone Propionate (Flonase Allergy Relief) 9.9 Ml [place].susp, 2 SPRAYS NA DAILY PRN for NASAL CONGESTION 02/19/19 Omeprazole (Omeprazole) 20 Mg Capsule.dr, 40 MG PO DAILY, CAP 02/19/19 Past Medical History Past Medical History: THORACIC AND LUMBOSACRAL NEURITIS GERD OBSTRUCTIVE SLEEP APNEAmoderate Not using CPAP ALLERGIC RHINITIS HTN HX KIDNEY STONES NON-FUNCTIONAL LEFT KIDNEY Nocturia Q1 hour Past Surgical History: COLONOSCOPY 06/28/2018 ENDOSCOPY 07/04/2018 NEPHROSTOMY TUBE PLACEMENT 2018 URETER REPAIR 2018 BACK SURGERY 08/2018 TONSILS REMOVED VASECTOMY Lacrimal gland non-malignant left side Family History: Mother of heart failure age 91 Father of heart failure at age 26 Brother age 70 and good health Sister age 74 in good health Social History: Nonsmoker-previous smoker, quit 1979 nondrinker-previousy moderate to heavy drinker Has 2 son and 2 daughters 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, 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 Review of Systems General: Reports: Normal Appetite; Denies: Chills, Night Sweats, Fatigue, Malaise Constitutional: Reports: Normal appetite; Denies: Chills, Fever, Malaise, Night Sweats, Weakness, Fatigue, Weight Loss, Lethargy Eyes: Denies: Pain, Vision change, Conjunctivae inflammation, Eyelid inflammation, Redness HEENT: Reports: Other Symptoms (tinnitus, stable from previous.); Denies: Head Aches (as noted in interval history), Ear Pain, Dysphagia, Sinus Congestion, Post Nasal Drip, Sore Throat, Epistaxis Skin: Denies: Rash, Lesions, Jaundice, Bruising Pulmonary: Reports: Other Symptoms (right posterior lower chest wall pain improved with passage of bowel movement and for which he takes Tylenol as needed.); Denies: Dyspnea, Cough, Pleuritic Chest Pain Cardiovascular: Reports: Lt Headedness; Denies: Chest Pain, Palpitations, Orthopnea, Edema Breast: Denies: New Breast Lumps / Masses, Breast Skin Changes, Breast Pain or Tenderness Gastrointestinal: Denies: Nausea, Vomiting, Abdominal Pain, Diarrhea, Constipation, Melena, Hematochezia Genitourinary: Reports: Frequency (at night, which has had for a while now.); Denies: Dysuria, Incontinence, Hematuria, Retention Hematologic: Denies: Bruising, Bleeding Excessively, Petecchia, Purpura, Enlarged Lymph Nodes Endocrine: Denies: Polydipsia, Polyphagia, Polyuria, Heat Intolerance, Cold Intolerance, Other Endocrine Sx Musculoskeletal: Reports: Shoulder pain (on right and on left, occasionally); Denies: Neck pain, Arm pain, Back pain, Hand pain, Leg pain, Foot pain, Joint pain, Muscle pain, Spasms, Gout, Joint sweling, Muscle stiffness, Midthoracic pain Neurological: Denies: Weakness, Numbness, Incoordination, Change in Speech, Confusion, Seizures Psych: Reports: Mood Normal; Denies: Anxiety, Depression Physical Examination General Exam: Positive: Alert, Cooperative, No Acute Distress, Oriented Times Three; Negative: Other Eye Exam: Positive: PERRLA, Conjunctiva & lids normal, EOMI; Negative: Sclera icteric, Ptosis ENT EXAM: Positive: Atraumatic, Nares Patent Neck Exam: Positive: Supple; Negative: JVD, Thyromegaly, Lymphadenopathy Chest Exam: Positive: Clear to auscultation, Normal air movement; Negative: Rales, Rhonchi, Wheezing, Diminished, Other Heart Exam: Positive: Rate Normal, Regular Rhythm, Normal S1, Normal S2; Negative: Irregular Rhythm, Gallops, Murmurs, Rubs, Other Abdomen Exam: Positive: Normal bowel sounds, Soft; Negative: Tenderness, Hepatospenomegaly, Mass, Hernia, Other Extremity Exam: Negative: Clubbing, Cyanosis, Edema, Tenderness, Swelling, Other Skin Exam: Positive: Nl turgor and temperature; Negative: Rash, Breakdown, Lesion, Pruritus Neuro Exam: Positive: Normal Gait, Normal Speech Psych Exam: Positive: Mental status NL, Mood NL, Oriented x 3; Negative: Anxiety Ht / Wt Ht / Wt Height:5 Feet 11 Inches Weight: 85.300 Kg Vital Signs Vital Signs Date Time Temp Pulse Resp B/P (MAP) Pulse Ox O2 Delivery O2 Flow Rate FiO2 03/30/20 08:09 97.4 67 16 166/90 (115) 99 Room Air Assessment/Plan ASSESSMENT Metastatic, biopsy-proven urothelial cancer with significant para-aortic, inguinal adenopathy as well as left pelvic wall involvement. Exact origin of malignancy has not been determined suspect near bladder. Nonfunctional left kidney Presence of left nephrostomy tube. Wendie improved cancer related pain nonresponsive to analgesic therapy. MRI brain 03/12/2020 obtained for dizzy spells came back unremarkable. Follow-up CT chest, abdomen and pelvis 03/2020 showed a positive response. Results discussed with the patient and his . I have recommended a reevaluation by Dr. Dietrich for possible removal of left nephrostomy tube versus replacement with a ureteric stent. For anxiety and insomnia, lorazepam refilled. I also discussed that at this point he could proceed with maintenance avelumab immunotherapy or go on observation with a plan to start immunotherapy at disease progression. Risks of avelumab discussed with the patient and his . Risks are primarily immune mediated inflammatory reactions such as colitis, hepatitis, thyroiditis, epiphysitis, dermatitis, among others. He has decided to go ahead with avelumab immunotherapy. We will start this as soon as we obtain health insurance approval. CC TO: CC TO: Primary Care Provider: Hui Scruggs DO Referring Provider: ANNABEL Mast M.D, MD Mar 30, 2020 08:18
[2020-04-09 14:55] LABS: ALBUMIN 3.5 GM/DL (3.2-5.2); BILIRUBIN,TOTAL 0.4 MG/DL (0.2-1.0); CALCIUM LEVEL 8.8 MG/DL (8.8-10.2); CREATININE FOR GFR 1.43 MG/DL (0.70-1.30); GLOMERULAR FILTRATION RATE 51.6 (>42); POTASSIUM SERUM 3.9 MEQ/L (3.5-5.1); TOTAL PROTEIN 6.5 GM/DL (6.4-8.2)
[2020-04-16 08:18] VITALS: BP 154/89
[2020-04-16 08:23] LABS: EOS # 0.1 10^3/uL (0.0-0.5); EOS % 4.2 % (0.0-3.0); HEMATOCRIT 36.2 % (42.0-52.0); HEMOGLOBIN 11.4 g/dl (13.5-17.5); LYMPH # 0.7 10^3/uL (1.5-5.0); LYMPH % 21.7 % (24.0-44.0); MEAN CORPUSCULAR HEMOGLOBIN 29.5 pg (27.0-33.0); MEAN CORPUSCULAR HGB CONC 31.5 g/dl (32.0-36.5); MEAN CORPUSCULAR VOLUME 93.8 fl (80.0-96.0); MONO # 0.6 10^3/uL (0.0-0.8); MONO % 19.1 % (0.0-5.0); NEUTROPHILS # 1.7 10^3/uL (1.5-8.5); NEUTROPHILS % 53.7 % (36.0-66.0); PLATELET COUNT, AUTOMATED 187 10^3/uL (150-450); RED BLOOD COUNT 3.86 10^6/uL (4.30-6.10); WHITE BLOOD COUNT 3.1 10^3/uL (4.0-10.0)
[2020-04-16 08:48] LABS: ALBUMIN 3.6 GM/DL (3.2-5.2); BILIRUBIN,TOTAL 0.3 MG/DL (0.2-1.0); CREATININE FOR GFR 1.64 MG/DL (0.70-1.30); GLOMERULAR FILTRATION RATE 44.1 (>42); POTASSIUM SERUM 4.6 MEQ/L (3.5-5.1); TOTAL PROTEIN 6.4 GM/DL (6.4-8.2)
[2020-04-16 09:07] LABS: FREE T4 1.02 NG/DL (0.76-1.46)
--- NOTE | 2020-04-16 09:11 | MEDONCPDOC ---
Medical Oncology Office Note Date of Service: Apr 16, 2020 Diagnosis/Treatment History DIAGNOSIS AND TREATMENTS SUMMARY 1. Metastatic, clinical high-grade urothelial carcinoma with lymph node metastasis retroperitoneum and left pelvic sidewall disease. -Left periaortic lymph node biopsy 09/02/2019 showing metastatic urothelial carcinoma. PDL-1 0%. -MRI pelvis 09/30/2019 showing large irregular enhancing mass involving left bladder wall and distal left ureter with invasion of adjacent left pelvic soft tissues and extension to left pelvic sidewall. -PET CT scan showing hypermetabolic activity in the retroperitoneum and left hemipelvis consistent with adenopathy 2. Palliative cisplatin and gemcitabine started 10/10/2019 with follow-up imaging MRI pelvis 12/2019 showing a positive response. Completed 6 cycles 03/16/2020. Follow-up CT chest, abdomen and pelvis 03/23/2020 showing a positive response with previously noted bulky retroperitoneal adenopathy extending from the level of the left kidney into the left hemipelvis considerably improved from prior examination. 3. To start maintenance avelumab immunotherapy 04/16/2020 Interval History 74-year-old with metastatic urothelial carcinoma. Completed 6 cycles of cisplatin/gemcitabine chemotherapy 03/16/2020. Follow-up imaging studies MRI and CT chest, abdomen and pelvis showed a positive response. Here today to start avelumab maintenance immunotherapy. Reports continued dizziness. However, this has improved lately. He also has tinnitus, mild, but he had this even before chemotherapy started. Has been referred to Dr. Dietrich for management of nephrostomy tube. Allergies Coded Allergies: TAPE (Verified Allergy, Intermediate, blisters, 07/29/19) ciprofloxacin (Verified Allergy, Intermediate, hives, flushing, 02/19/19) Penicillins (Verified Allergy, Mild, PRURITIS, 02/19/19) Home Medications Active Scripts Lorazepam (Lorazepam) 1 Mg Tablet, 1 MG PO BIDP PRN for ANXIETY MDD 2 tabs, #40 TAB Prov:ANNABEL BAXTER MD 03/30/20 Hydrocodone/Acetaminophen (Hydrocodone-Acetamin 5-325 mg) 1 Each Tablet, 1 TAB PO Q6H PRN for PAIN MDD 4 for 30 Days, #100 TAB 0 Refills MDD 4 Prov:SANDI TIJERINA MD 10/24/19 Reported Medications Amlodipine Besylate (Amlodipine Besylate) 2.5 Mg Tablet, 5 MG PO DAILY, TAB 02/18/20 Sertraline HCl (Sertraline HCl) 50 Mg Tablet, 50 MG PO DAILY 12/05/19 [Potasisum Citrite] No Conflict Check, 1620 MG ONCE A DAY for LOW POTASSIUM for 30 Days, #1 % 09/26/19 Tamsulosin Hcl (Tamsulosin HCl) 0.4 Mg Capsule, 0.4 MG PO QPM 09/20/19 Acetaminophen (Tylenol 8 Hour) 650 Mg Tablet.er, 650 MG PO Q8H PRN for PAIN 02/19/19 Fluticasone Propionate (Flonase Allergy Relief) 9.9 Ml [place].susp, 2 SPRAYS NA DAILY PRN for NASAL CONGESTION 02/19/19 Omeprazole (Omeprazole) 20 Mg Capsule.dr, 40 MG PO DAILY, CAP 02/19/19 Past Medical History Past Medical History: THORACIC AND LUMBOSACRAL NEURITIS GERD OBSTRUCTIVE SLEEP APNEAmoderate Not using CPAP ALLERGIC RHINITIS HTN HX KIDNEY STONES NON-FUNCTIONAL LEFT KIDNEY Nocturia Q1 hour Past Surgical History: COLONOSCOPY 06/28/2018 ENDOSCOPY 07/04/2018 NEPHROSTOMY TUBE PLACEMENT 2018 URETER REPAIR 2018 BACK SURGERY 08/2018 TONSILS REMOVED VASECTOMY Lacrimal gland non-malignant left side Family History: Mother of heart failure age 91 Father of heart failure at age 26 Brother age 70 and good health Sister age 74 in good health Social History: Nonsmoker-previous smoker, quit 1979 nondrinker-previousy moderate to heavy drinker Has 2 son and 2 daughters 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, 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 Review of Systems General: Reports: Normal Appetite; Denies: Chills, Night Sweats, Fatigue, Malaise Constitutional: Reports: Normal appetite; Denies: Chills, Fever, Malaise, Night Sweats, Weakness, Fatigue, Weight Loss, Lethargy Eyes: Denies: Pain, Vision change, Conjunctivae inflammation, Eyelid inflammation, Redness HEENT: Reports: Other Symptoms (tinnitus, stable from previous.); Denies: Head Aches (as noted in interval history), Ear Pain, Dysphagia, Sinus Congestion, Post Nasal Drip, Sore Throat, Epistaxis Skin: Denies: Rash, Lesions, Jaundice, Bruising Pulmonary: Reports: Other Symptoms (right posterior lower chest wall pain improved with passage of bowel movement and for which he takes Tylenol as needed.); Denies: Dyspnea, Cough, Pleuritic Chest Pain Cardiovascular: Reports: Lt Headedness (dizziness slightly improved from p revious); Denies: Chest Pain, Palpitations, Orthopnea, Edema Breast: Denies: New Breast Lumps / Masses, Breast Skin Changes, Breast Pain or Tenderness Gastrointestinal: Denies: Nausea, Vomiting, Abdominal Pain, Diarrhea, Constipation, Melena, Hematochezia Genitourinary: Reports: Frequency (at night, which has had for a while now.); Denies: Dysuria, Incontinence, Hematuria, Retention Hematologic: Denies: Bruising, Bleeding Excessively, Petecchia, Purpura, Enlarged Lymph Nodes Endocrine: Denies: Polydipsia, Polyphagia, Polyuria, Heat Intolerance, Cold Intolerance, Other Endocrine Sx Musculoskeletal: Reports: Shoulder pain (on right and on left, occasionally); Denies: Neck pain, Arm pain, Back pain, Hand pain, Leg pain, Foot pain, Joint pain, Muscle pain, Spasms, Gout, Joint sweling, Muscle stiffness, Midthoracic pain Neurological: Denies: Weakness, Numbness, Incoordination, Change in Speech, Confusion, Seizures Psych: Reports: Mood Normal; Denies: Anxiety, Depression Physical Examination General Exam: Positive: Alert, Cooperative, No Acute Distress, Oriented Times Three Eye Exam: Positive: PERRLA, Conjunctiva & lids normal, EOMI; Negative: Sclera icteric, Ptosis ENT EXAM: Positive: Atraumatic, Nares Patent Neck Exam: Positive: Supple; Negative: JVD, Thyromegaly, Lymphadenopathy Chest Exam: Positive: Clear to auscultation, Normal air movement; Negative: Rales, Rhonchi, Wheezing, Diminished Heart Exam: Positive: Rate Normal, Regular Rhythm, Normal S1, Normal S2; Negative: Irregular Rhythm, Gallops, Murmurs, Rubs Abdomen Exam: Positive: Normal bowel sounds, Soft, Other (nephrostomy tube on left flank); Negative: Tenderness, Hepatospenomegaly, Mass, Hernia Extremity Exam: Positive: Normal pulses; Negative: Clubbing, Cyanosis, Edema, Tenderness, Swelling Skin Exam: Positive: Nl turgor and temperature; Negative: Rash, Breakdown, Lesion, Pruritus Neuro Exam: Positive: Normal Gait, Normal Speech Psych Exam: Positive: Mental status NL, Mood NL, Oriented x 3; Negative: Anxiety Ht / Wt Ht / Wt Height:5 Feet 11 Inches Weight: 83.500 Kg Vital Signs Vital Signs Date Time Temp Pulse Resp B/P (MAP) Pulse Ox O2 Delivery O2 Flow Rate FiO2 04/16/20 08:18 97.5 61 16 154/89 (110) 98 Room Air Laboratory Data Laboratory Tests Test 04/16/20 08:07 Laboratory Tests 04/16/20 08:07 Assessment/Plan ASSESSMENT Metastatic, biopsy-proven urothelial cancer with significant para-aortic, inguinal adenopathy as well as left pelvic wall involvement. Exact origin of malignancy has not been determined suspect near bladder. Presence of left nephrostomy tube. Wendie improved cancer related pain nonresponsive to analgesic therapy. MRI brain 03/12/2020 obtained for dizzy spells came back unremarkable. Follow-up CT chest, abdomen and pelvis 03/2020 showed a positive response. Awaiting an appointment with Dr. Dietrich for possible removal of left nephrostomy tube versus replacement with a ureteric stent. To start maintenance avelumab immunotherapy today. Risks of avelumab again discussed with the patient on this visit. Risks are primarily immune mediated inflammatory reactions such as colitis, hepatitis, thyroiditis, epiphysitis, dermatitis, and pneumonitis among others. This is to be given every 2 weeks. Follow-up appointment with me in 4 weeks. CC TO: CC TO: Primary Care Provider: Hui Scruggs DO Referring Provider: ANNABEL Mast M.D, MD Apr 16, 2020 08:47
--- NOTE | 2020-04-16 09:29 | ONC.PHACK ---
CHEMO ADMIN CHECKLIST Order Contains Pt ID: Name, Order on Chemo Order Form?: Yes Order Form Includes ALL: Correct Tx Day, Correct Date, Correct Cycle Number Pt ID on Order form Matches: Pt ID on PHA Label Med on Chemo OrderForm Matches: PHA Label, Med Used for Preparation [facility] Apr 16, 2020 09:29
[2020-04-16 10:10] LABS: HEPATITIS B SURFACE ANTIGEN NEGATIVE (NEGATIVE)
[2020-04-17 08:28] LABS: FERRITIN 78 NG/ML (26-388); IRON (FE) 68 UG/DL (65-175)
[2020-04-18 12:01] LABS: ALBUMIN 3.4 GM/DL (3.2-5.2); BILIRUBIN,TOTAL 0.4 MG/DL (0.2-1.0); CALCIUM LEVEL 8.9 MG/DL (8.8-10.2); CREATININE FOR GFR 1.44 MG/DL (0.70-1.30); GLOMERULAR FILTRATION RATE 51.2 (>42); MAGNESIUM LEVEL 1.9 MG/DL (1.8-2.4); POTASSIUM SERUM 4.1 MEQ/L (3.5-5.1); TOTAL PROTEIN 6.8 GM/DL (6.4-8.2)
[2020-04-30 08:27] VITALS: BP 131/77
[2020-04-30 08:39] LABS: BASO % 0.8 % (0.0-1.0); EOS # 0.4 10^3/uL (0.0-0.5); HEMATOCRIT 38.7 % (42.0-52.0); HEMOGLOBIN 12.3 g/dl (13.5-17.5); LYMPH # 0.6 10^3/uL (1.5-5.0); LYMPH % 12.4 % (24.0-44.0); MEAN CORPUSCULAR HEMOGLOBIN 29.9 pg (27.0-33.0); MEAN CORPUSCULAR HGB CONC 31.8 g/dl (32.0-36.5); MEAN CORPUSCULAR VOLUME 93.9 fl (80.0-96.0); MONO # 0.5 10^3/uL (0.0-0.8); MONO % 9.7 % (0.0-5.0); NEUTROPHILS # 3.2 10^3/uL (1.5-8.5); PLATELET COUNT, AUTOMATED 157 10^3/uL (150-450); RED BLOOD COUNT 4.12 10^6/uL (4.30-6.10); WHITE BLOOD COUNT 4.8 10^3/uL (4.0-10.0)
[2020-04-30 09:17] LABS: ALBUMIN 3.5 GM/DL (3.2-5.2); BILIRUBIN,TOTAL 0.3 MG/DL (0.2-1.0); CALCIUM LEVEL 8.7 MG/DL (8.8-10.2); CREATININE FOR GFR 1.55 MG/DL (0.70-1.30); GLOMERULAR FILTRATION RATE 46.9 (>42); THYROID STIMULATING HORMONE 1.17 uIU/ML (0.358-3.740); TOTAL PROTEIN 6.1 GM/DL (6.4-8.2)
--- NOTE | 2020-04-30 09:33 | ONC.PHACK ---
CHEMO ADMIN CHECKLIST Order Contains Pt ID: Name, Order on Chemo Order Form?: Yes Order Form Includes ALL: Correct Tx Day, Correct Date, Correct Cycle Number Pt ID on Order form Matches: Pt ID on PHA Label Med on Chemo OrderForm Matches: PHA Label, Med Used for Preparation [facility] Apr 30, 2020 09:33
--- NOTE | 2020-04-30 12:44 | ONC.PHACK ---
CHEMO ADMIN CHECKLIST Order Contains Pt ID: Name, Order on Chemo Order Form?: Yes Order Form Includes ALL: Correct Tx Day, Correct Date, Correct Cycle Number Pt ID on Order form Matches: Pt ID on PHA Label Med on Chemo OrderForm Matches: PHA Label, Med Used for Preparation [facility] Apr 30, 2020 12:44
[2020-05-14 09:44] LABS: BASO % 0.5 % (0.0-1.0); EOS # 0.3 10^3/uL (0.0-0.5); LYMPH # 0.7 10^3/uL (1.5-5.0); LYMPH % 17.7 % (24.0-44.0); MEAN CORPUSCULAR HEMOGLOBIN 29.2 pg (27.0-33.0); MEAN CORPUSCULAR HGB CONC 31.6 g/dl (32.0-36.5); MEAN CORPUSCULAR VOLUME 92.5 fl (80.0-96.0); MONO # 0.5 10^3/uL (0.0-0.8); MONO % 12.9 % (0.0-5.0); NEUTROPHILS # 2.3 10^3/uL (1.5-8.5); NEUTROPHILS % 61.6 % (36.0-66.0); PLATELET COUNT, AUTOMATED 150 10^3/uL (150-450); RED BLOOD COUNT 4.11 10^6/uL (4.30-6.10); WHITE BLOOD COUNT 3.7 10^3/uL (4.0-10.0)
[2020-05-14 10:14] VITALS: BP 134/90
[2020-05-14 10:18] LABS: ALBUMIN 3.7 GM/DL (3.2-5.2); BILIRUBIN,TOTAL 0.3 MG/DL (0.2-1.0); CALCIUM LEVEL 8.9 MG/DL (8.8-10.2); CREATININE FOR GFR 1.44 MG/DL (0.70-1.30); GLOMERULAR FILTRATION RATE 51.1 (>42); POTASSIUM SERUM 4.6 MEQ/L (3.5-5.1); TOTAL PROTEIN 6.7 GM/DL (6.4-8.2)
[2020-05-14 10:29] LABS: FREE T4 1.05 NG/DL (0.76-1.46); PERCENT SATURATION 18.6 % (19.7-50.0); THYROID STIMULATING HORMONE 1.27 uIU/ML (0.358-3.740)
--- NOTE | 2020-05-14 11:12 | MEDONCPDOC ---
Medical Oncology Office Note Date of Service: May 14, 2020 Diagnosis/Treatment History DIAGNOSIS AND TREATMENTS SUMMARY 1. Metastatic, clinical high-grade urothelial carcinoma with lymph node metastasis retroperitoneum and left pelvic sidewall disease. -Left periaortic lymph node biopsy 09/02/2019 showing metastatic urothelial carcinoma. PDL-1 0%. -MRI pelvis 09/30/2019 showing large irregular enhancing mass involving left bladder wall and distal left ureter with invasion of adjacent left pelvic soft tissues and extension to left pelvic sidewall. -PET CT scan showing hypermetabolic activity in the retroperitoneum and left hemipelvis consistent with adenopathy 2. Palliative cisplatin and gemcitabine started 10/10/2019 with follow-up imaging MRI pelvis 12/2019 showing a positive response. Completed 6 cycles 03/16/2020. Follow-up CT chest, abdomen and pelvis 03/23/2020 showing a positive response with previously noted bulky retroperitoneal adenopathy extending from the level of the left kidney into the left hemipelvis considerably improved from prior examination. 3. Started maintenance avelumab immunotherapy 04/16/2020 Interval History Daniel is a very pleasant 75yo male with metastatic urothelial carcinoma who presents today for a one-month follow-up appointment. We did 6 cycles of cisplatin/gemcitabine chemotherapy as of 03/16/2020. Follow-up imaging studies in the form of MRI and CT chest, abdomen, pelvis, all showed a positive response to chemotherapy. He started taking avelumab maintenance immunotherapy at the completion of the chemotherapy and has been on it for approximately 1 month. He receives theavelumab every 2 weeks and is due for his third administration today (doses one and two occurred on 04/16 and 04/30). He follows with both urology (Dr. Wenceslao Dietrich) and nephrology (Dr. Hany Weinstein) as an outpatient, and reports today that due to his left kidney function being "at about 10%," he will undergo a total left nephrectomy with Dr. Dietrich of urology on 05/26. He continues to have some dizziness with change of position and movement. The dizziness is described as intermittent and usually resolves. He has some associated tinnitus, more pronounced in the right ear. He reports seeing his PCP (Dr. Hui Scruggs) a couple days ago and was found to have some small amount of excess fluid in the right ear. He also reports having some moderate sinus congestion of late as well. Allergies Coded Allergies: TAPE (Verified Allergy, Intermediate, blisters, 07/29/19) ciprofloxacin (Verified Allergy, Intermediate, hives, flushing, 02/19/19) Penicillins (Verified Allergy, Mild, PRURITIS, 02/19/19) Home Medications Active Scripts Lorazepam (Lorazepam) 1 Mg Tablet, 1 MG PO BIDP PRN for ANXIETY MDD 2 tabs, #40 TAB Prov:DEVORAH KIRBY MD 03/30/20 Hydrocodone/Acetaminophen (Hydrocodone-Acetamin 5-325 mg) 1 Each Tablet, 1 TAB PO Q6H PRN for PAIN MDD 4 for 30 Days, #100 TAB 0 Refills MDD 4 Prov:SANDI TIJERINA MD 10/24/19 Reported Medications Amlodipine Besylate (Amlodipine Besylate) 2.5 Mg Tablet, 5 MG PO DAILY, TAB 02/18/20 Sertraline HCl (Sertraline HCl) 50 Mg Tablet, 50 MG PO DAILY 12/05/19 [Potasisum Citrite] No Conflict Check, 1620 MG ONCE A DAY for LOW POTASSIUM for 30 Days, #1 % 09/26/19 Tamsulosin Hcl (Tamsulosin HCl) 0.4 Mg Capsule, 0.4 MG PO QPM 09/20/19 Acetaminophen (Tylenol 8 Hour) 650 Mg Tablet.er, 650 MG PO Q8H PRN for PAIN 02/19/19 Fluticasone Propionate (Flonase Allergy Relief) 9.9 Ml [place].susp, 2 SPRAYS NA DAILY PRN for NASAL CONGESTION 02/19/19 Omeprazole (Omeprazole) 20 Mg Capsule.dr, 40 MG PO DAILY, CAP 02/19/19 Past Medical History Past Medical History: THORACIC AND LUMBOSACRAL NEURITIS GERD OBSTRUCTIVE SLEEP APNEAmoderate Not using CPAP ALLERGIC RHINITIS HTN HX KIDNEY STONES NON-FUNCTIONAL LEFT KIDNEY Nocturia Q1 hour Past Surgical History: COLONOSCOPY 06/28/2018 ENDOSCOPY 07/04/2018 NEPHROSTOMY TUBE PLACEMENT 2018 URETER REPAIR 2018 BACK SURGERY 08/2018 TONSILS REMOVED VASECTOMY Lacrimal gland non-malignant left side Family History: Mother of heart failure age 91 Father of heart failure at age 26 Brother age 70 and good health Sister age 74 in good health Social History: Nonsmoker-previous smoker, quit 1979 nondrinker-previousy moderate to heavy drinker Has 2 son and 2 daughters 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 No change from visit last month); Denies: Chest Pain, Palpitations, Edema Gastrointestinal: Reports: Abdominal Pain (endorses some increased pressure and associated discomfort left lower quadrant into the left inguinal area); Denies: Nausea, Vomiting, Diarrhea, Constipation, Melena, Hematochezia Genitourinary: Reports: Other Symptoms (some slight blood in his nephrostomy tube) Hematologic: Denies: Bruising, Bleeding Excessively Neurological: Denies: Numbness, Confusion Physical Examination General Exam: Positive: Alert, Cooperative, No Acute Distress, Oriented Times Three, Other (pleasant, elderly male) Eye Exam: Positive: Conjunctiva & lids normal; Negative: Sclera icteric ENT EXAM: Positive: Mucous membr. moist/pink, Tongue Midline, Other ENT (wearing eyeglasses); Negative: Pharyngeal Edema Neck Exam: Positive: Supple; Negative: Thyromegaly, Lymphadenopathy Chest Exam: Positive: Clear to auscultation, Normal air movement, Other (port present right upper chest with no surrounding erythema, warmth, drainage, or induration); Negative: Rales, Rhonchi, Wheezing Heart Exam: Negative: Normal S2 (S2 is visibly prominent auscultating at the right parasternal second intercostal space) Abdomen Exam: Positive: BS Hyperactive, Tenderness (moderate in left lower quadrant, left inguinal area), Other (there is a nephrostomy tube in place on the left side in the 2 crosses over the abdomen to the right flank, emptying into catheter bag. When palpating the aforementioned areas of tenderness, there was no appreciated induration, guarding or rigidity) Extremity Exam: Positive: Normal pulses; Negative: Cyanosis, Edema, Tenderness, Swelling Neuro Exam: Positive: Normal Gait, Normal Speech, Other (No focal neurologic deficits appreciated) Psych Exam: Positive: Mental status NL, Oriented x 3 Ht / Wt Ht / Wt Height:5 Feet 11 Inches Weight: 85.200 Kg Vital Signs Vital Signs Date Time Temp Pulse Resp B/P (MAP) Pulse Ox O2 Delivery O2 Flow Rate FiO2 05/14/20 10:14 96.5 73 16 134/90 (105) 98 Laboratory Data Laboratory Tests Test 05/14/20 09:32 Blood Urea Nitrogen 30 MG/DL (7-18) H Creatinine 1.44 MG/DL (0.70-1.30) H Glomerular Filtration Rate 51.1 (>42) Fasting Glucose 80 MG/DL (70-100) Calcium Level 8.9 MG/DL (8.8-10.2) Total Bilirubin 0.3 MG/DL (0.2-1.0) Aspartate Amino Transf (AST/SGOT) 22 U/L (7-37) Alanine Aminotransferase (ALT/SGPT) 33 U/L (12-78) Total Protein 6.7 GM/DL (6.4-8.2) Sodium Level 140 MEQ/L (136-145) Albumin 3.7 GM/DL (3.2-5.2) Alkaline Phosphatase 73 U/L (45-117) Potassium Level 4.6 MEQ/L (3.5-5.1) Thyroid Stimulating Hormone (TSH) 1.270 uIU/ML (0.358-3.740) Chloride Level 107 MEQ/L (98-107) Carbon Dioxide Level 30 MEQ/L (21-32) Anion Gap 3 MEQ/L (8-16) L Laboratory Tests 05/14/20 09:32 Assessment/Plan ASSESSMENT Metastatic, biopsy-proven urothelial cancer with significant para-aortic, inguinal adenopathy as well as left pelvic wall involvement. Exact origin of malignancy has not been determined suspect near bladder. Presence of left nephrostomy tube. Wendie improved cancer related pain nonresponsive to analgesic therapy. MRI brain 03/12/2020 obtained for dizzy spells came back unremarkable. Follow-up CT chest, abdomen and pelvis 03/2020 showed a positive response. Patient is to receive his third administration of avelumab today (previously received doses on 04/16 and 04/30). Patient is slated to undergo a total left nephrectomy on 05/[address] Dietrich urology. As result of this upcoming surgery, he will skip his next scheduled avelumab dose in 2 weeks and, depending on how he is doing after the surgery, is tentatively scheduled to resume dosing on 06/11. Patient's blood work today was relatively unremarkable for any interval changes since his visit here last month. Of note, his neutrophils are within normal range today. We will follow-up with him in 6 weeks' time for an office visit. We will also do follow-up imaging in July 2020 to assess the current state of disease burden. Should he be doing well clinically and needs follow-up imaging studies show consistency and/or even more disease burden Miguel, we will likely then begin following up with the patient on an every 4-6 month basis. I am dictating this note on behalf of my attending physician Dr. Devorah Kirby M.D. Both Dr. Kirby and I examined the pt today and we collaboratively discussed the treatment plan moving forward. Dr. Kirby agreed with the the plan of care as documented in this report. Thank you. CC TO: CC TO: Primary Care Provider: Hui Scruggs DO Referring Provider: ELISHA Hays M.D, D.O. May 14, 2020 11:12 DEVORAH KIRBY MD May 14, 2020 18:02
--- NOTE | 2020-05-14 11:24 | ONC.PHACK ---
CHEMO ADMIN CHECKLIST Order Contains Pt ID: Name, Order on Chemo Order Form?: Yes Order Form Includes ALL: Correct Tx Day, Correct Date, Correct Cycle Number Pt ID on Order form Matches: Pt ID on PHA Label Med on Chemo OrderForm Matches: PHA Label, Med Used for Preparation [facility] May 14, 2020 11:24
[2020-06-11 08:12] LABS: BASO % 0.7 % (0.0-1.0); EOS # 0.2 10^3/uL (0.0-0.5); EOS % 5.3 % (0.0-3.0); HEMATOCRIT 38.7 % (42.0-52.0); HEMOGLOBIN 12.1 g/dl (13.5-17.5); LYMPH # 0.7 10^3/uL (1.5-5.0); LYMPH % 14.7 % (24.0-44.0); MEAN CORPUSCULAR HEMOGLOBIN 28.5 pg (27.0-33.0); MEAN CORPUSCULAR HGB CONC 31.3 g/dl (32.0-36.5); MEAN CORPUSCULAR VOLUME 91.3 fl (80.0-96.0); MONO # 0.5 10^3/uL (0.0-0.8); MONO % 10.8 % (0.0-5.0); NEUTROPHILS # 3.1 10^3/uL (1.5-8.5); NEUTROPHILS % 68.1 % (36.0-66.0); PLATELET COUNT, AUTOMATED 203 10^3/uL (150-450); RED BLOOD COUNT 4.24 10^6/uL (4.30-6.10); WHITE BLOOD COUNT 4.6 10^3/uL (4.0-10.0)
[2020-06-11 08:23] VITALS: BP 165/87
[2020-06-11 08:34] LABS: ALBUMIN 3.5 GM/DL (3.2-5.2); BILIRUBIN,TOTAL 0.3 MG/DL (0.2-1.0); CALCIUM LEVEL 8.6 MG/DL (8.8-10.2); CREATININE FOR GFR 1.48 MG/DL (0.70-1.30); GLOMERULAR FILTRATION RATE 49.5 (>42); POTASSIUM SERUM 3.9 MEQ/L (3.5-5.1); TOTAL PROTEIN 6.5 GM/DL (6.4-8.2)
[2020-06-11 08:44] LABS: FREE T4 1.16 NG/DL (0.76-1.46); THYROID STIMULATING HORMONE 1.14 uIU/ML (0.358-3.740)
--- NOTE | 2020-06-11 09:08 | ONC.PHACK ---
CHEMO ADMIN CHECKLIST Order Contains Pt ID: Name, Order on Chemo Order Form?: Yes Order Form Includes ALL: Correct Tx Day, Correct Date, Correct Cycle Number Pt ID on Order form Matches: Pt ID on PHA Label Med on Chemo OrderForm Matches: PHA Label, Med Used for Preparation [facility] Jun 11, 2020 09:07
[2020-06-25 08:49] LABS: EOS # 0.3 10^3/uL (0.0-0.5); EOS % 8.5 % (0.0-3.0); HEMATOCRIT 40.6 % (42.0-52.0); LYMPH # 0.6 10^3/uL (1.5-5.0); LYMPH % 14.1 % (24.0-44.0); MEAN CORPUSCULAR HEMOGLOBIN 28.7 pg (27.0-33.0); MEAN CORPUSCULAR VOLUME 89.6 fl (80.0-96.0); MONO # 0.5 10^3/uL (0.0-0.8); MONO % 11.6 % (0.0-5.0); NEUTROPHILS # 2.5 10^3/uL (1.5-8.5); NEUTROPHILS % 64.5 % (36.0-66.0); PLATELET COUNT, AUTOMATED 164 10^3/uL (150-450); RED BLOOD COUNT 4.53 10^6/uL (4.30-6.10); WHITE BLOOD COUNT 3.9 10^3/uL (4.0-10.0)
[2020-06-25 09:00] VITALS: BP 144/83
[2020-06-25 09:17] LABS: ALBUMIN 3.7 GM/DL (3.2-5.2); BILIRUBIN,TOTAL 0.3 MG/DL (0.2-1.0); CALCIUM LEVEL 8.8 MG/DL (8.8-10.2); CREATININE FOR GFR 1.56 MG/DL (0.70-1.30); GLOMERULAR FILTRATION RATE 46.5 (>42); POTASSIUM SERUM 4.4 MEQ/L (3.5-5.1); TOTAL PROTEIN 7.1 GM/DL (6.4-8.2)
[2020-06-25 09:27] LABS: FREE T4 1.05 NG/DL (0.76-1.46); THYROID STIMULATING HORMONE 1.1 uIU/ML (0.358-3.740)
--- NOTE | 2020-06-25 09:47 | MEDONCPDOC ---
Medical Oncology Office Note Date of Service: Jun 25, 2020 Diagnosis/Treatment History DIAGNOSIS AND TREATMENTS SUMMARY 1. Metastatic, clinical high-grade urothelial carcinoma with lymph node metast asis retroperitoneum and left pelvic sidewall disease. -Left periaortic lymph node biopsy 09/02/2019 showing metastatic urothelial carcinoma. PDL-1 0%. -MRI pelvis 09/30/2019 showing large irregular enhancing mass involving left bladder wall and distal left ureter with invasion of adjacent left pelvic soft tissues and extension to left pelvic sidewall. -PET CT scan showing hypermetabolic activity in the retroperitoneum and left hemipelvis consistent with adenopathy 2. Palliative cisplatin and gemcitabine started 10/10/2019 with follow-up imaging MRI pelvis 12/2019 showing a positive response. Completed 6 cycles 03/16/2020. Follow-up CT chest, abdomen and pelvis 03/23/2020 showing a positive response with previously noted bulky retroperitoneal adenopathy extending from the level of the left kidney into the left hemipelvis considerably improved from prior examination. 3. Started maintenance avelumab immunotherapy 04/16/2020 Interval History 74-year-old with metastatic urothelial carcinoma. Completed 6 cycles of cisplatin/gemcitabine chemotherapy 03/16/2020. Currently on avelumab maintenance immunotherapy. Dr. Calvo had planned to do a left nephrectomy and the patient underwent left robotic-assisted laparoscopic renal exploration on 05/26/2020. Nephrectomy could not be done as intraoperatively, there were findings of significant tissue edema and difficulty in making a safe dissection of renal hilum. He underwent replacement of left percutaneous nephrostomy tube. The patient reports that he developed lip swelling and chapped lips. He was prescribed acyclovir cream by Dr Scruggs but this has not helped ac cording to the patient. Allergies Coded Allergies: TAPE (Verified Allergy, Intermediate, blisters, 07/29/19) ciprofloxacin (Verified Allergy, Intermediate, hives, flushing, 02/19/19) Penicillins (Verified Allergy, Mild, PRURITIS, 02/19/19) Home Medications Active Scripts Oxycodone/Acetaminophen (Oxycodone-Acetaminophen 5-325) 1 Each Tablet, 1 TAB PO Q4H PRN for MODERATE/SEVERE PAIN (PS 5-10) MDD 6, #30 TAB Prov:CHANCE CALVO MD 05/27/20 Lorazepam (Lorazepam) 1 Mg Tablet, 1 MG PO BIDP PRN for ANXIETY MDD 2 tabs, #40 TAB Prov:ANNABEL BAXTER MD 03/30/20 Reported Medications Valacyclovir HCl (Valacyclovir) 1,000 Mg Tablet, 1 GRAM PO ONCE for 7 Days, #21 TAB 06/25/20 Amlodipine Besylate (Amlodipine Besylate) 5 Mg Tablet, 5 MG PO DAILY 05/19/20 Sertraline HCl (Sertraline HCl) 50 Mg Tablet, 50 MG PO DAILY 12/05/19 [Potasisum Citrite] No Conflict Check, 1620 MG ONCE A DAY for LOW POTASSIUM for 30 Days, #1 % 09/26/19 Tamsulosin Hcl (Tamsulosin HCl) 0.4 Mg Capsule, 0.4 MG PO QPM 09/20/19 Acetaminophen (Tylenol 8 Hour) 650 Mg Tablet.er, 650 MG PO Q8H PRN for PAIN 02/19/19 Fluticasone Propionate (Flonase Allergy Relief) 9.9 Ml [place].susp, 2 SPRAYS NA DAILY PRN for NASAL CONGESTION 02/19/19 Omeprazole (Omeprazole) 20 Mg Capsule.dr, 40 MG PO DAILY, CAP 02/19/19 Discontinued Scripts Cephalexin (Keflex) 500 Mg Capsule, 1 CAP PO TID for 10 Days, #30 CAP Prov:JUAN MIGUEL NOVAK MD 06/06/20 Past Medical History Past Medical History: THORACIC AND LUMBOSACRAL NEURITIS GERD OBSTRUCTIVE SLEEP APNEAmoderate Not using CPAP ALLERGIC RHINITIS HTN HX KIDNEY STONES NON-FUNCTIONAL LEFT KIDNEY Nocturia Q1 hour Past Surgical History: COLONOSCOPY 06/28/2018 ENDOSCOPY 07/04/2018 NEPHROSTOMY TUBE PLACEMENT 2019 URETER REPAIR 2018 BACK SURGERY 08/2018 TONSILS REMOVED VASECTOMY Lacrimal gland non-malignant left side Family History: Mother of heart failure age 91 Father of heart failure at age 26 Brother age 70 and good health Sister age 74 in good health Social History: Nonsmoker-previous smoker, quit 1979 nondrinker-previousy moderate to heavy drinker Has 2 son and 2 daughters 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, 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 Review of Systems General: Reports: Normal Appetite; Denies: Chills, Night Sweats, Fatigue, Malaise Constitutional: Reports: Normal appetite; Denies: Chills, Fever, Malaise, Night Sweats, Weakness, Fatigue, Weight Loss Eyes: Denies: Vision change HEENT: Reports: Other Symptoms (chapped and swollen lips); Denies: Head Aches, Dysphagia, Sinus Congestion (mild), Sore Throat Pulmonary: Denies: Dyspnea, Cough, Pleuritic Chest Pain Cardiovascular: Reports: Lt Headedness (dizzy spells once in awhile); Denies: Chest Pain, Palpitations, Edema Gastrointestinal: Reports: Abdominal Pain (occasional); Denies: Nausea, Vomiting, Diarrhea, Constipation, Melena, Hematochezia Genitourinary: Reports: Other Symptoms (some slight blood in his nephrostomy tube); Denies: Dysuria, Frequency, Incontinence Hematologic: Denies: Bruising, Bleeding Excessively Musculoskeletal: Reports: Back pain ([facility] Denies: Neck pain, Shoulder pain, Arm pain, Hand pain, Leg pain, Foot pain, Joint pain, Muscle pain, Spasms, Gout, Joint sweling, Muscle stiffness, Midthoracic pain Neurological: Denies: Numbness, Confusion Physical Examination General Exam: Positive: Alert, Cooperative, No Acute Distress, Oriented Times Three, Other (pleasant, elderly male) Eye Exam: Positive: Conjunctiva & lids normal; Negative: Sclera icteric ENT EXAM: Positive: Other ENT (lip swelling and peeling); Negative: Pharyngeal Edema Neck Exam: Positive: Supple; Negative: Thyromegaly, Lymphadenopathy Chest Exam: Positive: Clear to auscultation, Normal air movement, Other (port present right upper chest with no surrounding erythema, warmth, drainage, or ind uration); Negative: Rales, Rhonchi, Wheezing Heart Exam: Negative: Normal S2 (S2 is visibly prominent auscultating at the right parasternal second intercostal space) Abdomen Exam: Positive: BS Hyperactive, Tenderness (moderate in left lower quadrant, left inguinal area), Other (there is a nephrostomy tube in place on the left side in the 2 crosses over the abdomen to the right flank, emptying into catheter bag. When palpating the aforementioned areas of tenderness, there was no appreciated induration, guarding or rigidity) Extremity Exam: Positive: Normal pulses; Negative: Cyanosis, Edema, Tenderness, Swelling Neuro Exam: Positive: Normal Gait, Normal Speech, Other (No focal neurologic deficits appreciated) Psych Exam: Positive: Mental status NL, Oriented x 3 Ht / Wt Ht / Wt Height:5 Feet 11 Inches Weight: 86.300 Kg Vital Signs Vital Signs Date Time Temp Pulse Resp B/P (MAP) Pulse Ox O2 Delivery O2 Flow Rate FiO2 06/25/20 09:00 97.5 68 16 144/83 (103) 97 Room Air Laboratory Data Laboratory Tests Test 06/25/20 08:10 Assessment/Plan ASSESSMENT 75-year-old with metastatic urothelial cancer with significant para-aortic, inguinal adenopathy as well as left pelvic wall involvement. Exact origin of malignancy has not been determined suspect near bladder. Presence of left nephrostomy tube. Wendie improved cancer related pain nonresponsive to analgesic therapy. Follow-up CT chest, abdomen and pelvis 03/2020 showed a positive response. Currently on avelumab maintenance immunotherapy. For follow-up CT chest, abdomen and pelvis next month. Triamcinolone Steroid cream prescribed for lip swelling. CC TO: CC TO: Primary Care Provider: Hui Scruggs DO Referring Provider: ANNABEL Mast M.D, MD Jun 25, 2020 09:35
--- NOTE | 2020-06-25 10:44 | ONC.PHACK ---
CHEMO ADMIN CHECKLIST Order Contains Pt ID: Name, Order on Chemo Order Form?: Yes Order Form Includes ALL: Correct Tx Day, Correct Date, Correct Cycle Number Pt ID on Order form Matches: Pt ID on PHA Label Med on Chemo OrderForm Matches: PHA Label, Med Used for Preparation [facility] Jun 25, 2020 10:43
[2020-06-25 11:34] LABS: AMORPHOUS SEDIMENT SMALL (NEGATIVE); APPEARANCE, URINE CLOUDY (CLEAR); BACTERIA, URINE AUTO 1+ (NEGATIVE); BILIRUBIN, URINE AUTO NEGATIVE (NEGATIVE); BLOOD, URINE BLOOD 3+ (NEGATIVE); COLOR, URINE RED (YELLOW); GLUCOSE, URINE (UA) AUTO NEGATIVE (NEGATIVE); KETONE, URINE AUTO NEGATIVE (NEGATIVE); LEUKOCYTE ESTERASE, URINE AUTO 3+ (NEGATIVE); NITRITE, URINE AUTO NEGATIVE (NEGATIVE); PROTEIN, URINE AUTO 3+ mg/dL (NEGATIVE); RBC, URINE AUTO TNTC /HPF (0-3); SPECIFIC GRAVITY URINE AUTO 1.004 (1.002-1.035); SQUAMOUS EPITHELIAL CELL UR AU 1 /HPF (0-6); UROBILINOGEN, URINE AUTO 0.2 mg/dL (0.0-2.0); WBC, URINE AUTO TNTC /HPF (0-3)
[2020-06-25 11:35] LABS: APPEARANCE, URINE CLEAR (CLEAR); BACTERIA, URINE AUTO NEGATIVE (NEGATIVE); BILIRUBIN, URINE AUTO NEGATIVE (NEGATIVE); BLOOD, URINE BLOOD NEGATIVE (NEGATIVE); COLOR, URINE YELLOW (YELLOW); GLUCOSE, URINE (UA) AUTO NEGATIVE (NEGATIVE); KETONE, URINE AUTO NEGATIVE (NEGATIVE); LEUKOCYTE ESTERASE, URINE AUTO NEGATIVE (NEGATIVE); NITRITE, URINE AUTO NEGATIVE (NEGATIVE); PROTEIN, URINE AUTO 1+ mg/dL (NEGATIVE); RBC, URINE AUTO 3 /HPF (0-3); SPECIFIC GRAVITY URINE AUTO 1.021 (1.002-1.035); SQUAMOUS EPITHELIAL CELL UR AU 0 /HPF (0-6); UROBILINOGEN, URINE AUTO 0.2 mg/dL (0.0-2.0); WBC, URINE AUTO 1 /HPF (0-3)
[2020-07-09 08:53] VITALS: BP 151/92
[2020-07-09 09:36] LABS: BASO % 0.4 % (0.0-1.0); EOS # 0.3 10^3/uL (0.0-0.5); EOS % 6.8 % (0.0-3.0); HEMATOCRIT 40.2 % (42.0-52.0); HEMOGLOBIN 12.8 g/dl (13.5-17.5); LYMPH # 0.6 10^3/uL (1.5-5.0); LYMPH % 12.5 % (24.0-44.0); MEAN CORPUSCULAR HEMOGLOBIN 28.8 pg (27.0-33.0); MEAN CORPUSCULAR HGB CONC 31.8 g/dl (32.0-36.5); MEAN CORPUSCULAR VOLUME 90.3 fl (80.0-96.0); MONO # 0.5 10^3/uL (0.0-0.8); MONO % 10.8 % (0.0-5.0); NEUTROPHILS # 3.3 10^3/uL (1.5-8.5); NEUTROPHILS % 69.1 % (36.0-66.0); PLATELET COUNT, AUTOMATED 174 10^3/uL (150-450); RED BLOOD COUNT 4.45 10^6/uL (4.30-6.10); WHITE BLOOD COUNT 4.7 10^3/uL (4.0-10.0)
[2020-07-09 09:37] LABS: ALBUMIN 3.6 GM/DL (3.2-5.2); BILIRUBIN,TOTAL 0.2 MG/DL (0.2-1.0); CALCIUM LEVEL 8.9 MG/DL (8.8-10.2); CREATININE FOR GFR 1.74 MG/DL (0.70-1.30); POTASSIUM SERUM 4.3 MEQ/L (3.5-5.1); TOTAL PROTEIN 6.8 GM/DL (6.4-8.2)
[2020-07-09 10:13] LABS: FREE T4 1.07 NG/DL (0.76-1.46); THYROID STIMULATING HORMONE 1.33 uIU/ML (0.358-3.740)
[2020-07-23 08:53] VITALS: BP 141/85
[2020-07-23 09:04] LABS: BASO % 0.6 % (0.0-1.0); EOS # 0.3 10^3/uL (0.0-0.5); EOS % 4.7 % (0.0-3.0); HEMATOCRIT 39.6 % (42.0-52.0); HEMOGLOBIN 12.8 g/dl (13.5-17.5); LYMPH # 0.7 10^3/uL (1.5-5.0); LYMPH % 9.2 % (24.0-44.0); MEAN CORPUSCULAR HEMOGLOBIN 28.9 pg (27.0-33.0); MEAN CORPUSCULAR HGB CONC 32.3 g/dl (32.0-36.5); MEAN CORPUSCULAR VOLUME 89.4 fl (80.0-96.0); MONO # 0.7 10^3/uL (0.0-0.8); MONO % 10.2 % (0.0-5.0); NEUTROPHILS # 5.3 10^3/uL (1.5-8.5); NEUTROPHILS % 74.9 % (36.0-66.0); PLATELET COUNT, AUTOMATED 183 10^3/uL (150-450); RED BLOOD COUNT 4.43 10^6/uL (4.30-6.10); WHITE BLOOD COUNT 7.1 10^3/uL (4.0-10.0)
--- NOTE | 2020-07-23 09:14 | MEDONCPDOC ---
Medical Oncology Office Note Date of Service: Jul 23, 2020 Diagnosis/Treatment History DIAGNOSIS AND TREATMENTS SUMMARY 1. Metastatic, clinical high-grade urothelial carcinoma with lymph node metast asis retroperitoneum and left pelvic sidewall disease. -Left periaortic lymph node biopsy 09/02/2019 showing metastatic urothelial carcinoma. PDL-1 0%. -MRI pelvis 09/30/2019 showing large irregular enhancing mass involving left bladder wall and distal left ureter with invasion of adjacent left pelvic soft tissues and extension to left pelvic sidewall. -PET CT scan showing hypermetabolic activity in the retroperitoneum and left hemipelvis consistent with adenopathy 2. Palliative cisplatin and gemcitabine started 10/10/2019 with follow-up imaging MRI pelvis 12/2019 showing a positive response. Completed 6 cycles 03/16/2020. Follow-up CT chest, abdomen and pelvis 03/23/2020 showing a positive response with previously noted bulky retroperitoneal adenopathy extending from the level of the left kidney into the left hemipelvis considerably improved from prior examination. 3. Started maintenance avelumab immunotherapy 04/16/2020 Interval History 75-year-old on maintenance avelumab immunotherapy for metastatic urothelial carcinoma. Groin pain every now and then comes and goes, takes tylenol occasionally. Referred to Dr. Weinstein nephrology for decreased kidney function on last visit here. Avelumab was also put on hold that time. Apparently cleared to restart avelumab. Allergies Coded Allergies: TAPE (Verified Allergy, Intermediate, blisters, 07/29/19) ciprofloxacin (Verified Allergy, Intermediate, hives, flushing, 02/19/19) Penicillins (Verified Allergy, Mild, PRURITIS, 02/19/19) Home Medications Reported Medications Amlodipine Besylate (Amlodipine Besylate) 5 Mg Tablet, 5 MG PO DAILY 05/19/20 Sertraline HCl (Sertraline HCl) 50 Mg Tablet, 50 MG PO DAILY 12/05/19 [Potasisum Citrite] No Conflict Check, 1620 MG ONCE A DAY for LOW POTASSIUM for 30 Days, #1 % 09/26/19 Tamsulosin Hcl (Tamsulosin HCl) 0.4 Mg Capsule, 0.4 MG PO QPM 09/20/19 Acetaminophen (Tylenol 8 Hour) 650 Mg Tablet.er, 650 MG PO Q8H PRN for PAIN 02/19/19 Fluticasone Propionate (Flonase Allergy Relief) 9.9 Ml [place].susp, 2 SPRAYS NA DAILY PRN for NASAL CONGESTION 02/19/19 Omeprazole (Omeprazole) 20 Mg Capsule.dr, 40 MG PO DAILY, CAP 02/19/19 Discontinued Reported Medications Valacyclovir HCl (Valacyclovir) 1,000 Mg Tablet, 1 GRAM PO ONCE for 7 Days, #21 TAB 06/25/20 Discontinued Scripts Levofloxacin (Levofloxacin) 500 Mg Tablet, 1 TAB PO DAILY for 10 Days, #10 TAB Prov:ANNABEL BAXTER MD 06/29/20 Triamcinolone Acetonide (Oralone) 5 Gm Paste..g., 0.1 % MT BID, #15 GM Prov:ANNABEL BAXTER MD 06/25/20 Oxycodone/Acetaminophen (Oxycodone-Acetaminophen 5-325) 1 Each Tablet, 1 TAB PO Q4H PRN for MODERATE/SEVERE PAIN (PS 5-10) MDD 6, #30 TAB Prov:CHANCE CALVO MD 05/27/20 Lorazepam (Lorazepam) 1 Mg Tablet, 1 MG PO BIDP PRN for ANXIETY MDD 2 tabs, #40 TAB Prov:ANNABEL BAXTER MD 03/30/20 Past Medical History Past Medical History: THORACIC AND LUMBOSACRAL NEURITIS GERD OBSTRUCTIVE SLEEP APNEAmoderate Not using CPAP ALLERGIC RHINITIS HTN HX KIDNEY STONES NON-FUNCTIONAL LEFT KIDNEY Nocturia Q1 hour Past Surgical History: COLONOSCOPY 06/28/2018 ENDOSCOPY 07/04/2018 NEPHROSTOMY TUBE PLACEMENT 2018 URETER REPAIR 2018 BACK SURGERY 08/2018 TONSILS REMOVED VASECTOMY Lacrimal gland non-malignant left side Family History: Mother of heart failure age 91 Father of heart failure at age 26 Brother age 70 and good health Sister age 74 in good health Social History: Nonsmoker-previous smoker, quit 1979 nondrinker-previousy moderate to heavy drinker Has 2 son and 2 daughters 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, 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 Review of Systems General: Reports: Normal Appetite; Denies: Chills, Night Sweats, Fatigue, Malaise Constitutional: Reports: Normal appetite; Denies: Chills, Fever, Malaise, Night Sweats, Weakness, Fatigue, Weight Loss Eyes: Denies: Vision change HEENT: Denies: Head Aches, Dysphagia, Sinus Congestion (mild), Sore Throat, Other Symptoms Pulmonary: Denies: Dyspnea, Cough, Pleuritic Chest Pain Cardiovascular: Reports: Lt Headedness (dizzy spells once in awhile); Denies: Chest Pain, Palpitations, Edema Gastrointestinal: Reports: Abdominal Pain (occasional); Denies: Nausea, Vomiting, Diarrhea, Constipation, Melena, Hematochezia Genitourinary: Reports: Frequency, Other Symptoms (some slight blood in his nephrostomy tube); Denies: Dysuria, Incontinence Hematologic: Denies: Bruising, Bleeding Excessively Musculoskeletal: Reports: Back pain (right flank area usually occuring at night); Denies: Neck pain, Shoulder pain, Arm pain, Hand pain, Leg pain, Foot pain, Joint pain, Muscle pain, Spasms, Gout, Joint sweling, Muscle stiffness, Midthoracic pain Neurological: Denies: Numbness, Confusion Physical Examination General Exam: Positive: Alert, Cooperative, No Acute Distress, Oriented Times Three, Other (pleasant, elderly male) Eye Exam: Positive: Conjunctiva & lids normal; Negative: Sclera icteric ENT EXAM: Negative: Pharyngeal Edema Neck Exam: Positive: Supple; Negative: Thyromegaly, Lymphadenopathy Chest Exam: Positive: Clear to auscultation, Normal air movement; Negative: Rales, Rhonchi, Wheezing Heart Exam: Negative: Normal S2 (S2 is visibly prominent auscultating at the right parasternal second intercostal space) Abdomen Exam: Positive: Normal bowel sounds, Tenderness (moderate in left lower quadrant, left inguinal area); Negative: Mass Extremity Exam: Positive: Normal pulses; Negative: Cyanosis, Edema, Tenderness, Swelling Skin Exam: Positive: Nl turgor and temperature; Negative: Rash Neuro Exam: Positive: Normal Gait, Normal Speech, Other (No focal neurologic deficits appreciated) Psych Exam: Positive: Mental status NL, Oriented x 3 Ht / Wt Ht / Wt Height:5 Feet 11 Inches Weight: 88.100 Kg Vital Signs Vital Signs Date Time Temp Pulse Resp B/P (MAP) Pulse Ox O2 Delivery O2 Flow Rate FiO2 07/23/20 08:53 97.1 65 16 141/85 (103) 97 Room Air Laboratory Data Laboratory Tests Test 07/23/20 08:51 Assessment/Plan ASSESSMENT 75-year-old with metastatic urothelial cancer with significant para-aortic, inguinal adenopathy as well as left pelvic wall involvement. Exact origin of malignancy has not been determined suspect near bladder. Presence of left nephrostomy tube. Wendie improved cancer related pain nonresponsive to analgesic therapy. Follow-up CT chest, abdomen and pelvis 03/2020 showed a positive response. Currently on avelumab maintenance immunotherapy. For follow-up CT chest, abdomen and pelvis this month. On last visit here, kidney function was decreasing. Avelumab was put on hold. The patient was referred to nephrology. Apparently cleared to restart avelumab. Creatinine level pending as of dictation time. We will give Avelumab if this should come back improved. CC TO: CC TO: Primary Care Provider: Hui Scruggs DO Referring Provider: ANNABEL Mast M.D, MD Jul 23, 2020 09:02
[2020-07-23 09:31] LABS: ALBUMIN 3.5 GM/DL (3.2-5.2); BILIRUBIN,TOTAL 0.3 MG/DL (0.2-1.0); CREATININE FOR GFR 1.45 MG/DL (0.70-1.30); GLOMERULAR FILTRATION RATE 50.6 (>42); POTASSIUM SERUM 4.6 MEQ/L (3.5-5.1); TOTAL PROTEIN 6.8 GM/DL (6.4-8.2)
[2020-07-23 09:41] LABS: FREE T4 1.11 NG/DL (0.76-1.46); THYROID STIMULATING HORMONE 1.2 uIU/ML (0.358-3.740)
--- NOTE | 2020-07-23 10:14 | ONC.PHACK ---
CHEMO ADMIN CHECKLIST Order Contains Pt ID: Name, Order on Chemo Order Form?: Yes Order Form Includes ALL: Correct Tx Day, Correct Date, Correct Cycle Number Pt ID on Order form Matches: Pt ID on PHA Label Med on Chemo OrderForm Matches: PHA Label, Med Used for Preparation [facility] Jul 23, 2020 10:14
[2020-08-10 09:09] VITALS: BP 130/79
[2020-08-10 09:18] LABS: BASO % 0.5 % (0.0-1.0); EOS # 0.3 10^3/uL (0.0-0.5); EOS % 4.4 % (0.0-3.0); HEMATOCRIT 40.3 % (42.0-52.0); HEMOGLOBIN 12.7 g/dl (13.5-17.5); LYMPH # 0.5 10^3/uL (1.5-5.0); LYMPH % 8.2 % (24.0-44.0); MEAN CORPUSCULAR HEMOGLOBIN 27.8 pg (27.0-33.0); MEAN CORPUSCULAR HGB CONC 31.5 g/dl (32.0-36.5); MEAN CORPUSCULAR VOLUME 88.2 fl (80.0-96.0); MONO # 0.6 10^3/uL (0.0-0.8); MONO % 9.8 % (2.0-8.0); NEUTROPHILS # 4.7 10^3/uL (1.5-8.5); NEUTROPHILS % 76.8 % (36.0-66.0); PLATELET COUNT, AUTOMATED 205 10^3/uL (150-450); RED BLOOD COUNT 4.57 10^6/uL (4.30-6.10); WHITE BLOOD COUNT 6.1 10^3/uL (4.0-10.0)
[2020-08-10 09:42] LABS: ALBUMIN 3.4 GM/DL (3.2-5.2); BILIRUBIN,TOTAL 0.3 MG/DL (0.2-1.0); CALCIUM LEVEL 8.5 MG/DL (8.8-10.2); CREATININE FOR GFR 1.68 MG/DL (0.70-1.30); GLOMERULAR FILTRATION RATE 42.7 (>42); POTASSIUM SERUM 4.2 MEQ/L (3.5-5.1); TOTAL PROTEIN 6.6 GM/DL (6.4-8.2)
[2020-08-10 09:45] LABS: FREE T4 1.07 NG/DL (0.76-1.46)
[2020-08-10 13:54] LABS: THYROID STIMULATING HORMONE 1.3 uIU/ML (0.358-3.740)
[2020-08-12 13:14] VITALS: BP 160/92
[2020-08-12 14:57] LABS: APPEARANCE, URINE MANUAL CLOUDY (CLEAR); BASO # 0.1 10^3/uL (0.0-0.2); BASO % 0.7 % (0.0-1.0); EOS # 0.3 10^3/uL (0.0-0.5); EOS % 4.2 % (0.0-3.0); HEMATOCRIT 42.6 % (42.0-52.0); HEMOGLOBIN 13.5 g/dl (13.5-17.5); LYMPH # 0.5 10^3/uL (1.5-5.0); LYMPH % 6.4 % (24.0-44.0); MEAN CORPUSCULAR HGB CONC 31.7 g/dl (32.0-36.5); MEAN CORPUSCULAR VOLUME 88.4 fl (80.0-96.0); MONO # 0.8 10^3/uL (0.0-0.8); NEUTROPHILS % 78.2 % (36.0-66.0); PLATELET COUNT, AUTOMATED 195 10^3/uL (150-450); RED BLOOD COUNT 4.82 10^6/uL (4.30-6.10); WHITE BLOOD COUNT 7.7 10^3/uL (4.0-10.0)
[2020-08-12 14:58] LABS: COLOR, URINE MANUAL RED (YELLOW)
[2020-08-12 15:00] LABS: BILIRUBIN, URINE MANUAL OBSCURED (NEGATIVE); BLOOD URINE MANUAL POSITIVE (NEGATIVE); GLUCOSE, URINE (UA) MANUAL NEGATIVE (NEGATIVE); KETONE, URINE MANUAL OBSCURED mg/dL (NEGATIVE); LEUKOCYTE ESTERASE, URINE MAN OBSCURED (NEGATIVE); NITRITE, URINE MANUAL OBSCURED (NEGATIVE); PROTEIN, URINE MANUAL 3+ mg/dL (NEGATIVE); UROBILINOGEN, URINE MANUAL OBSCURED mg/dl (NORMAL)
[2020-08-12 15:04] LABS: BACTERIA, URINE SMALL AMOUNT; HYALINE CAST, URINE NONE SEEN /lpf (0-1); RBC, URINE TNTC /hpf (0-3); SQUAMOUS EPITHELIAL CELL URINE NONE SEEN /hpf (SMALL AMT); WBC, URINE 0-1 /hpf (0-3)
[2020-08-12 16:26] LABS: PERCENT SATURATION 10.3 % (19.7-50.0)
--- NOTE | 2020-08-12 17:21 | MEDONCPDOC ---
Medical Oncology Office Note Date of Service: Aug 12, 2020 Diagnosis/Treatment History DIAGNOSIS Metastatic high-grade urothelial carcinoma with lymph node metastasis retroperitoneum and left pelvic sidewall disease. TREATMENT SUMMARY 1. Metastatic high-grade urothelial carcinoma with lymph node metastasis retroperitoneum and left pelvic sidewall disease. -Left periaortic lymph node biopsy 09/02/2019 showing metastatic urothelial carcinoma. PDL-1 0%. -MRI pelvis 09/30/2019 showing large irregular enhancing mass involving left bladder wall and distal left ureter with invasion of adjacent left pelvic soft tissues and extension to left pelvic sidewall. -PET CT scan showing hypermetabolic activity in the retroperitoneum and left hemipelvis consistent with adenopathy 2. Palliative cisplatin and gemcitabine started 10/10/2019 with follow-up imaging MRI pelvis 12/2019 showing a positive response. Completed 6 cycles 03/16/2020. -Follow-up CT chest, abdomen and pelvis 03/23/2020 showing a positive response with previously noted bulky retroperitoneal adenopathy extending from the level of the left kidney into the left hemipelvis considerably improved from prior examination. 3. Started maintenance avelumab immunotherapy 04/16/2020. Interval History 75 year old with metastatic urothelial carcinoma currently on avelumab immunotherapy. Reports mild discomfort and swelling on left groin/pelvic area. Also concerned about gross hematuria which he noted today. Allergies Coded Allergies: TAPE (Verified Allergy, Intermediate, blisters, 07/29/19) ciprofloxacin (Verified Allergy, Intermediate, hives, flushing, 02/19/19) Penicillins (Verified Allergy, Mild, PRURITIS, 02/19/19) Home Medications Reported Medications Amlodipine Besylate (Amlodipine Besylate) 5 Mg Tablet, 5 MG PO DAILY 05/19/20 Sertraline HCl (Sertraline HCl) 50 Mg Tablet, 50 MG PO DAILY 12/05/19 [Potasisum Citrite] No Conflict Check, 1620 MG ONCE A DAY for LOW POTASSIUM for 30 Days, #1 % 09/26/19 Tamsulosin Hcl (Tamsulosin HCl) 0.4 Mg Capsule, 0.4 MG PO QPM 09/20/19 Acetaminophen (Tylenol 8 Hour) 650 Mg Tablet.er, 650 MG PO Q8H PRN for PAIN 02/19/19 Fluticasone Propionate (Flonase Allergy Relief) 9.9 Ml [place].susp, 2 SPRAYS NA DAILY PRN for NASAL CONGESTION 02/19/19 Omeprazole (Omeprazole) 20 Mg Capsule.dr, 40 MG PO DAILY, CAP 02/19/19 Past Medical History Past Medical History: THORACIC AND LUMBOSACRAL NEURITIS GERD OBSTRUCTIVE SLEEP APNEAmoderate Not using CPAP ALLERGIC RHINITIS HTN HX KIDNEY STONES NON-FUNCTIONAL LEFT KIDNEY Nocturia Q1 hour Past Surgical History: COLONOSCOPY 06/28/2018 ENDOSCOPY 07/04/2018 NEPHROSTOMY TUBE PLACEMENT 2018 URETER REPAIR 2018 BACK SURGERY 08/2018 TONSILS REMOVED VASECTOMY Lacrimal gland non-malignant left side Family History: Mother of heart failure age 91 Father of heart failure at age 26 Brother age 70 and good health Sister age 74 in good health Social History: Nonsmoker-previous smoker, quit 1979 nondrinker-previousy moderate to heavy drinker Has 2 son and 2 daughters 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, 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 Review of Systems General: Reports: Normal Appetite; Denies: Chills, Night Sweats, Fatigue, Malaise Constitutional: Reports: Normal appetite; Denies: Chills, Fever, Malaise, Night Sweats, Weakness, Fatigue, Weight Loss Eyes: Denies: Pain, Vision change, Conjunctivae inflammation, Eyelid inflammation, Redness HEENT: Denies: Head Aches, Dysphagia, Sinus Congestion (mild), Sore Throat, Other Symptoms Pulmonary: Denies: Dyspnea, Cough, Pleuritic Chest Pain Cardiovascular: Reports: Lt Headedness (dizzy spells once in awhile); Denies: Chest Pain, Palpitations, Edema Gastrointestinal: Reports: Abdominal Pain (occasional); Denies: Nausea, Vomiting, Diarrhea, Constipation, Melena, Hematochezia Genitourinary: Reports: Frequency, Hematuria, Other Symptoms (mild swelling and discomfort in left groin/pelvic area); Denies: Dysuria, Incontinence Hematologic: Denies: Bruising, Bleeding Excessively Musculoskeletal: Reports: Back pain (right flank area usually occuring at night); Denies: Neck pain, Shoulder pain, Arm pain, Hand pain, Leg pain, Foot pain, Joint pain, Muscle pain, Spasms, Gout, Joint sweling, Muscle stiffness, Midthoracic pain Neurological: Denies: Numbness, Confusion Physical Examination ECOG PERFORMANCE STATUS: 0 General Exam: Positive: Alert, Cooperative, No Acute Distress, Oriented Times Three, Other (pleasant, elderly male) Eye Exam: Positive: PERRLA, Conjunctiva & lids normal; Negative: Sclera icteric ENT EXAM: Positive: Atraumatic; Negative: Pharyngeal Edema Neck Exam: Positive: Supple; Negative: Thyromegaly, Lymphadenopathy Chest Exam: Positive: Clear to auscultation, Normal air movement; Negative: Rales, Rhonchi, Wheezing, Diminished Heart Exam: Positive: Rate Normal, Normal S1, Normal S2; Negative: Gallops, Murmurs Abdomen Exam: Positive: Normal bowel sounds, Tenderness (moderate in left lower quadrant, left inguinal area); Negative: Mass Extremity Exam: Negative: Clubbing, Cyanosis, Edema, Tenderness, Swelling Skin Exam: Positive: Nl turgor and temperature; Negative: Rash Neuro Exam: Positive: Normal Gait, Normal Speech, Other (No focal neurologic deficits appreciated) Psych Exam: Positive: Mental status NL, Oriented x 3 Ht / Wt Ht / Wt Height:5 Feet 11 Inches Weight: 89.900 Kg Vital Signs Vital Signs Date Time Temp Pulse Resp B/P (MAP) Pulse Ox O2 Delivery O2 Flow Rate FiO2 08/12/20 13:14 97.4 72 16 160/92 (114) 95 Room Air Laboratory Data Laboratory Tests Test 08/10/20 08:45 Blood Urea Nitrogen 35 MG/DL (7-18) H Creatinine 1.68 MG/DL (0.70-1.30) H Glomerular Filtration Rate 42.7 (>42) Fasting Glucose 133 MG/DL (70-100) H Calcium Level 8.5 MG/DL (8.8-10.2) L Total Bilirubin 0.3 MG/DL (0.2-1.0) Aspartate Amino Transf (AST/SGOT) 56 U/L (7-37) H Alanine Aminotransferase (ALT/SGPT) 90 U/L (12-78) H Total Protein 6.6 GM/DL (6.4-8.2) Sodium Level 140 MEQ/L (136-145) Albumin 3.4 GM/DL (3.2-5.2) Alkaline Phosphatase 107 U/L (45-117) Potassium Level 4.2 MEQ/L (3.5-5.1) Thyroid Stimulating Hormone (TSH) 1.300 uIU/ML (0.358-3.740) Chloride Level 107 MEQ/L (98-107) Carbon Dioxide Level 29 MEQ/L (21-32) Anion Gap 4 MEQ/L (8-16) L Laboratory Tests 08/10/20 08:45 Assessment/Plan ASSESSMENT 75-year-old with metastatic urothelial cancer with significant para-aortic, inguinal adenopathy as well as left pelvic wall involvement. Exact origin of malignancy has not been determined suspect near bladder. Presence of left nephrostomy tube. Follow-up CT chest, abdomen and pelvis 03/2020 showed a positive response. Currently on avelumab maintenance immunotherapy. CT chest, abdomen and pelvis 07/30/2020 showed mildly increased soft tissue at the left side of the bladder/UVJ concerning for active neoplasm as well as left groin nodes which appear slightly more prominent than prior examination. Discussed that options include continuing with avelumab as most recent CT scan only showed mild disease progression. Or alternatively switch to another regimen such as docetaxel or paclitaxel chemotherapy or enfortumab which has been recently approved by the FDA for locally advanced or metastatic urothelial carcinoma who have progressed on both [place] based chemotherapy and immunotherapy. Risks include skin rash, periphe ral neuropathy, hyperglycemia and ocular toxicities. We also talked about long-term prognosis of his condition which is an incurable condition and current goal of treatment would be palliative and to extend life expectancy. He has decided to go ahead with enfortumab treatment. For hematuria, we will refer him back to Dr. Dietrich. Will also check for UTI with urinalysis and urine C/S. CC TO: CC TO: Primary Care Provider: Hui Scruggs DO Referring Provider: ANNABEL Mast M.D, MD Aug 12, 2020 13:30
[~2020-08-31] VITALS: Ht 180.3 cm; Wt 89.9 kg
[~2020-08-31 08:00] MED LIST changes: +ACETAMINOPHEN 650 MG PO PO ONE; +ACETAMINOPHEN TAB 650MG DOSE (2X325MG) PO ONE; +ALBUTEROL SULFATE (2.5MG/0.5ML) NEB INH PRN; +CISPLATIN IV ONE; +CISPLATIN ONE; +ENFORTUMAB VEDOTIN EJFV IV ONE; +EPINEPHrine (1MG/ML) IV IM PRN; +FAMOTIDINE IV BAG 20 MG IV PRN; +FILGRASTIM 480 MCG/0.8 ML SYRINGE (J1442) As Ordered ONE; +FILGRASTIM 480 MCG/0.8 ML SYRINGE (J1442) SC ONE; +FOSAPREPITANT DIMEGLUMINE As Ordered ONE; +FOSAPREPITANT DIMEGLUMINE ONE; +FOSAPREPITANT PERIPHERAL LINE 30 MIN INFUSION (PREMIX) IV ONE; +FOSAPREPITANT PERIPHERAL LINE 30 MIN INFUSION IV ONE; +GEMCITABINE IV ONE; +GEMCITABINE ONE; +MAG SULF IV ONE; +MAGNESIUM SULFATE 1GM/2ML (8MEQ/2ML) VIAL ONE; +NACL As Ordered ONE; +NACL ONE; +NORCO, ANEXSIA 5/325MG TABLET (HYDROcodone/ACETAMINOPHEN) PO ONE; +NS 1,000 ML IV PRN; +NS IV ONE; +OMEP-221 PO; +ONDANSETRON 4MG/2ML VIAL IV ONE; +PALONOSETRON 0.25MG/5ML VIAL (ALOXI) (FOR ONCOLOGY) As Ordered ONE; +PALONOSETRON 250 MCG IV IV ONE; +PEGFILGRASTIM 6MG/0.6ML ONPRO KIT (J2505 PER 6MG) (FOR ONCOLOGY) SC ONE; +POTA10808 PO; +PROCHLORPERAZINE 10 MG PO PO ONE; +SODIUM CHLORIDE 0.9% INJ 10 ML SYR IV PRN; +[UNRECOGNIZED DRUG - OTHER] IV ONE; +dexameTHASONE 10 MG IV IV ONE; +dexameTHASONE 4 MG/ML 1ML VIAL (J1100 PER 1MG) As Ordered ONE; +dexameTHASONE 4 MG/ML 1ML VIAL (J1100 PER 1MG) IV ONE; +diphenhydrAMINE (50MG/ML) IV IV PRN; +diphenhydrAMINE 25 MG PO PO ONE; +diphenhydrAMINE 25MG CAP PO ONE; +methylPREDNISolone (125 MG/2 ML) IV IV PRN
== END | disposition home or self-care (01) ==
LOC: M ONCM 09-20 12:59
PROVIDERS: ATTEND Internal Medicine Medical Oncology
DX: Z51.11 Encounter for antineoplastic chemotherapy (principal); C68.0 Malignant neoplasm of urethra; C77.9 Secondary and unspecified malignant neoplasm of lymph node, unspecified; Z96.0 Presence of urogenital implants; G89.3 Neoplasm related pain (acute) (chronic); I10 Essential (primary) hypertension; N28.89 Other specified disorders of kidney and ureter; K21.9 Gastro-esophageal reflux disease without esophagitis; G47.30 Sleep apnea, unspecified; J30.2 Other seasonal allergic rhinitis; M54.14 Radiculopathy, thoracic region; M54.17 Radiculopathy, lumbosacral region; Z88.0 Allergy status to penicillin; Z88.8 Allergy status to other drugs, medicaments and biological substances; Z79.899 Other long term (current) drug therapy; Z51.89 Encounter for other specified aftercare
CPT/HCPCS: 36415; 36591; 80048; 80053; 81000; 81001; 82378; 82728; 83540; 83550; 83735; 84439; 84443; 84466; 85025; 85027; 85049; 85055; 85610; 85730; 87086; 87088; 87186; 87340; 96366; 96367; 96368; 96372; 96375; 96377; 96413; 96415; 96417; 96523; G0463; J1100; J1442; J1453; J1642; J2405; J2469; J2505; J3475; J9023; J9060; J9201

== ENCOUNTER → 2020-08-31 | Outpatient (CLI) | payer BC ==
[~2020-08-31] MED LIST changes: -GENTAMICIN 400 MG in D5W 100 ML IV ONE; -GENTAMICIN IV STA; -ISOVUE-300 61% 50ML VIAL As Ordered ONE; -LIDOCAINE 1% MDV 20ML VIAL As Ordered ONE
--- NOTE | 2020-08-31 09:55 | REP ---
INDICATION: RIGHT UPPER QUADRANT PAIN. COMPARISON: None. TECHNIQUE: Real-time sonographic evaluation of right upper quadrant performed. FINDINGS: SMALL GALLSTONES ARE SEEN IN THE NECK OF THE GALLBLADDER. THERE IS FOCAL ADENOMYOMATOSIS OF THE GALLBLADDER WALL ANTERIORLY. THERE IS MILD GALLBLADDER WALL THICKENING UP TO 5 MM. PATIENT IS TENDER AT THE SITE OF THE GALLBLADDER.. There is no intrahepatic or extrahepatic biliary dilatation, common bile duct measures 2 mm in maximum diameter. A cystic structure is seen in the liver centrally measuring 2.4 x 1.8 x 2.9 cm. The pancreas demonstrates homogeneous echotexture with no gross mass. The right kidney demonstrates no hydronephrosis, with a normal size of 14.2 cm in length. There are 2 adjacent cystic structures in the lower pole of the right kidney both measuring 1.4 cm in there is trace free fluid seen along the dome of the liver. IMPRESSION: Subcentimeter stones in the neck of the gallbladder with mild gallbladder wall thickening. There is tenderness at that location. Cholecystitis is not excluded. No biliary dilatation. Trace free fluid along the dome of the liver. <Electronically signed by Jimbo Dumas > 08/31/20 [id number]
== END ==
LOC: M RAD 08:37
PROVIDERS: ATTEND Family Medicine
DX: R10.9 Unspecified abdominal pain (principal)

== ENCOUNTER → 2020-09-07 | Outpatient (CLI) | payer BC ==
[~2020-09-07] MED LIST changes: -ACETAMINOPHEN 650 MG PO PO ONE; -ACETAMINOPHEN TAB 650MG DOSE (2X325MG) PO ONE; -ALBUTEROL SULFATE (2.5MG/0.5ML) NEB INH PRN; -CISPLATIN IV ONE; -CISPLATIN ONE; -ENFORTUMAB VEDOTIN EJFV IV ONE; -EPINEPHrine (1MG/ML) IV IM PRN; -FAMOTIDINE IV BAG 20 MG IV PRN; -FILGRASTIM 480 MCG/0.8 ML SYRINGE (J1442) As Ordered ONE; -FILGRASTIM 480 MCG/0.8 ML SYRINGE (J1442) SC ONE; -FOSAPREPITANT DIMEGLUMINE As Ordered ONE; -FOSAPREPITANT DIMEGLUMINE ONE; -FOSAPREPITANT PERIPHERAL LINE 30 MIN INFUSION (PREMIX) IV ONE; -FOSAPREPITANT PERIPHERAL LINE 30 MIN INFUSION IV ONE; -GEMCITABINE IV ONE; -GEMCITABINE ONE; -MAG SULF IV ONE; -MAGNESIUM SULFATE 1GM/2ML (8MEQ/2ML) VIAL ONE; -NACL As Ordered ONE; -NACL ONE; -NORCO, ANEXSIA 5/325MG TABLET (HYDROcodone/ACETAMINOPHEN) PO ONE; -NS 1,000 ML IV PRN; -NS IV ONE; -ONDANSETRON 4MG/2ML VIAL IV ONE; -PALONOSETRON 0.25MG/5ML VIAL (ALOXI) (FOR ONCOLOGY) As Ordered ONE; -PALONOSETRON 250 MCG IV IV ONE; -PEGFILGRASTIM 6MG/0.6ML ONPRO KIT (J2505 PER 6MG) (FOR ONCOLOGY) SC ONE; -PROCHLORPERAZINE 10 MG PO PO ONE; -SODIUM CHLORIDE 0.9% INJ 10 ML SYR IV PRN; -[UNRECOGNIZED DRUG - OTHER] IV ONE; -dexameTHASONE 10 MG IV IV ONE; -dexameTHASONE 4 MG/ML 1ML VIAL (J1100 PER 1MG) As Ordered ONE; -dexameTHASONE 4 MG/ML 1ML VIAL (J1100 PER 1MG) IV ONE; -diphenhydrAMINE (50MG/ML) IV IV PRN; -diphenhydrAMINE 25 MG PO PO ONE; -diphenhydrAMINE 25MG CAP PO ONE; -methylPREDNISolone (125 MG/2 ML) IV IV PRN
== END ==
LOC: M LABSMTC 12:05
PROVIDERS: ATTEND Anesthesiology
DX: Z01.812 Encounter for preprocedural laboratory examination (principal); Z20.822 Contact with and (suspected) exposure to COVID-19

== ENCOUNTER 2020-09-08 09:08 | Inpatient (IN) | payer MEDICARE, BC ==
[~2020-09-08] VITALS: Ht 180.3 cm; Wt 94.0 kg
[~2020-09-08 09:08] MED LIST changes: -OMEP-221 PO; -POTA10808 PO
[2020-09-08] MEDS ORDERED: ACETAMINOPHEN TAB 650MG DOSE (2X325MG) PO PRN (09:40)
[2020-09-08 10:35] VITALS: BP 141/82
[2020-09-08] MEDS: ONDANSETRON 4MG/2ML VIAL IV PRN (10:52)
[2020-09-08] MEDS: LR 1,000 ML IV SCH ×2 (10:52→19:48)
[2020-09-08] MEDS: MORPHINE 2 MG/ML 1ML VIAL (J2270) IV PRN ×3 (10:52→19:48)
[2020-09-08] MEDS ORDERED: OMEP-221 PO (11:14)
[2020-09-08] MEDS ORDERED: POTA10808 PO (11:14)
[2020-09-08 11:34] LABS: BASO % 0.2 % (0.0-1.0); EOS # 0.1 10^3/uL (0.0-0.5); EOS % 1.5 % (0.0-3.0); HEMATOCRIT 33.2 % (42.0-52.0); LYMPH # 0.5 10^3/uL (1.5-5.0); LYMPH % 5.7 % (24.0-44.0); MEAN CORPUSCULAR HEMOGLOBIN 26.6 pg (27.0-33.0); MEAN CORPUSCULAR HGB CONC 33.1 g/dl (32.0-36.5); MEAN CORPUSCULAR VOLUME 80.4 fl (80.0-96.0); MONO # 1.1 10^3/uL (0.0-0.8); MONO % 13.7 % (2.0-8.0); NEUTROPHILS # 6.3 10^3/uL (1.5-8.5); NEUTROPHILS % 78.4 % (36.0-66.0); PLATELET COUNT, AUTOMATED 297 10^3/uL (150-450); RED BLOOD COUNT 4.13 10^6/uL (4.30-6.10); WHITE BLOOD COUNT 8.1 10^3/uL (4.0-10.0)
[2020-09-08 11:57] LABS: ALBUMIN 2.4 GM/DL (3.2-5.2); BILIRUBIN,TOTAL 6.6 MG/DL (0.2-1.0); CALCIUM LEVEL 8.3 MG/DL (8.8-10.2); CREATININE FOR GFR 1.65 MG/DL (0.70-1.30); GLOMERULAR FILTRATION RATE 43.6 (>42); POTASSIUM SERUM 4.8 MEQ/L (3.5-5.1); TOTAL PROTEIN 5.1 GM/DL (6.4-8.2)
[2020-09-08 12:00] VITALS: BP 102/65
[2020-09-08] MEDS: ERTAPENEM SODIUM 1 GM in NS MINI-BAG PLUS 50 ML IV SCH (13:01)
--- NOTE | 2020-09-08 15:27 | REP ---
INDICATION: gallstones, jaundice, probable CBD stone. COMPARISON: 08/31/2020 TECHNIQUE: Standard right upper quadrant ultrasound technique. FINDINGS: Sonographic evaluation of the right upper quadrant again shows the liver with a lobulated 2.6 x 2.1 x 2.6 cm cystic area centrally. There is no intrahepatic biliary dilatation, solid hepatic mass or perihepatic ascites. Gallbladder again shows echogenic foci representing stones in the neck and much increased gallbladder wall thickening now up to 13 mm, previously 5 mm on the study 8 days ago. No sonographic Valenzuela sign. There may be some sludge in the gallbladder near the fundus. Common duct is 4 mm without dilatation. Pancreas has limited evaluation due to gas shadowing. The right kidney is 13.6 x 6.9 x 5.8 cm. There are 2 cystic areas in the lower pole again seen the larger 1.3 x 1.1 x 0.9 cm the other 1.3 x 1.1 x 1 cm. There is trace fluid in the right upper quadrant. IMPRESSION: 1. Cholelithiasis with chronic cholecystitis. However the gallbladder wall is increased significantly now up to 13 mm, previously up to 5 mm on the study 8 days ago. However the common duct is only 4 mm without dilatation and no intrahepatic ductal dilatation seen. 2. Liver without biliary dilatation and 2.6 x 2.6 cm cystic area centrally. 3. Pancreas partially obscured by gas shadowing and the right kidney with 2 lower pole cystic areas of up to 1.3 cm each as described. 4. Trace free fluid right upper quadrant. <Electronically signed by Andrzej Cantu > 09/08/20 1522
[2020-09-08 17:00] VITALS: BP 129/78
[2020-09-08 20:00] VITALS: BP 125/76
[2020-09-08] MEDS: SERTRALINE HCL 25 MG TABLET PO SCH (20:44)
[2020-09-08] MEDS: TAMSULOSIN 0.4 MG CAP PO SCH (20:44)
[2020-09-08] MEDS: NORCO, ANEXSIA 5/325MG TABLET (HYDROcodone/ACETAMINOPHEN) PO PRN (20:45)
--- NOTE | 2020-09-08 21:16 | REPVR ---
PROCEDURE INFORMATION: Exam: MR Abdomen Without Contrast, MRCP Exam date and time: 09/08/2020 8:53 PM Age: 75 years old Clinical indication: Abdominal tenderness and other: Elevated bilirubin and gallstones with pain; Prior surgery; Surgery date: 6+ months; Surgery type: Nephrostomy tube TECHNIQUE: Imaging protocol: MR of the abdomen without contrast. Exam focused on the bile ducts and pancreatic ducts. 3D MRCP images were acquired and processed without radiologist supervision. COMPARISON: CT Abdomen with contrast 04/13/2020 2:00 PM FINDINGS: Liver: Lobular cystic focus in the right lobe of the liver measures 2.7 x 2.5 x 2.5 cm. Few tiny liver cysts demonstrated as well. Gallbladder and bile ducts: There is contraction of the gallbladder with pericholecystic fluid. Finding may be related to presence of ascites. Focal adenomyomatosis demonstrated in the gallbladder fundus with several calculi demonstrated in the region of the gallbladder neck. Pancreas: Unremarkable. No ductal dilation. Kidneys and ureters: Atrophic changes demonstrated in the left kidney. Focal caliectasis in the lower pole of the right kidney.The spine demonstrates moderate degenerative changes. Nephrostomy tube in the left kidney partially visualized. Intraperitoneal space: There is a small amount of free intraperitoneal fluid present. IMPRESSION: 1. Lobular cystic focus in the right lobe of the liver measures 2.7 x 2.5 x 2.5 cm. Few tiny liver cysts demonstrated as well. 2. Contracted gallbladder, cholelithiasis and multiple calculi in the gallbladder neck with adenomyomatosis in the gallbladder fundus. Clinical correlation to exclude cholecystitis suggested. 3. There is a small amount of free intraperitoneal fluid present. 4. Nephrostomy tube in the left kidney partially visualized. 5. Focal caliectasis lower pole right kidney. Electronically signed by: Shawn Patel On 09/08/2020 21:16:33 PM
[2020-09-09 02:00] VITALS: BP 119/74
[2020-09-09] MEDS: LR 1,000 ML IV SCH ×3 (03:01→20:05)
[2020-09-09 06:00] VITALS: BP 129/80
[2020-09-09 08:12] LABS: BASO % 0.3 % (0.0-1.0); EOS # 0.2 10^3/uL (0.0-0.5); EOS % 2.4 % (0.0-3.0); HEMATOCRIT 32.6 % (42.0-52.0); HEMOGLOBIN 10.8 g/dl (13.5-17.5); LYMPH # 0.5 10^3/uL (1.5-5.0); LYMPH % 5.5 % (24.0-44.0); MEAN CORPUSCULAR HEMOGLOBIN 26.7 pg (27.0-33.0); MEAN CORPUSCULAR HGB CONC 33.1 g/dl (32.0-36.5); MEAN CORPUSCULAR VOLUME 80.5 fl (80.0-96.0); MONO # 1.1 10^3/uL (0.0-0.8); MONO % 11.5 % (2.0-8.0); NEUTROPHILS # 7.5 10^3/uL (1.5-8.5); NEUTROPHILS % 79.9 % (36.0-66.0); PLATELET COUNT, AUTOMATED 299 10^3/uL (150-450); RED BLOOD COUNT 4.05 10^6/uL (4.30-6.10); WHITE BLOOD COUNT 9.4 10^3/uL (4.0-10.0)
[2020-09-09 08:22] LABS: INR 1.24; PARTIAL THROMBOPLASTIN TIME 36.9 SECONDS (24.2-38.5); PROTHROMBIN TIME 15.8 SECONDS (12.5-14.3)
[2020-09-09 08:37] LABS: ALBUMIN 2.1 GM/DL (3.2-5.2); BILIRUBIN,TOTAL 7.9 MG/DL (0.2-1.0); CALCIUM LEVEL 7.9 MG/DL (8.8-10.2); CREATININE FOR GFR 1.51 MG/DL (0.70-1.30); GLOMERULAR FILTRATION RATE 48.3 (>42); TOTAL PROTEIN 4.9 GM/DL (6.4-8.2)
--- NOTE | 2020-09-09 08:43 | HPE ---
HISTORY AND PHYSICAL DATE OF ADMISSION: 09/08/2020 ADMITTING DIAGNOSIS: Cholelithiasis with acute cholecystitis. HISTORY OF PRESENT ILLNESS: The patient is a pleasant, 75-year-old man who was seen in the office on 09/02/2020 for some right-sided abdominal pain. He had seen his primary physician on 08/28/2020 for a complaint of 2 weeks of fairly sudden onset of right-sided pain. She described in her note that at that time he had some moderate tenderness in the right upper quadrant. She ordered a gallbladder ultrasound which was done on 08/31/2020 and showed a gallstone or gallstones seen in the neck of the gallbladder with some mild gallbladder wall thickening up to 5 mm. There was some tenderness noted with the ultrasound. The patient followed up with his primary physician, Dr. Scruggs, who started him on some antibiotics with metronidazole. I saw him on 09/02/2020, and at that time, he was feeling somewhat better on the antibiotics but still not quite comfortable. He was to begin a new course of chemotherapy early this week and so wished to review the potential for gallbladder surgery with his oncologist. I had spoken with Dr. Kirby of oncology on either 09/03/2020 or 09/04/2020, and we agreed that his chemotherapy was likely to be less interrupted if we proceeded with removal of his gallbladder first rather than proceeding with chemotherapy and hoping that his gallbladder did not flare up. We were therefore working to schedule him for a laparoscopic cholecystectomy. He called earlier this week to the office to report that he was having increasing pain in the epigastrium and had noticed that his urine was dark. He was therefore admitted today with a tentative surgery date scheduled for 09/09/2020. On presentation today, he reports that he has been having significant epigastric pain with some radiation to the right shoulder. He has not complained of any fevers or chills but his appetite is off and he has noted darkening of his urine. Laboratory studies were obtained on admission today which show marked elevations of his total bilirubin and his other liver enzymes. He is now admitted for his acute cholecystitis with now newly noted elevations of his liver enzymes. ALLERGIES: Reported to CIPROFLOXACIN and PENICILLIN and CHLORHEXADINE and DURAPORE TAPE. SURGICAL HISTORY: Is significant for back surgery in August of 2018. He has had several procedures for renal stones, also in 2019, and was found to have an obstructed ureter and underwent ureteral re-implantation. He was subsequently diagnosed with a urothelial malignancy with metastases to the regional nodes and has been undergoing chemotherapy. He had bilateral inguinal hernia repairs as a child. MEDICAL HISTORY: Is significant for his urothelial malignancy with a left ureteral obstruction. He has a percutaneous nephrostomy in his left kidney which has significantly reduced function. He has a history of gastroesophageal reflux disease. He has some environmental allergies. He has been undergoing chemotherapy and was going to be changing to a new regimen this week. FAMILY HISTORY: The patient's father was from hypertension and his mother from hypertension and colon cancer. SOCIAL HISTORY: He is a former smoker of short duration. He denies any significant alcohol use. REVIEW OF SYSTEMS: Shows that he has had no chest pain or palpitations. He has had no shortness of breath, cough, or wheezing. He denies any history of seizure, stroke, or severe headaches. He has no new bone or joint issues. He denies any history of deep venous thrombosis (DVT) or pulmonary embolus. PHYSICAL EXAMINATION: The patient is a pleasant man appearing his stated age of 75 years. His skin is warm and dry. Sclerae may have some faint scleral icterus peripherally. Mucous membranes are tacky. The neck is supple without apparent mass. Heart exam shows a regular rate and rhythm without murmur. The lungs are clear to auscultation bilaterally. The abdomen is flat. He has a percutaneous nephrostomy in his left back. He has bowel sounds present. The abdomen feels somewhat full. On palpation there is no definite mass but he does have some mild to moderate tenderness in the epigastrium and right subcostal area. He has scars in both lower quadrants consistent with prior hernia repairs and there is no evidence of recurrence. Lower extremities are without significant edema and he has palpable pulses bilaterally. LABORATORY STUDIES: Today, reveal a white count of 8, hemoglobin 11, hematocrit 33, and a platelet count of 297,000. Differential count shows 78% neutrophils, 14% monocytes, and 6% neutrophils. His chemistry profile reveals a sodium of 135, potassium 4.8, chloride 103, CO2 of 27, BUN of 33, creatinine 1.65, and a glucose of 127. His total bilirubin is 6.6 with an AST of 227, ALT of 167, and an alkaline phosphatase of 930. His total protein is 5.1 with an albumin of 2.4. His most recent prior chemistries were on 08/10/2020, when he had a very similar BUN and creatinine of 35 and 1.68, but his liver functions at that time showed a total bilirubin of 0.3 with an AST of 56, ALT of 90, and an alkaline phosphatase of 107. His ultrasound report from 08/31/2020 is reviewed and showed a few small stones in the gallbladder neck with some gallbladder wall thickening. IMPRESSION: 1. Cholelithiasis with acute cholecystitis. 2. Marked liver function test abnormalities with total bilirubin of 6.6 which is new. 3. Metastatic urothelial malignancy with left ureteral obstruction. 4. Left percutaneous nephrostomy. PLAN: The patient's lab changes are very concerning for possible common bile duct obstruction. He has noticed darkening of his urine and has had increased upper abdominal pain since diagnosed with acute cholecystitis about 1 week ago. I have recommended that we repeat an ultrasound to begin this further evaluation. If there is evidence of duct dilatation, then an MRCP would be appropriate to look for evidence of choledocholithiasis. He was counseled regarding the need to determine whether duct stones are present before proceeding with the cholecystectomy as this would require a different procedure to address common bile duct stones. He will be started on antibiotics and, given his allergies I will put him on Invanz 1 gram daily. He will also be put on IV maintenance fluids and pain medications as needed. I will keep him nothing by mouth until his evaluation is complete. If common bile duct stones are identified then a consultation to gastroenterology would be required for ERCP. ALCIDES
[2020-09-09] MEDS: NORCO, ANEXSIA 5/325MG TABLET (HYDROcodone/ACETAMINOPHEN) PO PRN ×2 (08:50→20:06)
[2020-09-09] MEDS: SERTRALINE HCL 25 MG TABLET PO SCH ×2 (08:50→20:06)
[2020-09-09] MEDS: amLODIPine 5 MG TAB PO SCH (08:51)
[2020-09-09 10:00] VITALS: BP 134/88
[2020-09-09] MEDS ORDERED: fentaNYL 100 MCG/2 ML INJECTION (J3010) ONE ×2 (10:30→17:14)
[2020-09-09] MEDS ORDERED: MIDAZOLAM INJ 2MG/2ML VIAL (J2250 PER 1MG) ONE (10:30)
--- NOTE | 2020-09-09 12:38 | CR.PDOC ---
General Date of Consultation: Sep 09, 2020 Referring Provider: Ugo Kearns Consultation REASON FOR CONSULTATION/CHIEF COMPLAINT: hyperbilirubinemia HISTORY OF PRESENT ILLNESS: 75-year-old male admitted for right sided abdominal pain. He followed up with his primary care provider and a gallbladder ultrasound revealed cholelithiasis. He was started on oral antibiotics with a surgery consultation as outpatient. He does have a history of urothelial carcinoma and was anticipating changing his chemotherapy, previously receiving avelumab immunotherapy. His abdominal pain worsened and it was decided with his surgeon and oncologist that a laparoscopic cholecystectomy would be performed prior to starting chemotherapy. He also noted increasing midepigastric pain radiating to his right shoulder in addition to dark urine. Today he notes abdominal pain, but denies chest pain, shortness of breath, nausea, vomiting or diarrhea. ALLERGIES: Please see below. HOME MEDICATIONS: Please see below. REVIEW OF SYSTEMS: Negative except as per HPI. PHYSICAL EXAMINATION: VITAL SIGNS: Please see below. GENERAL APPEARANCE: NAD, lying comfortably in bed HEENT: NC/AT, EOMI Lungs: CTA B/L Heart: +S1S2, RRR Abd: soft, mild tenderness, +BS Ext: no edema LABORATORY DATA: Please see below. A/P: 75-year-old male with past medical history of urothelial carcinoma previously receiving avelumab immunotherapy, with left percutaneous nephrostomy tube admitted for acute cholecystitis, hospital stay complicated with hyperbilirubin emia. 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 Completed 6 cycles 03/16/2020. - f/u CT chest/abd/pelvis - 03/23/2020 showed positive response - previous bulky retroperitoneal adenopathy from left kidney into left hemipelvis considerably improved - started maintenance avelumab immunotherapy 04/16/2020 - last dose 06/22/2020 #left percutaneous nephrostomy #DVT prophylaxis Vital Signs/I&O Vital Signs Date Time Temp Pulse Resp B/P (MAP) Pulse Ox O2 Delivery O2 Flow Rate FiO2 09/09/20 10:00 98.7 79 16 134/88 (103) 94 Room Air I&O- Last 24 Hours up to 6 AM 09/09/20 06:00 Intake Total 1950 ml Output Total 375 ml Balance 1575 ml Laboratory Data Labs 24H Laboratory Tests 2 09/09/20 07:48: Immature Granulocyte % (Auto) 0.4, Neutrophils (%) (Auto) 79.9H, Lymphocytes (%) (Auto) 5.5L, Monocytes (%) (Auto) 11.5H, Eosinophils (%) (Auto) 2.4, Basophils (%) (Auto) 0.3, Neutrophils # (Auto) 7.5, Lymphocytes # (Auto) 0.5L, Monocytes # (Auto) 1.1H, Eosinophils # (Auto) 0.2, Basophils # (Auto) 0.0, Nucleated Red Blood Cells % (auto) 0.0, Prothrombin Time 15.8H, Prothromb Time International Ratio 1.24, Activated Partial Thromboplast Time 36.9, Anion Gap 6L, Glomerular Filtration Rate 48.3, Calcium Level 7.9L, Total Bilirubin 7.9H, Aspartate Amino Transf (AST/SGOT) 236H, Alanine Aminotransferase (ALT/SGPT) 162H, Alkaline Phosphatase 976H, Total Protein 4.9L, Albumin 2.1L, Albumin/Globulin Ratio 0.8 CBC/BMP Laboratory Tests 09/09/20 07:48 Allergies Coded Allergies: TAPE (Verified Allergy, Intermediate, blisters, 07/29/19) ciprofloxacin (Verified Allergy, Intermediate, hives, flushing, 02/19/19) Penicillins (Verified Allergy, Mild, PRURITIS, 02/19/19) chlorhexidine (Verified Allergy, Unknown, UNKNOWN REACTION, 09/08/20) Home Medications Scheduled Amlodipine Besylate (Amlodipine Besylate) 5 Mg Tablet, 5 MG PO DAILY, (Reported) Omeprazole (Omeprazole) 40 Mg Capsule.dr, 40 MG PO DAILY, (Reported) Potassium Citrate (Potassium Citrate 10MEQ (Urocit-K)) 10 Meq Tablet.er, 1,620 MG PO DAILY, (Reported) 1080MG = 10MEQ Sertraline HCl (Sertraline HCl) 50 Mg Tablet, 25 MG PO BID, (Reported) Tamsulosin Hcl (Tamsulosin HCl) 0.4 Mg Capsule, 0.4 MG PO QHS, (Reported) Scheduled PRN Acetaminophen (Tylenol 8 Hour) 650 Mg Tablet.er, 650 MG PO Q8H PRN for PAIN, (Reported) SARAVANAN FERRER MD Sep 09, 2020 12:38
[2020-09-09 12:57] LABS: BILIRUBIN,DIRECT 6.7 MG/DL (0.0-0.2)
[2020-09-09] MEDS: ERTAPENEM SODIUM 1 GM in NS MINI-BAG PLUS 50 ML IV SCH (13:51)
[2020-09-09 14:00] VITALS: BP 134/86
[2020-09-09] MEDS: MORPHINE 2 MG/ML 1ML VIAL (J2270) IV PRN (16:14)
[2020-09-09] MEDS ORDERED: ONDANSETRON 4MG/2ML VIAL ONE (17:14)
[2020-09-09] MEDS ORDERED: ISOVUE-300 61% 50ML VIAL As Ordered ONE (17:43)
[2020-09-09 18:00] VITALS: BP 135/86
[2020-09-09 18:48] LABS: HEPATITIS A ANTIBODY IGM NEGATIVE (NEGATIVE); HEPATITIS B CORE ANTIBODY IGM NEGATIVE (NEGATIVE); HEPATITIS B SURFACE ANTIGEN NEGATIVE (NEGATIVE); HEPATITIS C VIRUS ABY INDEX < 0.0 INDEX (<0.8)
[2020-09-09] MEDS: TAMSULOSIN 0.4 MG CAP PO SCH (20:06)
[2020-09-09 22:00] VITALS: BP 145/86
[2020-09-10] VITALS (10 sets, daily range): BP systolic 122–140; BP diastolic 60–85
[2020-09-10] MEDS: NORCO, ANEXSIA 5/325MG TABLET (HYDROcodone/ACETAMINOPHEN) PO PRN ×2 (01:24→05:38)
--- NOTE | 2020-09-10 01:49 | IPN ---
PROGRESS NOTE DATE: 09/09/2020 SUBJECTIVE: Patient was admitted yesterday for cholelithiasis with acute cholecystitis. He has had some right upper quadrant pain on and off for several weeks. He was treated with a course of Metronidazole by his primary provider starting on or about the 31 of August. He had noticed some dark urine at home and was having increased pain, which lead to his admission. On admission, he was found to have a total bilirubin of 6.6 with marked elevations of his AST, ALT and alkaline phosphatase. An ultrasound yesterday showed marked thickening of the gallbladder, but no evidence of bile duct dilation. He also had an MRI done yesterday, which also showed no evidence of common bile duct dilation. There was no evidence of intrahepatic biliary duct dilation either. The etiology of his elevated LFTs is still somewhat unclear. PHYSICAL EXAMINATION: VITAL SIGNS: Show that he has been afebrile since admission. His pulse in the 70's and 80's and blood pressure is good. INTAKE AND OUTPUT: Showed that he has 1,200 cc of I.V. fluid in yesterday with 175 cc of urine output. GENERAL: Patient appears somewhat tired, but not particularly uncomfortable right at this point. He does appear to have some slight jaundice in the sclerae. HEART: Shows a regular rhythm. ABDOMEN: Full and he has some tenderness in the right upper quadrant. He does have bowel sounds present. LABORATORY STUDIES: Today shows white count 9, hemoglobin 11, hematocrit 33 and platelet count 299,000. Chemistry profile today shows sodium 139, potassium 5.0, chloride 106, CO2 27, BUN 32, creatinine 1.5 and glucose 78. Today his liver function tests are actually slightly higher. His total bilirubin today is 7.9 from 6.6 yesterday. AST 236, ALT 162 and alkaline phosphatase 976. I spoke with Dr. Dumas of radiology to ask him to review the MRI from last night. He agreed that there was no evidence of any bile duct dilation. IMPRESSION: 1. Acute cholecystitis. 2. Marked elevation of the liver function tests without evidence of common bile duct stone or obstruction. PLAN: I do not believe that we can account for his liver function test abnormalities based on his acute cholecystitis. Though slight elevations of his liver function tests would be expected with severe acute cholecystitis, I would not expect this degree of elevation without some other underlying problem. I spoke with Dr. Rios of the hospitalist service, and apparently Dr. Billy has been assigned as the hospitalist territory sales consultant to assist in determining the cause of his liver function test abnormalities. Later in the day, he contacted me and suggested that we consult Dr. Castillo and I was agreeable with that plan and so Dr. Castillo has also been consulted. Patient will be kept n.p.o. for possible testing and will otherwise remain on his I.V. fluid and antibiotics. ALCIDES
[2020-09-10] MEDS: LR 1,000 ML IV SCH ×3 (03:59→21:56)
[2020-09-10 06:17] LABS: BASO % 0.3 % (0.0-1.0); EOS # 0.2 10^3/uL (0.0-0.5); HEMATOCRIT 33.3 % (42.0-52.0); HEMOGLOBIN 11.2 g/dl (13.5-17.5); LYMPH # 0.8 10^3/uL (1.5-5.0); LYMPH % 7.4 % (24.0-44.0); MEAN CORPUSCULAR HEMOGLOBIN 26.9 pg (27.0-33.0); MEAN CORPUSCULAR HGB CONC 33.6 g/dl (32.0-36.5); MONO # 1.5 10^3/uL (0.0-0.8); MONO % 14.2 % (2.0-8.0); NEUTROPHILS % 75.5 % (36.0-66.0); PLATELET COUNT, AUTOMATED 342 10^3/uL (150-450); RED BLOOD COUNT 4.16 10^6/uL (4.30-6.10)
[2020-09-10 06:41] LABS: ALBUMIN 2.1 GM/DL (3.2-5.2); BILIRUBIN,DIRECT 8.4 MG/DL (0.0-0.2); BILIRUBIN,TOTAL 9.9 MG/DL (0.2-1.0); CALCIUM LEVEL 8.1 MG/DL (8.8-10.2); CREATININE FOR GFR 1.52 MG/DL (0.70-1.30); POTASSIUM SERUM 5.1 MEQ/L (3.5-5.1); TOTAL PROTEIN 4.7 GM/DL (6.4-8.2)
[2020-09-10 06:51] LABS: WHITE BLOOD COUNT 10.6 10^3/uL (4.0-10.0)
[2020-09-10] MEDS: amLODIPine 5 MG TAB PO SCH (08:00)
[2020-09-10] MEDS: SERTRALINE HCL 25 MG TABLET PO SCH ×2 (08:00→20:12)
--- NOTE | 2020-09-10 11:04 | IPNPDOC ---
Text Note Date of Service The patient was seen on 09/10/20. NOTE SUBJECTIVE: Patient was seen and examined at bedside. He reports continued RUQ abdominal pain which is well controlled with pain medication. He denies any nausea or vomiting. OBJECTIVE: VITAL SIGNS: See below GENERAL: Alert, comfortable, in no acute distress HEENT: Normocephalic, atraumatic, sclera anicteric, moist mucous membranes CARDIOVASCULAR: Regular rate and rhythm, normal S1 and S2. No murmurs, rubs, or gallops RESPIRATORY: Clear to auscultation bilaterally with equal air entry bilaterally. No wheezing, rhonchi, or rales. ABDOMEN: Tender to deep palpation of the RUQ. Soft, nondistended, bowel sounds present EXTREMITIES: No cyanosis or edema. Pulses 2+/4 in bilateral upper and lower extremities NEUROLOGIC: Alert and oriented x3 to person, place and time. No focal deficits appreciated PSYCHIATRIC: Mood and affect appropriate ASSESSMENT/PLAN: 75-year-old male with past medical history of urothelial carcinoma previously receiving avelumab immunotherapy, with left percutaneous nephrostomy tube a dmitted for acute cholecystitis, hospital stay complicated with hyperbilirubinemia. # Acute cholecystitis - follow as per surgery # Hyperbilirubinemia/transaminitis - hepatitis profile negative - MRCP negative for choledocholithiasis - IV antibiotics per general surgery. 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 Completed 6 cycles 03/16/2020. - f/u CT chest/abd/pelvis - 03/23/2020 showed positive response - previous bulky retroperitoneal adenopathy from left kidney into left hemipelvis considerably improved - started maintenance avelumab immunotherapy 04/16/2020 - last dose 06/22/2020 #left percutaneous nephrostomy DVT Prophylaxis: teds/SCDs perioperatively. Thank you for this consult. We will continue to follow along with the care of this patient. Attending Attestation: Patient independently seen and examined. I have discussed in detail with the resident / student the findings and plan of treatment as documented by the resident / student. I agree with their findings and treatment plan and have edited their doc umentation. I will continue to follow the patient during this hospital stay. VS,Maee, I+O VS, Royerbone, I+O Laboratory Tests 09/10/20 05:43 Vital Signs Date Time Temp Pulse Resp B/P (MAP) Pulse Ox O2 Delivery O2 Flow Rate FiO2 09/10/20 08:00 83 109/63 09/10/20 06:08 17 09/10/20 06:00 98.6 94 Room Air I&O- Last 24 Hours up to 6 AM 09/10/20 06:00 Intake Total 3105 ml Output Total 1000 ml Balance 2105 ml ELHAM MANZANO D.O. Sep 10, 2020 11:04 SARAVANAN FERRER MD Sep 11, 2020 07:23
[2020-09-10] MEDS: ERTAPENEM SODIUM 1 GM in NS MINI-BAG PLUS 50 ML IV SCH (12:20)
[2020-09-10] MEDS: MORPHINE 2 MG/ML 1ML VIAL (J2270) IV PRN ×2 (12:21→20:17)
[2020-09-10] MEDS ORDERED: MIDAZOLAM INJ 2MG/2ML VIAL (J2250 PER 1MG) As Ordered ONE (14:54)
[2020-09-10] MEDS ORDERED: LIDOCAINE 2% 100MG/5ML SDV (FOR ANES.) As Ordered ONE (14:54)
[2020-09-10] MEDS ORDERED: propofoL 200 MG/20 ML VIAL As Ordered ONE (14:54)
[2020-09-10] MEDS ORDERED: ONDANSETRON 4MG/2ML VIAL As Ordered ONE (14:54)
[2020-09-10] MEDS ORDERED: SUGAMMADEX SODIUM 500 MG/5 ML VIAL (BRIDION) As Ordered ONE (14:54)
[2020-09-10] MEDS ORDERED: ROCURONIUM BROMIDE 50 MG/5 ML VIAL As Ordered ONE (14:54)
[2020-09-10] MEDS ORDERED: dexameTHASONE 4 MG/ML 1ML VIAL (J1100 PER 1MG) As Ordered ONE (14:54)
[2020-09-10] MEDS ORDERED: fentaNYL 100 MCG/2 ML INJECTION (J3010) As Ordered ONE (14:54)
[2020-09-10] MEDS ORDERED: ISOVUE-300 61% 50ML VIAL As Ordered ONE (16:21)
--- NOTE | 2020-09-10 18:00 | ROOR ---
Patient Name: Daniel Farrell Procedure Date: 09/10/2020 4:21 PM Date of : 1945 Age: 75 Room: Main OR Gender: Male Note Status: Extension Forester Override Procedure: ERCP Indications: Abdominal pain of suspected biliary origin, Jaundice Providers: Pawel CASTILLO MD Referring MD: 2. Inpatient 2. Inpatient Requesting Provider: Medicines: General Anesthesia Complications: No immediate complications. Procedure: Pre-Anesthesia Assessment: - The heart rate, respiratory rate, oxygen saturations, blood pressure, adequacy of pulmonary ventilation, and response to care were monitored throughout the procedure. The Duodenoscope was introduced through the mouth, and advanced to the duodenum and used to inject contrast into the bile duct. The ERCP was accomplished without difficulty. The patient tolerated the procedure well. Findings: The front desk monitor film was normal. The esophagus was successfully intubated under direct vision. The scope was advanced to a normal major papilla in the descending duodenum without detailed examination of the pharynx, larynx and associated structures, and upper GI tract. The upper GI tract was grossly normal. A straight Roadrunner wire was passed into the biliary tree. The bile duct was then deeply cannulated over the guidewire. Contrast was injected. I personally interpreted the bile duct images. Ductal flow of contrast was adequate. Image quality was adequate. Contrast extended to the entire biliary tree. The biliary orifice was mildly stenotic. This appeared indeterminate (neither benign nor malignant). A 6 mm biliary sphincterotomy was made with a traction (standard) sphincterotome using ERBE electrocautery. There was no post-sphincterotomy bleeding. To discover objects, the biliary tree was swept with a 9 mm balloon starting at the bifurcation. Nothing was found. Cells for cytology were obtained by brushing in the lower third of the main bile duct. One 7 Fr by 5 cm temporary stent with a single external flap and a single internal flap was placed into the common bile duct. Bile and clear fluid flowed through the stent. The stent was in good position. Impression: - A small papilla or Mild biliary papillary stenosis-unknown significance. - A biliary sphincterotomy was performed. - The biliary tree was swept and nothing was found. - Cells for cytology obtained in the lower third of the main duct. - One temporary stent was placed into the common bile duct. Recommendation: - Observe patient's clinical course. - Return to endoscopist for stent removal at UGI endoscopy (date not yet determined). - Dep on LFT tomorrow, woud look elsewhere for a source of jaundice. (liver biopsy/review of meds/r/o sepsis etc) Procedure Code(s): --- Professional --- 25196, Endoscopic retrograde cholangiopancreatography (ERCP); with placement of endoscopic stent into biliary or pancreatic duct, including pre- and post-dilation and guide wire passage, when performed, including sphincterotomy, when performed, each stent Diagnosis Code(s): --- Professional --- R17, Unspecified jaundice R10.9, Unspecified abdominal pain K83.1, Obstruction of bile duct CPT copyright 2019 [employer]. All rights reserved. The codes documented in this report are preliminary and upon senior network security architect review may be revised to meet current compliance requirements. Pawel Castillo MD Pawel CASTILLO MD 09/10/2020 5:59:27 PM Electronically signed by Pawel CASTILLO MD Number of Addenda: 0 Note Initiated On: 09/10/2020 4:21 PM Estimated Blood Loss: Estimated blood loss: none.
--- NOTE | 2020-09-10 18:54 | REP ---
INDICATION: CHOLECYSTITIS. COMPARISON: None. TECHNIQUE: Multiple C-arm views upper abdomen performed during ERCP. FINDINGS: Common bile duct is catheterized. Contrast is injected. There does not appear to be significant biliary dilatation. Gallbladder is opacified. Catheter manipulation is performed. A stent is placed in the distal common bile duct. IMPRESSION: 2 minutes 47 seconds fluoroscopy time utilized. <Electronically signed by Jimbo Dumas > 09/10/20 [id number]
[2020-09-10] MEDS ORDERED: fentaNYL 100 MCG/2 ML INJECTION (J3010) IV PRN (19:10)
[2020-09-10] MEDS ORDERED: HYDROMORPHONE HCL 0.5 MG/ 0.5 ML SYRINGE (J1170 PER 1) IV PRN (19:10)
[2020-09-10] MEDS ORDERED: LR 1,000 ML IV SCH (19:10)
[2020-09-10] MEDS ORDERED: ONDANSETRON 4MG/2ML VIAL IV PRN (19:10)
[2020-09-10] MEDS ORDERED: oxyCODONE 5MG TAB PO PRN (19:10)
[2020-09-10] MEDS: TAMSULOSIN 0.4 MG CAP PO SCH (20:11)
[2020-09-11] MEDS: MORPHINE 2 MG/ML 1ML VIAL (J2270) IV PRN ×7 (01:30→23:54)
[2020-09-11] MEDS: LR 1,000 ML IV SCH ×3 (05:52→20:10)
[2020-09-11 06:00] VITALS: BP 140/84
[2020-09-11 06:17] LABS: HEMATOCRIT 33.4 % (42.0-52.0); HEMOGLOBIN 11.1 g/dl (13.5-17.5); MEAN CORPUSCULAR HEMOGLOBIN 26.7 pg (27.0-33.0); MEAN CORPUSCULAR HGB CONC 33.2 g/dl (32.0-36.5); MEAN CORPUSCULAR VOLUME 80.5 fl (80.0-96.0); PLATELET COUNT, AUTOMATED 335 10^3/uL (150-450); RED BLOOD COUNT 4.15 10^6/uL (4.30-6.10); WHITE BLOOD COUNT 8.4 10^3/uL (4.0-10.0)
[2020-09-11 06:48] LABS: IRON (FE) 14 UG/DL (65-175); PERCENT SATURATION 9.1 % (19.7-50.0); TOTAL IRON BINDING CAPACITY 154 UG/DL (250-450)
[2020-09-11 08:21] LABS: ALBUMIN 2.1 GM/DL (3.2-5.2); ALT/SGPT 156 U/L (12-78); BILIRUBIN,DIRECT 7.5 MG/DL (0.0-0.2); BILIRUBIN,TOTAL 8.7 MG/DL (0.2-1.0); BLOOD UREA NITROGEN 42 MG/DL (7-18); CALCIUM LEVEL 8.2 MG/DL (8.8-10.2); CARBON DIOXIDE LEVEL 28 MEQ/L (21-32); CHLORIDE LEVEL 106 MEQ/L (98-107); CREATININE FOR GFR 1.62 MG/DL (0.70-1.30); GLOMERULAR FILTRATION RATE 44.6 (>42); GLUCOSE, FASTING 128 MG/DL (70-100); POTASSIUM SERUM 5.4 MEQ/L (3.5-5.1); SODIUM LEVEL 139 MEQ/L (136-145); TOTAL PROTEIN 4.7 GM/DL (6.4-8.2)
[2020-09-11] MEDS: SERTRALINE HCL 25 MG TABLET PO SCH ×2 (08:27→20:04)
[2020-09-11] MEDS: amLODIPine 5 MG TAB PO SCH (08:29)
[2020-09-11 10:00] VITALS: BP 131/82
[2020-09-11 10:52] LABS: MONO SCRN NEGATIVE (NEGATIVE)
[2020-09-11 11:09] LABS: HEPATITIS B SURFACE ANTIGEN NEGATIVE (NEGATIVE)
--- NOTE | 2020-09-11 11:20 | IPNPDOC ---
Text Note Date of Service The patient was seen on 09/11/20. NOTE SUBJECTIVE: Patient was seen and examined at bedside. He states his abdomen feels distended since his procedure yesterday. He denies any BM or passing gas since yesterday prior to the procedure. OBJECTIVE: VITAL SIGNS: See below GENERAL: Alert, comfortable, in no acute distress HEENT: Normocephalic, atraumatic, sclera anicteric, moist mucous membranes CARDIOVASCULAR: Regular rate and rhythm, normal S1 and S2. No murmurs, rubs, or gallops RESPIRATORY: Clear to auscultation bilaterally with equal air entry bilaterally. No wheezing, rhonchi, or rales. ABDOMEN: Somewhat distended abdomen with tenderness throughout, worse in the RUQ. Bowel sounds present. EXTREMITIES: No cyanosis or edema. Pulses 2+/4 in bilateral upper and lower extremities NEUROLOGIC: Alert and oriented x3 to person, place and time. No focal deficits appreciated PSYCHIATRIC: Mood and affect appropriate ASSESSMENT/PLAN: 75-year-old male with past medical history of urothelial carcinoma previously receiving avelumab immunotherapy, with left percutaneous nephrostomy tube admitted for acute cholecystitis, hospital stay complicated with hyperbilirubinemia. # Hyperbilirubinemia/transaminitis - hepatitis profile negative - MRCP negative for choledocholithiasis - IV antibiotics per general surgery. pain meds PRN - GI/Dr. Castillo consulted, appreciate recommendations. 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 Completed 6 cycles 03/16/2020. - f/u CT chest/abd/pelvis - 03/23/2020 showed positive response - previous bulky retroperitoneal adenopathy from left kidney into left hemipelvis considerably improved - started maintenance avelumab immunotherapy 04/16/2020 - last dose 06/22/2020 #left percutaneous nephrostomy DVT Prophylaxis: per primary team Thank you for this consult. We will continue to follow along with the care of this patient. Attending attestation: Patient independently seen and examined. I have discussed in detail with the resident / student the findings and plan of treatment as documented by the resident / student. I agree with their findings and treatment plan and have edited their documentation. I will continue to follow the patient during this hospital stay. VS,Fishbone, I+O VS, Fishbone, I+O Laboratory Tests 09/11/20 05:48 Vital Signs Date Time Temp Pulse Resp B/P (MAP) Pulse Ox O2 Delivery O2 Flow Rate FiO2 09/11/20 10:00 97.8 74 17 131/82 (98) 91 Nasal Cannula 2.0 I&O- Last 24 Hours up to 6 AM 09/11/20 06:00 Intake Total 950 ml Output Total 350 ml Balance 600 ml ELHAM MANZANO D.O. Sep 11, 2020 11:20 SARAVANAN FERRER MD Sep 13, 2020 11:44
[2020-09-11 11:37] LABS: HEPATITIS B CORE ANTIBODY IGM NEGATIVE (NEGATIVE); HEPATITIS C VIRUS ABY INDEX < 0.0 INDEX (<0.8)
[2020-09-11 11:39] LABS: HEPATITIS A ANTIBODY IGM NEGATIVE (NEGATIVE)
[2020-09-11] MEDS: ERTAPENEM SODIUM 1 GM in NS MINI-BAG PLUS 50 ML IV SCH (12:27)
[2020-09-11 14:00] VITALS: BP 131/86
--- NOTE | 2020-09-11 14:36 | IPN ---
PROGRESS NOTE DATE: 09/11/2020 HISTORY: Patient was admitted on September 08, 2020 for management of acute cholecystitis. He had initially been seen as an outpatient, but reported increasing pain so was admitted to facilitate surgery. However, on admission, his liver function tests were found to be markedly elevated, with a total bilirubin of 6.6 and an alkaline phosphatase of 800-1000. Repeat imaging showed on evidence of common bowel duct or intrahepatic biliary duct dilation. A consultation was obtained from the hospitalist and then from Dr. Castillo from gastroenterology to address his elevated liver function tests. He had an endoscopic retrograde cholangiopancreatography (ERCP) yesterday that reportedly showed normal sized ducts, but a biliary stent was placed. Vital signs show he has been afebrile over the past 24 hours. His pulse has been in the 60s and 70s and his blood pressure is good. Intake and output show that yesterday he had 1700 mL in with 475 recorded out. He is having small amounts of urine from his left nephrostomy. PHYSICAL EXAMINATION: Patient reports feeling somewhat bloated and full, but he has had no vomiting. Skin is warm and dry. Heart exam shows a regular rate and rhythm. The lungs are clear. The abdomen is somewhat protuberant and distended. He has bowel sounds present. There is some mild tympany to percussion in the upper abdomen. There is no particular point tenderness identified on his abdominal exam. LABORATORY STUDIES: Laboratory studies today show a white count of 8, hemoglobin 11, hematocrit 33 and a platelet count of 335,000. Chemistry profile shows a sodium of 139, potassium 5.4, chloride 106, CO2 28, BUN 42, creatinine 1.6, glucose 128. Liver function tests show a total bilirubin of 9, direct bilirubin 7.5, AST 236, ALT 156, alkaline phosphatase 890. He had repeat hepatitis serology today that was negative for hepatitis A, B and C. A mononucleosis screen was negative. He has a number of immunologic markers pending. I reviewed the imaging from his ERCP and these do show a normal nondilated biliary tree and the gallbladder was opacified. IMPRESSION: Patient continues with markedly elevated liver function tests. His imaging has previously shown thickening of the gallbladder wall consistent with acute cholecystitis. He remains on Invanz for antibiotic coverage. His biliary tree was normal sized on his ERCP. I do note that his gallbladder filled during the ERCP. PLAN: Patient will continue his antibiotics for now. We will await the return of some of the additional laboratory studies that had been ordered by the hospitalist. It remains concerning to me that his liver function test elevation seem out of proportion to what we expected from a simple acute cholecystitis. We will see if there is any change in his labs over the next few days following his bile duct stenting. ALCIDES
[2020-09-11 18:00] VITALS: BP 133/85
[2020-09-11] MEDS: TAMSULOSIN 0.4 MG CAP PO SCH (20:03)
[2020-09-11 22:00] VITALS: BP 129/83
[2020-09-12 02:00] VITALS: BP 131/85
[2020-09-12] MEDS: LR 1,000 ML IV SCH ×3 (04:05→20:53)
[2020-09-12] MEDS: NORCO, ANEXSIA 5/325MG TABLET (HYDROcodone/ACETAMINOPHEN) PO PRN ×3 (04:05→14:47)
[2020-09-12 06:00] VITALS: BP 129/82
[2020-09-12 07:03] LABS: BASO % 0.1 % (0.0-1.0); EOS % 0.2 % (0.0-3.0); HEMATOCRIT 33.4 % (42.0-52.0); HEMOGLOBIN 11.2 g/dl (13.5-17.5); LYMPH # 0.4 10^3/uL (1.5-5.0); LYMPH % 2.7 % (24.0-44.0); MEAN CORPUSCULAR HEMOGLOBIN 26.4 pg (27.0-33.0); MEAN CORPUSCULAR HGB CONC 33.5 g/dl (32.0-36.5); MEAN CORPUSCULAR VOLUME 78.8 fl (80.0-96.0); MONO # 1.4 10^3/uL (0.0-0.8); MONO % 8.4 % (2.0-8.0); NEUTROPHILS # 14.5 10^3/uL (1.5-8.5); NEUTROPHILS % 87.8 % (36.0-66.0); PLATELET COUNT, AUTOMATED 348 10^3/uL (150-450); RED BLOOD COUNT 4.24 10^6/uL (4.30-6.10); WHITE BLOOD COUNT 16.6 10^3/uL (4.0-10.0)
[2020-09-12 07:38] LABS: BILIRUBIN,TOTAL 9.5 MG/DL (0.2-1.0); CALCIUM LEVEL 7.8 MG/DL (8.8-10.2); CREATININE FOR GFR 1.73 MG/DL (0.70-1.30); GLOMERULAR FILTRATION RATE 41.3 (>42); POTASSIUM SERUM 5.1 MEQ/L (3.5-5.1); TOTAL PROTEIN 4.4 GM/DL (6.4-8.2)
[2020-09-12] MEDS: amLODIPine 5 MG TAB PO SCH (09:20)
[2020-09-12] MEDS: SERTRALINE HCL 25 MG TABLET PO SCH ×2 (09:20→20:50)
--- NOTE | 2020-09-12 09:56 | IPNPDOC ---
Text Note Date of Service The patient was seen on 09/12/20. NOTE SUBJECTIVE: Patient was seen and examined at bedside. He states his abdomen continues to feel distended with some improvement after a BM this morning. He states he feels there is still more stool. Otherwise he is feeling about the same, no new concerns. No fevers overnight. OBJECTIVE: VITAL SIGNS: See below GENERAL: Alert, comfortable, in no acute distress HEENT: Normocephalic, atraumatic, sclera anicteric, moist mucous membranes CARDIOVASCULAR: Regular rate and rhythm, normal S1 and S2. No murmurs, rubs, or gallops RESPIRATORY: Clear to auscultation bilaterally with equal air entry bilaterally. No wheezing, rhonchi, or rales. ABDOMEN: Somewhat distended abdomen with tenderness throughout, worse in the RUQ. Bowel sounds present. EXTREMITIES: No cyanosis or edema. Pulses 2+/4 in bilateral upper and lower extremities NEUROLOGIC: Alert and oriented x3 to person, place and time. No focal deficits appreciated PSYCHIATRIC: Mood and affect appropriate ASSESSMENT/PLAN: 75-year-old male with past medical history of urothelial carcinoma previously receiving avelumab immunotherapy, with left percutaneous nephrostomy tube admitted for acute cholecystitis, hospital stay complicated with hyperbilirubinemia. # Hyperbilirubinemia/transaminitis - MRCP negative for choledocholithiasis - IV antibiotics per general surgery. pain meds PRN - GI/Dr. Castillo consulted, appreciate recommendations. - s/p ERCP with stent placement, biopsy shows ductal cells and macrophages. - Hepatitis profile negative. Further lab work up pending. - Liver profile appears stable, will continue to follow daily - Echocardiogram pending to evaluate for pulmonary htn - Order for liver biopsy to be done on monday # Elevated Cr with left percutaneous nephrostomy - check UA and renal U/S as Cr has not improved. 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 Completed 6 cycles 03/16/2020. - f/u CT chest/abd/pelvis - 03/23/2020 showed positive response - previous bulky retroperitoneal adenopathy from left kidney into left hemipelvis considerably improved - started maintenance avelumab immunotherapy 04/16/2020 - last dose 06/22/2020 DVT Prophylaxis: per primary team Thank you for this consult. We will continue to follow along with the care of this patient. Attending Attestation: Patient independently seen and examined. I have discussed in detail with the resident / student the findings and plan of treatment as documented by the resident / student. I agree with their findings and treatment plan and have edited their documentation. I will continue to follow the patient during this hospital stay. VS,Fishbone, I+O VS, Fishbone, I+O Laboratory Tests 09/12/20 06:12 Vital Signs Date Time Temp Pulse Resp B/P (MAP) Pulse Ox O2 Delivery O2 Flow Rate FiO2 09/12/20 09:22 18 09/12/20 09:20 79 128/82 09/12/20 06:00 96.9 92 Nasal Cannula 2.0 I&O- Last 24 Hours up to 6 AM 09/12/20 06:00 Intake Total 3020 ml Output Total 175 ml Balance 2845 ml ELHAM MANZANO D.O. Sep 12, 2020 09:56 SARAVANAN FERRER MD Sep 13, 2020 11:55
[2020-09-12 10:00] VITALS: BP 128/82
[2020-09-12] MEDS: ERTAPENEM SODIUM 1 GM in NS MINI-BAG PLUS 50 ML IV SCH (12:16)
[2020-09-12 14:00] VITALS: BP 128/82
--- NOTE | 2020-09-12 15:06 | REP ---
INDICATION: wilman. COMPARISON: 02/20/2019. TECHNIQUE: Multiple sonographic images of the kidneys. FINDINGS: The right kidney measures 12.4 x 722 x 5.8 cm. Left kidney measures 8.7 x 4.3 x 4.2 cm. The left kidney is atrophic. Right renal cortical echogenicity is normal. Left renal cortical echogenicity is increased compatible with medical renal disease. There is no hydronephrosis on the right or the left. No renal calculi are identified. No solid or cystic renal masses are identified. IMPRESSION: Atrophic left kidney. No hydronephrosis. Otherwise, negative renal ultrasound. The bladder is nondistended and cannot be further evaluated. <Electronically signed by Jimbo Zuñiga > 09/12/20 0887
[2020-09-12 18:00] VITALS: BP 126/80
[2020-09-12] MEDS: TAMSULOSIN 0.4 MG CAP PO SCH (20:50)
[2020-09-12] MEDS: MORPHINE 2 MG/ML 1ML VIAL (J2270) IV PRN (20:51)
[2020-09-12 22:00] VITALS: BP 130/83
[2020-09-13] MEDS: MORPHINE 2 MG/ML 1ML VIAL (J2270) IV PRN ×2 (01:23→03:48)
[2020-09-13 02:00] VITALS: BP 110/66
[2020-09-13] MEDS: LR 1,000 ML IV SCH (03:41)
[2020-09-13] MEDS: ONDANSETRON 4MG/2ML VIAL IV PRN (03:47)
[2020-09-13 06:00] VITALS: BP 116/66
[2020-09-13 06:58] LABS: BASO % 0.1 % (0.0-1.0); EOS % 0.1 % (0.0-3.0); HEMATOCRIT 32.5 % (42.0-52.0); HEMOGLOBIN 11.2 g/dl (13.5-17.5); LYMPH # 0.4 10^3/uL (1.5-5.0); LYMPH % 1.9 % (24.0-44.0); MEAN CORPUSCULAR HEMOGLOBIN 26.5 pg (27.0-33.0); MEAN CORPUSCULAR HGB CONC 34.5 g/dl (32.0-36.5); MEAN CORPUSCULAR VOLUME 76.8 fl (80.0-96.0); NEUTROPHILS # 20.4 10^3/uL (1.5-8.5); NEUTROPHILS % 89.7 % (36.0-66.0); PLATELET COUNT, AUTOMATED 355 10^3/uL (150-450); RED BLOOD COUNT 4.23 10^6/uL (4.30-6.10)
[2020-09-13 07:37] LABS: ALBUMIN 1.9 GM/DL (3.2-5.2); CALCIUM LEVEL 7.6 MG/DL (8.8-10.2); CREATININE FOR GFR 1.89 MG/DL (0.70-1.30); GLOMERULAR FILTRATION RATE 37.3 (>42); TOTAL PROTEIN 4.4 GM/DL (6.4-8.2)
[2020-09-13 07:45] LABS: MONO # 1.6 10^3/uL (0.0-0.8); WHITE BLOOD COUNT 22.7 10^3/uL (4.0-10.0)
--- NOTE | 2020-09-13 08:46 | IPNPDOC ---
Text Note Date of Service The patient was seen on 09/13/20. NOTE SUBJECTIVE: Patient seen and examined at bedside. Still with some abdominal pain, not much changed from yesterday. OBJECTIVE: VITAL SIGNS: See below GENERAL: NAD, lying comfortably in bed, jaundiced HEENT: NC/AT, EOMI CARDIOVASCULAR: +S1S2, RRR Chest: right anterior chest port in place, lungs CTA B/L ABDOMEN: distended, tympanic, +BS, mild tenderness EXTREMITIES: peripheral LE edema NEUROLOGIC: AAOx3 ASSESSMENT/PLAN: 75-year-old male with past medical history including urothelial carcinoma previously receiving avelumab immunotherapy last dose 07/23/20, with left percuta neous nephrostomy tube admitted for acute cholecystitis, hospital stay complicated with hyperbilirubinemia. # Hyperbilirubinemia/transaminitis - s/p ERCP with stent placement - no obstruction found - IV antibiotics per general surgery. pain meds PRN - GI/Dr. Castillo consultation appreciated - Hepatitis profile negative. Further lab work up pending. 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 Completed 6 cycles 03/16/2020. - f/u CT chest/abd/pelvis - 03/23/2020 showed positive response - previous bulky retroperitoneal adenopathy from left kidney into left hemipelvis considerably improved - started maintenance avelumab immunotherapy 04/16/2020 - last dose 06/22/2020 #DVT Prophylaxis: mechanical VS,Fishbone, I+O VS, Fishbone, I+O Laboratory Tests 09/13/20 06:26 Vital Signs Date Time Temp Pulse Resp B/P (MAP) Pulse Ox O2 Delivery O2 Flow Rate FiO2 09/13/20 06:00 97.0 86 20 116/66 (83) 90 Room Air 09/12/20 06:00 2.0 I&O- Last 24 Hours up to 6 AM 09/13/20 06:00 Intake Total 3310 ml Output Total 475 ml Balance 2835 ml SARAVANAN FERRER MD Sep 13, 2020 08:46
[2020-09-13] MEDS: amLODIPine 5 MG TAB PO SCH (09:00)
[2020-09-13] MEDS: SERTRALINE HCL 25 MG TABLET PO SCH ×2 (09:30→21:08)
--- NOTE | 2020-09-13 09:51 | IPNPDOC ---
Text Note Date of Service The patient was seen on 09/13/20. NOTE Patient seen sitting up on a chair, looks mildly uncomfortable, slightly short of breath when talking and very weak on standing up. He appears jaundiced. He reports that the abdominal discomfort is somewhat better. He denies any nausea. VS: afebrile, stable Examination jaundiced skin mild discomfort, slight short of breath no obvious jvd distention clear, slight shallow inspiration nontachycardic abdomen markedly round, tensely distended, tympanitic to percussion, + left groin hernia bulging ext: differential edema to both lower extremities compared to upper extremities impression and plan hyperbilirubinemia cholelithiasis I told him that I don't think cholelithiasis is his main problem and this seems to be primary liver problem. The market elevation of the bilirubin compared to the AST and ALT points of possibly cholestasis-like picture. His abdomen also looks very tensely distended to me and he tells me that his left groin is bulging more. This makes me suspect that he may be forming ascites. Review of his last imaging does not show any evidence for ascites. I'll get an ultrasound to rule this out. I agree with getting a liver biopsy. I don't think taking the gallbladder out will help him any resolve his symptoms. VS,Maee, I+O VS, Maee, I+O Laboratory Tests 09/13/20 06:26 Vital Signs Date Time Temp Pulse Resp B/P (MAP) Pulse Ox O2 Delivery O2 Flow Rate FiO2 09/13/20 09:00 106/67 09/13/20 06:00 97.0 86 20 90 Room Air 09/12/20 06:00 2.0 I&O- Last 24 Hours up to 6 AM 09/13/20 06:00 Intake Total 3310 ml Output Total 475 ml Balance 2835 ml ZULEYKA REYES MD Sep 13, 2020 09:51
[2020-09-13 10:00] VITALS: BP 117/76
[2020-09-13] MEDS ORDERED: SOD POLYSTYRENE SULFONATE SUSP 15 GM/60 ML UD PO ONE (12:00)
[2020-09-13] MEDS: NORCO, ANEXSIA 5/325MG TABLET (HYDROcodone/ACETAMINOPHEN) PO PRN (12:38)
[2020-09-13] MEDS: ERTAPENEM SODIUM 1 GM in NS MINI-BAG PLUS 50 ML IV SCH (13:34)
[2020-09-13 14:00] VITALS: BP 119/77
--- NOTE | 2020-09-13 14:16 | REP ---
INDICATION: eval portal vein thrombosis/hepatic vein thrombosis. COMPARISON: None. TECHNIQUE: Limited abdominal ultrasound followed by Doppler portal venous ultrasound. FINDINGS: Limited abdominal ultrasound: Two gallbladder calculi were identified on and abdomen/pelvis CT dated 07/30/2020. On the study today the gallbladder is contracted. No gallbladder calculi are identified, possibly obscured by gallbladder contraction. There is circumferential gallbladder wall thickening measuring up to 7.6 mm. This could represent gallbladder wall edema or fibrosis or be secondary to gallbladder contraction. 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 This measures approximately 10 mm in length. No definite pericholecystic fluid is identified. There is no intrahepatic or extrahepatic biliary duct dilatation. The common duct measures 4.9 mm in diameter. The hepatic parenchyma has a heterogeneous echotexture compatible with diffuse hepatocellular disease. There is a right lobe liver cyst containing a septation. The cyst measures up to 2.4 cm. The pancreas is obscured by bowel gas. The spleen is normal size measuring 11.1 x 10.4 x 2.5 cm. The right kidney measures 12.5 x 5.5 x 5.3 cm. Left kidney measures 8.1 x 4.8 x 3.5 cm. The right kidney is normal size. The left kidney is atrophic size. There are no renal calculi. There is no hydronephrosis. There are no solid or cystic renal masses. The abdominal aorta is obscured. There is mild free fluid throughout the abdomen. Portal vein Doppler ultrasound: The main portal vein measures up to 11 mm in diameter. This is normal. The main portal vein peak flow velocity is 13.5 centimeters/cm/sec which is decreased. Normal is 20-40 centimeters/second. There is hepato pedal flow in the main portal vein. This is normal. The right and left portal veins could not be adequately evaluated because of their small size. Doppler waveforms in the hepatic veins are phasic. This is normal. No filling defects are seen in the main hepatic vein to suggest thrombus. The hepatic artery is patent. IMPRESSION: Diffusely thickened gallbladder wall, nonspecific: Inflammation/edema versus fibrosis. Small mural gallbladder wall calcification, suggestive of porcelain gallbladder.. Intraluminal gallbladder calculi were identified on the comparison abdomen/pelvis CT but could not be identified by ultrasound today, possibly because the gallbladder is contracted during today's examination.. No biliary duct dilatation. Heterogeneous hepatic parenchyma compatible with diffuse hepatocellular disease. The main portal vein peak flow velocity is decreased below the normal range measuring 13.5 centimeters/second. Direction of flow in the main portal vein is hepatopetal which is normal. The main portal vein diameter is normal measuring 11 mm. The main hepatic vein waveforms are phasic, this is normal. There are no filling defects in the main hepatic vein to suggest thrombus. The hepatic artery is patent. <Electronically signed by Jimbo Zuñiga > 09/13/20 [id number]
[2020-09-13 15:43] LABS: CALCIUM LEVEL 7.7 MG/DL (8.8-10.2); CREATININE FOR GFR 2.34 MG/DL (0.70-1.30); GLOMERULAR FILTRATION RATE 29.2 (>42); POTASSIUM SERUM 5.3 MEQ/L (3.5-5.1)
[2020-09-13 18:00] VITALS: BP 122/78
[2020-09-13] MEDS: TAMSULOSIN 0.4 MG CAP PO SCH (21:08)
[2020-09-13 22:00] VITALS: BP 125/78
[2020-09-14] VITALS (7 sets, daily range): BP systolic 104–137; BP diastolic 55–80
[2020-09-14] MEDS: MORPHINE 2 MG/ML 1ML VIAL (J2270) IV PRN ×2 (02:23→18:42)
[2020-09-14] MEDS: NORCO, ANEXSIA 5/325MG TABLET (HYDROcodone/ACETAMINOPHEN) PO PRN (05:41)
[2020-09-14 06:03] LABS: BASO % 0.1 % (0.0-1.0); EOS # 0.1 10^3/uL (0.0-0.5); EOS % 0.4 % (0.0-3.0); HEMATOCRIT 33.1 % (42.0-52.0); HEMOGLOBIN 11.3 g/dl (13.5-17.5); LYMPH # 0.6 10^3/uL (1.5-5.0); LYMPH % 2.7 % (24.0-44.0); MEAN CORPUSCULAR HEMOGLOBIN 26.2 pg (27.0-33.0); MEAN CORPUSCULAR HGB CONC 34.1 g/dl (32.0-36.5); MEAN CORPUSCULAR VOLUME 76.6 fl (80.0-96.0); MONO # 1.9 10^3/uL (0.0-0.8); MONO % 9.2 % (2.0-8.0); NEUTROPHILS % 86.6 % (36.0-66.0); PLATELET COUNT, AUTOMATED 393 10^3/uL (150-450); RED BLOOD COUNT 4.32 10^6/uL (4.30-6.10)
[2020-09-14 06:14] LABS: INR 1.7; PROTHROMBIN TIME 20.3 SECONDS (12.5-14.3)
[2020-09-14 06:50] LABS: WHITE BLOOD COUNT 20.7 10^3/uL (4.0-10.0)
[2020-09-14] MEDS ORDERED: oxyCODONE 5MG TAB PO PRN (06:50)
[2020-09-14 06:52] LABS: ALBUMIN 1.8 GM/DL (3.2-5.2); BILIRUBIN,TOTAL 11.8 MG/DL (0.2-1.0); CALCIUM LEVEL 7.7 MG/DL (8.8-10.2); CREATININE FOR GFR 2.68 MG/DL (0.70-1.30); GLOMERULAR FILTRATION RATE 24.9 (>42); POTASSIUM SERUM 4.9 MEQ/L (3.5-5.1); TOTAL PROTEIN 4.2 GM/DL (6.4-8.2)
[2020-09-14] MEDS: amLODIPine 5 MG TAB PO SCH (08:53)
[2020-09-14] MEDS: SERTRALINE HCL 25 MG TABLET PO SCH ×2 (08:54→20:33)
--- NOTE | 2020-09-14 09:06 | REP ---
INDICATION: evaluate abdominal fluid COMPARISON: 07/30/2020. TECHNIQUE: CT Scan of the abdomen and pelvis was performed without intravenous contrast. Sagittal and coronal reconstruction images performed. FINDINGS: Lung bases: Small bilateral pleural effusions are present with bibasilar patchy parenchymal opacities representing atelectasis or infiltrate. Liver: A 2.2 cm cyst is seen in the right lobe of the liver. Gallbladder: Contrast is seen in a collapsed gallbladder. A stent is seen in the distal common bile duct. Tiny amount of biliary air and air in the gallbladder is noted, status post ERCP 09/10/2020. Spleen: Several calcified granulomas are seen in the spleen. Adrenals: Normal. Pancreas: Grossly unremarkable.. Kidneys: There is significant left renal atrophy. There is a left nephrostomy tube present with the pigtail formed in the left renal pelvis. The left ureter is mild to moderately dilated. The left pelvocaliceal system is not dilated. Small and large bowel: Grossly unremarkable. Free fluid: There is moderate abdominal and pelvic ascites. Abdominal aorta: No aneurysm. Adenopathy: Prominent left retroperitoneal and left inguinal lymph nodes again noted. Appendix: Not inflamed. Osseous structures: There are degenerative changes of the spine without compression deformity. Pelvis: The bladder is not well distended, however, there is thickening of the left bladder wall again noted. A left inguinal hernia contains mild ascites fluid. IMPRESSION: Small bilateral pleural effusions are present with bibasilar patchy parenchymal opacities representing atelectasis or infiltrate. Moderate abdominal and pelvic ascites. Other nonacute findings as discussed above. <Electronically signed by Jimbo Dumas > 09/14/20 0902
--- NOTE | 2020-09-14 11:31 | IPNPDOC ---
Text Note Date of Service The patient was seen on 09/14/20. NOTE SUBJECTIVE: Patient seen and examined at bedside. Still with some abdominal pain, not much changed from yesterday. OBJECTIVE: VITAL SIGNS: See below GENERAL: NAD, sitting comfortably in chair, jaundiced HEENT: NC/AT, EOMI CARDIOVASCULAR: +S1S2, RRR Chest: right anterior chest port in place, lungs CTA B/L ABDOMEN: distended, tympanic, +BS, mild tenderness EXTREMITIES: peripheral LE edema NEUROLOGIC: AAOx3 ASSESSMENT/PLAN: 75-year-old male with past medical history including urothelial carcinoma previously receiving avelumab immunotherapy last dose 07/23/20, with left perc utaneous nephrostomy tube admitted for acute cholecystitis, hospital stay complicated with hyperbilirubinemia. #acute liver failure - worsening Hyperbilirubinemia/transaminitis; elevated INR - follow as per GI/surgery - d/w IR for transjugular liver biopsy - deferred for percutaneous approach, planned for today - s/p ERCP with stent placement - no obstruction found - IV antibiotics per general surgery. pain meds PRN - GI/Dr. Castillo consultation appreciated - Hepatitis profile negative. Further lab work up pending. 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 Completed 6 cycles 03/16/2020. - f/u CT chest/abd/pelvis - 03/23/2020 showed positive response - previous bulky retroperitoneal adenopathy from left kidney into left hemipelvis considerably improved - started maintenance avelumab immunotherapy 04/16/2020 - last dose 06/22/2020 #DVT Prophylaxis: mechanical Dispo: paracentesis and biopsy completed today; starting steroid therapy for perhaps delayed reaction to previous chemo; GI recs for transfer, pending bed availability, none today at [facility] VS,Joshua, I+O VS, Joshua, I+O Laboratory Tests 09/13/20 14:54 09/14/20 05:38 Vital Signs Date Time Temp Pulse Resp B/P (MAP) Pulse Ox O2 Delivery O2 Flow Rate FiO2 09/14/20 10:00 98.0 82 16 105/73 (84) 89 Room Air 09/12/20 06:00 2.0 I&O- Last 24 Hours up to 6 AM 09/14/20 05:59 Intake Total 2770 ml Output Total 250 ml Balance 2520 ml SARAVANAN FERRER MD Sep 14, 2020 11:31
[2020-09-14] MEDS: ERTAPENEM SODIUM 0.5 GM in NS 50 ML IV SCH (13:27)
[2020-09-14 14:09] LABS: APPEARANCE, URINE CLOUDY (CLEAR); BACTERIA, URINE AUTO 2+ (NEGATIVE); BILIRUBIN, URINE AUTO NEGATIVE (NEGATIVE); BLOOD, URINE BLOOD 3+ (NEGATIVE); COLOR, URINE AMBER (YELLOW); GLUCOSE, URINE (UA) AUTO NEGATIVE (NEGATIVE); KETONE, URINE AUTO NEGATIVE (NEGATIVE); LEUKOCYTE ESTERASE, URINE AUTO 2+ (NEGATIVE); MUCUS, URINE MODERATE (NEGATIVE); NITRITE, URINE AUTO NEGATIVE (NEGATIVE); PROTEIN, URINE AUTO 3+ mg/dL (NEGATIVE); RBC, URINE AUTO 139 /HPF (0-3); SPECIFIC GRAVITY URINE AUTO 1.007 (1.002-1.035); SQUAMOUS EPITHELIAL CELL UR AU 0 /HPF (0-6); UROBILINOGEN, URINE AUTO 0.2 mg/dL (0.0-2.0); WBC, URINE AUTO 17 /HPF (0-3)
[2020-09-14 14:16] LABS: CHLORIDE,RANDOM URINE 112 MEQ/L; CREATININE,RANDOM URINE < 13.0 MG/DL; POTASSIUM RANDOM URINE 8.2 MEQ/L; SODIUM,RANDOM URINE 120 MEQ/L
--- NOTE | 2020-09-14 15:11 | ECHO ---
DATE OF PROCEDURE: 09/12/2020 Age: 76 Gender: Male Height: 178 cm Weight: 88 kg REFERRING PHYSICIAN: New Billy M.D. INDICATION: Congestive heart failure. MEASUREMENTS: IVS 1.4 cm LV 4.3 cm LV systolic 2.2 cm LVPW 1.4 cm LA 4.4 cm Aorta 3.9 cm at the level of root Ascending aorta 4.2 cm RV 3.3 cm IVC 1.7 cm Mitral E wave velocity 65 cm/s Mitral A wave 84 cm/s E prime septal 6.9 cm/s E prime lateral 10.9 cm/s FINDINGS: This study is of rather limited technical quality. There are decent parasternal, but limited apical and subcostal views. The patient had recent abdominal surgery and has a lot of abdominal bloating. Left ventricle is normal size and has hyperdynamic contractility, I estimate LVEF 70% to 75%. Right ventricle was relatively poorly visualized, but grossly appears normal. Left atrium is mildly enlarged. Right atrium appears normal. Aortic valve is mildly sclerotic, but does not have any significant restriction of cusp mobility. Mitral and tricuspid valves appear normal. Pulmonic valve was not well seen. No pericardial effusion is noted. Inferior vena cava is of normal size. Aortic root and ascending aorta are mildly dilated. Abdominal aorta was not well seen. Doppler interrogation reveals no aortic stenosis or insufficiency. Same applies for mitral valve. There is trace tricuspid insufficiency. Calculated pulmonary artery pressure is in the low 40s corresponding to moderate pulmonary hypertension. Mitral inflow pattern and tissue Doppler imaging of the mitral annulus revealed grade 1 diastolic dysfunction. CONCLUSIONS: 1. Study is of fair technical quality. 2. Normal LV size with [id number] LVH, hyperdynamic LV systolic function (LVEF 70% to 75%), grade 1 diastolic dysfunction. 3. Aortic sclerosis, but no significant stenosis or insufficiency. 4. Trace tricuspid insufficiency. 5. Likely normal central venous pressure and approximately moderate pulmonary hypertension. 6. Dilated aortic root and ascending aorta (3.9 and 4.2 cm respectively). MTDD
[2020-09-14] MEDS ORDERED: PHYTONADIONE 10MG/ML INJECTION (J3430) SC ONE (16:50)
[2020-09-14] MEDS ORDERED: predniSONE 10 MG TAB PO SCH (17:10)
[2020-09-14 17:20] LABS: SPEC. GRAVITY BODY FLUIDS 1.014 (NOT ESTABLISHED)
[2020-09-14 17:33] LABS: APPEARANCE, BODY FLUID CLOUDY (CLEAR); PERITONEAL FL COLOR YELLOW (COLORLESS); SOURCE, BODY FLUID PERITONEAL
[2020-09-14 18:11] LABS: SOURCE, BODY FLUID ALBUMIN PERITONEAL; SOURCE, BODY FLUID GLUCOSE PERITONEAL; SOURCE, BODY FLUID TOT PROTEIN PERITONEAL; TOTAL PROTEIN, BODY FLUID 1.5 G/DL (NOT ESTABLISHED)
--- NOTE | 2020-09-14 19:06 | REP ---
INDICATION: liver biopsy. COMPARISON: None. TECHNIQUE: The procedure was performed under the direct supervision of Dr. Dumas. The risks and benefits of the procedure were explained to the patient and informed consent was obtained. The left lobe of the liver was localized using ultrasound guidance. The skin was prepped and draped in a sterile fashion. 1% lidocaine was used as a local anesthetic. Using ultrasound guidance a 17/18 gauge coaxial needle biopsy system was inserted and advanced into the liver. Five core biopsy samples were obtained and sent to the lab for analysis. The patient tolerated the procedure well and there were no immediate complications. After the appropriate amount to monitor convalescence the patient was discharged from the department. FINDINGS: None IMPRESSION: Ultrasound-guided liver biopsy. <Electronically signed by Philip Barajas > 09/14/20 [id number] <Electronically signed by Jimbo Dumas > 09/14/20 [id number]
[2020-09-14] MEDS: predniSONE 20 MG TAB PO SCH (19:07)
--- NOTE | 2020-09-14 19:07 | REP ---
INDICATION: ascites. COMPARISON: None. TECHNIQUE: The procedure was performed under the direct supervision of Dr. Dumas. The risks and benefits of the procedure were explained to the patient and informed consent was obtained. The largest pocket of fluid was localized in the right flank using ultrasound guidance. The skin was prepped and draped in a sterile fashion. 1% lidocaine was used as a local anesthetic. An 8-Georgian multi side-hole catheter was inserted using trocar technique.2400 cc of anton colored fluid was withdrawn with a sample sent to the lab for analysis. The patient tolerated the procedure well and there were no immediate complications. After the appropriate amount of monitored convalescence, the patient was discharged from the department. FINDINGS: None IMPRESSION: Ultrasound-guided paracentesis [id number] cc of anton colored fluid. <Electronically signed by Philip Barajas > 09/14/20 [id number] <Electronically signed by Jimbo Dumas > 09/14/20 [id number]
[2020-09-14] MEDS: TAMSULOSIN 0.4 MG CAP PO SCH (20:33)
[2020-09-14] MEDS ORDERED: FUROSEMIDE 100MG/10ML VIAL (J1940) IV ONE (20:40)
[2020-09-15] VITALS (16 sets, daily range): BP systolic 73–126; BP diastolic 41–65
[2020-09-15 06:32] LABS: BASO % 0.1 % (0.0-1.0); EOS % 0.1 % (0.0-3.0); HEMATOCRIT 33.7 % (42.0-52.0); HEMOGLOBIN 11.9 g/dl (13.5-17.5); LYMPH # 0.4 10^3/uL (1.5-5.0); MEAN CORPUSCULAR HEMOGLOBIN 26.3 pg (27.0-33.0); MEAN CORPUSCULAR HGB CONC 35.3 g/dl (32.0-36.5); MEAN CORPUSCULAR VOLUME 74.6 fl (80.0-96.0); MONO # 0.9 10^3/uL (0.0-0.8); MONO % 4.8 % (2.0-8.0); NEUTROPHILS # 16.5 10^3/uL (1.5-8.5); NEUTROPHILS % 92.3 % (36.0-66.0); PLATELET COUNT, AUTOMATED 389 10^3/uL (150-450); RED BLOOD COUNT 4.52 10^6/uL (4.30-6.10); WHITE BLOOD COUNT 17.9 10^3/uL (4.0-10.0)
[2020-09-15 06:38] LABS: INR 1.58; PROTHROMBIN TIME 19.2 SECONDS (12.5-14.3)
[2020-09-15 07:01] LABS: ALBUMIN 1.8 GM/DL (3.2-5.2); CALCIUM LEVEL 7.7 MG/DL (8.8-10.2); CREATININE FOR GFR 3.71 MG/DL (0.70-1.30); GLOMERULAR FILTRATION RATE 17.1 (>42); POTASSIUM SERUM 5.5 MEQ/L (3.5-5.1); TOTAL PROTEIN 4.3 GM/DL (6.4-8.2)
[2020-09-15] MEDS: ONDANSETRON 4MG/2ML VIAL IV PRN (07:48)
[2020-09-15] MEDS: MORPHINE 2 MG/ML 1ML VIAL (J2270) IV PRN (07:51)
[2020-09-15] MEDS ORDERED: FUROSEMIDE 100MG/10ML VIAL (J1940) IV SCH (09:00)
--- NOTE | 2020-09-15 09:02 | IPN ---
PROGRESS NOTE DATE: 09/14/2020 HISTORY: The patient was admitted back on the 08 of September. He had been seen in the office for what appeared to be some mild acute cholecystitis and was admitted because of increasing abdominal pain as well as a report of some dark urine. On admission, he was found to have marked elevation of his liver function tests. Additional imaging including a repeat ultrasound and MRI showed no evidence of bile duct dilatation. He had an endoscopic retrograde cholangiopancreatography (ERCP) now four days ago that showed normal size bile ducts and a biliary stent was placed by Dr. Castillo. The patient is being followed also by the hospitalist for consultation regarding his elevated liver function. Over the last few days, his bilirubin has risen somewhat and his renal function is now beginning to deteriorate. He has been retaining a large amount of fluid. Vital signs show that he has been afebrile over the past 24 hours. His pulse is in the 80s and low 90s. Blood pressure remains good. Intake and output shows that yesterday he had 3000 in with only 250 recorded out. He reports that he has been voiding in the toilet. PHYSICAL EXAMINATION: Reveals an older gentleman appearing quite tired. He is jaundiced. The abdomen is quite protuberant. Heart examination reveals a regular rhythm. The lungs appear to be clear to auscultation bilaterally. The abdomen is quite protuberant. It is generally soft without any discrete point of tenderness. He does have significant edema in the lower extremities, both in the lower legs and in the thighs. LABORATORY: Laboratory studies today show a white count of 21,000, which is slightly down from 23,000 yesterday. His hemoglobin is 11 with a hematocrit of 33, and the platelet count is 393,000. Differential count shows 87% neutrophils, 3% lymphocytes and 9% monocytes. Chemistry profile shows a sodium of 135, potassium 4.9, chloride 101, CO2 of 26, BUN of 72, creatinine 2.68 and a glucose of 79. Total bilirubin is 12, AST is 274, ALT is 167 and the alkaline phosphatase is 878. Total protein is 4.2 with an albumin of 1.8. Coags today show a prothrombin time of 20.3 with an INR of 1.7. IMAGING: I ordered a CT scan today to reassess his abdomen and assess the amount of fluid that would seem to be retained within the abdomen. This does show some contrast presumably from the ERCP within the gallbladder. There is a fairly significant amount of ascites around the liver and spleen and then down the pericolic gutters and into the pelvis. There is no evidence of free air. He also has small bilateral pleural effusions now. IMPRESISON: The patient has persistent marked elevation of his liver function tests not apparently related to biliary tract disease. He has now worsening renal failure. From a baseline creatinine in the range of about 1.5, his creatinine has now risen to 2.68. His CT scan shows significant ascites. PLAN: I spoke with Dr. Billy this morning about the patient and my concerns. We discussed the possibility of transfer to a higher level of care in a teaching hospital with a liver specialist and we agreed that this would be reasonable. Dr. Billy will make the contact to try to make this happen but he is not optimistic about finding an open bed for such a transfer. He has asked the print finisher to evaluate the patient today. We also discussed the possibility of proceeding with a liver biopsy as well, and I will allow Dr. Billy to make this decision in regards to whether a transfer can be arranged soon or not. I did call Dr. Scruggs today to discuss with her how her patient is doing here in the hospital and to update her on his medical issues. ALCIDES
--- NOTE | 2020-09-15 09:07 | CR ---
CONSULTATION DATE: 09/14/2020 REQUESTING PHYSICIAN: New Billy MD REQUESTING PHYSICIAN: Whitney Sweeney MD REASON FOR CONSULTATION: Management of acute renal failure. CHIEF COMPLAINT: The patient presented to the hospital on September 08 with abdominal pain. HISTORY OF PRESENT ILLNESS: Daniel Farrell is a 75-year-old male with past medical history of chronic kidney disease; stage III with a baseline creatinine of around 1.5 as per previous records. He presented to the hospital on September 08, 2020 with a two week history of right-sided abdominal pain. Ultrasound done at the end of August had shown gallstones. He had some gallstones at the neck of the bladder. He was being given antibiotics. The patient has undergone endoscopic retrograde cholangiopancreatography (ERCP) and stent placement. There was no obstruction found. He is also on IV antibiotics. He was found to have hepatitis on arrival. His creatinine on arrival was 1.6, which has bumped up to 2.6 now. Nephrology service was called to further help in the management of this patient. I saw and examined the patient today morning at the bedside. He still reports persistent lower abdominal pain, abdominal distension and edema, decreased urine output and he is making very dark urine. He also reports history of left-sided percutaneous nephrostomy in the past. He has history of urothelial carcinoma. 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 PAST SURGICAL HISTORY: Left-sided percutaneous nephrostomy in the left kidney. Recent endoscopic retrograde cholangiopancreatography (ERCP). FAMILY HISTORY: No significant family history of end-stage renal disease. SOCIAL HISTORY: The patient is a former smoker. He denies any illicit drug abuse or alcohol abuse. REVIEW OF SYSTEMS: Constitutional: He reports feeling very weak and tired. Eyes: He denies any blurry vision or double vision. ENT: Denies any dysphagia or odynophagia Cardiovascular: Denies any chest pain or palpitations. Respiratory: Denies any shortness of breath. Gastrointestinal (GI): He reports abdominal distension and lower abdominal pain. Genitourinary: He reports decreased urine output and dark urine. Musculoskeletal: He denies any muscle aches and pains. Skin: He denies any rashes or ulcers. Hematological/oncological: There is a history of urothelial carcinoma. He denies easy bleeding or bruising. PUBLIC HEALTH STAFF NURSE: He denies any strokes, seizures or weakness. All other review of systems is negative. PHYSICAL EXAMINATION: General: The patient is awake, alert and oriented x3, lying in bed. Vital signs: Temperature is 98.1 degrees Fahrenheit, blood pressure 123/72, pulse is 86, respiratory rate of 22, O2 saturation 90% on nasal canula at 2 liters. Head and neck examination: Extraocular muscles are intact. Pupils equally round and reactive to light. Mucous membranes are moist. He has significant jaundice in the conjunctiva. Neck is supple. Mildly elevated jugular venous distention (JVD) is noted. Cardiovascular: S1, S2 regular rate. Trace edema of the bilateral lower extremities. Respiratory: Mildly decreased breath sounds at the bases, otherwise no active rales or rhonchi. Abdomen: Soft, distended. Tympanitic to percussion in the center and dullness to percussion in the flanks. He has left-sided percutaneous nephrostomy as well. Left-sided old inguinal hernia scar was noted. Musculoskeletal: No clubbing or cyanosis. Pulses are 2+. Skin: Jaundice of the skin was noted. PUBLIC HEALTH STAFF NURSE: No focal deficit. Power is 5/5 in all extremities. LABORATORY DATA: Complete blood count (CBC) showed a WBC of 20.7, hemoglobin 11.3, platelets are 393. INR is 1.7. Urinalysis showed it was cloudy, 3+ blood, 2+ leukocyte esterase, 139 WBCs, 2+ bacteria. Random creatinine was less than 13. Sodium was 120, potassium was 8.2, chloride was 112. Peritoneal fluid: White cell count is 6,298. Polymorphonuclears are 87. Basic metabolic panel (BMP) showed sodium 135, potassium 4.9, chloride 101, bicarbonate 26, BUN 72, creatinine is 2.6. Total bilirubin is 11.8, AST is 274, ALT is 167, alkaline phosphatase is 878, albumin is 1.8. Immunology is pending. Serology: Hepatitis B, hepatitis C is negative. IMAGING DATA: The patient got ultrasound guided liver biopsy done today. He also got paracentesis done and 2.4 liters of fluid were removed. CAT scan of the abdomen and pelvis done today showed small bilateral pleural effusions, bibasilar patchy parenchymal opacities representing atelectasis or infiltrate. Moderate abdominal and pelvic ascites. Left renal atrophy. There was a left nephrostomy tube with pigtail in the left renal pelvis. CURRENT INPATIENT MEDICATIONS: The patient's medications were all reviewed by myself. The patient is currently on IV ertapenem. I gave him a dose of Lasix 60 mg IV times one dose. He is getting morphine as needed, Zofran as needed, vitamin K 10 mg subcutaneous one dose, prednisone 70 mg by mouth daily has been started. Zoloft 25 mg by mouth twice a day and Flomax 0.4 mg every night at bedtime. ASSESSMENT AND PLAN: 75-year-old male with acute liver failure and renal failure, spontaneous bacterial peritonitis and with history of high-grade urothelial carcinoma. PLAN: 1. Acute hepatitis. The patient recently endoscopic retrograde cholangiopancreatography (ERCP) and stenting done. However, there was no obstruction noted. There is a possibility that hepatitis might be associated with recent chemotherapy. The patient has already been started on prednisone 70 mg by mouth daily and I agree with that. 2. Peritonitis. The patient's fluid cell count done today with high white cells with 87% polymorphonuclears, points towards peritonitis. The patient is already on IV ertapenem. Dose was decreased because of worsening renal function. 3. Acute renal failure. The patient has acute oliguric renal failure. I have given the patient a dose of Lasix 60 mg IV times one dose. Most likely it might be associated with acute liver failure and possible injury by chemotherapy. If the patient's renal function does not start improving with the use of prednisone, we might have to start the patient on dialysis. 4. Metastatic high-grade urothelial carcinoma with lymph node metastasis. Status post left-sided percutaneous nephrostomy. As mentioned above, the patient has worsening renal function. Chemotherapy is on hold because of acute sickness. The rest of the management is as per hematology/oncology. Last dose of avelumab was in June 2020.
[2020-09-15] MEDS: predniSONE 20 MG TAB PO SCH (09:41)
[2020-09-15] MEDS: SERTRALINE HCL 25 MG TABLET PO SCH ×2 (09:41→20:39)
--- NOTE | 2020-09-15 11:52 | IPNPDOC ---
Text Note Date of Service The patient was seen on 09/15/20. NOTE Subjective: Patient is a 75-year-old male with a a PMHx of Urothelial CA (Avelumab immunotherapy) who presented to [facility] for right-sided abdominal pain. Patient was started on oral antibiotics and surgery was consulted as an outpatient. Patient was admitted to the surgical service. Hospital services consulted for hyperbilirubinemia. GI and Nephrology has been consulted. Yesterday 09/14, patient underwent a paracentesis and liver biopsy no subsequent started on prednisone. I have consulted infectious diseases morning after fluid from paracentesis has revealed significant WBC elevation. Patient was seen and examined at the bedside. Patient reports that his abdominal pain is doing slightly better. Denies any nausea, vomiting or diarrhea. Denies chest pain, or palpitations. Objective: Vitals (See below) General: Lying in bed, no acute distress, comfortable, AAOx3 HEENT: NC, AT CVS: RRR, +S1S2 Lungs: Diminished lung sounds at bases. No wheezing, rhonchi or crackles Abdomen: Soft, distended, mild diffuse tenderness, paracentesis bandage is noted Extremities: 1+ pitting edema, - Calf tenderness Imaging: Gall bladder US 09/08: 1. Cholelithiasis with chronic cholecystitis. However the gallbladder wall is increased significantly now up to 13 mm, previously up to 5 mm on the study 8 days ago. However the common duct is only 4 mm without dilatation and no intrahepatic ductal dilatation seen. 2. Liver without biliary dilatation and 2.6 x 2.6 cm cystic area centrally. 3. Pancreas partially obscured by gas shadowing and the right kidney with 2 lower pole cystic areas of up to 1.3 cm each as described. 4. Trace free fluid right upper quadrant. MRCP 09/08: 1. Lobular cystic focus in the right lobe of the liver measures 2.7 x 2.5 x 2.5 cm. Few tiny liver cysts demonstrated as well. 2. Contracted gallbladder, cholelithiasis and multiple calculi in the gallbladder neck with adenomyomatosis in the gallbladder fundus. Clinical correlation to exclude cholecystitis suggested. 3. There is a small amount of free intraperitoneal fluid present. 4. Nephrostomy tube in the left kidney partially visualized. 5. Focal caliectasis lower pole right kidney. Renal US 09/12: Atrophic left kidney. No hydronephrosis. Otherwise, negative renal ultrasound. The bladder is nondistended and cannot be further evaluated. Doppler US 09/13: Diffusely thickened gallbladder wall, nonspecific: Inflammation/edema versus fibrosis. Small mural gallbladder wall calcification, suggestive of porcelain gallbladder.. Intraluminal gallbladder calculi were identified on the comparison abdomen/pelvis CT but could not be identified by ultrasound today, possibly because the gallbladder is contracted during today's examination.. No biliary duct dilatation. Heterogeneous hepatic parenchyma compatible with diffuse hepatocellular disease. The main portal vein peak flow velocity is decreased below the normal range measuring 13.5 centimeters/second. Direction of flow in the main portal vein is hepatopetal which is normal. The main portal vein diameter is normal measuring 11 mm. The main hepatic vein waveforms are phasic, this is normal. There are no filling defects in the main hepatic vein to suggest thrombus. The hepatic artery is patent. Assessment and plan: Acute liver failure - Currently patient appears jaundiced - Patient continues to experience hyperbilirubinemia/transaminitis - INR is elevated / Low albumin - Hepatitis profile negative - s/p ERCP with stent placement; no obstruction found - s/p Liver biopsy on 09/14 - s/p Paracentesis on 09/14; removal of 2400 mL of fluid - significant elevation of WBC - GI on consultation - Patient is currently on Ertapenem as per surgical team - Will consult ID today - c/w Prednisone as per GI - [facility] in [place] has been consulted for transfer for liver center; awaiting bed availability Elevated Cr with left percutaneous nephrostomy / Oliguric renal failure - possibly 2/2 hepatorenal syndrome? - UA without any significant signs of infection - Cr worsening / Decreased urine output - c/w Diuresis as per Nephrology; will likely need dialysis - will get IR guided PermCath placement tomorrow with Dr. Cullen - Nephrology on consultation Leukocytosis - Paracentesis fluid consistent with infection - c/w Ertapenem - ID consulted today Abdominal distension - follow up as per primary team - surgery Acute cholecystitis - follow as per surgery Metastatic high-grade urothelial carcinoma with lymph node metastasis retroperitoneum and left pelvic sidewall disease - follows with oncology - pending change in chemotherapy after planned cholecystectomy - Palliative cisplatin/gemcitabine started 10/10/2019 - f/u MRI pelvis 12/2019 showed a positive response. Completed 6 cycles 03/16/2020. - f/u CT chest/abd/pelvis - 03/23/2020 showed positive response - previous bulky retroperitoneal adenopathy from left kidney into left hemipelvis considerably improved - started maintenance avelumab immunotherapy 04/16/2020 - last dose 06/22/2020 DVT Prophylaxis - c/w TEDs/Sequentials Disposition: - Pending bed availability at [facility] - ID consulted VS,Joshua, I+O VS, Joshua, I+O Laboratory Tests 09/15/20 05:58 Vital Signs Date Time Temp Pulse Resp B/P (MAP) Pulse Ox O2 Delivery O2 Flow Rate FiO2 09/15/20 08:10 18 09/15/20 06:00 97.3 96 125/63 (83) 90 Nasal Cannula 2.0 I&O- Last 24 Hours up to 6 AM 09/15/20 06:00 Intake Total 990 ml Output Total 275 ml Balance 715 ml DIANNE PIEDRA MD Sep 15, 2020 11:52
[2020-09-15] MEDS ORDERED: METOCLOPRAMIDE INJ 10MG/2ML VIAL (J2765 PER 1) IV PRN (13:10)
[2020-09-15] MEDS: ERTAPENEM SODIUM 0.5 GM in NS 50 ML IV SCH (13:45)
--- NOTE | 2020-09-15 13:46 | REP ---
INDICATION: Hypoxia. COMPARISON: 07/22/2019. TECHNIQUE: SINGLE PORTABLE AP VIEW OF THE CHEST WAS PERFORMED. FINDINGS: The lungs are poorly aerated. Patchy opacities in the left lung base may represent atelectasis or infiltrate. The right lung appears clear. The heart is not significantly enlarged. There is mild calcification of the thoracic aorta. The mediastinal silhouette is unremarkable. Right central venous catheter is seen with the tip in the superior vena cava. IMPRESSION: Poor ventilation. Mild patchy atelectasis in or infiltrate left lung base. <Electronically signed by Jimbo Dumas > 09/15/20 [id number]
[2020-09-15] MEDS ORDERED: CALCIUM CARBONATE 500 MG CHEW U/D PO ONE (16:00)
[2020-09-15 17:09] LABS: ANCA-ATYPICAL <1:20 titer (Neg:<1:20); ANTI DOUBLE STRAND-DNA AB 15 IU/mL (0-9); ANTI-MITOCHONDRIAL ANTIBODY <20.0 Units (0.0-20.0); ANTINUCLEAR ANTIBODIES DIRECT Positive (Negative); CYTOPLASMIC NEUTROP AB ANCA-C <1:20 titer (Neg:<1:20); LIVER-KIDNEY MICROSOMAL ABY <20.1 Units (0.0-20.0); PERINUCLEAR AB ANCA-P <1:20 titer (Neg:<1:20); RNP ANTIBODIES <0.2 AI (0.0-0.9); SJOGREN'S ANTI SS-A <0.2 AI (0.0-0.9); SJOGREN'S ANTI SS-B <0.2 AI (0.0-0.9); SMITH ANTIBODIES <0.2 AI (0.0-0.9); TISSUE TRANSGLUTAMINASE IgA <2 U/mL (0-3)
[2020-09-15] MEDS ORDERED: NS 1,000 ML IV ONE ×2 (18:30→21:35)
--- NOTE | 2020-09-15 18:32 | IPNPDOC ---
Text Note Date of Service The patient was seen on 09/15/20. NOTE Interval update: - Over last 24 hours patient has become more confused - SBP has been on lower limits of normal - Lactic acid is noted to be elevated - Discussed with military source operations officer and nephrology; will hold off on diuretic therapy at this time - Will continue with Albumin 25% infusion [id number] in the ICU - Will give patient 1 L of normal saline bolus / May require continued IV fluids ... however patient continues to be grossly fluid overloaded - Will provide additional normal saline infusion at 30cc/kg as need (total of 2.6 liters) - Patient continues to remain oliguric renal failure; plan for IR guided PermCath placement and dialysis tomorrow - Patient be transitioned to ICU - Update with plan of care; advised her of his poor prognosis / discussed code status - changed to DNR / Trial of intubation VS,Fishbone, I+O VS, Fishbone, I+O Laboratory Tests 09/15/20 05:58 Vital Signs Date Time Temp Pulse Resp B/P (MAP) Pulse Ox O2 Delivery O2 Flow Rate FiO2 09/15/20 17:37 96.6 80 22 96/56 89 2.0 09/15/20 16:45 Nasal Cannula I&O- Last 24 Hours up to 6 AM 09/15/20 06:00 Intake Total 990 ml Output Total 275 ml Balance 715 ml DIANNE PIEDRA MD Sep 15, 2020 18:32
--- NOTE | 2020-09-15 20:20 | IPN ---
NEPHROLOGY PROGRESS NOTE DATE: 09/15/2020 SUBJECTIVE: Patient was seen and examined at the bedside today morning. 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 He is oliguric at this time. He was given a dose of Lasix. He did not respond much. Renal function continues to deteriorate. Creatinine has bumped up to 3.7 today. Ultrasound guided liver biopsy was done yesterday, report is still pending. He reports his abdominal pain is better today as compared with yesterday. He still reports abdominal bloating and lower extremity edema. OBJECTIVE: VITAL SIGNS: Temperature 97.5 degrees Fahrenheit, blood pressure 102/42, pulse 79, respiratory rate 22, sating 91% on nasal cannula at 2 liters. INTAKE AND OUTPUT: Urine output recorded as 275 mL yesterday and 150 mL so far today since overnight. Weight in the bed scale is not available. PHYSICAL EXAMINATION: GENERAL: Patient is awake, alert, oriented x3, lying in bed. Jaundice of the skin was noted. HEAD/NECK: Conjunctival jaundice was noted. Mucous membranes are moist. Neck is supple. Mildly elevated JVD. RESPIRATORY: Mildly decreased breath sounds at the bases. CARDIOVASCULAR: S1, S2, regular rate. 2+ edema of bilateral lower extremities. ABDOMEN: Soft, distended, moderate amount of ascites with dullness to percussion in the flanks noted. There is a dressing at the site where liver biopsy was done. MUSCULOSKELETAL: No clubbing or cyanosis. 2+ edema of the lower extremities. GENITOURINARY: He has a left-sided percutaneous nephrostomy tube. TEMP RECRUITER: No focal deficit. Power is 5/5 in all extremities. SKIN: Jaundice of the skin was noted all over. LAB REVIEW: CBC showed WBC 17.9, hemoglobin 11.9, platelets 389,000. BMP showed sodium 134, potassium 5.5, chloride 100, bicarb 24, BUN 89, creatinine 3.7. Lactic acid 7.6. Calcium 7.7. Total bilirubin 13; it was 11.8 yesterday. AST 336, ALT 180, alkaline phosphatase 928. Albumin 1.8. MICROBIOLOGY: Blood cultures are pending. Gram stain of peritoneal fluid showed many WBC's, few RBC's, no organism was seen. PATHOLOGY: Peritoneal fluid cytology is pending. Liver biopsy result is pending. IMAGING: A chest x-ray was done today morning, which showed mild patchy atelectasis or infiltrate in the left lung base. CURRENT INPATIENT MEDICATIONS: Patient's medications were all reviewed by myself. He is currently on Invanz 0.5 gram I.V. every 24 hours. His Amlodipine has been stopped. He was given a dose of Lasix yesterday. I started him on Lasix 80 mg I.V. twice a day. He is getting Reglan p.r.n. Vitamin K 10 mg subcutaneously was given yesterday. He is currently on prednisone 70 mg p.o. daily. No other significant change in the medications today as compared with yesterday. ASSESSMENT AND PLAN: 1. Acute oliguric renal failure: Most likely secondary to combination of recent chemotherapy and liver failure. Patient is being given I.V. Lasix. I would wait for steroids to start working, however given this patient's volume overload, the patient will need to start dialysis. He agreed for hemodialysis. He is going to get the catheter placed and he will be started on hemodialysis tomorrow. 2. Acute Hepatitis: Patient already had ERCP done. I do not think the reason for his Hepatitis was obstruction. 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 He has already been started on prednisone 70 mg p.o. daily and he is pending transfer to [facility]. Liver biopsy was done; official report is pending. 3. Peritonitis: Patient is currently on Invanz. Cultures of the peritoneal fluid are pending. 4. Metastatic high grade urothelial carcinoma with lymph node metastases: Patient has a left-sided percutaneous nephrostomy as well. He has developed acute renal failure. He is being started on dialysis. He is not a candidate for any chemotherapy at this time because of his clinical status. [facility]
[2020-09-15] MEDS: TAMSULOSIN 0.4 MG CAP PO SCH (20:39)
[2020-09-15] MEDS ORDERED: LIDOCAINE 5% (LIDODERM) PATCH TD ONE (21:00)
[2020-09-15] MEDS ORDERED: NOREPINEPHRINE BITARTRATE 8 MG in D5W 492 ML IV SCH (23:40)
[2020-09-15] MEDS: NOREPINEPHRINE BITARTRATE 8 MG in D5W 492 ML IV SCH (23:55)
[2020-09-16] VITALS (52 sets, daily range): BP systolic 73–196; BP diastolic 39–109
[2020-09-16] MEDS ORDERED: methylPREDNISolone 125MG 2ML VIAL IV SCH
[2020-09-16] MEDS ORDERED: NOREPINEPHRINE BITARTRATE 8 MG in D5W 500 ML IV SCH (00:02)
[2020-09-16] MEDS ORDERED: SODIUM BICARBONATE 8.4% INJ 50 ML SYRINGE IV STA ×3 (03:19→05:45)
[2020-09-16 03:21] LABS: ABG O2 SATURATION 93.9 % (95.0-99.0)
[2020-09-16 03:22] LABS: ABG BASE EXCESS -17.9 (-2.0-2.0); ABG HCO3 11.8 MEQ/L (22.0-26.0); ABG PARTIAL PRESSURE CO2 43.5 mmHg (35.0-45.0); ABG PARTIAL PRESSURE O2 87.9 mmHg (75.0-100.0); ABG STANDARD HCO3 10.9 MEQ/L (22.0-26.0); ABG TOTAL CO2 13.1 MEQ/L (23.0-31.0); ABG pH (ARTERIAL) 7.051 UNITS (7.350-7.450)
[2020-09-16] MEDS ORDERED: SODIUM BICARBONATE 8.4% INJ 50 ML SYRINGE As Ordered ONE (03:23)
[2020-09-16] MEDS ORDERED: HumuLIN R (REGULAR) INSULIN (NovoLIN R) **100U/ML** PER UNIT IV STA ×2 (04:24→05:45)
[2020-09-16] MEDS ORDERED: DEXTROSE 50% 50 ML SYRINGE IV STA ×2 (04:24→05:45)
[2020-09-16] MEDS ORDERED: CALCIUM GLUCONATE 1,000 MG in D5W MINI-BAG PLUS 100 ML IV ONE ×2 (04:25→05:45)
[2020-09-16 04:52] LABS: BASO % 0.1 % (0.0-1.0); HEMATOCRIT 31.2 % (42.0-52.0); LYMPH # 0.4 10^3/uL (1.5-5.0); LYMPH % 3.4 % (24.0-44.0); MEAN CORPUSCULAR HEMOGLOBIN 26.3 pg (27.0-33.0); MEAN CORPUSCULAR HGB CONC 32.1 g/dl (32.0-36.5); MEAN CORPUSCULAR VOLUME 82.1 fl (80.0-96.0); MONO # 0.3 10^3/uL (0.0-0.8); MONO % 2.2 % (2.0-8.0); NEUTROPHILS # 11.9 10^3/uL (1.5-8.5); NEUTROPHILS % 93.5 % (36.0-66.0); PLATELET COUNT, AUTOMATED 313 10^3/uL (150-450); WHITE BLOOD COUNT 12.8 10^3/uL (4.0-10.0)
[2020-09-16 05:02] LABS: INR 2.63; PROTHROMBIN TIME 28.7 SECONDS (12.5-14.3)
[2020-09-16] MEDS ORDERED: NOREPINEPHRINE 4 MG/4 ML AMP As Ordered ONE (05:21)
[2020-09-16] MEDS: NOREPINEPHRINE BITARTRATE 8 MG in D5W 492 ML IV SCH (05:24)
[2020-09-16] MEDS ORDERED: ALBUTEROL SULFATE 2.5 MG/0.5 ML INH NEB SOLN NEB ONE (05:45)
[2020-09-16 05:47] LABS: MONO REFLEX EBV COMP NEGATIVE (NEGATIVE)
[2020-09-16] MEDS ORDERED: SOD POLYSTYRENE SULFONATE SUSP 15 GM/60 ML UD PO ONE (05:50)
[2020-09-16 05:52] LABS: ALBUMIN 2.1 GM/DL (3.2-5.2); CREATININE FOR GFR 5.39 MG/DL (0.70-1.30); GLOMERULAR FILTRATION RATE 11.1 (>42); POTASSIUM SERUM 7.6 MEQ/L (3.5-5.1); TOTAL PROTEIN 4.7 GM/DL (6.4-8.2)
[2020-09-16 05:53] LABS: BILIRUBIN,TOTAL 15.3 MG/DL (0.2-1.0)
[2020-09-16 05:56] LABS: ABG BASE EXCESS -14.2 (-2.0-2.0); ABG O2 SATURATION 95.4 % (95.0-99.0); ABG PARTIAL PRESSURE CO2 49.3 mmHg (35.0-45.0); ABG STANDARD HCO3 13.4 MEQ/L (22.0-26.0); ABG TOTAL CO2 16.5 MEQ/L (23.0-31.0)
--- NOTE | 2020-09-16 05:57 | IPNPDOC ---
Text Note Date of Service The patient was seen on 09/16/20. NOTE Patients qrs interval was increasing and he appeared to have some peaking of T wave. His morning K was 5.5 and I was concerned his K is continuing to rise. I place the hyperkalemia protocol and ordered a BMP. BMP wasn't resulting. I called the lab, because he is so icteric multiple errors however they were able to verbally tell me his K resulted as 7.6 (not hemolyzed). I reordered hyperkalemia protocol including calcium bicarb, regular insulin and Kayexalate. I discussed the resulted with Dr Soriano. He will place him on continuous dialysis and requested we obtain a dialysis catheter. I called Dr Sepulveda surgery calibration engineer who will help us with placement of the dialysis catheter VS,Joshua, I+O VS, Joshua, I+O Laboratory Tests 09/15/20 05:58 09/16/20 04:41 Vital Signs Date Time Temp Pulse Resp B/P (MAP) Pulse Ox O2 Delivery O2 Flow Rate FiO2 09/16/20 05:00 86 24 86/51 (63) 90 High Flow Cannula 15.0 09/16/20 04:00 97.8 I&O- Last 24 Hours up to 6 AM 09/16/20 06:00 Intake Total 1800.0 ml Output Total 50 ml Balance 1750.0 ml JOCELYN BUNCH MD Sep 16, 2020 05:57
[2020-09-16] MEDS ORDERED: VASOPRESSIN INJ 20 UNITS/ML VIAL As Ordered ONE (07:34)
[2020-09-16] MEDS ORDERED: **NOTE PATIENT COMMENT** MISC XX ONE (08:00)
[2020-09-16] MEDS ORDERED: VASOPRESSIN INJ 20 UNITS in NS 499 ML IV SCH ×2 (08:00→16:00)
[2020-09-16] MEDS ORDERED: ETOMIDATE INJ 20MG/10ML VIAL As Ordered ONE (08:07)
[2020-09-16] MEDS ORDERED: EPINEPHrine INJ 1 MG/ML 1ML AMP As Ordered ONE (08:07)
[2020-09-16] MEDS ORDERED: MIDAZOLAM INJ 2MG/2ML VIAL (J2250 PER 1MG) As Ordered ONE (08:07)
[2020-09-16] MEDS ORDERED: ROCURONIUM BROMIDE 50 MG/5 ML VIAL As Ordered ONE (08:08)
--- NOTE | 2020-09-16 08:17 | ECGEPIP ---
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 Order Number: [id number] Reading MD: Андрей Acuña Measurements Intervals Keiser Rate: 116 P: 41 KS: 216 QRS: 32 QRSD: 202 T: 218 QT: 404 QTc: 561 Interpretive Statements Normal sinus rhythm at 76 bpm LA conduction disturbance First-degree AV block Left bundle branch block Increased KS interval and LEFT BUNDLE BRANCH BLOCK new from 05/04/20. Clinical correlation advised Electronically Signed on 09-16-2020 8:17:09 EDT by Андрей Acuña
--- NOTE | 2020-09-16 08:45 | IPN ---
PROGRESS NOTE DATE: 09/15/2020 HISTORY: Patient was admitted approximately a week ago for some right upper quadrant and a history of gallstones, which was suggestive of acute cholecystitis. He was found to have marked elevations of his liver function tests (LFTs) at the time of admission. He underwent testing with a repeat ultrasound and then a magnetic resonance cholangiopancreatography (MRCP) which showed no evidence of biliary dilatation. He had an endoscopic retrograde cholangiopancreatography (ERCP) that confirmed a normal size bile duct and a stent was placed. His LFTs have remained elevated and actually increased over the last few days. He had a marked spike in his white count 2-3 days ago. He has also shown evidence of deteriorating renal function with a rapidly rising creatinine. 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 He was started on prednisone yesterday evening. He, otherwise, remains on some supportive care. He has been on antibiotics since admission. Vital signs show that he has been afebrile over the past 24 hours. His pulse has been in the 70s and 80s. Blood pressure has been in the normal range. Intake and output show that yesterday he had 940 mL in with only 275 recorded out. His urine output has been quite low and he did not respond to a dose of Lasix last evening from Dr. Sweeney. PHYSICAL EXAMINATION: The patient appears quite tired today. He is jaundiced. He is not complaining of significant pain at this point. Heart exam shows a regular rhythm. Lungs show good bilateral breath sounds. His left nephrostomy tube is in place. The abdomen is somewhat distended but without particular tenderness. He does have some significant peripheral edema, particularly in his lower extremities. LABORATORY: Laboratory studies today show his white count is down to 18,000 with a hemoglobin of 12, hematocrit 34 and a platelet count of 389,000. Differential count shows 92% neutrophils, 2% lymphocytes and 5% monocytes. Chemistry profile reveals that his sodium is 134, potassium 5.5, chloride 100, CO2 of 24, BUN is up to 89 and his creatinine is up one point from yesterday to 3.71. Glucose was 82. Liver function tests show a total bilirubin of 13, AST 336, ALT 180 and an alkaline phosphatase of 928. He had a lactic acid this afternoon of 7.6. IMPRESSION: The patient's renal function is now worsening unfortunately quite rapidly and his liver function tests remain quite elevated, and the bilirubin is now at its highest point. He is tolerating this all surprisingly well and remains alert and oriented. He appears quite tired but not in significant pain. PLAN: I spoke with Dr. Boston of the hospitalist service, who has taken over for Dr. Billy, about this patient this afternoon. We were in agreement that the picture seems most consistent with some sort of drug-related immune issue with the liver primarily. He has been ordered continued steroids. Renal function deterioration is very concerning and he may rapidly reach a point where dialysis will need to be considered. His liver biopsy was obtained yesterday and he had some peritoneal fluid obtained for further study. Dr. Boston indicated that he would have Dr. Alba see him regarding the elevated white cells in his peritoneal fluid. He has also been in touch to follow up with the [facility] regarding possible transfer and a bed is not available at this time. We will continue all supportive care with the steroids. I did speak with the patient's spouse today at the bedside and she had already spoken with Dr. Boston about the issues that are being addressed. Hopefully, he will show some improvement with the steroids but I do fear his renal function may shortly have worsened to a point where renal replacement therapy will be needed. BRAYAND
[2020-09-16 08:59] LABS: ABG HCO3 15.5 MEQ/L (22.0-26.0); ABG O2 SATURATION 92.5 % (95.0-99.0); ABG PARTIAL PRESSURE CO2 41.9 mmHg (35.0-45.0); ABG PARTIAL PRESSURE O2 76.6 mmHg (75.0-100.0); ABG STANDARD HCO3 14.8 MEQ/L (22.0-26.0); ABG TOTAL CO2 16.8 MEQ/L (23.0-31.0)
[2020-09-16] MEDS: MORPHINE 2 MG/ML 1ML VIAL (J2270) IV PRN ×2 (09:00→09:55)
[2020-09-16] MEDS ORDERED: PANTOPRAZOLE 40MG VIAL (C9113 PER 1) IV SCH (09:00)
[2020-09-16 09:02] LABS: ABG pH (ARTERIAL) 7.186 UNITS (7.350-7.450)
[2020-09-16] MEDS ORDERED: SCOPOLAMINE 1MG TRANSDERMAL PATCH TOP PRN (09:05)
[2020-09-16] MEDS ORDERED: LORazepam 2 MG/ML VIAL IV PRN (09:05)
[2020-09-16] MEDS ORDERED: SODIUM BICARBONATE 150 MEQ in D5W 1,000 ML IV SCH (10:00)
[2020-09-16 11:15] LABS: MAGNESIUM LEVEL 3.2 MG/DL (1.8-2.4)
--- NOTE | 2020-09-16 12:05 | CCN ---
CRITICAL CARE NOTE DATE: 09/16/2020 . SUBJECTIVE: Code was in progress as I was entering the room. The patient was hypoxic and bradycardic. He had received Epi and was starting to receive bicarb and calcium. I volunteered to place an arterial line as there was difficulty with palpation of pulses. I attempted to place a left femoral arterial line after cleaning the area and anesthetizing the skin with 1% Lidocaine. I did advance the needle into the left femoral artery with pulsatile flow. Wire was not able to be thread. The patient then had a cardiac arrest, became pulseless. CPR was initiated. I therefore stopped the procedure and concentrated on the CPR. The patient was already being transfused Epinephrine, Vasopressin and Levophed. I gave another amp of bicarb and chest compressions were initiated. This was performed for three minutes. There was spontaneous return of pulse although weak. The patient appeared agonal but was placed on mechanical ventilation. Tidal volume of 440, respiratory rate of 18 due to a prolonged expiratory phase and a PEEP of 5. After this and family consultation, it was determined to withdraw care. I was not part of the primary team, just was part of the code response.
--- NOTE | 2020-09-16 12:08 | CR ---
CONSULTATION DATE: 09/16/2020 REASON FOR CONSULTATION: I was asked to consult by Dr. Boston for evaluation of acute hepatitis/ spontaneous bacterial peritonitis in a patient with urothelial cancer on avilumab checkpoint inhibitors. HISTORY OF PRESENT ILLNESS: Mr. Farrell is a 75-year-old gentleman who was admitted with right-sided abdominal pain and hyperbilirubinemia. 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 The patient showed improvement in his cancer. He was switched on 04/16/2020 to avelumab which is an immunotherapy checkpoint inhibitor to be given every two weeks. His baseline hepatitis B surface antigen was negative and liver function tests at baseline were normal. On August 10 when he received his last dose of avelumab, his LFTs were slightly elevated above his baseline with AST around 50. The patient on August 27 had a port placed in his right IJ by Dr. Cullen. On August 31, he started complaining of right upper quadrant pain. He was seen by his primary care provider, Dr. Rodriguez and had an ultrasound of his gallbladder which showed the gallbladder stone with some adenomyosis, thick fluid around the liver and liver cyst measuring 2.4 x 2.9 cm. He was then referred to Dr. Kearns for evaluation the acute cholecystitis and there was discussion of laparoscopic cholecystectomy to be performed as an elective admission. The patient's abdominal pain progressively got worse. It started involving his midepigastric area with radiation of his right shoulder. The patient's was admitted on September 08 under the care of Dr. Kearns for possibility of surgery but he underwent ERCP done by Dr. Castillo with a stent placement but there was no evidence of obstruction of strictures. PAST MEDICAL HISTORY: 1. Urothelial cancer, status post six cycles of treatment with cisplatin and gemcitabine, September, to March, followed by maintenance treatment with checkpoint inhibitor avelumab every two weeks, Baseline hepatitis B negative. 2. Left nonfunctioning kidney due to stricture and requiring nephrostomy tube changes every three months. The patient had elected to undergo a left-sided nephrectomy but Dr. Dietrich attempted to do surgery May, which failed and therefore, patient had a nephrostomy tube again changed on 05/27/2020. Gallstones, gastroesophageal reflux disease, environmental allergies. PAST SURGICAL HISTORY: 1. Back surgery in August of 2018. 2. Renal stricture in 2019, undergoing nephrostomy tubes, urothelial malignancy with massive regional lymph nodes. 3. Qlzinb-y-Taoe placement. 4. Inguinal hernia repair as a child. FAMILY HISTORY: His father of hypertension, mother hypertension, colon cancer. SOCIAL HISTORY: He is a former smoker, denies alcohol use. He lives with his . REVIEW OF SYSTEMS: He complains of increased shortness of breath, bloating, abdominal pain. He denies any history of headache. He has had some nausea, decreased appetite, no history of DVTs. PHYSICAL EXAMINATION: He is a lethargic man, jaundiced, in moderate respiratory discomfort. He has oxygen on. Skin: Jaundiced. Sclerae icteric. Mucous membranes: Dry. Neck is supple. No JVD, no bruits. Heart: Tachycardic, no murmurs, rubs or gallops appreciated. Lungs: Clear. No wheezes, rales or rhonchi, listened anteriorly as the patient is too weak to sit upright. Abdomen: Very distended with ascites, tender to touch. He has a percutaneous nephrostomy on the left side of his flank area. Bowel sounds are present. Lower quadrant with inguinal hernia scar. Lower extremities: +2 pitting edema bilaterally. Neurologic exam: Lethargic but patient is able to move all extremities. LABORATORY DATA: White count is 17.9, hemoglobin 11.9, hematocrit 33.7, platelets 389, 92% neutrophils, 2% lymphocytes, 5% monocytes. His white count on 09/13 was 22.7. Sodium 134, potassium 5.5, chloride 100, bicarb 24, BUN 89, creatinine 3.71, glucose 82, lactic acid 7.6 to 11.2, calcium 7.7. Bilirubin 13 which has increased from 6.6 on September 08. AST 336, ALT 180, alk phos 928, total protein 4.3, albumin 1.8. Immunology: RANDI positive. Double-stranded DNA, IgG positive at 15 with normal being less than 9. Complement C3 is 78, complement 4 is 21, normal. Hepatitis A, IgM, B surface antigen, B-core IgM, hepatitis C negative. Monoscreen negative. MRSA PCR negative. Blood cultures, two sets done on 09/14 were no growth after 24 hours. On 09/15, two sets of blood cultures are pending. Peritoneal fluid gram stain had many white cells, a few red cells, no organism seen. Culture is pending anaerobic and aerobically. Peritoneal fluid has 2298 white cells with 13% lymphocytes and 87% PMNs. Total protein 1.5. Albumin 0.8, cloudy. IMAGING: Chest x-ray showed poor ventilation with atelectasis or infiltrates at the left lung basis. Needle aspiration ultrasound: There were 2400 mL of peritoneal fluid drained. Liver biopsy was obtained from the left lobe of the liver. Five core biopsies were sent to the lab. Pathology is still pending. CT, abdomen and pelvis done on 09/14 showed small bilateral pleural effusion, basilar patchy parenchymal opacities representing atelectasis or infiltrate and moderate abdominal ascites. Gallbladder ultrasound done on 09/08/2020 showed cholelithiasis with chronic cholecystitis. Gallbladder wall is thickened, now up to 13 mm, previously at 5 mm eight days prior. The common duct is only 4 mm without dilatation. ALLERGIES: PENICILLIN, CHLORHEXIDINE, CIPROFLOXACIN. MEDICATIONS: 1. Prednisone 70 mg p.o. daily, currently day #2. 2. Furosemide 80 mg IV b.i.d. 3. Reglan 5 mg IV q.6 daily p.r.n. 4. TUMS 1 gm p.o. q.6 p.r.n. 5. Oxycodone 5 mg q.4 p.r.n. 6. Kayexalate 15 gm p.o. one time dose. 7. Hydromorphone p.r.n. 8. Invanz 0.5 gm IV. It is switched from 1 gm IV daily, currently day #6. 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 Liver biopsy is still pending. Double-stranded DNA and RANDI were positive which a low complement which is probably related to the autoimmune hepatitis. He has also developed spontaneous bacterial peritonitis due to ascites from acute liver injury and failure with severe hyperbilirubinemia. His peritoneal fluid is suggestive of peritonitis. The patient has been on IV Invanz 0.5 gm q.24 hours currently. His gram stain and culture are still pending but he is on appropriate antibiotic. He also has developed complication of what likes hepatorenal syndrome with worsening creatinine with currently a creatinine of 3.71 which had increased from a baseline of 1.51. He is more lethargic and maybe encephalopathic and there is being transferred to the ICU. PLAN: 1. Suggest to continue p.o. prednisone. He has shown no improvement on oral steroids and I would suggest using Solu-Medrol at 1-2 mg q.12 hours. I have started him on 80 mg every 12 hours. 2. Continue Invanz 0.5 gm IV q.24 hours and will adjust based on culture of peritoneal fluid. 3. Hepatitis B-core IgG, CMV and EBV PCR also ordered for tomorrow as well as an HIV test. The case has been discussed with Dr. Boston and Dr. Dumas about findings of CT, abdomen and pelvis. The patient is being evaluated for transfer to transplant center to liver center at [facility] but they do not have any beds at the current time. If biopsy confirms autoimmune hepatitis, the patient cannot be restarted on immunotherapy. His prognosis is poor. Peritoneal fluid cytology and liver biopsy results are still pending. Thank you for consultation. This consultation has taken 70 minutes review of entire chart for the listpast year, chemotherapy treatment , discussion with consultants and hospita;sherrie MCGRATH
--- NOTE | 2020-09-16 12:08 | RO ---
OPERATIVE NOTE DATE OF OPERATION: 09/15/2020 PROCEDURE: Cardiac arrest code note and endotracheal intubation. INDICATION: Cardiac arrest and acute respiratory failure. PREPROCEDURE DIAGNOSIS: Acute renal and liver failure and septic shock. POSTPROCEDURE DIAGNOSIS: Acute renal and liver failure and septic shock. ATTENDING PHYSICIAN: Shahnaz Carter MD. CONSENT: Due to the emergent nature of the procedure, consent was implied. ANESTHESIA: PROCEDURE SUMMARY: A cardiac arrest code was called for the patient in the Medical ICU. Patient at the time of the cardiac arrest code was on max doses of vasopressors with Levophed and vasopressin. Patient was also noted on labs this morning to have hyperkalemia and worsening acute renal failure with a metabolic anion gap acidosis with a lactic acidosis. Overnight patient had received calcium and hyperkalemia protocol. Upon my arrival to the bedside, patient had been noted to go bradycardic and had brief loss of pulse. He was given manual CPR, and his pulse was palpated again, and he did also have a blood pressure, although hypotensive, with a MAP in the 60s. Patient was also on a nonrebreather but did appear to be somnolent and lethargic, as well as hypoxic while on the nonrebreather mask. Patient was ordered then for 1 amp of bicarb and a gram of calcium chloride. He was also started on bag mask valve ventilation with the Ambu bag. Patient continued to have bradycardia and hypotension. He was given 1 amp of epinephrine and an additional amp of sodium bicarb. Patient was then noted to have mild tachycardia, and his blood pressure did improve with his systolic BP into the 150s and then in the 120s. He continued to be lethargic and somnolent and was hypoxic. Patient was confirmed a full code this morning by the primary hospitalist team. Patient was, therefore, determined to need intubation for his acute respiratory failure and for his shock and brief cardiac arrest. Patient was on continuous cardiac monitoring including continuous pulse oximetry during the intubation procedure. Patient was given 2 mg of Versed for presedation and 30 mg of etomidate for induction. He was not given succinylcholine given his hyperkalemia and renal failure. Using a GlideScope and a 7.5 endotracheal tube with stylette, the patient was intubated on the first pass attempt. The stylette was removed, and a balloon cuff was inflated. Appropriate endotracheal tube position was confirmed by direct visualization of vocal cord passage fogging the tube, CO2 Colorimetric indicator, and symmetric breath sounds. The tube was secured at 25 cm at the lip. Post intubation chest x-ray was pending. The rest of the patient care was then transferred over to his primary hospitalist team. Total critical care time spent not including the intubation procedure was approximately 20 minutes. ALCIDES
--- NOTE | 2020-09-16 12:43 | IPN ---
NEPHROLOGY PROGRESS NOTE DATE: 09/16/2020 SUBJECTIVE: The patient got decompensated yesterday. He had elevated lactic acid level. His blood pressure was soft so he was transferred to the ICU yesterday. He was started on albumin infusions. He was already on IV antibiotics. He needed pressors overnight. His condition deteriorated. He went into fulminant liver failure. Lactic acid level was 11.2 later on at night. Total bilirubin was 15.2. AST was more than 9,000 and ALT was more than 1,300. His renal function deteriorated overnight. His potassium was 7.6 in the morning. Because of worsening renal failure and hyperkalemia with metabolic acidosis, decision was made to emergently get a temporary dialysis catheter placed. The patient got the dialysis catheter placed and emergent CVVHD initiation orders were placed. However early in the morning the patient went into cardiac arrest. CPR was done and pt was intubated. Later on his status was discussed with the family members. The patient was made comfort measures only and he later today morning. PLAN: This documentation was for documentation purposes only. The patient would not be charged for today's visit. ALCIDES
[2020-09-16 12:48] LABS: HIV 1&2 SCREEN CENTAUR NEGATIVE (NEGATIVE)
--- NOTE | 2020-09-16 13:03 | IPNPDOC ---
Text Note Date of Service The patient was seen on 09/16/20. NOTE Subjective: Patient is a 75-year-old male with a a PMHx of Urothelial CA (Avelumab immunotherapy) who presented to [facility] for right-sided abdominal pain. Patient was started on oral antibiotics and surgery was consulted as an outpatient. Patient was admitted to the surgical service. Hospital services consulted for hyperbilirubinemia. GI and Nephrology has been consulted. On 09/14, patient underwent a paracentesis and liver biopsy no subsequent started on prednisone. Yesterday evening, patient was transferred to the ICU after he was hypotensive and confused, his lactic acid was noted to be elevated. Patient was given IV fluid hydration and diuretics were stopped. Ultimately overnight, patient's blood pressure remained low and was started on Levophed. Lab work this room morning had revealed significant abnormalities including hyperkalemia, anion gap metabolic acidosis and progressive hepatic and renal dysfunction. Patient was given bicarbonate, calcium gluconate and general surgery was called for placement of an emergent dialysis catheter for anticipation of dialysis at the bedside. At seen and evaluated the patient, shortly after dialysis catheter was placed. Patient reported that his abdominal pain was doing better. Denies any nausea or vomiting. Was requiring higher amounts of oxygen. Patient ultimately had a cardiac arrest and a code was called. Chest compressions resuscitation efforts were started. Patient was intubated during the code. Patient did have a return of his pulse and blood pressue. At this po int patient was on 3 different pressor support modalities. Family was called at the bedside and decision was made to withdraw care. Patient was transitioned to comfort measures. Patient ultimately at 10:02 AM. Objective: Vitals (See below) General: Laying in bed, did not appear to be in any significant distress, was awake and alert, oriented to person, place and time HEENT: NC, AT, jaundiced CVS: +S1S2 Lungs: Again, lung sounds are diminished throughout both lower lung adhikari without wheezing, crackles or rhonchi Abdomen: Abdomen is soft, mildly distended, no significant tenderness was appreciated, bandaging from a paracentesis was noted Extremities: Lower extremities revealed persistent 1-2+ pitting edema, - Calf tenderness Imaging: Gall bladder US 09/08: 1. Cholelithiasis with chronic cholecystitis. However the gallbladder wall is increased significantly now up to 13 mm, previously up to 5 mm on the study 8 days ago. However the common duct is only 4 mm without dilatation and no intrahepatic ductal dilatation seen. 2. Liver without biliary dilatation and 2.6 x 2.6 cm cystic area centrally. 3. Pancreas partially obscured by gas shadowing and the right kidney with 2 lower pole cystic areas of up to 1.3 cm each as described. 4. Trace free fluid right upper quadrant. MRCP 09/08: 1. Lobular cystic focus in the right lobe of the liver measures 2.7 x 2.5 x 2.5 cm. Few tiny liver cysts demonstrated as well. 2. Contracted gallbladder, cholelithiasis and multiple calculi in the gallbladder neck with adenomyomatosis in the gallbladder fundus. Clinical correlation to exclude cholecystitis suggested. 3. There is a small amount of free intraperitoneal fluid present. 4. Nephrostomy tube in the left kidney partially visualized. 5. Focal caliectasis lower pole right kidney. Renal US 09/12: Atrophic left kidney. No hydronephrosis. Otherwise, negative renal ultrasound. The bladder is nondistended and cannot be further evaluated. Doppler US 09/13: Diffusely thickened gallbladder wall, nonspecific: Inflammation/edema versus fibrosis. Small mural gallbladder wall calcification, suggestive of porcelain gallbladder.. Intraluminal gallbladder calculi were identified on the comparison abdomen/pelvis CT but could not be identified by ultrasound today, possibly because the gallbladder is contracted during today's examination.. No biliary duct dilatation. Heterogeneous hepatic parenchyma compatible with diffuse hepatocellular disease. The main portal vein peak flow velocity is decreased below the normal range measuring 13.5 centimeters/second. Direction of flow in the main portal vein is hepatopetal which is normal. The main portal vein diameter is normal measuring 11 mm. The main hepatic vein waveforms are phasic, this is normal. There are no filling defects in the main hepatic vein to suggest thrombus. The hepatic artery is patent. Assessment and plan: Acute liver failure - likely 2/2 metastatic disease - Still appeared significantly jaundiced - Worsening liver function - Worsening INR - Hepatitis profile negative - s/p ERCP with stent placement; no obstruction found - s/p Liver biopsy on 09/14; called by pathology - reported that liver was mostly filled with malignancy, likely from his urothelial cancer - s/p Paracentesis on 09/14; removal of 2400 mL of fluid - significant elevation of WBC - GI / ID on consultation - Ertapenem - c/w Corticosteroids Elevated Cr with left percutaneous nephrostomy / Oliguric renal failure - possibly 2/2 hepatorenal syndrome? - UA without any significant signs of infection - Cr worsening / Decreased urine output - c/w Diuresis as per Nephrology; will likely need dialysis - will get IR guided PermCath placement tomorrow with Dr. 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 Completed 6 cycles 03/16/2020. - f/u CT chest/abd/pelvis - 03/23/2020 showed positive response - previous bulky retroperitoneal adenopathy from left kidney into left hemipelvis considerably improved - started maintenance avelumab immunotherapy 04/16/2020 - last dose 06/22/2020 DVT Prophylaxis - c/w TEDs/Sequentials VS,Fishbone, I+O VS, Fishbone, I+O Laboratory Tests 09/16/20 04:41 Vital Signs Date Time Temp Pulse Resp B/P (MAP) Pulse Ox O2 Delivery O2 Flow Rate FiO2 09/16/20 08:25 19 90 09/16/20 08:22 77 120/57 (78) 09/16/20 08:02 97.4 84 High Flow Cannula 15.0 I&O- Last 24 Hours up to 6 AM 09/16/20 06:00 Intake Total 1850.0 ml Output Total 50 ml Balance 1800.0 ml DIANNE PIEDRA MD Sep 16, 2020 13:03
[2020-09-22 04:06] LABS: EBV AB TO NUCLEAR ANTIGEN 82.8 U/mL (0.0-17.9); EBV PCR QUAL WHOLE BLD Negative (Negative); EBV VIRAL CAPSID AG IgG >600.0 U/mL (0.0-17.9); EBV VIRAL CAPSID AG IgM <36.0 U/mL (0.0-35.9); HEPATITIS B CORE ANTIBODY IGG Negative (Negative)
== END 2020-09-16 12:39 | disposition expired | DRG 435 ==
LOC: M PCU 09:58 → M MSPAV 16:58 → M ICU 09-15 18:58
PROVIDERS: ADMIT Surgery; ATTEND Surgery
PROC: 0F798DZ Dilation of Common Bile Duct with Intraluminal Device, Via Natural or Artificial Opening Endoscopic (ICD-10-PCS; principal; 2020-09-10 14:54)
PROC: 0W9G3ZZ Drainage of Peritoneal Cavity, Percutaneous Approach (ICD-10-PCS; 2020-09-14)
PROC: 0FB23ZX Excision of Left Lobe Liver, Percutaneous Approach, Diagnostic (ICD-10-PCS; 2020-09-14)
PROC: 5A1935Z Respiratory Ventilation, Less than 24 Consecutive Hours (ICD-10-PCS; 2020-09-15)
DX: C78.7 Secondary malignant neoplasm of liver and intrahepatic bile duct (principal); K65.2 Spontaneous bacterial peritonitis; J96.00 Acute respiratory failure, unspecified whether with hypoxia or hypercapnia; K72.00 Acute and subacute hepatic failure without coma; K76.7 Hepatorenal syndrome; A41.9 Sepsis, unspecified organism; R65.21 Severe sepsis with septic shock; K80.00 Calculus of gallbladder with acute cholecystitis without obstruction; C77.9 Secondary and unspecified malignant neoplasm of lymph node, unspecified; C68.8 Malignant neoplasm of overlapping sites of urinary organs; C79.89 Secondary malignant neoplasm of other specified sites; R17 Unspecified jaundice; R18.8 Other ascites; G93.40 Encephalopathy, unspecified; R57.9 Shock, unspecified; E87.2 Acidosis; E87.1 Hypo-osmolality and hyponatremia; N13.5 Crossing vessel and stricture of ureter without hydronephrosis; E80.6 Other disorders of bilirubin metabolism; N18.30 Chronic kidney disease, stage 3 unspecified; E87.5 Hyperkalemia; I46.9 Cardiac arrest, cause unspecified